=== PATIENT | female | born 1970 ===

== ENCOUNTER 2017-03-21 10:14 | Day surgery (SDC) | payer MEDICAID ==
[2017-03-21 11:02] VITALS: RESP 18
[2017-03-21 11:19] VITALS: BMI 31.9
[2017-03-21] MEDS ORDERED: Bupivacaine 0.5% Inj(30mL) ONE (11:51)
[2017-03-21] MEDS ORDERED: Lidocaine 1% Inj (20ml) ONE (11:51)
[2017-03-21] MEDS ORDERED: MethylPREDNISolone Depo 40 mg/ml Inj ONE (11:51)
[2017-03-21] MEDS ORDERED: Bupivacaine HCl 0.5% PF (10 ml) Inj ONE (11:52)
[2017-03-21] MEDS ORDERED: Lactated Ringer's 1,000 ML IV ONE (12:10)
[2017-03-21 14:57] VITALS: BP 125/79; PULSE 87; TEMP 98.1; O2SAT 98
--- NOTE | 2017-03-21 17:01 | RAD ---
PROCEDURE: Fluoroscopy up to 1 hr. HISTORY: PAIN MANAGEMENT COMPARISON: None TECHNIQUE: Standard protocol for this study/examination. FINDINGS: Total fluoroscopic time (continuous mode) utilized during the procedure: 12.5 seconds. Submitted images from the current procedure: 1.0 IMPRESSION: Less than 1 hr fluoroscopic time utilized during performance of the procedure.
--- NOTE | 2017-03-21 17:23 | OP ---
PROCEDURE DATE: 03/21/2017 PREOPERATIVE DIAGNOSIS: Left knee osteoarthritis. POSTOPERATIVE DIAGNOSIS: Left knee osteoarthritis. PROCEDURE: Left knee genicular nerve block x3. ANESTHESIA ADMINISTERED BY: Dr. Kim. SURGEON: Emigdio Bae MD TYPE OF ANESTHESIA: Monitored anesthesia care. COMPLICATIONS: None. SPECIMEN: None. DESCRIPTION OF PROCEDURE: As follows, after we had a discussion of the procedure with the patient including its risks, benefits, alternative, outcome data, possibility of no effect or increased pain, the patient consented to the procedure. She denies any recent infections, bleeding tendencies or being on anticoagulants and a decision was then made to proceed to the OR. The patient was placed on the fluoroscopy table in a supine position with 2 pillows underneath her left knee. The knee was prepped and draped in the usual sterile fashion and sterile technique was adhered during the entire procedure. The genicular nerves were located adjacent to the medial and lateral femoral condyle and also the lateral tibial condyle. The 3 above-targeted areas were first visualized on the anterior posterior view fluoroscopy. The skin overlying the 3 areas was infiltrated with 1% lidocaine using 25-gauge needle. Subsequently, a 22-gauge 3-1/2-inch spinal needle was incrementally advanced under fluoroscopic guidance until the tip of the needle made bony contact with the target areas. Then, fluoroscopy was turned towards the lateral direction to confirm all 3 needles to be in the middle of the bony shaft. After appropriate placement of all 3 needles, approximately 4 mL of 0.5% Marcaine and Depo-Medrol mixture was injected. The needle was then removed and patient's knee was cleaned and dried and bandage was applied. The patient was then transferred to recovery area in good conditions without any signs of WORKING SUPERVISOR toxicity or any neurological deficits. She will have a followup in our office in approximately 2-4 weeks. En-Miguel Bae MD
== END 2017-03-21 16:36 | disposition home or self-care (01) ==
LOC: H.OPSURG 10:14
PROVIDERS: ATTEND Anesthesiology
DX: M17.12 Unilateral primary osteoarthritis, left knee (principal); K21.9 Gastro-esophageal reflux disease without esophagitis; I10 Essential (primary) hypertension
CPT/HCPCS: 64450; J1030; J2250; J3010; J7120

== ENCOUNTER 2017-08-23 23:13 | Inpatient (IN) | payer MEDICAID ==
[2017-08-23 23:14] VITALS: BMI 31.9
[2017-08-23] MEDS ORDERED: Sodium Chloride 0.9% 1,000 ML IV STA (23:42)
[2017-08-24] MEDS ORDERED: HYDROmorphone 0.5 mg/0.5 ml ISec IVP STA ×2 (00:03→01:09)
[2017-08-24 00:10] LABS: BASO % 0.5 % (0.0-2.0); EOS # 0.1 K/uL (0.0-0.7); EOS % 0.9 % (0.0-4.0); HEMOGLOBIN 14.5 g/dL (12.0-16.0); LYMPH # 1.6 K/uL (1.0-4.3); LYMPH % 21.8 % (20.0-40.0); MEAN CORPUSCULAR HEMOGLOBIN 28.4 pg (27.0-31.0); MEAN CORPUSCULAR HGB CONC 33.1 g/dL (33.0-37.0); MEAN PLATELET VOLUME 9.4 fl (7.2-11.7); MONO # 0.7 K/uL (0.0-0.8); MONO % 9.7 % (0.0-10.0); NEUT % 67.1 % (50.0-75.0); NRBC % 0.2 % (0.0-0.0); RBC 5.08 Mil/uL (3.80-5.20); RED CELL DISTRIBUTION WIDTH 15.1 % (11.5-14.5); WHITE BLOOD COUNT 7.4 K/uL (4.8-10.8)
--- NOTE | 2017-08-24 00:11 | ED PDOC ---
HPI: Back Time Seen by Provider: 08/23/17 23:25 Chief Complaint (Nursing): Back Pain Chief Complaint (Provider): Back Pain History Per: Patient History/Exam Limitations: no limitations Onset/Duration Of Symptoms: Persistent, Worse Since (worse since earlier tonight ) Current Symptoms Are (Timing): Constant Previous Symptoms: Chronic Pain Additional Complaint(s): 46 year old female presents to ED with complaints of worsening back pain since earlier tonight and has a past medical history of chronic back pain and colon cancer (on 47th cycle of chemotherapy - 5fu with leucovorin). Patient states pain became extremely severe on the left side of her mid-back, radiating to her chest. (+) nausea and vomiting x4 episodes (non-bloody, non-bilious). Patient notes that she follows up with Dr. Bae for Ultram and Tylenol 3 for back pain, but has been unable to tolerate her pain medication secondary to nausea. PCP: Zoran Hernández - Risk Factors AAA Risk Factors: Neg: Older Than 49 Years Of Age Past Medical History Reviewed: Historical Data, Nursing Documentation, Vital Signs Vital Signs: Last Vital Signs Temp 97.8 F 08/23/17 23:15 Pulse 97 H 08/23/17 23:15 Resp 16 08/23/17 23:15 BP 165/101 H 08/23/17 23:15 Pulse Ox 98 08/23/17 23:15 - Medical History PMH: Anxiety, Depression, Fibromyalgia, GERD, HTN Denies: Chronic Kidney Disease - Surgical History Surgical History: Back Surgery, Endoscopy - Family History Family History: States: Unknown Family Hx - Home Medications Home Medications: Ambulatory Orders Medication Instructions Recorded amLODIPine [Norvasc] 10 mg PO DAILY #0 tab 04/05/15 DULoxetine [Cymbalta] 60 mg PO HS 04/23/15 Omeprazole 20 mg PO DAILY 04/27/17 Acetaminophen with Codeine 1 tab PO Q6 PRN 08/24/17 [Tylenol with Codeine #3 Tablet] Ondansetron [Zofran Tab] 4 mg PO Q6 PRN 08/24/17 Tramadol HCl [Tramadol HCl ER] 1 tab PO BID PRN 08/24/17 Zolpidem [Ambien] 10 mg PO HS 08/24/17 - Allergies Allergies/Adverse Reactions: Allergies Allergy/AdvReac Type Severity Reaction Status Date / Time penicillin G Allergy RASH Verified 03/21/17 11:19 vancomycin Allergy RASH Verified 03/21/17 11:19 Review of Systems ROS Statement: Except As Marked, All Systems Reviewed And Found Negative Cardiovascular: Positive for: Chest Pain (back pain radiates to chest) Gastrointestinal: Positive for: Nausea, Vomiting (x4 episodes) Musculoskeletal: Positive for: Back Pain Physical Exam - Reviewed Nursing Documentation Reviewed: Yes Vital Signs Reviewed: Yes - Physical Exam Appears: Positive for: Non-toxic, In Acute Distress (secondary to pain; hypertensive) Skin: Positive for: Normal Color, Warm, Dry Eye Exam: Positive for: Normal appearance Neck: Positive for: Normal Cardiovascular/Chest: Positive for: Regular Rate, Rhythm, Tachycardia Respiratory: Positive for: Normal Breath Sounds. Negative for: Respiratory Distress Gastrointestinal/Abdominal: Positive for: Soft. Negative for: Tenderness Back: Positive for: L CVA Tenderness. Negative for: Normal Inspection Extremity: Positive for: Normal ROM. Negative for: Deformity Neurologic/Psych: Positive for: Alert, Oriented. Negative for: Motor/Sensory Deficits - Laboratory Results Result Diagrams: 08/24/17 00:04 08/24/17 00:04 - ECG O2 Sat by Pulse Oximetry: 98 (RA) Pulse Ox Interpretation: Normal Medical Decision Making Medical Decision Makin Initial impression: severe acute back pain on chronic back pain associated with nausea/vomiting and history of colon cancer Initial plan: * EKG * Labs * Lact Acid * Lipase * UPreg * PTT/PT * Dilaudid 1mg IVP * NS IV * Zofran Inj 4mg IV * BCx * Re-eval 0001 * CPK * Trop I 0059 Labs reviewed: no clinically significant abnormalities with exception of elevated lactic acid at 7.1 This is likely a result of active tumorlysis, given patient is currently on chemotherapy. Patient complains of persistent pain although she notes some improvement. Patient will be admitted for intractable back pain and lactic acidosis under Dr. Lise Haro (family practice resident occupational therapy supervisor) - INPATIENT MED/SURG. 0310 CT LUMBAR FINDINGS: Limitations: Lack of intravenous contrast. Streak artifact - mild. Vertebrae: No acute fracture. Surgical clips/mesh anterior to spine. Discs/spinal canal/neural foramina: Intervertebral device at L4-L5 level. No significant spinal stenosis. Soft tissues: Unremarkable. Lymph nodes: Borderline enlarged short axis lymph node upper abdomen, stable. Other findings: Gas within sacroiliac joints. Probable bone islands. IMPRESSION: 1. No fracture. 2. If back pain persists, consider MRI for further evaluation. 3. Incidental/non-acute findings are described above. Scribe Attestation: Documented by Tali Jean-Baptiste acting as a scribe for Juan Smith MD. Scribe Attestation: All medical record entries made by the Scribe were at my direction and personally dictated by me. I have reviewed the chart and agree that the record accurately reflects my personal performance of the history, physical exam, medical decision making, and the department course for this patient. I have also personally directed, reviewed, and agree with the discharge instructions and disposition. Disposition - Disposition Disposition Time: 00:58 Condition: FAIR - Pt Status Changed To: Hospital Disposition Of: Inpatient (MED/SURG) - Admit Certification Admit to Inpatient:: After my assessment, the patient will require hospitalization for at least two midnights. This is because of the severity of symptoms shown, intensity of services needed, and/or the medical risk in this patient being treated as an outpatient.
[2017-08-24 00:18] LABS: ALB/GLOB RATIO 1.2 (1.0-2.1); ALBUMIN 4.6 g/dL (3.5-5.0); ALT/SGPT 131 U/L (9-52); AST/SGOT 192 U/L (14-36); BLOOD UREA NITROGEN 10 mg/dl (7-17); CALCIUM 9.8 mg/dL (8.4-10.2); GFR AFRICAN-AMERICAN > 60; GFR NON-AFRICAN AMERICAN > 60; LIPASE 119 U/L (23-300)
[2017-08-24] MEDS ORDERED: Sodium Chloride 0.9% 1,000 ML IV STA (00:30)
[2017-08-24 00:47] LABS: INR 1.2 (0.9-1.2); PARTIAL THROMBOPLASTIN TIME 27.7 Seconds (25.6-37.1); PROTHROMBIN TIME 13.1 Seconds (9.8-13.1)
--- NOTE | 2017-08-24 02:56 | CP.PCM.HP ---
Addendum entered and electronically signed by Alison Whiteside MD 08/24/17 17:27: Pt seen and examined at the bedside in the am. Complained of back pain, not controlled with current pain regimen. Tolerating diet. Pain management consulted and medication regimen adjusted + End Tidal CO2 Pt re-evaluated in the evening and states pain is well controlled. MRI w/ and w/o contrast-thoracic and lumbar ordered Original Note: History of Present Illness - History of Present Illness History of Present Illness: "my back hurts much worse than it ever did" 46 y/o female with medical hx remarkable for HTN, Colon CA (currently on chemo) , chronic back pain (managed by pain management) and Fibromylagia, presents for evaluation of worsening back pain. Pt reports her pain was at baseline approx 1 week ago but had suddenly worsened while she was lying in bed. She reports it shot up to a 10/10 while laying down and remained at that level even while taking her prescribed medications. She denies any inciting or triggering events. The pain is located on her right lower back, it is 10/10, constant, nonradiating, without any alleviating factors. She is unsure of aggravating factors as it is always there. She is currenlty on cycle 37 of chemo for her colon CA, which has mets to the liver. She also reports episodes of nausea and several episodes of NBNB emesis which she blames on the chemo. She has no other complaints and concerns. Denies fever/chills, headaches, changes in vision, numbness/tingling, saddle anesthesia, urinary/bowel retention/incontinence. PMD: [facility] PMHx: HTN, colon cancer with liver mets, back pain Meds: as per med rec PsurgHx: C6 fusion, Colon resection and b/l oopherectomy, radioembolization of liver SocialHx: denies ETOH/tobacco/drug abuse FamilyHx: DM, HTN LMP: last month Next of kin: daughter Aspen Code status: full code Present on Admission - Present on Admission Any Indicators Present on Admission: No Review of Systems - Constitutional Constitutional: absent: As Per HPI, Anorexia, Chills, Daytime Sleepiness, Excessive Sweating, Fatigue, Fever, Frequent Falls, Headache, Increased Appetite , Lethargy, Malaise, Night Sweats, Snoring, Sleep Apnea, Weight Gain, Weight Loss, Weakness, Other - EENT Eyes: absent: As Per HPI, Blind Spots, Blurred Vision, Change in Vision, Decreased Night Vision, Diplopia, Discharge, Dry Eye, Exophthalmos, Floaters, Irritation, Itchy Eyes, Loss of Peripheral Vision, Pain, Photophobia, Requires Corrective Lenses, Sees Flashes, Spots in Vision, Tunnel Vision, Other Visual Disturbances, Loss of Vision, Other Ears: absent: As Per HPI, Decreased Hearing, Ear Discharge, Ear Pain, Tinnitus, Abnormal Hearing, Disequilibrium, Dizziness, Other Nose/Mouth/Throat: absent: As Per HPI, Epistaxis, Nasal Congestion, Nasal Discharge, Nasal Obstruction, Nasal Trauma, Nose Pain, Post Nasal Drip, Sinus Pain, Sinus Pressure, Bleeding Gums, Change in Voice, Dental Pain, Dry Mouth, Dysphagia, Halitosis, Hoarsness, Lip Swelling, Mouth Lesions, Mouth Pain, Odynophagia, Sore Throat, Throat Swelling, Tongue Swelling, Facial Pain, Neck Pain, Neck Mass, Other - Breasts Breasts: absent: As Per HPI, Change in Shape, Mass, Pain, Nipple Discharge, Nipple Inversion, Skin Changes, Swelling, Other - Cardiovascular Cardiovascular: absent: As Per HPI, Acrocyanosis, Chest Pain, Chest Pain at Rest , Chest Pain with Activity, Claudication, Diaphoresis, Dyspnea, Dyspnea on Exertion, Edema, Irregular Heart Rhythm, Pain Radiating to Arm/Neck/Jaw, Leg Edema, Leg Ulcers, Lightheadedness, Orthopnea, Palpitations, Paroxysmal Nocturnal Dyspnea, Pedal Edema, Radiating Pain, Rapid Heart Rate, Slow Heart Rate, Syncope, Other - Respiratory Respiratory: absent: As Per HPI, Cough, Dyspnea, Hemoptysis, Dyspnea on Exertion , Wheezing, Snoring, Stridor, Pain on Inspiration, Chest Congestion, Excessive Mucous Production, Change in Mucous Color, Pain with Coughing, Other - Gastrointestinal Gastrointestinal: Nausea, Vomiting. absent: As Per HPI, Abdominal Pain, Belching, Bloating, Change in Bowel Habits, Change in Stool Character, Coffee Ground Emesis, Constipation, Cramping, Diarrhea, Dyspepsia, Dysphagia, Early Satiety, Excessive Flatus, Fecal Incontinence, Heartburn, Hematemesis, Hematochezia, Loose Stools, Melena, Odynophagia, Temesmus, Other - Musculoskeletal Musculoskeletal: As Per HPI, Back Pain, Myalgias, Neck Pain Past Patient History - Infectious Disease Hx of Infectious Diseases: None - Past Medical History & Family History Past Medical History?: Yes - Past Social History Smoking Status: Never Smoked Alcohol: None Drugs: Denies Home Situation {Lives}: With Family - CARDIAC Hx Hypertension: Yes - PULMONARY Hx Respiratory Disorders: No - NEUROLOGICAL Hx Neurological Disorder: Yes - HEENT Hx HEENT Problems: No - RENAL Hx Chronic Kidney Disease: No - ENDOCRINE/METABOLIC Hx Endocrine Disorders: No - INTEGUMENTARY Hx Dermatological Problems: No - GENITOURINARY/GYNECOLOGICAL Hx Genitourinary Disorders: No - PSYCHIATRIC Hx Anxiety: Yes Hx Depression: Yes - SURGICAL HISTORY Other/Comment: STEROID INJECTION;SPINAL [id number] 6;CERVICAL 5 REPLACEMENT;COLONOSCOPY;ENDOSCOPY;COLON RESECTION;REMOVAL OF BILATERSAL OVARIES - ANESTHESIA Hx Anesthesia: Yes Hx Anesthesia Reactions: No Hx Malignant Hyperthermia: No Meds Allergies/Adverse Reactions: Allergies Allergy/AdvReac Type Severity Reaction Status Date / Time penicillin G Allergy RASH Verified 03/21/17 11:19 vancomycin Allergy RASH Verified 03/21/17 11:19 Physical Exam - Constitutional Appears: Non-toxic, No Acute Distress - Head Exam Head Exam: ATRAUMATIC, NORMOCEPHALIC - Eye Exam Eye Exam: EOMI Pupil Exam: PERRL - ENT Exam ENT Exam: Mucous Membranes Moist, Normal Exam - Neck Exam Neck exam: Positive for: Normal Inspection. Negative for: Tenderness - Respiratory Exam Respiratory Exam: Clear to Auscultation Bilateral, NORMAL BREATHING PATTERN. absent: Rales, Rhonchi, Wheezes - Cardiovascular Exam Cardiovascular Exam: REGULAR RHYTHM, RRR, +S1, +S2. absent: Diastolic murmur, JVD, Rubs, Systolic Murmur - GI/Abdominal Exam GI & Abdominal Exam: Normal Bowel Sounds, Soft. absent: Tenderness - Extremities Exam Extremities exam: Positive for: normal inspection, pedal pulses present. Negative for: calf tenderness, pedal edema, tenderness - Back Exam Back exam: FULL ROM, tenderness (right mid back ). absent: CVA tenderness (L), CVA tenderness (R), muscle spasm, paraspinal tenderness, vertebral tenderness - Neurological Exam Neurological exam: Alert, CN II-XII Intact, Normal Gait, Oriented x3, Reflexes Normal - Psychiatric Exam Psychiatric exam: Normal Affect, Normal Mood - Skin Skin Exam: Dry, Intact, Normal Color, Warm Results - Vital Signs Recent Vital Signs: Last Vital Signs Temp 97.8 F 08/23/17 23:15 Pulse 97 H 08/23/17 23:15 Resp 16 08/23/17 23:15 BP 165/101 H 08/23/17 23:15 Pulse Ox 98 08/24/17 01:02 - Labs Result Diagrams: 08/24/17 00:04 08/24/17 00:04 Labs: Laboratory Results - last 24 hr 08/24/17 08/24/17 08/24/17 00:04 00:04 00:04 WBC 7.4 RBC 5.08 Hgb 14.5 Hct 43.7 MCV 86.0 D MCH 28.4 MCHC 33.1 RDW 15.1 H Plt Count 235 MPV 9.4 Neut % (Auto) 67.1 Lymph % (Auto) 21.8 Cottle % (Auto) 9.7 Eos % (Auto) 0.9 Baso % (Auto) 0.5 Neut # (Auto) 5.0 Lymph # (Auto) 1.6 Cottle # (Auto) 0.7 Eos # (Auto) 0.1 Baso # (Auto) 0.0 PT INR APTT Sodium 135 Potassium 3.8 Chloride 94 L Carbon Dioxide 18 L Anion Gap 27 H BUN 10 Creatinine 0.5 L Est GFR ( Amer) > 60 Est GFR (Non-Af Amer) > 60 Random Glucose 208 H Lactic Acid 7.1 H* Calcium 9.8 Magnesium Total Bilirubin 0.6 AST 192 H ALT 131 H D Alkaline Phosphatase 164 H Total Creatine Kinase Troponin I Total Protein 8.6 H Albumin 4.6 Globulin 4.0 H Albumin/Globulin Ratio 1.2 Lipase 119 08/24/17 08/24/17 08/24/17 00:04 00:14 00:34 WBC RBC Hgb Hct MCV MCH MCHC RDW Plt Count MPV Neut % (Auto) Lymph % (Auto) Cottle % (Auto) Eos % (Auto) Baso % (Auto) Neut # (Auto) Lymph # (Auto) Cottle # (Auto) Eos # (Auto) Baso # (Auto) PT 13.1 INR 1.2 APTT 27.7 Sodium Potassium Chloride Carbon Dioxide Anion Gap BUN Creatinine Est GFR ( Amer) Est GFR (Non-Af Amer) Random Glucose Lactic Acid Calcium Magnesium 1.8 Total Bilirubin AST ALT Alkaline Phosphatase Total Creatine Kinase 70 Troponin I < 0.0120 Total Protein Albumin Globulin Albumin/Globulin Ratio Lipase Assessment & Plan - Assessment and Plan (Free Text) Assessment: 46 y/o female with hx of colon CA on chemo admitted for intractable back pain. Plan: 1) Intractable Back Pain -s/p 3mg Dilaudid in ED -LS CT w/o contrast: no fracture or spinal stenosis when compared to MRI last month -pain control -was last seen by Dr. Bae on 08/17/2017, no evidence in encounter of worsening pain -anesthesiology consult with Dr. Bae, follow up recommendations 2) Colon Cancer with Liver metastasis -currently on cycle 37 of chemo -pt reports she is to be seen by [facility] for next dosage which is due tomorrow -Zofran for nausea 3) Hypertension -stable -c/w home meds as ordered 4) Transaminemia -likley 2/2 to liver mets 5) Lactic Acidosis -likely 2/2 to tumor lysis from current chemo therapy 6) Diet -regular diet 7) Prophylaxis -Lovenox 40mg SC QD
--- NOTE | 2017-08-24 03:10 | CT ---
EXAM: CT Lumbar Spine Without Intravenous Contrast CLINICAL HISTORY: 46 years old, female; Pain; Low back pain; Prior surgery; Surgery date: 6+ months; Surgery type: Back surgery TECHNIQUE: Axial computed tomography images of the lumbar spine without intravenous contrast. All CT scans at this facility use one or more dose reduction techniques, viz.: automated exposure control; ma/kV adjustment per patient size (including targeted exams where dose is matched to indication; i.e. head); or iterative reconstruction technique. Coronal and sagittal reformatted images were created and reviewed. COMPARISON: MR - SPINAL CANAL LUMBAR W/O CONT 2017-07-10 11:47, CT-04/04/2015 FINDINGS: Limitations: Lack of intravenous contrast. Streak artifact - mild. Vertebrae: No acute fracture. Surgical clips/mesh anterior to spine. Discs/spinal canal/neural foramina: Intervertebral device at L4-L5 level. No significant spinal stenosis. Soft tissues: Unremarkable. Lymph nodes: Borderline enlarged short axis lymph node upper abdomen, stable. Other findings: Gas within sacroiliac joints. Probable bone islands. IMPRESSION: 1. No fracture. 2. If back pain persists, consider MRI for further evaluation. 3. Incidental/non-acute findings are described above.
[2017-08-24] MEDS ORDERED: HYDROmorphone 0.5 mg/0.5 ml ISec IVP PRN (06:00)
[2017-08-24] MEDS ORDERED: HYDROmorphone 0.5 mg/0.5 ml ISec IVP ONE (06:00)
[2017-08-24] MEDS ORDERED: Acetaminophen-Codeine 300/30 mg Tab PO PRN (06:03)
--- NOTE | 2017-08-24 07:55 | PCM.RRT ---
<Alison Whiteside - Last Filed: 08/24/17 09:01> I.Reason for STRAIGHT KNIFE CUTTER MACHINE - A) Acute Change in Patient: Subjective: STRAIGHT KNIFE CUTTER MACHINE Start Time: 7:34 STRAIGHT KNIFE CUTTER MACHINE Reason: Intractable back pain S: STRAIGHT KNIFE CUTTER MACHINE called by RN because pt was complaining of severe back pain that was not relieved but current pain regimen. Pt complained of back pain. Denied cp, sob, headache, numbness or tingling, or weakness. O: Vitals BP 151/86, 75, O2 sat 100%, T 97.6 General: Pt seen lying in bed, distressed, moaning HEENT: normocephalic, atraumatic Cardiac: RRR, normal S1, S2, no murmurs Pulm: CTABL, no wheezing Abdomen: Soft, nontender, non distended, normal BS Extremities: no Le edema Neuro: no gross focal neurological deficits STRAIGHT KNIFE CUTTER MACHINE Interventions: 2mg of Dilaudid x1 Reassessment: Pt was re-evaluated 10min after receiving Dilaudid, mildly distressed, stating improvement in pain Assessment: Pt is a 46 y/o female admitted for intractable back pain currently receiving Tramadol and Cymbalta with complaints of acute back for which a rapid response was called. Plan: Pain consult in place to assess for [facility] pain management. Will re- evaluate pt's current home pain regimen. STRAIGHT KNIFE CUTTER MACHINE MD: Dr. Bakari Zavala STRAIGHT KNIFE CUTTER MACHINE End Time: 7:50am <Marla Medel - Last Filed: 08/24/17 14:21> Attending/Attestation - Attestation I have personally seen and examined this patient.: Yes I have fully participated in the care of the patient.: Yes I have reviewed all pertinent clinical information, including history, physical exam and plan: Yes Notes (Text): Intractable Low Back Pain - CT of L spine : no fracture - no focal neuro deficit, no saddle anesthesia - no urinary retention - Dilaudid 2 mg IV given - Pain mgt consult - further work up for LBP 08/24/17 14:21
[2017-08-24] MEDS: Lidocaine 5% Patch TD SCH ×2 (08:10→11:30)
[2017-08-24 09:04] LABS: HEMOGLOBIN 14.6 g/dL (12.0-16.0); MEAN CELL VOLUME 85.5 fl (81.0-99.0); MEAN CORPUSCULAR HEMOGLOBIN 28.8 pg (27.0-31.0); MEAN CORPUSCULAR HGB CONC 33.7 g/dL (33.0-37.0); RBC 5.08 Mil/uL (3.80-5.20); RED CELL DISTRIBUTION WIDTH 14.7 % (11.5-14.5); WHITE BLOOD COUNT 7.4 K/uL (4.8-10.8)
--- NOTE | 2017-08-24 09:16 | RAD ---
HISTORY: admit COMPARISON: CT scan of the chest, abdomen and pelvis performed 10/19/2015 at [facility]. FINDINGS: LUNGS: No active pulmonary disease. PLEURA: No significant pleural effusion identified, no pneumothorax apparent. CARDIOVASCULAR: Normal. OSSEOUS STRUCTURES: Anterior cervical fixation plate. Unchanged. VISUALIZED UPPER ABDOMEN: Normal. OTHER FINDINGS: Right internal jugular access chest port, unchanged. IMPRESSION: No active disease.
[2017-08-24 09:17] LABS: ALB/GLOB RATIO 1.1 (1.0-2.1); ALBUMIN 4.6 g/dL (3.5-5.0); ALT/SGPT 141 U/L (9-52); AST/SGOT 195 U/L (14-36); BLOOD UREA NITROGEN 7 mg/dl (7-17); CALCIUM 9.8 mg/dL (8.4-10.2); GFR AFRICAN-AMERICAN > 60; GFR NON-AFRICAN AMERICAN > 60
[2017-08-24] MEDS: Pantoprazole 40 mg EC Tab PO SCH (09:43)
[2017-08-24] MEDS: Enoxaparin 40 mg Syringe SC SCH (09:47)
--- NOTE | 2017-08-24 13:27 | CP.PCM.CON ---
History of Present Illness - History of Present Illness History of Present Illness: 46 y/o female with medical hx remarkable for chronic back pain (managed by pain management) and Fibromylagia, presents for evaluation of worsening back pain. Pt reports pain escalated to a 10/10 despite taking her prescribed medications. She denies any inciting or triggering events. The pain is located on her left lower back radiating to her ribs. She denies aggravating factors. She is currenlty on cycle 37 of chemo for her colon CA, which has mets to the liver. Denies fever/chills, headaches, changes in vision, numbness/tingling, saddle anesthesia, urinary/bowel retention/incontinence. Past Patient History - Infectious Disease Hx of Infectious Diseases: None - Past Medical History & Family History Past Medical History?: Yes - Past Social History Smoking Status: Never Smoked Alcohol: None Drugs: Denies Home Situation {Lives}: With Family - CARDIAC Hx Hypertension: Yes - PULMONARY Hx Respiratory Disorders: No - NEUROLOGICAL Hx Neurological Disorder: Yes - HEENT Hx HEENT Problems: No - RENAL Hx Chronic Kidney Disease: No - ENDOCRINE/METABOLIC Hx Endocrine Disorders: No - INTEGUMENTARY Hx Dermatological Problems: No - GENITOURINARY/GYNECOLOGICAL Hx Genitourinary Disorders: No - PSYCHIATRIC Hx Anxiety: Yes Hx Depression: Yes - SURGICAL HISTORY Other/Comment: STEROID INJECTION;SPINAL [id number] 6;CERVICAL 5 REPLACEMENT;COLONOSCOPY;ENDOSCOPY;COLON RESECTION;REMOVAL OF BILATERSAL OVARIES - ANESTHESIA Hx Anesthesia: Yes Hx Anesthesia Reactions: No Hx Malignant Hyperthermia: No Meds Allergies/Adverse Reactions: Allergies Allergy/AdvReac Type Severity Reaction Status Date / Time penicillin G Allergy RASH Verified 03/21/17 11:19 vancomycin Allergy RASH Verified 03/21/17 11:19 - Medications Medications: Current Medications Acetaminophen/Codeine Phosphate (Tylenol/Codeine 300 Mg/30 Mg) 1 tab PO Q6 PRN PRN Reason: Pain, moderate (4-7) Last Admin: 08/24/17 07:50 Dose: 1 tab Amlodipine Besylate (Norvasc) 10 mg PO DAILY ON LICENSE OF [facility] Last Admin: 08/24/17 09:47 Dose: 10 mg Docusate Sodium (Colace) 100 mg PO BID ON LICENSE OF [facility] Last Admin: 08/24/17 09:50 Dose: 100 mg Duloxetine HCl (Cymbalta) [address] [facility] Enoxaparin Sodium (Lovenox) 40 mg SC DAILY ON LICENSE OF [facility] PRN Reason: Protocol Last Admin: 08/24/17 09:47 Dose: 40 mg Hydromorphone HCl (Dilaudid) 1 mg IVP Q6 PRN PRN Reason: Pain, severe (8-10) Last Admin: 08/24/17 10:52 Dose: 1 mg Lidocaine (Lidoderm) 1 ea TD DAILY ON LICENSE OF [facility] Lidocaine (Lidoderm) 1 ea TD DAILY ON LICENSE OF [facility] Lorazepam (Ativan) 1 mg PO Q6 PRN PRN Reason: Anxiety Ondansetron HCl (Zofran Inj) 4 mg IVP Q6 PRN PRN Reason: Nausea/Vomiting Pantoprazole Sodium (Protonix Ec Tab) 40 mg PO DAILY ON LICENSE OF [facility] Last Admin: 08/24/17 09:43 Dose: 40 mg Tramadol HCl (Ultram) 50 mg PO Q6H PRN PRN Reason: Pain, moderate (4-7) Last Admin: 08/24/17 09:38 Dose: 50 mg Zolpidem Tartrate (Ambien) [address] [facility] Physical Exam - Back Exam Additional comments: limited ROM mild lumbar pvb tenderness sensation intact negative SLR DP flex 5/5 bilateral LE, sensation intact Results - Vital Signs Recent Vital Signs: Last Vital Signs Temp 97.6 F 08/24/17 08:15 Pulse 101 H 08/24/17 09:47 Resp 19 08/24/17 08:15 BP 151/86 H 08/24/17 09:47 Pulse Ox 100 08/24/17 08:15 - Labs Result Diagrams: 08/24/17 08:50 08/24/17 08:50 Labs: Laboratory Results - last 24 hr 08/24/17 08/24/17 08/24/17 00:04 00:04 00:04 WBC 7.4 RBC 5.08 Hgb 14.5 Hct 43.7 MCV 86.0 D MCH 28.4 MCHC 33.1 RDW 15.1 H Plt Count 235 MPV 9.4 Neut % (Auto) 67.1 Lymph % (Auto) 21.8 Starr % (Auto) 9.7 Eos % (Auto) 0.9 Baso % (Auto) 0.5 Neut # (Auto) 5.0 Lymph # (Auto) 1.6 Starr # (Auto) 0.7 Eos # (Auto) 0.1 Baso # (Auto) 0.0 PT INR APTT Sodium 135 Potassium 3.8 Chloride 94 L Carbon Dioxide 18 L Anion Gap 27 H BUN 10 Creatinine 0.5 L Est GFR ( Amer) > 60 Est GFR (Non-Af Amer) > 60 Random Glucose 208 H Lactic Acid 7.1 H* Calcium 9.8 Magnesium Total Bilirubin 0.6 AST 192 H ALT 131 H D Alkaline Phosphatase 164 H Total Creatine Kinase Troponin I Total Protein 8.6 H Albumin 4.6 Globulin 4.0 H Albumin/Globulin Ratio 1.2 Lipase 119 08/24/17 08/24/17 08/24/17 00:04 00:14 00:34 WBC RBC Hgb Hct MCV MCH MCHC RDW Plt Count MPV Neut % (Auto) Lymph % (Auto) Starr % (Auto) Eos % (Auto) Baso % (Auto) Neut # (Auto) Lymph # (Auto) Starr # (Auto) Eos # (Auto) Baso # (Auto) PT 13.1 INR 1.2 APTT 27.7 Sodium Potassium Chloride Carbon Dioxide Anion Gap BUN Creatinine Est GFR ( Amer) Est GFR (Non-Af Amer) Random Glucose Lactic Acid Calcium Magnesium 1.8 Total Bilirubin AST ALT Alkaline Phosphatase Total Creatine Kinase 70 Troponin I < 0.0120 Total Protein Albumin Globulin Albumin/Globulin Ratio Lipase 08/24/17 08/24/17 08/24/17 08:50 08:50 08:50 WBC 7.4 RBC 5.08 Hgb 14.6 Hct 43.4 MCV 85.5 MCH 28.8 MCHC 33.7 RDW 14.7 H Plt Count 270 MPV Neut % (Auto) Lymph % (Auto) Starr % (Auto) Eos % (Auto) Baso % (Auto) Neut # (Auto) Lymph # (Auto) Starr # (Auto) Eos # (Auto) Baso # (Auto) PT INR APTT Sodium 141 Potassium 3.9 Chloride 100 Carbon Dioxide 23 Anion Gap 22 H BUN 7 Creatinine 0.4 L Est GFR ( Amer) > 60 Est GFR (Non-Af Amer) > 60 Random Glucose 151 H Lactic Acid 2.4 H Calcium 9.8 Magnesium Total Bilirubin 0.7 AST 195 H ALT 141 H Alkaline Phosphatase 146 H Total Creatine Kinase Troponin I Total Protein 8.7 H Albumin 4.6 Globulin 4.1 H Albumin/Globulin Ratio 1.1 Lipase Assessment & Plan - Assessment and Plan (Free Text) Assessment: 46yF with colon cancer and acute on chronic back pain Plan: 1. Physical Therapy 2. Percocet 1-2 tabs po q4 hr prn moderate pain 3. Morphine 4mg IV q4h prn breakthrough pain 4. Gabapentin 100 mg po TID 5. Cymbalta 30 mg po daily 6. F/u with PMD and Dr Bae after discharge 7. MRI L spine and T spine 8. flexeril 5mg po tid prn muscle spasm
[2017-08-24] MEDS ORDERED: Morphine 4 MG/ML VIAL ONE (13:52)
[2017-08-24] MEDS: Oxycodone/Acetaminophen 5/325 mg Tab PO PRN (16:48)
[2017-08-24] MEDS ORDERED: Gadodiamide 287 MG/ML VIAL (15ML) IV ONE (17:12)
--- NOTE | 2017-08-24 18:04 | CARD ---
APPROVED REPORT EKG Measurement Heart [id number] <Conclusion> Normal sinus rhythm Normal ECG
[2017-08-24] MEDS: Morphine 4 MG/ML VIAL IVP PRN (20:01)
[2017-08-25] MEDS: Oxycodone/Acetaminophen 5/325 mg Tab PO PRN ×2 (00:14→12:18)
[2017-08-25] MEDS: Morphine 4 MG/ML VIAL IVP PRN (08:45)
[2017-08-25] MEDS: Enoxaparin 40 mg Syringe SC SCH (08:48)
[2017-08-25] MEDS: Lidocaine 5% Patch TD SCH ×2 (08:49)
[2017-08-25] MEDS: Pantoprazole 40 mg EC Tab PO SCH (08:49)
--- NOTE | 2017-08-25 12:34 | MRI ---
PROCEDURE: MRI lumbar spine dated 08/24/2017 HISTORY: Acute back pain COMPARISON: Comparison made with CT scan lumbar spine performed earlier same day as well as prior MRI of the lumbar spine 07/10/2017. TECHNIQUE: Multiecho multiplanar sequences were performed through the lumbar spine with and without the use of intravenous contrast. 18 cc Omniscan injected for this exam FINDINGS: Susceptibility artifact emanating from the metallic fusion hardware within the L4-L5 disc space obscures surrounding detail. Please refer to CT scan of the lumbar spine for additional details regarding the integrity of the metallic fixation hardware and fusion itself. The facet joints at this level are slightly overgrown. Mild narrowing of the lateral recesses right greater than left Overall central canal appears adequate so far as can be seen. Exit foramina also appear adequate At the L5-S1 level, there is mild age related disc desiccation. Disc space height maintained. No disc herniation however minimal proximal left foraminal disc bulging noted. . Facets are slightly hypertrophic. Central canal and exit foramina are adequate. At the L3- L4 level, there is also mild age related disc desiccation. Disc space height maintained. Very minor broad-based bulge of the posterior annulus results in mild broad flattening of the ventral surface of thecal sac more so on the left side with protrusion component on extending into the proximal inferior margin left exit foramen. . . The left lateral recess is slightly narrowed. The overall central canal is quite capacious. The facets are hypertrophic. Exit foramina mildly narrowed on the left and adequate on the right. . The remaining levels exhibit adequate disc height and hydration. No disc herniation or significant disc bulge. . Facets are slightly overgrown at the L2-L3 and L1-L2 levels. Central canal and exit foramina adequate. IMPRESSION: Susceptibility artifact related to metallic fusion hardware in the L4-L5 disc space limits evaluation to some degree. Please refer to CT scan lumbar spine for additional details. . Slight narrowing of the lateral recesses right greater than left Mild degenerative spondylosis L3-L4 level with broad-based disc bulge and small proximal left foraminal protrusion component. Mild multilevel facet arthropathy as above. Preliminary report provided by overnight radiology service.
--- NOTE | 2017-08-25 14:38 | CP.PCM.DIS ---
Provider - Provider Date of Admission: 08/24/17 00:58 Attending physician: Jackelyn Reynolds MD Time Spent in preparation of Discharge (in minutes): 45 Diagnosis - Discharge Diagnosis (1) Intractable abdominal pain Status: Acute Hospital Course - Lab Results Lab Results: Micro Results 08/23/17 23:55 Blood-Venous Blood Culture - Preliminary NO GROWTH AFTER 24 HOURS 08/23/17 23:55 Blood-Venous Blood Culture - Preliminary NO GROWTH AFTER 24 HOURS Most Recent Lab Values WBC 7.4 K/uL (4.8-10.8) 08/24/17 08:50 RBC 5.08 Mil/uL (3.80-5.20) 08/24/17 08:50 Hgb 14.6 g/dL (12.0-16.0) 08/24/17 08:50 Hct 43.4 % (34.0-47.0) 08/24/17 08:50 MCV 85.5 fl (81.0-99.0) 08/24/17 08:50 MCH 28.8 pg (27.0-31.0) 08/24/17 08:50 MCHC 33.7 g/dL (33.0-37.0) 08/24/17 08:50 RDW 14.7 % (11.5-14.5) H 08/24/17 08:50 Plt Count 270 K/uL (130-400) 08/24/17 08:50 MPV 9.4 fl (7.2-11.7) 08/24/17 00:04 Neut % (Auto) 67.1 % (50.0-75.0) 08/24/17 00:04 Lymph % (Auto) 21.8 % (20.0-40.0) 08/24/17 00:04 [place] % (Auto) 9.7 % (0.0-10.0) 08/24/17 00:04 Eos % (Auto) 0.9 % (0.0-4.0) 08/24/17 00:04 Baso % (Auto) 0.5 % (0.0-2.0) 08/24/17 00:04 Neut # (Auto) 5.0 K/uL (1.8-7.0) 08/24/17 00:04 Lymph # (Auto) 1.6 K/uL (1.0-4.3) 08/24/17 00:04 [place] # (Auto) 0.7 K/uL (0.0-0.8) 08/24/17 00:04 Eos # (Auto) 0.1 K/uL (0.0-0.7) 08/24/17 00:04 Baso # (Auto) 0.0 K/uL (0.0-0.2) 08/24/17 00:04 PT 13.1 Seconds (9.8-13.1) 08/24/17 00:04 INR 1.2 (0.9-1.2) 08/24/17 00:04 APTT 27.7 Seconds (25.6-37.1) 08/24/17 00:04 Sodium 141 mmol/l (132-148) 08/24/17 08:50 Potassium 3.9 MMOL/L (3.6-5.0) 08/24/17 08:50 Chloride 100 mmol/L (98-107) 08/24/17 08:50 Carbon Dioxide 23 mmol/L (22-30) 08/24/17 08:50 Anion Gap 22 (10-20) H 08/24/17 08:50 BUN 7 mg/dl (7-17) 08/24/17 08:50 Creatinine 0.4 mg/dl (0.7-1.2) L 08/24/17 08:50 Est GFR ( Amer) > 60 08/24/17 08:50 Est GFR (Non-Af Amer) > 60 08/24/17 08:50 Random Glucose 151 mg/dL (65-105) H 08/24/17 08:50 Lactic Acid 2.4 MMOL/L (0.7-2.1) H 08/24/17 08:50 Calcium 9.8 mg/dL (8.4-10.2) 08/24/17 08:50 Magnesium 1.8 MG/DL (1.6-2.3) 08/24/17 00:34 Total Bilirubin 0.7 mg/dl (0.2-1.3) 08/24/17 08:50 AST 195 U/L (14-36) H 08/24/17 08:50 ALT 141 U/L (9-52) H 08/24/17 08:50 Alkaline Phosphatase 146 U/L (38-126) H 08/24/17 08:50 Total Creatine Kinase 70 U/L (30-135) 08/24/17 00:14 Troponin I < 0.0120 ng/mL (0.00-0.120) 08/24/17 00:14 Total Protein 8.7 G/DL (6.3-8.2) H 08/24/17 08:50 Albumin 4.6 g/dL (3.5-5.0) 08/24/17 08:50 Globulin 4.1 gm/dL (2.2-3.9) H 08/24/17 08:50 Albumin/Globulin Ratio 1.1 (1.0-2.1) 08/24/17 08:50 Lipase 119 U/L (23-300) 08/24/17 00:04 - Hospital Course Hospital Course: \ Hospital Course: 46 y/o female with medical hx remarkable for HTN, Colon CA (currently on chemo) , chronic back pain (managed by pain management) and Fibromylagia, presents for evaluation of intractable back kitchen. Pt was seen by Pain Management and pain medications were adjusted. PT self administered her 38th round of chemotherapy during admission. Thoracic and Lumbar MRI no acute findings. Pts pain was controlled and she was discharged on Day 2. Discharge Medications: Cyclobenzaprine 5mg po TID Cymbalta 30mg PO daily Gabapentin 100mg po TID Lidoderm patch 5% TD once Condition upon discharge: Fair Activity: Ambulating without assistance Discharge Instructions: F/U with pain management out patient within 1 week ( appt to be scheduled) for adjustments to pain regimen. Discharge Exam - Head Exam Head Exam: ATRAUMATIC, NORMOCEPHALIC - Eye Exam Eye Exam: Normal appearance. absent: Conjunctival injection - ENT Exam ENT Exam: Mucous Membranes Moist - Respiratory Exam Respiratory Exam: NORMAL BREATHING PATTERN. absent: Rales, Wheezes - Cardiovascular Exam Cardiovascular Exam: REGULAR RHYTHM, +S1, +S2. absent: Systolic Murmur - GI/Abdominal Exam GI & Abdominal Exam: Normal Bowel Sounds, Soft. absent: Distended, Tenderness - Neurological Exam Neurological exam: Alert, Oriented x3 - Psychiatric Exam Psychiatric exam: Normal Affect Discharge Plan - Discharge Medications Prescriptions: Cyclobenzaprine [Cyclobenzaprine HCl] 5 mg PO TID #21 tab Docusate [Colace] 100 mg PO BID #14 cap DULoxetine [Cymbalta] 30 mg PO DAILY #7 ecc Gabapentin 100 mg PO TID #21 tablet Lidocaine 5% [Lidoderm] 1 ea TD ONCE #7 patch - Follow Up Plan Condition: FAIR Disposition: HOME/ ROUTINE Referrals: [facility] [Outside] - 08/27/17 11:20 am Emigdio Bae MD [Staff Provider] - (Central Scheduling will be contacting you for a August 27 appt time. )
[2017-08-25 16:04] VITALS: BP 115/82; PULSE 119; TEMP 98.2
--- NOTE | 2017-08-25 16:16 | MRI ---
PROCEDURE: MRI of the thoracic spine dated 08/24/2017. HISTORY: Acute back pain COMPARISON: No prior study available for comparison however correlation made with concurrent MRI of the lumbar spine. TECHNIQUE: Multiecho multiplanar sequences were performed through the thoracic spine with and without the use of intravenous contrast. 18 cc of Omniscan injected for this procedure. Note that the examination is limited as patient was unable to finish the exam and sagittal postcontrast T1 sequences are not obtained. Study is further limited by motion artifact. FINDINGS: ALIGNMENT: No acute compression fractures no retropulsed fragments. There appears to be a localized levoscoliosis in the upper thoracic region. Polyp Minor multilevel degenerative spondylosis is present. Changes included mild age related disc desiccation most notably affecting upper to mid thoracic disc space levels with minor disc bulging that does result in moderate compressive effects on the ventral surface of thecal sac without significant canal compromise nor cord compression. No definitive evidence of abnormal enhancement within the disc spaces on axial images seen to suggest discitis osteomyelitis however due to the lack of postcontrast sagittal T1 imaging the study is quite limited. Evaluation for pathologic signal changes in the spinal cord is limited due to the aforementioned motion artifact. . Linear on prolonged T2 signal changes within the spinal cord both on sagittal T2 and STIR sequences likely representing some combination of wall motion and Grimaldo type artifact. No definitive evidence of abnormal contrast enhancement seen within or along the surfaces of the visualized spinal cord. . Paraspinal soft tissues appear grossly unremarkable Magnetic susceptibility artifact related ACDF and at 2 level anterior fixation plate at the C5-C6 level. . IMPRESSION: Study is limited as patient was unable to finish exam and as a result the sagittal post-contrast T1 sequences not obtained. Study is further limited by motion artifact. No acute compression fractures no retropulsed fragments. There is a mild levoscoliosis centered in the upper thoracic region. No definitive evidence of abnormal enhancement. Minor multilevel degenerative spondylosis with shallow disc bulging changes seen at several levels that do not result in significant canal compromise nor cord compression.
[2017-08-25 17:24] VITALS: RESP 10; O2SAT 100
== END 2017-08-25 18:32 | disposition home or self-care (01) | DRG 243 ==
LOC: H.ER 23:13 → H.ERHOLD 08-24 00:58 → H.MEDSURG1 08-24 04:45
PROVIDERS: ADMIT Family Medicine Geriatric Medicine; ATTEND Family Medicine Geriatric Medicine
DX: M54.9 Dorsalgia, unspecified (principal); C78.7 Secondary malignant neoplasm of liver and intrahepatic bile duct; E87.2 Acidosis; C18.9 Malignant neoplasm of colon, unspecified; E11.9 Type 2 diabetes mellitus without complications; K21.9 Gastro-esophageal reflux disease without esophagitis; F32.9 Major depressive disorder, single episode, unspecified; G89.29 Other chronic pain; I10 Essential (primary) hypertension; M79.7 Fibromyalgia; F41.9 Anxiety disorder, unspecified; Z79.899 Other long term (current) drug therapy; R74.0 Nonspecific elevation of levels of transaminase and lactic acid dehydrogenase [LDH]

== ENCOUNTER 2017-11-18 07:58 | Emergency (ER) | payer MEDICAID ==
[2017-11-18 08:21] VITALS: BP 129/91; PULSE 92; RESP 20; TEMP 98.4; O2SAT 99; BMI 31.4
--- NOTE | 2017-11-18 08:23 | ED PDOC ---
HPI: Back Time Seen by Provider: 11/18/17 08:11 Chief Complaint (Nursing): Back Pain Chief Complaint (Provider): Low Back Pain History Per: Patient History/Exam Limitations: no limitations Onset/Duration Of Symptoms: Days (x2) Current Symptoms Are (Timing): Still Present Additional Complaint(s): 46 y/o female with a pmhx of colon CA (with metastasis to liver) and chronic low back pain, who presents to ED for evaluation of low back pain x2 days. Patient reports pain radiates across lower back into hips bilaterally. She states pain is not improved by Tramadol or Tylenol with Codeine. Denies weakness or paresthesia. Also denies any urinary symptoms. PMD: Neftali Taylor Past Medical History Reviewed: Historical Data, Nursing Documentation, Vital Signs Vital Signs: Last Vital Signs Temp 98.4 F 11/18/17 08:01 Pulse 92 H 11/18/17 08:01 Resp 20 11/18/17 08:01 BP 129/91 H 11/18/17 08:01 Pulse Ox 99 11/18/17 08:01 - Medical History PMH: Anxiety, Depression, Fibromyalgia, GERD, HTN Denies: Chronic Kidney Disease Other PMH: Colon CA (w/ metastasis to liver) - Surgical History Surgical History: Back Surgery, Endoscopy - Family History Family History: States: Unknown Family Hx - Home Medications Home Medications: Ambulatory Orders Medication Instructions Recorded amLODIPine [Norvasc] 10 mg PO DAILY #0 tab 04/05/15 DULoxetine [Cymbalta] 60 mg PO HS 04/23/15 Omeprazole 20 mg PO DAILY 04/27/17 Acetaminophen with Codeine 1 tab PO Q6 PRN 08/24/17 [Tylenol with Codeine #3 Tablet] Ondansetron [Zofran Tab] 4 mg PO Q6 PRN 08/24/17 Tramadol HCl [Tramadol HCl ER] 1 tab PO BID PRN 08/24/17 Zolpidem [Ambien] 10 mg PO HS 08/24/17 Cyclobenzaprine [Cyclobenzaprine 5 mg PO TID #21 tab 08/25/17 HCl] Cyclobenzaprine [Flexeril] 5 mg PO TID PRN #0 tab 08/25/17 DULoxetine [Cymbalta] 30 mg PO DAILY #0 ecc 08/25/17 DULoxetine [Cymbalta] 30 mg PO DAILY #7 ecc 08/25/17 Docusate [Colace] 100 mg PO BID #14 cap 08/25/17 Gabapentin 100 mg PO TID #21 tablet 08/25/17 Gabapentin [Neurontin] 100 mg PO TID cap 08/25/17 Lidocaine 5% [Lidoderm] 1 ea TD DAILY patch 08/25/17 Lidocaine 5% [Lidoderm] 1 ea TD DAILY patch 08/25/17 Lidocaine 5% [Lidoderm] 1 ea TD ONCE #7 patch 08/25/17 Polyethylene Glycol 3350 [Miralax] 1 packet PO DAILY #14 ml 08/25/17 Lidocaine 5% [Lidoderm] 1 ea TD DAILY #10 patch 11/18/17 traMADol [Ultram] 50 mg PO Q8 #10 tab 11/18/17 - Allergies Allergies/Adverse Reactions: Allergies Allergy/AdvReac Type Severity Reaction Status Date / Time penicillin G Allergy RASH Verified 03/21/17 11:19 vancomycin Allergy RASH Verified 03/21/17 11:19 Review of Systems ROS Statement: Except As Marked, All Systems Reviewed And Found Negative Genitourinary Female: Negative for: Dysuria, Frequency, Incontinence, Hematuria Musculoskeletal: Positive for: Back Pain (radiates to b/l hips) Neurological: Negative for: Weakness, Other (paresthesia) Physical Exam - Reviewed Nursing Documentation Reviewed: Yes Vital Signs Reviewed: Yes - Physical Exam Appears: Positive for: Non-toxic, No Acute Distress Back: Positive for: Muscle Spasm (paralumbar), Other (paralumbar tenderness). Negative for: Vertebral Tenderness Neurologic/Psych: Positive for: Alert, Oriented. Negative for: Motor/Sensory Deficits - Laboratory Results Result Diagrams: 11/18/17 09:25 11/18/17 09:25 - ECG O2 Sat by Pulse Oximetry: 99 (RA) Pulse Ox Interpretation: Normal - Progress Re-evaluation Time: 10:27 Condition: Improved Medical Decision Making Medical Decision Makin:17 Plan: --Lidoderm 1% --Toradol 30mg IVP --Valum 5mg PO --X-Ray LS spine --Reevaluation Scribe Attestation: Documented by Иван Franco, acting as a scribe for Dylan Cabrera MD. Provider Scribe Attestation: All medical record entries made by the Scribe were at my direction and personally dictated by me. I have reviewed the chart and agree that the record accurately reflects my personal performance of the history, physical exam, medical decision making, and the department course for this patient. I have also personally directed, reviewed, and agree with the discharge instructions and disposition. Disposition - Clinical Impression Clinical Impression: Back pain - Patient ED Disposition Is Patient to be Admitted: No - Disposition Referrals: Neftali Taylor MD [Staff Provider] - Disposition: Routine/Home Disposition Time: 10:28 Condition: IMPROVED Prescriptions: Lidocaine 5% [Lidoderm] 1 ea TD DAILY #10 patch traMADol [Ultram] 50 mg PO Q8 #10 tab Instructions: Low Back Pain (DC) Forms: [facility] (Frisian)
[2017-11-18] MEDS ORDERED: Lidocaine 5% Patch TD ONE (08:29)
[2017-11-18] MEDS ORDERED: Lidocaine 5% Patch TD SCH (09:00)
[2017-11-18] MEDS ORDERED: Sodium Chloride 0.9% 1,000 ML IV STA (09:15)
[2017-11-18] MEDS ORDERED: HYDROmorphone 0.5 mg/0.5 ml ISec IVP STA (09:15)
[2017-11-18] MEDS ORDERED: HYDROmorphone 0.5 mg/0.5 ml ISec ONE ×3 (09:21→22:43)
--- NOTE | 2017-11-18 09:43 | RAD ---
PROCEDURE: Radiographs of the Lumbar Spine. HISTORY: Back pain COMPARISON: No prior. FINDINGS: BONES: There is normal alignment of the lumbar vertebral bodies. There is normal lumbar lordosis. There is no acute fracture, spondylolysis or spondylolisthesis. Bone mineralization is normal. DISC SPACES: Status post discectomy and radiopaque endplate implant at L4-5. The remaining disc heights are maintained. OTHER FINDINGS: There are no pathologic soft tissue calcifications. Both sacroiliac joints are normal. IMPRESSION: No acute fracture, spondylolysis or spondylolisthesis. Status post L4-5 discectomy with radiopaque endplate implants at L4-5.
[2017-11-18 09:47] LABS: BASO # 0.1 K/uL (0.0-0.2); BASO % 0.5 % (0.0-2.0); EOS # 0.2 K/uL (0.0-0.7); EOS % 1.7 % (0.0-4.0); HEMOGLOBIN 14.8 g/dL (12.0-16.0); LYMPH # 1.4 K/uL (1.0-4.3); LYMPH % 13.5 % (20.0-40.0); MEAN CELL VOLUME 85.3 fl (81.0-99.0); MEAN CORPUSCULAR HEMOGLOBIN 28.7 pg (27.0-31.0); MEAN CORPUSCULAR HGB CONC 33.6 g/dL (33.0-37.0); MEAN PLATELET VOLUME 9.3 fl (7.2-11.7); MONO # 1.3 K/uL (0.0-0.8); MONO % 12.7 % (0.0-10.0); NEUT # 7.4 K/uL (1.8-7.0); NEUT % 71.6 % (50.0-75.0); NRBC % 0.1 % (0.0-0.0); RBC 5.17 Mil/uL (3.80-5.20); WHITE BLOOD COUNT 10.3 K/uL (4.8-10.8)
[2017-11-18 09:55] LABS: ALB/GLOB RATIO 1.1 (1.0-2.1); ALBUMIN 4.5 g/dL (3.5-5.0); ALT/SGPT 90 U/L (9-52); AST/SGOT 71 U/L (14-36); BLOOD UREA NITROGEN 11 mg/dl (7-17); CALCIUM 9.9 mg/dL (8.4-10.2); GFR AFRICAN-AMERICAN > 60; GFR NON-AFRICAN AMERICAN > 60
== END 2017-11-18 12:44 | disposition home or self-care (01) ==
LOC: H.ER 07:58 → H.ERHOLD 12:44 → H.ER 12:44 → UNDOADMOB 22:01 → H.ERHOLD 22:01
DX: M54.5 Low back pain (principal); Z85.038 Personal history of other malignant neoplasm of large intestine
CPT/HCPCS: 72100; 80053; 85025; 96372; 96374; 99284; J1170; J1885; J7040

== ENCOUNTER 2017-11-18 21:09 | Observation (INO) | payer MEDICAID ==
[2017-11-18 21:09] VITALS: BMI 31.9
[2017-11-18] MEDS ORDERED: HYDROmorphone 0.5 mg/0.5 ml ISec IVP STA ×2 (21:55→22:43)
[2017-11-18] MEDS ORDERED: Sodium Chloride 0.9% 1,000 ML IV STA (21:55)
--- NOTE | 2017-11-18 22:02 | ED PDOC ---
HPI: Back Time Seen by Provider: 11/18/17 21:39 Chief Complaint (Nursing): Back Pain Chief Complaint (Provider): Back Pain History Per: Patient History/Exam Limitations: no limitations Current Symptoms Are (Timing): Still Present Quality Of Discomfort: Sharp Pain Scale Rating Of: 10 Previous Symptoms: Back Pain Additional Complaint(s): 46 y/o female with past medical history of chronic back pain and back surgery presents to the ED for sharp lower extremity pain and back pain, rating 10/10. Patient was seen in the ED provider this morning, where X-ray and workup was done and patient was discharged home. Reports taking Tramadol with no relief and her pain is getting worse. Also reports vomiting and is unable to tolerate any PO medications. States using icy patch without relief. Denies urinary or bowel continence, urinary or bowel retention, loss of sensation in lower extremities or any further medical complaints. PMD: Neftali Taylor MD Past Medical History Reviewed: Historical Data, Nursing Documentation, Vital Signs Vital Signs: Last Vital Signs Temp 98.6 F 11/18/17 21:38 Pulse 104 H 11/18/17 21:38 Resp 18 11/18/17 21:38 BP 155/95 H 11/18/17 21:38 Pulse Ox 100 11/18/17 21:38 - Medical History PMH: Anxiety, Back Problems, Depression, Fibromyalgia, GERD, HTN Denies: Chronic Kidney Disease - Surgical History Surgical History: Back Surgery, Endoscopy Other surgeries: STEROID INJECTION;SPINAL [id number] 6;CERVICAL 5 REPLACEMENT;COLONOSCOPY;ENDOSCOPY;COLON RESECTION;REMOVAL OF BILATERSAL OVARIES - Family History Family History: States: Unknown Family Hx - Social History Current smoker - smoking cessation education provided: No (Never smoked) Alcohol: None Drugs: Denies - Home Medications Home Medications: Ambulatory Orders Medication Instructions Recorded amLODIPine [Norvasc] 10 mg PO DAILY #0 tab 04/05/15 DULoxetine [Cymbalta] 60 mg PO HS 04/23/15 Omeprazole 20 mg PO DAILY 04/27/17 Acetaminophen with Codeine 1 tab PO BID 11/18/17 [Tylenol with Codeine No. 3 300 mg-30 mg] traMADol [Ultram] 50 mg PO Q8 #10 tab 11/18/17 - Allergies Allergies/Adverse Reactions: Allergies Allergy/AdvReac Type Severity Reaction Status Date / Time penicillin G Allergy RASH Verified 03/21/17 11:19 vancomycin Allergy RASH Verified 03/21/17 11:19 Review of Systems ROS Statement: Except As Marked, All Systems Reviewed And Found Negative (As per HPI, otherwise negative) Genitourinary Female: Negative for: Incontinence Musculoskeletal: Positive for: Back Pain Physical Exam - Reviewed Nursing Documentation Reviewed: Yes Vital Signs Reviewed: Yes - Physical Exam Appears: Positive for: Non-toxic, Uncomfortable Head Exam: Positive for: ATRAUMATIC, NORMAL INSPECTION, NORMOCEPHALIC Skin: Positive for: Normal Color, Warm, Dry Eye Exam: Positive for: EOMI, Normal appearance, PERRL ENT: Positive for: Normal ENT Inspection Neck: Positive for: Normal, Painless ROM Cardiovascular/Chest: Positive for: Regular Rate, Rhythm. Negative for: Murmur Respiratory: Positive for: Normal Breath Sounds. Negative for: Accessory Muscle Use, Respiratory Distress Gastrointestinal/Abdominal: Positive for: Normal Exam, Soft. Negative for: Tenderness Back: Positive for: Normal Inspection Extremity: Positive for: Tenderness (Bilateral leg raise tenderness) Neurologic/Psych: Positive for: Alert, Oriented (x3) - Laboratory Results Result Diagrams: 11/18/17 22:05 11/18/17 22:05 - ECG O2 Sat by Pulse Oximetry: 100 (RA) Pulse Ox Interpretation: Normal Medical Decision Making Medical Decision Making: Time: 21:55 Initial Impression: 46 y/o female with acute exacerbation of chronic lower back pain Plan: BNP Urine dipstick CBC w/ differential Hydromorphone 1mg IVP Sodium chloride 1L IV Ondansetron 4mg IV Heplock insertion Admit to hospital Reevaluation --Patient will be placed under observation for further pain management given second ED visit in 12 hours and worsening clinical status Scribe Attestation: Documented by Shelia Umana acting as a scribe for Juan Smith MD. MD Virk Attestation: All medical record entries made by the Moose were at my direction and personally dictated by me. I have reviewed the chart and agree that the record accurately reflects my personal performance of the history, physical exam, medical decision making, and the department course for this patient. I have also personally directed, reviewed, and agree with the discharge instructions and disposition. Disposition - Clinical Impression Clinical Impression: Intractable low back pain - Patient ED Disposition Is Patient to be Admitted: Yes - Disposition Disposition Time: 22:00 Condition: FAIR - Pt Status Changed To: Hospital Disposition Of: Observation - POA Present On Arrival: None
[2017-11-18 22:23] LABS: BASO % 0.4 % (0.0-2.0); EOS # 0.1 K/uL (0.0-0.7); EOS % 1.3 % (0.0-4.0); HEMOGLOBIN 15.4 g/dL (12.0-16.0); LYMPH # 1.4 K/uL (1.0-4.3); LYMPH % 15.5 % (20.0-40.0); MEAN CELL VOLUME 85.6 fl (81.0-99.0); MEAN CORPUSCULAR HEMOGLOBIN 28.8 pg (27.0-31.0); MEAN CORPUSCULAR HGB CONC 33.6 g/dL (33.0-37.0); MEAN PLATELET VOLUME 9.1 fl (7.2-11.7); MONO # 1.2 K/uL (0.0-0.8); MONO % 13.4 % (0.0-10.0); NEUT # 6.3 K/uL (1.8-7.0); NEUT % 69.4 % (50.0-75.0); NRBC % 0.1 % (0.0-0.0); RBC 5.37 Mil/uL (3.80-5.20); RED CELL DISTRIBUTION WIDTH 15.9 % (11.5-14.5); WHITE BLOOD COUNT 9.1 K/uL (4.8-10.8)
[2017-11-18 22:28] LABS: BLOOD UREA NITROGEN 11 mg/dl (7-17); GFR AFRICAN-AMERICAN > 60; GFR NON-AFRICAN AMERICAN > 60
--- NOTE | 2017-11-18 23:58 | CP.PCM.HP ---
History of Present Illness - History of Present Illness History of Present Illness: 46 yo ,f, PMhx/o HTN, liver metastatic Colon CA (currently on chemo # 42 every 2 weeks), chronic back pain (managed by pain management) and Fibromylagia , presents for sendond time today to ED for persistent intractable lower back pain. Patient reports a hx/o chronic back pain, several surgeries in cervical spine and lumbar spine associated with scoliosis. Patient reports a new episode of lower back pain started yesterday 8 pm, sudden, not related with any physical activity, radiated to b/l hips and lower abdomen. Patient evaluated today in the morning in ED, discharged with tramadol, but reports that tramadol does not help and reports 3 nonbloddy vomiting in ED. She denies fever, weakness , numbness, fall, urinary or fecal incontinence, saddle anesthesia, calf pain, cough, chest pain, SOB, hematuria, dysuria. Patient recently seen by pain management in clinic and PMD. Next chemo next in [place]. On evaluation patient reports feeling better after dilaudid medication. PMD: [facility]. DR Taylor. Last visit 11/13/17 Pain management: Dr. Bae Hem-Onc: Dr. Pennington at [facility] PMHx: HTN, colon cancer with liver mets, chronic back pain, HTN Meds: as per med rec PsurgHx: C6 fusion, Colon resection 2014 and b/l oopherectomy, radioembolization of liver SocialHx: denies ETOH/tobacco/drug abuse FamilyHx: DM, HTN Next of kin: daughter Aspen Code status: full code ED course: VS: BP: 155/95 Labs: CBC ok. CMP normal except Glucose Imaging: Lumbar XR: no acute fracture. s/p discectomy radiopaque endplate implant L4-L5 Meds: dilaudid 2 mg IV, Zofran 4 mg IV, IV fluids SN 1 L Present on Admission - Present on Admission Any Indicators Present on Admission: No History of DVT/PE: No History of Uncontrolled Diabetes: No Urinary Catheter: No Decubitus Ulcer Present: No Review of Systems - Review of Systems All systems: reviewed and no additional remarkable complaints except - Gastrointestinal Gastrointestinal: Vomiting - Musculoskeletal Additional comments: back pain Past Patient History - Infectious Disease Hx of Infectious Diseases: None - Past Medical History & Family History Past Medical History?: Yes - Past Social History Alcohol: None Drugs: Denies - CARDIAC Hx Hypertension: Yes - PULMONARY Hx Respiratory Disorders: No - NEUROLOGICAL Hx Neurological Disorder: Yes - HEENT Hx HEENT Problems: No - RENAL Hx Chronic Kidney Disease: No - ENDOCRINE/METABOLIC Hx Endocrine Disorders: No - INTEGUMENTARY Hx Dermatological Problems: No - GENITOURINARY/GYNECOLOGICAL Hx Genitourinary Disorders: No - PSYCHIATRIC Hx Anxiety: Yes Hx Depression: Yes - SURGICAL HISTORY Other/Comment: STEROID INJECTION;SPINAL [id number] 6;CERVICAL 5 REPLACEMENT;COLONOSCOPY;ENDOSCOPY;COLON RESECTION;REMOVAL OF BILATERSAL OVARIES - ANESTHESIA Hx Anesthesia: Yes Hx Anesthesia Reactions: No Hx Malignant Hyperthermia: No Meds Allergies/Adverse Reactions: Allergies Allergy/AdvReac Type Severity Reaction Status Date / Time penicillin G Allergy RASH Verified 03/21/17 11:19 vancomycin Allergy RASH Verified 03/21/17 11:19 Physical Exam - Constitutional Appears: No Acute Distress - Head Exam Head Exam: ATRAUMATIC, NORMOCEPHALIC - Eye Exam Eye Exam: Normal appearance - ENT Exam ENT Exam: Mucous Membranes Moist - Respiratory Exam Respiratory Exam: Clear to Auscultation Bilateral. absent: Rhonchi, Wheezes - Cardiovascular Exam Cardiovascular Exam: REGULAR RHYTHM, +S1, +S2 - GI/Abdominal Exam GI & Abdominal Exam: Normal Bowel Sounds, Soft. absent: Tenderness Additional comments: transverse RUQ surgical scar - Extremities Exam Extremities exam: Positive for: normal inspection. Negative for: pedal edema - Back Exam Back exam: paraspinal tenderness, vertebral tenderness (over L4-L5) Additional comments: LE: muscle strenght 5/5. patellar DTR 2+, sensation intact b/l lasegue( straight leg raise ) + - Neurological Exam Neurological exam: Alert, Oriented x3 - Skin Skin Exam: Rash Additional comments: dark skin chemo rash b/l hand and feet Results - Vital Signs Recent Vital Signs: Last Vital Signs Temp 98.4 F 11/18/17 23:19 Pulse 86 11/18/17 23:19 Resp 16 11/18/17 23:19 BP 144/79 11/18/17 23:19 Pulse Ox 98 11/18/17 23:19 - Labs Result Diagrams: 11/18/17 22:05 11/18/17 22:05 Labs: Laboratory Results - last 24 hr 11/18/17 11/18/17 22:05 22:05 WBC 9.1 RBC 5.37 H Hgb 15.4 Hct 45.9 MCV 85.6 MCH 28.8 MCHC 33.6 RDW 15.9 H Plt Count 210 MPV 9.1 Neut % (Auto) 69.4 Lymph % (Auto) 15.5 L [place] % (Auto) 13.4 H Eos % (Auto) 1.3 Baso % (Auto) 0.4 Neut # (Auto) 6.3 Lymph # (Auto) 1.4 [place] # (Auto) 1.2 H Eos # (Auto) 0.1 Baso # (Auto) 0.0 Sodium 137 Potassium 4.1 Chloride 95 L Carbon Dioxide 22 Anion Gap 24 H BUN 11 Creatinine 0.5 L Est GFR ( Amer) > 60 Est GFR (Non-Af Amer) > 60 Random Glucose 206 H Calcium 10.0 Assessment & Plan - Assessment and Plan (Free Text) Plan: Assessment/Plan 46 yo ,f, PMhx/o HTN, liver metastatic Colon CA (currently on chemo # 42 every 2 weeks), chronic back pain (managed by pain management) and Fibromylagia admitted for intractable lower back pain. 1) Chronic Lower back pain -intractable -s/p discectomy L4-L5 in 2007 -under pain management Dr Bae -2 ED visits today, no tolerating Oral intake -Lumbar XR: no acute fracture. s/p discectomy radiopaque endplate implant L4-L5 -MRI lumbar spine: 08/24/17: Mild degenerative spondylosis L3-L4 level with broad- based disc bulge and small proximal left foraminal protrusion component. Mild multilevel facet arthropathy as above. -IV fluids, Zofran -Dilaudid 1mg Q6h PRN pain -morphine 2 mg Q4h -c/w Tylenol 3 -tramadol hold due to vomiting. -Pain management consult suggested 2) Liver metastatic Colon CA diagnosed 2014 -currently on chemo, session 43 next week -s/p radiotherapy -Hem-Onc Dr. Pennington at [facility] 3) fibromyalgia -controlled -pain management -c/w Cymbalta 4) HTN -controlled -c/w amlodipine 5) DVT Prophylaxis -lovenox 40 mg sc daily
[2017-11-19] MEDS ORDERED: HYDROmorphone 0.5 mg/0.5 ml ISec IVP PRN
[2017-11-19 06:28] LABS: BASO % 0.3 % (0.0-2.0); EOS # 0.1 K/uL (0.0-0.7); HEMOGLOBIN 14.7 g/dL (12.0-16.0); LYMPH % 12.4 % (20.0-40.0); MEAN CELL VOLUME 85.9 fl (81.0-99.0); MEAN CORPUSCULAR HEMOGLOBIN 28.6 pg (27.0-31.0); MEAN CORPUSCULAR HGB CONC 33.3 g/dL (33.0-37.0); MEAN PLATELET VOLUME 9.3 fl (7.2-11.7); MONO # 1.3 K/uL (0.0-0.8); MONO % 15.9 % (0.0-10.0); NEUT # 5.9 K/uL (1.8-7.0); NEUT % 70.4 % (50.0-75.0); NRBC % 0.1 % (0.0-0.0); RBC 5.14 Mil/uL (3.80-5.20); RED CELL DISTRIBUTION WIDTH 15.9 % (11.5-14.5); WHITE BLOOD COUNT 8.4 K/uL (4.8-10.8)
[2017-11-19 06:43] LABS: ALB/GLOB RATIO 1.1 (1.0-2.1); ALBUMIN 4.5 g/dL (3.5-5.0); ALT/SGPT 95 U/L (9-52); AST/SGOT 68 U/L (14-36); BLOOD UREA NITROGEN 9 mg/dl (7-17); CALCIUM 9.8 mg/dL (8.4-10.2); GFR AFRICAN-AMERICAN > 60; GFR NON-AFRICAN AMERICAN > 60
[2017-11-19] MEDS: Pantoprazole 40 mg EC Tab PO SCH (08:32)
[2017-11-19] MEDS ORDERED: Acetaminophen-Codeine 300/30 mg Tab PO SCH (09:00)
[2017-11-19] MEDS ORDERED: Enoxaparin 40 mg Syringe SC SCH (09:00)
--- NOTE | 2017-11-19 10:13 | CP.PCM.PN ---
Subjective - Date & Time of Evaluation Date of Evaluation: 11/19/17 Time of Evaluation: 08:35 - Subjective Subjective: 46 y/o M seen and examined by bedside. Pt reports her low back pain has been improving with Dilauid. No more nausea or vomiting episodes. Pt afebrile, tolerating PO. Objective - Vital Signs/Intake and Output Vital Signs (last 24 hours): Temp Pulse Resp BP Pulse Ox 97.9 F 86 18 142/87 98 11/19/17 08:35 11/19/17 08:35 11/19/17 08:35 11/19/17 08:35 11/19/17 08:35 - Medications Medications: Current Medications Acetaminophen (Tylenol 325mg Tab) 650 mg PO Q6 PRN PRN Reason: Pain, Mild (1-3) Acetaminophen (Tylenol 325mg Tab) 650 mg PO Q6 PRN PRN Reason: Fever >100.4 F Acetaminophen/Codeine Phosphate (Tylenol/Codeine 300 Mg/30 Mg) 1 tab PO BID [facility] Last Admin: 11/19/17 08:31 Dose: 1 tab Amlodipine Besylate (Norvasc) 10 mg PO DAILY [facility] Last Admin: 11/19/17 08:32 Dose: 10 mg Duloxetine HCl (Cymbalta) 60 mg PO [facility] Enoxaparin Sodium (Lovenox) 40 mg SC DAILY [facility] PRN Reason: Protocol Last Admin: 11/19/17 08:32 Dose: 40 mg Hydromorphone HCl (Dilaudid) 1 mg IVP Q6 PRN PRN Reason: Pain, severe (8-10) Last Admin: 11/19/17 04:12 Dose: 1 mg Morphine Sulfate (Morphine) 2 mg IVP Q4 PRN PRN Reason: Pain, moderate (4-7) Ondansetron HCl (Zofran Inj) 4 mg IVP Q6 PRN PRN Reason: Nausea/Vomiting Last Admin: 11/19/17 04:18 Dose: 4 mg Pantoprazole Sodium (Protonix Ec Tab) 40 mg PO DAILY [facility] Last Admin: 11/19/17 08:32 Dose: 40 mg - Labs Labs: 11/19/17 05:45 11/19/17 05:45 - Constitutional Appears: No Acute Distress - Head Exam Head Exam: NORMAL INSPECTION - Eye Exam Eye Exam: EOMI, Normal appearance - ENT Exam ENT Exam: Mucous Membranes Moist - Neck Exam Neck Exam: Full ROM. absent: Lymphadenopathy - Respiratory Exam Respiratory Exam: Clear to Ausculation Bilateral, NORMAL BREATHING PATTERN - Cardiovascular Exam Cardiovascular Exam: +S1, +S2 - GI/Abdominal Exam GI & Abdominal Exam: Soft, Normal Bowel Sounds. absent: Distended, Guarding, Tenderness - Extremities Exam Extremities Exam: Full ROM, Normal Inspection. absent: Calf Tenderness, Tenderness Additional comments: Bilateral Lower Extremities: Strenght 5/5. patellar DTR 2+ b/l, SILT b/l. Straight leg elevation test positive b/l. Assessment and Plan - Assessment and Plan (Free Text) Assessment: 46 y/o F with a PMhx of HTN, liver metastatic Colon CA (on chemotherapy), chronic back pain and Fibromylagia admitted for intractable lower back pain. PLAN: Chronic Lower back pain -Improving, intractable, s/p discectomy L4-L5 in 2007 -Lumbar XR: no acute fracture. s/p discectomy radiopaque endplate implant L4-L5 -MRI lumbar spine on 08/24/17: Mild degenerative spondylosis L3-L4 level with broad-based disc bulge and small proximal left foraminal protrusion component. Mild multilevel facet arthropathy. -IV fluids, Zofran -Dilaudid 1mg Q4h PRN, Tylenol 3and lidoderm for pain management. -D/C morphine 2 mg Q4h -As per Dr Bae, pain management, will inject locally tomorrow. Coagulation profile ordered, Lovenox on HOLD. Liver metastatic Colon CA -diagnosed 2014 -currently on chemo, session 43 next week -s/p radiotherapy -Hem-Onc Dr. Pennington at [facility] Fibromyalgia -controlled -pain management -c/w Cymbalta HTN -controlled -c/w amlodipine Prophylaxis -lovenox 40 mg sc daily on HOLD for tomorrow minor procedure, injection administration. -Pantoprazole 40mg PO daily
[2017-11-19] MEDS: HYDROmorphone 0.5 mg/0.5 ml ISec IVP PRN ×2 (14:07→19:59)
[2017-11-19] MEDS ORDERED: Acetaminophen-Codeine 300/30 mg Tab PO PRN (14:45)
[2017-11-19 14:49] LABS: INR 1.2 (0.9-1.2); PARTIAL THROMBOPLASTIN TIME 34.4 Seconds (25.6-37.1); PROTHROMBIN TIME 13.2 Seconds (9.8-13.1)
[2017-11-19 15:28] LABS: SQUAMOUS EPITHIAL 1 /hpf (0-5); URINE BACTERIA RARE (<OCC); URINE BILIRUBIN NEGATIVE (NEGATIVE); URINE BLOOD NEGATIVE (NEGATIVE); URINE CLARITY CLEAR (Clear); URINE COLOR YELLOW (YELLOW); URINE GLUCOSE (UA) >=500 mg/dL (Normal); URINE LEUKOCYTE ESTERASE NEG Leu/uL (Negative); URINE PROTEIN NEGATIVE (NEGATIVE); URINE UROBILINOGEN 0.2-1.0 mg/dL (0.2-1.0)
[2017-11-19] MEDS: Lidocaine 5% Patch TD SCH (15:28)
[2017-11-19] MEDS ORDERED: HYDROmorphone 1 mg/ml ISec IVP PRN (20:15)
[2017-11-20] MEDS: Sodium Chloride 0.9% 1,000 ML IV SCH ×3 (01:00→16:46)
--- NOTE | 2017-11-20 07:58 | CP.PCM.PN ---
Subjective - Date & Time of Evaluation Date of Evaluation: 11/20/17 Time of Evaluation: 07:45 - Subjective Subjective: 46 yo woman well known to me from pain clinic has colon CA undergoing chemo, is s/p left shoulder injection last Sunday and had to be admitted over the weekend due to sudden increase of lower back pain. She has complained of lower back pain over the last few weeks. MRI in August didn't show significant stenotic lesions at the time. Pain had been in baseline until the weekend. The pain is across the waist, axial, without radiation down the legs. X-ray didn't reveal new fractures. Objective - Vital Signs/Intake and Output Vital Signs (last 24 hours): Temp Pulse Resp BP Pulse Ox 97.9 F 81 19 132/85 100 11/20/17 07:51 11/20/17 07:51 11/20/17 07:51 11/20/17 07:51 11/20/17 07:51 - Medications Medications: Current Medications Acetaminophen/Codeine Phosphate (Tylenol/Codeine 300 Mg/30 Mg) 1 tab PO Q6H PRN PRN Reason: Pain, moderate (4-7) Last Admin: 11/19/17 15:19 Dose: 1 tab Amlodipine Besylate (Norvasc) 10 mg PO DAILY [facility] Last Admin: 11/19/17 08:32 Dose: 10 mg Duloxetine HCl (Cymbalta) 60 mg PO HS [facility] Last Admin: 11/19/17 21:19 Dose: 60 mg Hydromorphone HCl (Dilaudid) 1 mg IVP Q4 PRN PRN Reason: Pain, severe (8-10) Sodium Chloride (Sodium Chloride 0.9%) 1,000 mls @ 125 mls/hr IV .Q8H [facility] Stop: 11/21/17 00:42 Last Admin: 11/20/17 01:00 Dose: 125 mls/hr Lidocaine (Lidoderm) 1 ea TD DAILY [facility] Last Admin: 11/19/17 15:28 Dose: 1 ea Ondansetron HCl (Zofran Odt) 4 mg PO Q8H PRN PRN Reason: Nausea/Vomiting Last Admin: 11/20/17 01:13 Dose: 4 mg Pantoprazole Sodium (Protonix Ec Tab) 40 mg PO DAILY [facility] Last Admin: 11/19/17 08:32 Dose: 40 mg - Labs Labs: 11/19/17 05:45 11/19/17 05:45 PT 13.2 Seconds (9.8-13.1) H 11/19/17 13:34 INR 1.2 (0.9-1.2) 11/19/17 13:34 APTT 34.4 Seconds (25.6-37.1) 11/19/17 13:34 Assessment and Plan (1) Back pain Assessment & Plan: 46 yo woman w/ acute on chronic lower back pain, likely sacroiliac and facet in origin. - will do sacroiliac joint and facet blocks later today - continue current regimen - patient can return to home regimen upon discharge Status: Acute
--- NOTE | 2017-11-20 09:00 | CP.PCM.PN ---
Subjective - Date & Time of Evaluation Date of Evaluation: 11/20/17 Time of Evaluation: 07:30 - Subjective Subjective: 46 y/o F seen and examined by bedside. Today, pt c/o low back pain, 7/10 intensity now which is an improvement since admission. Pt states her pain improves with medications, last doese last night aroung 8 pm. No nausea or vomiting. Pt afebrile, tolerated PO yesterday. Pt aware Epidural injection nad nerve block will be performed today. Objective - Vital Signs/Intake and Output Vital Signs (last 24 hours): Temp Pulse Resp BP Pulse Ox 97.9 F 81 19 132/85 100 11/20/17 07:51 11/20/17 07:51 11/20/17 07:51 11/20/17 07:51 11/20/17 07:51 - Medications Medications: Current Medications Acetaminophen/Codeine Phosphate (Tylenol/Codeine 300 Mg/30 Mg) 1 tab PO Q6H PRN PRN Reason: Pain, moderate (4-7) Last Admin: 11/19/17 15:19 Dose: 1 tab Amlodipine Besylate (Norvasc) 10 mg PO DAILY [facility] Last Admin: 11/19/17 08:32 Dose: 10 mg Duloxetine HCl (Cymbalta) 60 mg PO HS [facility] Last Admin: 11/19/17 21:19 Dose: 60 mg Hydromorphone HCl (Dilaudid) 1 mg IVP Q4 PRN PRN Reason: Pain, severe (8-10) Last Admin: 11/20/17 08:16 Dose: 1 mg Sodium Chloride (Sodium Chloride 0.9%) 1,000 mls @ 125 mls/hr IV .Q8H [facility]YES Stop: 11/21/17 00:42 Last Admin: 11/20/17 01:00 Dose: 125 mls/hr Lidocaine (Lidoderm) 1 ea TD DAILY [facility] Last Admin: 11/19/17 15:28 Dose: 1 ea Ondansetron HCl (Zofran Odt) 4 mg PO Q8H PRN PRN Reason: Nausea/Vomiting Last Admin: 11/20/17 01:13 Dose: 4 mg Pantoprazole Sodium (Protonix Ec Tab) 40 mg PO DAILY [facility] Last Admin: 11/19/17 08:32 Dose: 40 mg - Labs Labs: 11/19/17 05:45 11/19/17 05:45 PT 13.2 Seconds (9.8-13.1) H 11/19/17 13:34 INR 1.2 (0.9-1.2) 11/19/17 13:34 APTT 34.4 Seconds (25.6-37.1) 11/19/17 13:34 - Additional Findings Additional findings: - Constitutional Appears: No Acute Distress - Head Exam Head Exam: NORMAL INSPECTION - Eye Exam Eye Exam: EOMI, Normal appearance - ENT Exam ENT Exam: Mucous Membranes Moist - Neck Exam Neck Exam: Full ROM. absent: Lymphadenopathy - Respiratory Exam Respiratory Exam: Clear to Ausculation Bilateral, NORMAL BREATHING PATTERN - Cardiovascular Exam Cardiovascular Exam: +S1, +S2 - GI/Abdominal Exam GI & Abdominal Exam: Soft, Normal Bowel Sounds. absent: Distended, Guarding, Tenderness - Extremities Exam Extremities Exam: Full ROM, Normal Inspection. absent: Calf Tenderness, Tenderness Additional comments: Bilateral Lower Extremities: Strenght 5/5. patellar DTR 2+ b/l, SILT b/l. Straight leg elevation test positive b/l. Assessment and Plan - Assessment and Plan (Free Text) Assessment: 46 y/o F with a PMhx of HTN, liver metastatic Colon CA (on chemotherapy), chronic back pain and Fibromylagia admitted for intractable lower back pain. PLAN: Chronic Lower back pain -Improving, intractable, s/p discectomy L4-L5 in 2007 -Lumbar XR: no acute fracture. s/p discectomy radiopaque endplate implant L4-L5 -MRI lumbar spine on 08/24/17: Mild degenerative spondylosis L3-L4 level with broad-based disc bulge and small proximal left foraminal protrusion component. -Dilaudid 1mg Q4h PRN, Tylenol 3 and lidoderm for pain management. -Sacroiliac joint and facet blocks to be performed later today. -Coagulation profile unremarkable. -Lovenox on HOLD. Liver metastatic Colon CA -diagnosed 2014 -currently on chemo, session 43 next week -s/p radiotherapy -Hem-Onc Dr. Pennington at [facility] Elevated glucose level. -Serum glucose 206 yesterday, 168 today. Both elevated. -HbA1c 7.7-elevated. -F/U as outpatient. Fibromyalgia -controlled -pain management -c/w Cymbalta HTN -controlled -c/w amlodipine Prophylaxis -lovenox 40 mg sc daily on HOLD as per anesthesia procedure. -Pantoprazole 40mg PO daily
[2017-11-20] MEDS: Lidocaine 5% Patch TD SCH (09:56)
[2017-11-20] MEDS: Pantoprazole 40 mg EC Tab PO SCH ×3 (10:06→17:20)
[2017-11-20] MEDS ORDERED: Iohexol 300 10 ML ONE (10:56)
[2017-11-20] MEDS ORDERED: MethylPREDNISolone Depo 40 mg/ml Inj ONE (10:56)
[2017-11-20] MEDS ORDERED: Lidocaine 2% Inj (20ml) ONE (10:57)
[2017-11-20] MEDS ORDERED: Bupivacaine HCl 0.25% PF (10 ml) Inj ONE (10:57)
[2017-11-20] MEDS ORDERED: Lactated Ringer's 1,000 ML IV ONE (11:10)
[2017-11-20] MEDS ORDERED: Propofol 10 mg/ml Inj (20 ML) ONE (11:12)
[2017-11-20] MEDS ORDERED: Lidocaine 2% Inj (20ml) IJ ONE (11:15)
[2017-11-20] MEDS ORDERED: Iohexol 300 10 ML IJ ONE (11:15)
[2017-11-20] MEDS ORDERED: Bupivacaine 0.5% Inj(30mL) IJ ONE (11:15)
[2017-11-20] MEDS ORDERED: Bupivacaine HCl 0.5% PF (30 ml) Inj ONE (11:15)
[2017-11-20] MEDS ORDERED: methylPREDNISolone Depo 80 mg/ml Inj IM ONE (11:15)
[2017-11-20] MEDS ORDERED: HYDROmorphone 0.5 mg/0.5 ml ISec IVP PRN (11:28)
[2017-11-20] MEDS ORDERED: Lactated Ringer's 1,000 ML IV SCH (11:30)
--- NOTE | 2017-11-20 13:02 | OP ---
PROCEDURE DATE: 11/20/2017 PREOPERATIVE DIAGNOSIS: Bilateral sacroiliitis. POSTOPERATIVE DIAGNOSIS: Bilateral sacroiliitis. PROCEDURE: Bilateral sacroiliac joint steroid injection and bilateral L5 medial branch nerve injection. SURGEON: Emigdio Bae MD TYPE OF ANESTHESIA: Monitored anesthesia care. ANESTHESIOLOGIST: Harris Tijerina MD COMPLICATIONS: None. SPECIMENS: None. DESCRIPTION OF PROCEDURE: As follows. After we had a discussion of the procedure with the patient including its risks, benefits, alternative, outcome data, possibility of no effect or increased pain, the patient consented to the procedure. She denied any recent infections, bleeding tendencies or being on anticoagulants. A decision was then made to proceed to the OR. The patient was placed on the fluoroscopy table in a prone position with 2 pillows underneath her abdomen. The back was prepped and draped in the usual sterile fashion and sterile technique was adhered to during the entire procedure. The sacroiliac joint was first visualized on the anterior posterior view on the right side. The target is at the inferior pole of the posterior opening to the sacroiliac joint. This was differentiated from the anterior opening by turning the fluoroscopy towards the right at approximately 10 degrees oblique angle. The skin overlying the target was then infiltrated with 1% lidocaine using a 25-gauge needle. Subsequently, a 22-gauge 3.5-inch spinal needle was then incrementally advanced under fluoroscopic guidance until tip of needle walked into the joint capsule. This was confirmed by injecting approximately 0.5 mL of Isovue contrast, which was spread of the joint line. After appropriate placement of the needle, approximately 3 mL of 0.5% Marcaine and Depo-Medrol mixture was injected. The needle was then removed. The right medial branch nerve was then targeted at the right sacroiliac. The skin overlying this area was then infiltrated with 1% lidocaine using a 25-gauge needle. Subsequently, a 22-gauge 3.5-inch spinal needle was then incrementally advanced under fluoroscopic guidance until the tip of the needle made bony contact with the target. After satisfactory positioning of the needle, approximately 3 mL of 0.5% Marcaine and Depo-Medrol mixture was injected as well. The needle was then removed and the same exact procedure was performed on the contralateral left side at the sacroiliac joint and left L5 medial branch nerve. At the end of the case, the patient's back was cleaned and dried, and bandages were applied. The patient was then transferred to recovery area in good condition without any signs of [employer] toxicity or any neurological deficits. She will have a followup in office in approximately 2 to 4 weeks. En-Miguel Bae MD
--- NOTE | 2017-11-20 13:07 | RAD ---
PROCEDURE: Intraoperative Fluoroscopy. HISTORY: OR FINDINGS: Fluoroscopic assistance was provided for epidural injection. Please refer to the operative report from BRENDA Bryant. Total fluoroscopic time (continuous mode) utilized during the procedure 28.2 (seconds).
[2017-11-20 16:17] VITALS: BP 124/83; PULSE 79; RESP 18; TEMP 98.7; O2SAT 99
== END 2017-11-20 17:57 | disposition home or self-care (01) ==
LOC: H.ER 21:09 → H.ERHOLD 22:01 → H.MEDSURG1 11-19 00:19
PROVIDERS: ADMIT Family Medicine Geriatric Medicine; ATTEND Family Medicine Geriatric Medicine
DX: M46.1 Sacroiliitis, not elsewhere classified (principal); M46.96 Unspecified inflammatory spondylopathy, lumbar region; M79.7 Fibromyalgia; Z85.038 Personal history of other malignant neoplasm of large intestine; F32.9 Major depressive disorder, single episode, unspecified; F41.9 Anxiety disorder, unspecified; Z79.899 Other long term (current) drug therapy; C18.9 Malignant neoplasm of colon, unspecified; C78.7 Secondary malignant neoplasm of liver and intrahepatic bile duct; E11.9 Type 2 diabetes mellitus without complications; I10 Essential (primary) hypertension; K21.9 Gastro-esophageal reflux disease without esophagitis; M41.9 Scoliosis, unspecified
CPT/HCPCS: 27096; 36415; 80048; 80053; 81003; 81025; 82948; 83036; 85025; 85610; 85730; 96361; 96372; 96374; 96375; 96376; 99283; G0378; J1030; J1040; J1170; J1650; J2001; J2405; J2704; J7030; J7120; Q9967

== ENCOUNTER 2018-01-02 06:51 | Emergency (ER) | payer MEDICAID ==
[2018-01-02 06:51] VITALS: BMI 31.9
[2018-01-02] MEDS ORDERED: Sodium Chloride 0.9% 1,000 ML IV STA (07:20)
--- NOTE | 2018-01-02 07:24 | ED PDOC ---
HPI: Abdomen Time Seen by Provider: 01/02/18 07:04 Chief Complaint (Nursing): Abdominal Pain Chief Complaint (Provider): Abdominal Pain, Lower Back Pain History Per: Patient History/Exam Limitations: no limitations Onset/Duration Of Symptoms: Days (x2) Current Symptoms Are (Timing): Still Present Additional Complaint(s): 47 y/o female with a PMHx of HTN, diabetes, fibromyalgia, and colon cancer with mets to liver, presenting for evaluation of abdominal pain and lower back pain x2 days. Patient states her pain began yesterday and have been constant since onset. She also confirms nausea, chills, and shortness of breath, but denies any vomiting, fever, cough, dysuria, or hematuria. She reports taking Tramadol and Tylenol 3 for her pain yesterday and this morning without relief. PMD: Dr. Taylor Past Medical History Reviewed: Historical Data, Nursing Documentation, Vital Signs Vital Signs: Last Vital Signs Temp 98.0 F 01/02/18 11:27 Pulse 78 01/02/18 11:27 Resp 20 01/02/18 09:32 BP 113/74 01/02/18 11:27 Pulse Ox 98 01/02/18 10:10 - Medical History PMH: Anxiety, Back Problems, Depression, Diabetes, Fibromyalgia, GERD, HTN Denies: Chronic Kidney Disease Other PMH: colon cancer (mets to liver) - Surgical History Surgical History: Back Surgery, Endoscopy - Family History Family History: States: Unknown Family Hx - Home Medications Home Medications: Ambulatory Orders Medication Instructions Recorded amLODIPine [Norvasc] 10 mg PO DAILY #0 tab 04/05/15 DULoxetine [Cymbalta] 60 mg PO HS 04/23/15 Omeprazole 20 mg PO DAILY 04/27/17 Acetaminophen with Codeine 1 tab PO BID 11/18/17 [Tylenol with Codeine #3 Tablet] traMADol [Ultram] 50 mg PO Q8 #10 tab 11/18/17 Naloxegol Oxalate [Movantik] 25 mg PO DAILY #15 tablet 01/02/18 - Allergies Allergies/Adverse Reactions: Allergies Allergy/AdvReac Type Severity Reaction Status Date / Time penicillin G Allergy RASH Verified 03/21/17 11:19 vancomycin Allergy RASH Verified 03/21/17 11:19 Review of Systems ROS Statement: Except As Marked, All Systems Reviewed And Found Negative Constitutional: Positive for: Chills. Negative for: Fever Respiratory: Positive for: Shortness of Breath. Negative for: Cough Gastrointestinal: Positive for: Nausea, Abdominal Pain. Negative for: Vomiting Genitourinary Female: Negative for: Dysuria, Hematuria Musculoskeletal: Positive for: Back Pain Physical Exam - Reviewed Nursing Documentation Reviewed: Yes Vital Signs Reviewed: Yes - Physical Exam Appears: Positive for: In Acute Distress (moderate painful distress) Respiratory: Positive for: Normal Breath Sounds. Negative for: Respiratory Distress Neurologic/Psych: Positive for: Alert, Oriented (x3) - Laboratory Results Result Diagrams: 01/02/18 07:45 01/02/18 07:45 - ECG O2 Sat by Pulse Oximetry: 98 (RA) Pulse Ox Interpretation: Normal - Progress Re-evaluation Time: 10:00 Condition: Improved Medical Decision Making Medical Decision Makin:20 Impression: Back pain. Differential diagnoses include, but are not limited to musculoskeletal pain, UTI, kidney stones, colitis, and pancreatitis Plan: -CMP -Lipase -Urine -Urine dipstick -CBC w/ differential -Morphine 2mg IVP -1LNS -Pepcid 20mg IVP -Toradol 30mg IVP -Zofran 8mg IVP -IV insertion -Urinalysis -Reevaluation Scribe Attestation: Documented by Иван Franco, acting as a scribe for Joanne Mendez MD. Provider Scribe Attestation: All medical record entries made by the Scribe were at my direction and personally dictated by me. I have reviewed the chart and agree that the record accurately reflects my personal performance of the history, physical exam, medical decision making, and the department course for this patient. I have also personally directed, reviewed, and agree with the discharge instructions and disposition. Ordered CT 12.00 CT negative. patient still has slight back pain. Aware of constipation finding. Will d/c. Disposition - Clinical Impression Clinical Impression: Abdominal discomfort - Patient ED Disposition Is Patient to be Admitted: No Doctor Will See Patient In The: Office Counseled Patient/Family Regarding: Diagnosis - Disposition Referrals: [facility] [Outside] Disposition: Routine/Home Disposition Time: 12:09 Condition: IMPROVED Prescriptions: Naloxegol Oxalate [Movantik] 25 mg PO DAILY #15 tablet Instructions: Low Back Pain (DC) Forms: [facility] (Kazakh) - POA Present On Arrival: None
[2018-01-02 08:22] LABS: BASO % 0.3 % (0.0-2.0); EOS # 0.1 K/uL (0.0-0.7); EOS % 1.7 % (0.0-4.0); LYMPH # 1.1 K/uL (1.0-4.3); LYMPH % 13.9 % (20.0-40.0); MEAN CELL VOLUME 86.3 fl (81.0-99.0); MEAN CORPUSCULAR HEMOGLOBIN 29.2 pg (27.0-31.0); MEAN CORPUSCULAR HGB CONC 33.9 g/dL (33.0-37.0); MONO # 0.8 K/uL (0.0-0.8); MONO % 10.8 % (0.0-10.0); NEUT # 5.6 K/uL (1.8-7.0); NEUT % 73.3 % (50.0-75.0); NRBC % 0.2 % (0.0-0.0); RBC 4.81 Mil/uL (3.80-5.20); RED CELL DISTRIBUTION WIDTH 15.4 % (11.5-14.5); WHITE BLOOD COUNT 7.6 K/uL (4.8-10.8)
[2018-01-02 08:36] LABS: ALB/GLOB RATIO 1.1 (1.0-2.1); ALBUMIN 4.5 g/dL (3.5-5.0); ALT/SGPT 39 U/L (9-52); AST/SGOT 47 U/L (14-36); BLOOD UREA NITROGEN 5 mg/dl (7-17); CALCIUM 10.3 mg/dL (8.4-10.2); GFR AFRICAN-AMERICAN > 60; GFR NON-AFRICAN AMERICAN > 60; LIPASE 50 U/L (23-300)
[2018-01-02] MEDS ORDERED: Iohexol 300 100 ML IJ ONE (10:20)
[2018-01-02] MEDS ORDERED: Sodium Chloride 0.9% 50 ML IV ONE (10:20)
[2018-01-02 10:28] LABS: SQUAMOUS EPITHIAL < 1 /hpf (0-5); URINE BACTERIA RARE (<OCC); URINE BILIRUBIN NEGATIVE (NEGATIVE); URINE BLOOD NEGATIVE (NEGATIVE); URINE CLARITY CLEAR (Clear); URINE COLOR STRAW (YELLOW); URINE GLUCOSE (UA) NEG (Normal); URINE LEUKOCYTE ESTERASE NEG Leu/uL (Negative); URINE PROTEIN NEGATIVE (NEGATIVE); URINE UROBILINOGEN 0.2-1.0 mg/dL (0.2-1.0)
[2018-01-02 11:28] VITALS: TEMP 98
--- NOTE | 2018-01-02 11:42 | CT ---
Date of service: 01/02/2018 PROCEDURE: CT Abdomen and Pelvis with contrast HISTORY: left flank pain, blood in urine, colon ca with met COMPARISON: Comparison is made to the previous study dated 04/04/2015 TECHNIQUE: Contrast dose: 95 cc of Omnipaque 300. Axial and reformatted coronal and sagittal CT images of the abdomen and pelvis were obtained after IV contrast administration. Radiation dose: Total exam DLP = 752.51 mGy-cm. This CT exam was performed using one or more of the following dose reduction techniques: Automated exposure control, adjustment of the mA and/or kV according to patient size, and/or use of iterative reconstruction technique. FINDINGS: LOWER THORAX: No evidence of acute pathology or pleural effusion. LIVER: Again seen are foci of heterogeneous low-attenuation at the right liver lobe consistent with the patient's known history of liver metastasis. The portal vein is patent. GALLBLADDER AND BILE DUCTS: The gallbladder is not visualized. PANCREAS: Unremarkable. No gross lesion or ductal dilatation. SPLEEN: Unremarkable. ADRENALS: Unremarkable. No mass. KIDNEYS AND URETERS: Unremarkable. No hydronephrosis. No solid mass. VASCULATURE: Unremarkable. No aortic aneurysm. BOWEL: [id number] constipation is noted. No evidence of obstructing mass in the bowel. No evidence of high-grade bowel obstruction. APPENDIX: No evidence of appendicitis. PERITONEUM: Unremarkable. No free fluid. No free air. LYMPH NODES: Unremarkable. No enlarged lymph nodes. BLADDER: Unremarkable. REPRODUCTIVE: Unremarkable. BONES: No evidence of destructive bony lesion OTHER FINDINGS: None. IMPRESSION: No CT evidence of acute pathology in the abdomen and pelvis. [id number] constipation.
[2018-01-02 13:06] VITALS: PULSE 81; RESP 19
[2018-01-02 13:49] VITALS: BP 127/88; O2SAT 100
== END 2018-01-02 12:55 | disposition home or self-care (01) ==
LOC: H.ER 06:51
DX: R10.9 Unspecified abdominal pain (principal); E11.9 Type 2 diabetes mellitus without complications; Z86.59 Personal history of other mental and behavioral disorders; I10 Essential (primary) hypertension; Z85.038 Personal history of other malignant neoplasm of large intestine; Z88.0 Allergy status to penicillin; M79.7 Fibromyalgia
CPT/HCPCS: 74177; 80053; 81003; 83690; 85025; 96374; 96375; 96376; 99285; J1885; J2270; J2405; J7030; Q9967

== ENCOUNTER 2018-01-10 06:30 | Observation (INO) | payer MEDICAID ==
[2018-01-10 06:30] VITALS: BMI 31.9
[2018-01-10] MEDS ORDERED: Sodium Chloride 0.9% 1,000 ML IV STA (07:09)
--- NOTE | 2018-01-10 07:21 | ED PDOC ---
HPI: Abdomen Time Seen by Provider: 01/10/18 07:05 Chief Complaint (Nursing): Abdominal Pain Chief Complaint (Provider): lower abdominal pain History Per: Patient History/Exam Limitations: no limitations Onset/Duration Of Symptoms: Days (2) Current Symptoms Are (Timing): Still Present Severity: Severe Location Of Pain/Discomfort: LLQ, Periumbilical Quality Of Discomfort: Sharp Associated Symptoms: Nausea, Vomiting, Loss Of Appetite. denies: Diarrhea Exacerbating Factors: None Alleviating Factors: None Last Bowel Movement: Today Additional Complaint(s): 47yo female c/o lower abdominal pain worse overnight ongoing for several days, has chemoembolization of liver at [place] in early december, states pain intermittent since then. Associated with nausea/ dry heaving, no melena, fever or syncope. Past Medical History Reviewed: Historical Data, Nursing Documentation, Vital Signs Vital Signs: Last Vital Signs Temp 98.2 F 01/13/18 08:11 Pulse 84 01/13/18 08:35 Resp 20 01/13/18 08:11 BP 116/80 01/13/18 08:35 Pulse Ox 96 01/13/18 08:11 - Medical History PMH: Anxiety, Back Problems, Depression, Diabetes, Fibromyalgia, GERD, HTN, Malignancy Denies: [place]'s Disease, Alzheimer's Disease, Anemia, Arthritis, Asthma, Atrial Fibrillation, Benign Prostatic Hyperplasia, Bipolar Disorder, Bronchitis , Cardia Arrhythmia, Cardiac Aneurysm, CHF, Colonic Polyps, COPD, Crohn's Disease, [place]ham's Syndrome, Dementia, Diverticulitis, Deep Vein Thrombosis, Emphysema, Gastrointestinal Ulcer, Gall Bladder Disease, Graves' Disease, Hiatal Hernia, Hypercholesterolemia, Hyperlipidemia, Hyperthyroidism, Hypothyroidism, Kidney Stones, Migraine, Mitral Valve Prolapse, Multiple Sclerosis, Obstructive Bowel, Osteoporosis, Pancreatitis, Parkinson's Disease, Pericarditis, Peripheral Edema, Personality Disorder, Pneumonia, Pneumothorax, Post Traumatic Stress Disorder, Pulmonary Embolism, End Stage Renal Disease, Chronic Kidney Disease, Rheumatoid Arthritis, Schizophrenia, Seizures, Sickle Cell Disease, Sexually Transmitted Disease, Sleep Apnea, TIA - Surgical History Surgical History: Back Surgery, Endoscopy Denies: Appendectomy, CABG, Carotid Endarterectomy, Cholecystectomy, Coronary Stent, Tonsillectomy Other surgeries: ovaries, colon - Family History Family History: States: Unknown Family Hx - Living Arrangements Living Arrangements: With Family - Immunization History Hx Influenza Vaccination: Yes Hx Pneumococcal Vaccination: No - Home Medications Home Medications: Ambulatory Orders Medication Instructions Recorded amLODIPine [Norvasc] 10 mg PO DAILY #0 tab 04/05/15 DULoxetine [Cymbalta] 60 mg PO HS 04/23/15 Acetaminophen with Codeine 1 tab PO Q6 PRN 11/18/17 [Tylenol with Codeine #3 Tablet] Magnesium Hydroxide [Milk Of 30 ml PO DAILY 01/10/18 Magnesia] Omeprazole [Omeprazole] 40 mg PO DAILY 01/10/18 Polyethylene Glycol 3350 [Miralax] 17 gm PO BID 01/10/18 Tramadol HCl [Tramadol HCl ER] 200 mg PO DAILY 01/10/18 - Allergies Allergies/Adverse Reactions: Allergies Allergy/AdvReac Type Severity Reaction Status Date / Time penicillin G Allergy RASH Verified 03/21/17 11:19 vancomycin Allergy RASH Verified 03/21/17 11:19 Review of Systems Constitutional: Positive for: Weakness. Negative for: Fever Cardiovascular: Negative for: Chest Pain Respiratory: Negative for: Shortness of Breath Gastrointestinal: Positive for: Nausea, Vomiting, Abdominal Pain. Negative for : Hematochezia, Hematemesis Genitourinary Female: Negative for: Dysuria, Hematuria Musculoskeletal: Negative for: Neck Pain Skin: Negative for: Rash, Lesions Neurological: Positive for: Dizziness. Negative for: Weakness, Numbness, Headache Psych: Negative for: Suicidal ideation Physical Exam - Reviewed Nursing Documentation Reviewed: Yes Vital Signs Reviewed: Yes - Physical Exam Appears: Positive for: Non-toxic, Uncomfortable Head Exam: Positive for: ATRAUMATIC, NORMAL INSPECTION, NORMOCEPHALIC Skin: Positive for: Normal Color, Warm, DRY Eye Exam: Positive for: EOMI, Normal appearance, PERRL ENT: Positive for: Normal ENT Inspection Neck: Positive for: Normal, Painless ROM Cardiovascular/Chest: Positive for: Regular Rate, Rhythm Respiratory: Positive for: CNT, Normal Breath Sounds Gastrointestinal/Abdominal: Positive for: Soft, Tenderness, Guarding Back: Positive for: Normal Inspection Extremity: Positive for: Normal ROM Neurologic/Psych: Positive for: Alert, Oriented. Negative for: Motor/Sensory Deficits - Laboratory Results Result Diagrams: 01/11/18 05:45 01/11/18 05:45 - ECG O2 Sat by Pulse Oximetry: 100 Pulse Ox Interpretation: Normal Medical Decision Making Medical Decision Making: workup initiated for acute on chronic pain in setting of abdominal malignancy labs reviewed and imaging reports reviewed remained in significant pain requiring multiple doses narcotics for pain relief obs to FP service for pain management consult Disposition - Clinical Impression Clinical Impression: Intractable abdominal pain - Patient ED Disposition Is Patient to be Admitted: Yes Counseled Patient/Family Regarding: Studies Performed, Diagnosis, Need For Followup - Disposition Disposition Time: 10:30 Condition: GOOD - Pt Status Changed To: Hospital Disposition Of: Observation
[2018-01-10 07:43] LABS: BASO % 0.4 % (0.0-2.0); EOS # 0.1 K/uL (0.0-0.7); EOS % 1.1 % (0.0-4.0); HEMOGLOBIN 14.2 g/dL (12.0-16.0); LYMPH # 0.9 K/uL (1.0-4.3); LYMPH % 14.1 % (20.0-40.0); MEAN CELL VOLUME 85.9 fl (81.0-99.0); MEAN CORPUSCULAR HEMOGLOBIN 29.6 pg (27.0-31.0); MEAN CORPUSCULAR HGB CONC 34.4 g/dL (33.0-37.0); MEAN PLATELET VOLUME 9.1 fl (7.2-11.7); MONO # 0.6 K/uL (0.0-0.8); MONO % 9.8 % (0.0-10.0); NEUT # 4.8 K/uL (1.8-7.0); NEUT % 74.6 % (50.0-75.0); NRBC % 0.1 % (0.0-0.0); RBC 4.79 Mil/uL (3.80-5.20); RED CELL DISTRIBUTION WIDTH 14.4 % (11.5-14.5); WHITE BLOOD COUNT 6.4 K/uL (4.8-10.8)
[2018-01-10 08:00] LABS: ALBUMIN 4.7 g/dL (3.5-5.0); ALT/SGPT 36 U/L (9-52); AST/SGOT 58 U/L (14-36); BLOOD UREA NITROGEN 6 mg/dl (7-17); CALCIUM 10.6 mg/dL (8.4-10.2); GFR AFRICAN-AMERICAN > 60; GFR NON-AFRICAN AMERICAN > 60; LIPASE 52 U/L (23-300)
[2018-01-10] MEDS ORDERED: Sodium Chloride 0.9% 50 ML IV ONE (08:18)
[2018-01-10] MEDS ORDERED: Iohexol 300 100 ML IJ ONE (08:18)
--- NOTE | 2018-01-10 09:24 | CT ---
Date of service: 01/10/2018 PROCEDURE: CT Abdomen and Pelvis with contrast HISTORY: lower abd pain hx colon cancer COMPARISON: None. TECHNIQUE: Contrast dose: 95 mL Omnipaque 300 Radiation dose: Total exam DLP = 821.30 mGy-cm. This CT exam was performed using one or more of the following dose reduction techniques: Automated exposure control, adjustment of the mA and/or kV according to patient size, and/or use of iterative reconstruction technique. FINDINGS: LOWER THORAX: Unremarkable. LIVER: Irregular multifocal low-attenuation masses in right lobe of liver consistent with known history of hepatic metastasis from colonic malignancy. Compared to examination of 04/04/2015, there has been a great improvement in the extent of hepatic metastasis. This is unchanged compared to 01/02/2018. No biliary obstruction. Smooth contour. GALLBLADDER AND BILE DUCTS: Unremarkable. PANCREAS: Unremarkable. No gross lesion or ductal dilatation. SPLEEN: Unremarkable. ADRENALS: Unremarkable. No mass. KIDNEYS AND URETERS: Unremarkable. No hydronephrosis. No solid mass. VASCULATURE: Unremarkable. No aortic aneurysm. BOWEL: Moderate retained feces in the right colon. No evidence of bowel obstruction. No other abnormal bowel loops are appreciated. APPENDIX: Normal appendix. PERITONEUM: Unremarkable. No free fluid. No free air. LYMPH NODES: Unremarkable. No enlarged lymph nodes. BLADDER: Unremarkable. REPRODUCTIVE: Normal uterus BONES: No acute fracture. Evidence of disc surgery at L4-5. OTHER FINDINGS: None. IMPRESSION: Hepatic metastatic disease consistent with history of known colonic malignancy. Probable constipation. Additional findings as above.
[2018-01-10 11:38] LABS: SQUAMOUS EPITHIAL 6 /hpf (0-5); URINE BACTERIA RARE (<OCC); URINE BILIRUBIN NEGATIVE (NEGATIVE); URINE BLOOD NEGATIVE (NEGATIVE); URINE CLARITY SLIGHTY-CLOUDY (Clear); URINE COLOR YELLOW (YELLOW); URINE GLUCOSE (UA) 150 mg/dL (Normal); URINE LEUKOCYTE ESTERASE NEG Leu/uL (Negative); URINE PROTEIN NEGATIVE (NEGATIVE); URINE UROBILINOGEN 0.2-1.0 mg/dL (0.2-1.0)
[2018-01-10] MEDS ORDERED: Dextrose 50% SYRINGE Inj (50 ml) IV PRN (12:56)
[2018-01-10] MEDS ORDERED: Glucagon Recombinant 1 mg Inj IM PRN (12:56)
--- NOTE | 2018-01-10 13:11 | CP.PCM.HP ---
History of Present Illness - History of Present Illness History of Present Illness: 47 Y/O female with PMHx of HTN, chronic back pain, Colon cancer w/ metastasis to liver, Depression, Fibromyalgia, GERD presents to ED with persistent lower back and lower abdominal pain that exacerbated yesterday evening. Pain started after chemoembolization of liver done on 12/27/17. Pain is currently 10/10, sharp, lower abdominal, which worsens with movement and radiates to B/L lumbar back and B/L thigh. She takes Tylenol-3 and Tramadol for pain with incomplete improvement. Patient was seen in ED on for similar pain which improved with Dilaudid. Patient also reports a hx/o chronic back pain, several surgeries in cervical spine and lumbar spine associated with scoliosis. Patient is only on liquid diet(ensure and juices). She also complains of associated nausea, non bloody vomiting x 5, cold sweats. Pt also reports weakness, SOB on walking as well as with routine daily activity and hyperpigmentation of B/L hands and feet which started since 5FU chemotherapy. Denies any fever, chills, headache, cough , dysuria, urinary or fecal incontinence or diarrhea. Denies eating any outside food or ill contacts. Patient was diagnosed with colon cancer 3 years ago at [facility], has undergone chemotherapy with Irinotecan and Avastin. Last chemotherapy was single agent 5 FU. Pt has also undergone chemoembolization in 02/08. According to Dr. Yovani Pennington's office patient's colon cancer is responding to chemotherapy and prognosis is not terrible. PCP: Dr. Andres Taylor Heme-Oncologist: Dr. Yovani Pennington at [facility] Pain management: Dr. Bae PMH: chronic back pain, fibromyalgia, HTN, GERD, colon cancer, anxiety PSH: C6 fusion, Colon resection 2014 and b/l oopherectomy, radioembolization of liver. SocialHx: denies ETOH/tobacco/drug abuse FamilyHx: DM, HTN Meds: as per med rec Hospitalization: multiple including 2 ER visit in past 1 month. Code status: full code ED Course: Vitals: T 98.8, P 91, BP:147/95, RR 18, o2 100 Labs: CBC WNL. CMP normal except Glucose [id number] Imaging: CT abdomen/pelvis: Meds: dilaudid 1 mg IV, Zofran 4 mg IV, IV fluids SN 1 L, Morphine 4 mg IV Present on Admission - Present on Admission Any Indicators Present on Admission: Yes History of DVT/PE: No History of Uncontrolled Diabetes: Yes Urinary Catheter: No Decubitus Ulcer Present: No Review of Systems - Review of Systems Systems not reviewed;Unavailable: Acuity of Condition - Constitutional Constitutional: Anorexia, Lethargy, Weakness. absent: Chills, Fever, Headache - EENT Eyes: absent: Blurred Vision, Loss of Vision Ears: absent: Ear Pain Nose/Mouth/Throat: absent: Odynophagia, Sore Throat - Cardiovascular Cardiovascular: Dyspnea on Exertion. absent: Chest Pain, Leg Edema, Palpitations - Respiratory Respiratory: Dyspnea on Exertion. absent: Wheezing, Snoring, Stridor - Gastrointestinal Gastrointestinal: Abdominal Pain, Constipation, Nausea, Vomiting. absent: Cramping, Diarrhea, Hematochezia, Loose Stools - Genitourinary Genitourinary: absent: Dysuria, Hematuria, Urinary Incontinence, Urinary Frequency, Urinary Urgency - Musculoskeletal Musculoskeletal: Back Pain, Limited Range of Motion, Myalgias, Radiating Pain into Limb, Tingling. absent: Joint Swelling, Muscle Cramps - Integumentary Integumentary: Change in Pigmentation, Dry Skin. absent: Erythema Additional comments: Hyperpigmentation of B/L hands and feet - Neurological Neurological: absent: Dizziness, Focal Weakness, Headaches, Loss of Vision, Sensory Deficit, Tremor - Psychiatric Psychiatric: Change in Appetite - Endocrine Endocrine: absent: Palpitations Past Patient History - Infectious Disease Hx of Infectious Diseases: None - Tetanus Immunizations Tetanus Immunization: Unknown - Past Medical History & Family History Past Medical History?: Yes - Past Social History Smoking Status: Never Smoked Chewing Tobacco Use: No Cigar Use: No Alcohol: Social Drugs: Denies - CARDIAC Hx Cardiac Disorders: Yes - PULMONARY Hx Respiratory Disorders: No - NEUROLOGICAL Hx Neurological Disorder: No - HEENT Hx HEENT Problems: No - RENAL Hx Chronic Kidney Disease: No - ENDOCRINE/METABOLIC Hx Endocrine Disorders: Yes - HEMATOLOGICAL/ONCOLOGICAL Hx Blood Disorders: No - INTEGUMENTARY Hx Dermatological Problems: No - MUSCULOSKELETAL/RHEUMATOLOGICAL Hx Musculoskeletal Disorders: Yes - GASTROINTESTINAL Hx Crohn's Disease: No Hx Diverticulitis: No Hx Gall Bladder Disease: No Hx Pancreatitis: No - GENITOURINARY/GYNECOLOGICAL Hx Genitourinary Disorders: No - PSYCHIATRIC Hx Psychophysiologic Disorder: Yes - SURGICAL HISTORY Hx Appendectomy: No Hx Carotid Endarterectomy: No Hx Cholecystectomy: No Hx Coronary Artery Bypass Graft: No Hx Coronary Stent: No Hx Tonsillectomy: No - ANESTHESIA Hx Anesthesia: Yes Hx Anesthesia Reactions: No Hx Malignant Hyperthermia: No Meds Allergies/Adverse Reactions: Allergies Allergy/AdvReac Type Severity Reaction Status Date / Time penicillin G Allergy RASH Verified 03/21/17 11:19 vancomycin Allergy RASH Verified 03/21/17 11:19 Physical Exam - Constitutional Appears: Well, Non-toxic, In Acute Distress - Head Exam Head Exam: ATRAUMATIC, NORMAL INSPECTION, NORMOCEPHALIC - Eye Exam Eye Exam: EOMI, Normal appearance, PERRL Pupil Exam: NORMAL ACCOMODATION, PERRL - ENT Exam ENT Exam: Mucous Membranes Moist - Neck Exam Neck exam: Positive for: Full Rom - Respiratory Exam Respiratory Exam: Clear to Auscultation Bilateral, NORMAL BREATHING PATTERN. absent: Rales, Rhonchi, Wheezes, Respiratory Distress - Cardiovascular Exam Cardiovascular Exam: REGULAR RHYTHM, +S1, +S2. absent: Systolic Murmur - GI/Abdominal Exam GI & Abdominal Exam: Diminished Bowel Sounds, Guarding, Soft, Tenderness. absent: Distended, Rebound - Extremities Exam Extremities exam: Positive for: pedal pulses present. Negative for: pedal edema , tenderness Additional comments: Pulse +2 B/L radial, brachial, dorsalis pedis - Back Exam Back exam: muscle spasm, paraspinal tenderness. absent: CVA tenderness (L), CVA tenderness (R) - Neurological Exam Neurological exam: Alert, Oriented x3 - Psychiatric Exam Psychiatric exam: Normal Affect, Normal Mood - Skin Skin Exam: Dry, Intact Additional comments: Hyperpigmented skin B/L hands and feet, Pealing skin of UE fingers, cold to tough. No erythema, pallor or rash 3 x Abdominal scars secondary to surgery Results - Vital Signs Recent Vital Signs: Last Vital Signs Temp 98.7 F 01/10/18 10:21 Pulse 79 01/10/18 10:21 Resp 17 01/10/18 10:21 BP 142/86 01/10/18 10:21 Pulse Ox 95 01/10/18 09:49 - Labs Result Diagrams: 01/10/18 07:20 01/10/18 07:20 Labs: Laboratory Results - last 24 hr 01/10/18 01/10/18 01/10/18 07:20 07:20 10:14 WBC 6.4 RBC 4.79 Hgb 14.2 Hct 41.2 MCV 85.9 MCH 29.6 MCHC 34.4 RDW 14.4 Plt Count 340 D MPV 9.1 Neut % (Auto) 74.6 Lymph % (Auto) 14.1 L [place] % (Auto) 9.8 Eos % (Auto) 1.1 Baso % (Auto) 0.4 Neut # (Auto) 4.8 Lymph # (Auto) 0.9 L [place] # (Auto) 0.6 Eos # (Auto) 0.1 Baso # (Auto) 0.0 Sodium 138 Potassium 4.8 Chloride 95 L Carbon Dioxide 26 Anion Gap 22 H BUN 6 L Creatinine 0.5 L Est GFR ( Amer) > 60 Est GFR (Non-Af Amer) > 60 Random Glucose 247 H Calcium 10.6 H Total Bilirubin 0.8 AST 58 H D ALT 36 Alkaline Phosphatase 183 H D Total Protein 9.4 H Albumin 4.7 Globulin 4.7 H Albumin/Globulin Ratio 1.0 Lipase 52 Urine Color Yellow Urine Clarity Slighty-cloudy Urine pH 8.0 Ur Specific [place] 1.036 H Urine Protein Negative Urine Glucose (UA) 150 Urine Ketones Trace Urine Blood Negative Urine Nitrate Negative Urine Bilirubin Negative Urine Urobilinogen 0.2-1.0 Ur Leukocyte Esterase Neg Urine RBC (Auto) < 1 Urine Microscopic WBC 2 Ur Squamous Epith Cells 6 H Urine Bacteria Rare - Imaging and Cardiology CT scan - abdomen Status: Report reviewed by me Additional comment: Hepatic metastatic disease from colon cancer. Probable constipation. Assessment & Plan - Assessment and Plan (Free Text) Assessment: 47 Y/O female with PMHx of HTN, chronic back pain, Colon cancer w/ metastasis to liver, Depression, Fibromyalgia, GERD presents to ED with persistent lower back and lower abdominal pain. Plan: Lower abdominal pain - CT abdomen/Pelvis: Hepatic metastasic malignancy consistent with colonic malignancy. Probable Constipation.(See full report) - CBC, CMP wnl except Glucose: 247, AST 58, ALP 183, Total protein 9.4, Calcium 10.6. - UA unremarkable - Dilaudid 1.5 mg IVP Q4hr - F/U CBC, CMP - Pain management consulted: Dr. Bae Nausea and vomiting - Improving - Zofran inj 4 mg Q6hr PRN Chronic back pain - Chronic - H/O multiple lumbar surgeries. - Dilaudid 1.5 mg IVP Q4hr for pain. - F/U CBC, CMP NIDDM - Uncontrolled - Last A1c 7.7 - Glucose 247 in ED - Pt denies taking meds for DM - Insulin lispro scale and Hypoglycemia protocol - Accucheck AM Colon cancer w/metastasis to liver - CT abdomen/pelvis consistent with liver metastasis, unchanged from previous CT on 01/02 - Received 5 FU chemo at [place]. - Pt to F/U with Dr. Pennington on January 21 HTN - Uncontrolled - Amlodipine 10 mg QD - Will monitor vitals Q8hr Fibromyalgia - Controlled - Duloxetine 60 mg PO HS DVT Prophylaxis - Lovenox 40 mg SC daily
[2018-01-10] MEDS ORDERED: Acetaminophen-Codeine 300/30 mg Tab PO PRN (13:21)
[2018-01-10] MEDS ORDERED: HYDROmorphone 0.5 mg/0.5 ml ISec IVP PRN (13:39)
[2018-01-10] MEDS: Insulin Lispro (humaLOG) 100 Units/ml Inj SC SCH ×2 (20:39→22:52)
[2018-01-10] MEDS: Docusate-Senna 50 mg-8.6 mg Tab PO SCH (21:22)
[2018-01-11 06:18] LABS: BASO % 0.2 % (0.0-2.0); EOS % 0.4 % (0.0-4.0); HEMOGLOBIN 14.1 g/dL (12.0-16.0); LYMPH # 0.7 K/uL (1.0-4.3); LYMPH % 9.8 % (20.0-40.0); MEAN CELL VOLUME 87.5 fl (81.0-99.0); MEAN CORPUSCULAR HEMOGLOBIN 29.5 pg (27.0-31.0); MEAN CORPUSCULAR HGB CONC 33.7 g/dL (33.0-37.0); MEAN PLATELET VOLUME 8.6 fl (7.2-11.7); MONO # 0.7 K/uL (0.0-0.8); MONO % 9.8 % (0.0-10.0); NEUT % 79.8 % (50.0-75.0); PLATELET COUNT 342 K/uL (130-400); RBC 4.78 Mil/uL (3.80-5.20); WHITE BLOOD COUNT 7.5 K/uL (4.8-10.8)
[2018-01-11 06:38] LABS: ALBUMIN 4.8 g/dL (3.5-5.0); ALT/SGPT 31 U/L (9-52); AST/SGOT 55 U/L (14-36); BLOOD UREA NITROGEN 4 mg/dl (7-17); CALCIUM 10.6 mg/dL (8.4-10.2); GFR AFRICAN-AMERICAN > 60; GFR NON-AFRICAN AMERICAN > 60
[2018-01-11] MEDS: Insulin Lispro (humaLOG) 100 Units/ml Inj SC SCH ×4 (07:30→22:17)
--- NOTE | 2018-01-11 08:34 | CP.PCM.PN ---
Subjective - Date & Time of Evaluation Date of Evaluation: 01/11/18 Time of Evaluation: 08:30 - Subjective Subjective: Patient is well known to me from pain clinic. She's suffering from intractable lower abdominal, lower back and hip pain after the latest chemoembolization procedure for her known liver mets. Home medication of Tramadol and Tylenol #3 are no longer helping with her pain. There are no known bony mets according to the patient. I'm not able to find her recent PET scans. She's had chronic lower back pain, after remote lumbar surgery and has needed occasional injections in the past, her last being in late October of this year. On exam, pain is more located in the lower back, and this radiates into the bilateral groin regions, as well as the hip. Objective - Vital Signs/Intake and Output Vital Signs (last 24 hours): Temp Pulse Resp BP Pulse Ox 97.7 F 79 19 151/83 H 98 01/11/18 07:51 01/11/18 07:51 01/11/18 07:51 01/11/18 07:51 01/11/18 07:51 - Medications Medications: Current Medications Acetaminophen/Codeine Phosphate (Tylenol/Codeine 300 Mg/30 Mg) 1 tab PO Q6 PRN PRN Reason: Pain, moderate (4-7) Amlodipine Besylate (Norvasc) 10 mg PO DAILY [facility] Dextrose (Dextrose 50% Inj) 0 ml IV STAT PRN; Protocol PRN Reason: Hypoglycemia Protocol Dextrose (Glutose 15) 0 gm PO ONCE PRN; Protocol PRN Reason: Hypoglycemia Protocol Duloxetine HCl (Cymbalta) 60 mg PO HS [facility] Last Admin: 01/10/18 21:22 Dose: 60 mg Enoxaparin Sodium (Lovenox) 40 mg SC DAILY [facility] PRN Reason: Protocol Famotidine (Pepcid) 20 mg PO BID [facility] Last Admin: 01/10/18 17:24 Dose: 20 mg Glucagon (Glucagen Diagnostic Kit) 0 mg IM STAT PRN; Protocol PRN Reason: Hypoglycemia Protocol Hydromorphone HCl (Dilaudid) 1.5 mg IVP Q4 PRN PRN Reason: Pain, severe (8-10) Last Admin: 01/11/18 06:50 Dose: 1.5 mg Insulin Human Lispro (Humalog) 0 units SC ACHS [facility] PRN Reason: Protocol Last Admin: 01/10/18 22:52 Dose: Not Given Ondansetron HCl (Zofran Inj) 4 mg IVP Q6 PRN PRN Reason: Nausea/Vomiting Last Admin: 01/11/18 03:09 Dose: 4 mg Polyethylene Glycol (Miralax) 17 gm PO DAILY [facility] Senna/Docusate Sodium (Senokot S 50 Mg-8.6 Mg) 2 tab PO HS [facility] Last Admin: 01/10/18 21:22 Dose: 2 tab Tramadol HCl (Ultram) 50 mg PO Q6 [facility] - Labs Labs: 01/11/18 05:45 01/11/18 05:45 Assessment and Plan (1) Back pain Assessment & Plan: 47 yo woman w/ metastatic colon cancer to the liver, also with acute on chronic lower back pain. - for injection today - consider hip MRI's if pain doesn't improve with injections today - continue Dilaudid 1mg IV PRN for now while hospitalized - can discharge patient on Vicodin, and Tramadol - d/c T#3 Status: Acute
[2018-01-11 09:17] LABS: BANDS 1 % (0-2); LYMPHOCYTE 8 % (20-50); MONOCYTE 12 % (0-10); NEUTROPHIL 79 % (42-75); PLATELET ESTIMATE NORMAL (NORMAL); TOTAL CELLS COUNTED 100
[2018-01-11 09:18] LABS: GIANT PLATELETS PRESENT; LARGE PLATELETS PRESENT
[2018-01-11] MEDS ORDERED: Lactated Ringer's 1,000 ML IV ONE (10:05)
[2018-01-11] MEDS ORDERED: Iohexol 300 10 ML ONE (10:07)
[2018-01-11] MEDS ORDERED: methylPREDNISolone Depo 80 mg/ml Inj ONE (10:07)
[2018-01-11] MEDS ORDERED: Bupivacaine HCl 0.25% PF (30 ml) Inj ONE (10:08)
[2018-01-11] MEDS ORDERED: Midazolam 2 MG/2 ML VIAL ONE (10:17)
[2018-01-11] MEDS ORDERED: Bupivacaine-Epi 0.25%-1:200,000 PF Inj IJ ONE (10:20)
[2018-01-11] MEDS ORDERED: Iohexol 300 10 ML IJ ONE (10:20)
[2018-01-11] MEDS ORDERED: Lidocaine 2% Inj (20ml) IJ ONE (10:20)
[2018-01-11] MEDS ORDERED: HYDROmorphone 1 mg/ml ISec IVP PRN (10:38)
[2018-01-11] MEDS ORDERED: Magnesium Hydroxide Susp 30 ml UD PO SCH (10:45)
[2018-01-11] MEDS: Enoxaparin 40 mg Syringe SC SCH (12:09)
[2018-01-11] MEDS: POLYETHYLENE GLYCOL 3350 17 GM/Dose PACKET PO SCH (12:09)
--- NOTE | 2018-01-11 14:05 | CP.PCM.PN ---
Subjective - Date & Time of Evaluation Date of Evaluation: 01/11/18 Time of Evaluation: 07:35 - Subjective Subjective: Pt evaluated and examined at bedside in the morning. NAD, AAO x 3. Improvement in abdominal pain and nausea with medications but back pain/hip still persists. Denies any CP, SOB, Diarrhea, constipation or dysuria. Tolerating Ensure and juices PO. Objective - Vital Signs/Intake and Output Vital Signs (last 24 hours): Temp Pulse Resp BP Pulse Ox 99.3 F 100 H 18 148/100 H 100 01/11/18 11:40 01/11/18 11:40 01/11/18 11:40 01/11/18 12:06 01/11/18 11:40 Intake and Output: 01/11/18 01/11/18 06:59 18:59 Intake Total 75 Balance 75 - Medications Medications: Current Medications Acetaminophen/Codeine Phosphate (Tylenol/Codeine 300 Mg/30 Mg) 1 tab PO Q6 PRN PRN Reason: Pain, moderate (4-7) Amlodipine Besylate (Norvasc) 10 mg PO DAILY [facility] Last Admin: 01/11/18 12:06 Dose: 10 mg Dextrose (Dextrose 50% Inj) 0 ml IV STAT PRN; Protocol PRN Reason: Hypoglycemia Protocol Dextrose (Glutose 15) 0 gm PO ONCE PRN; Protocol PRN Reason: Hypoglycemia Protocol Duloxetine HCl (Cymbalta) 60 mg PO HS [facility] Last Admin: 01/10/18 21:22 Dose: 60 mg Enoxaparin Sodium (Lovenox) 40 mg SC DAILY [facility] PRN Reason: Protocol Last Admin: 01/11/18 12:09 Dose: 40 mg Famotidine (Pepcid) 20 mg PO BID [facility] Last Admin: 01/11/18 12:07 Dose: 20 mg Glipizide (Glucotrol) 2.5 mg PO ACB [facility] Last Admin: 01/11/18 12:11 Dose: 2.5 mg Glucagon (Glucagen Diagnostic Kit) 0 mg IM STAT PRN; Protocol PRN Reason: Hypoglycemia Protocol Hydromorphone HCl (Dilaudid) 1.5 mg IVP Q4 PRN PRN Reason: Pain, severe (8-10) Last Admin: 01/11/18 12:05 Dose: 1.5 mg Lactated Ringer's (Lactated Ringer's) 1,000 mls @ 100 mls/hr IV .Q10H [facility] Insulin Human Lispro (Humalog) 0 units SC ACHS [facility] PRN Reason: Protocol Last Admin: 01/11/18 11:30 Dose: Not Given Magnesium Hydroxide (Milk Of Magnesia) 30 ml PO DAILY [facility] Last Admin: 01/11/18 12:18 Dose: Not Given Ondansetron HCl (Zofran Inj) 4 mg IVP Q6 PRN PRN Reason: Nausea/Vomiting Last Admin: 01/11/18 03:09 Dose: 4 mg Polyethylene Glycol (Miralax) 17 gm PO DAILY [facility] Last Admin: 01/11/18 12:09 Dose: 17 gm Senna/Docusate Sodium (Senokot S 50 Mg-8.6 Mg) 2 tab PO HS [facility] Last Admin: 01/10/18 21:22 Dose: 2 tab Tramadol HCl (Ultram) 50 mg PO Q6 [facility] Last Admin: 01/11/18 10:00 Dose: Not Given - Labs Labs: 01/11/18 05:45 01/11/18 05:45 - Constitutional Appears: Well, Non-toxic, No Acute Distress - Head Exam Head Exam: ATRAUMATIC, NORMAL INSPECTION, NORMOCEPHALIC - Eye Exam Eye Exam: EOMI, Normal appearance Pupil Exam: NORMAL ACCOMODATION, PERRL - ENT Exam ENT Exam: Mucous Membranes Moist - Neck Exam Neck Exam: Full ROM - Respiratory Exam Respiratory Exam: Clear to Ausculation Bilateral, NORMAL BREATHING PATTERN. absent: Rales, Rhonchi, Wheezes, Respiratory Distress - Cardiovascular Exam Cardiovascular Exam: REGULAR RHYTHM, +S1, +S2. absent: Murmur - GI/Abdominal Exam GI & Abdominal Exam: Soft, Normal Bowel Sounds. absent: Distended, Guarding, Rigid, Tenderness - Extremities Exam Extremities Exam: absent: Calf Tenderness, Tenderness - Back Exam Back Exam: tenderness Additional comments: B/L hip tenderness Straight leg raise + B/L - Neurological Exam Neurological Exam: Alert, Awake, Oriented x3 - Psychiatric Exam Psychiatric exam: Normal Affect, Normal Mood. absent: Anxious, Depressed - Skin Skin Exam: Dry, Intact, Normal Color Assessment and Plan - Assessment and Plan (Free Text) Assessment: 47 Y/O female with PMHx of HTN, chronic back pain, Colon cancer w/ metastasis to liver, Depression, Fibromyalgia, GERD presents to ED with persistent lower back and lower abdominal pain. Plan: Lower abdominal pain - Improving - CT abdomen/Pelvis: Hepatic metastasic malignancy consistent with colonic malignancy. Probable Constipation.(See full report) - CBC, CMP wnl except Glucose: 177, AST 55, ALP 168. Improvement in LFTs and glucose. - UA unremarkable - Dilaudid 1.5 mg IVP Q4hr - F/U CBC, CMP Chronic back pain - Chronic, H/O multiple lumbar surgeries. - Dilaudid 1.5 mg IVP Q4hr with mild improvement in pain - As per PM team, theraputic injection in B/L hip - If no improvement in pain, consider MRI Nausea and vomiting - Improved - Zofran inj 4 mg Q6hr PRN NIDDM - Uncontrolled - Last A1c 7.7 - Glucose 216 - Pt denies taking home meds for DM - Insulin lispro scale and Hypoglycemia protocol - Accucheck AM - F/U as an outpatient basis. Colon cancer w/metastasis to liver - CT abdomen/pelvis consistent with liver metastasis, unchanged from previous CT on 01/02 - Received 5 FU chemo at [place]. - Pt to F/U with Dr. Pennington on January 21 HTN - Uncontrolled - Amlodipine 10 mg QD - Will monitor vitals Q8hr Fibromyalgia - Controlled - Duloxetine 60 mg PO HS DVT Prophylaxis - Lovenox 40 mg SC daily
[2018-01-11] MEDS ORDERED: Bisacodyl 5mg EC Tab PO PRN (16:49)
[2018-01-11] MEDS: Lactated Ringer's 1,000 ML IV SCH (20:45)
[2018-01-11] MEDS: Docusate-Senna 50 mg-8.6 mg Tab PO SCH (21:24)
--- NOTE | 2018-01-12 00:58 | OP ---
PROCEDURE DATE: 01/11/2018 PREOPERATIVE DIAGNOSIS: Bilateral hip osteoarthritis. POSTOPERATIVE DIAGNOSIS: Bilateral hip osteoarthritis. PROCEDURE: Bilateral sacroiliac joint steroid injection and bilateral greater trochanteric bursa injection. SURGEON: Emigdio Bae MD ANESTHESIOLOGIST: Richard Drummond MD TYPE OF ANESTHESIA: Monitored anesthesia care. COMPLICATIONS: None. SPECIMENS: None. DESCRIPTION OF PROCEDURE: As follows. After we had discussion of the procedure with the patient including its risks, benefits, alternatives, outcome data, possibility of no effect or increased pain, the patient consented to the procedure. She denied any recent infection, bleeding tendencies or being on anticoagulants; a decision was then made to proceed to the OR. The patient was placed on a fluoroscopy table in a prone position with two pillows underneath her abdomen. The back was prepped and draped in the usual sterile fashion, and sterile technique was adhered to during the entire procedure. The sacroiliac joint was first visualized on the right side in the anteroposterior view. The target is at the inferior border of the posterior opening to the sacroiliac joint. The skin overlying the target area was then infiltrated with 1% lidocaine using 25-gauge needle. Subsequently, a 22-gauge 3.5-inch spinal needle was then incrementally advanced under fluoroscopic guidance until the tip of needle walked into the joint capsule. This was confirmed by injecting approximately 0.5 mL of Isovue contrast, which was seen spread up the sacroiliac joint. After appropriate placement of the needle, approximately 3 mL of 0.25% Marcaine and Depo-Medrol mixture were injected. The needle was then removed and same exact procedure was performed on the contralateral left side using the same medications and techniques. Then, greater trochanter on the right side was visualized on the anteroposterior view. The skin directly over the greater trochanter was marked, and a 25-gauge 3.5-inch spinal needle was then inserted perpendicular to the skin until bony contact was made with the greater trochanter on the right side. This one was confirmed on the fluoroscopy view. After appropriate placement of the needle, approximately 5 mL of 0.25% Marcaine and Depo-Medrol mixture were injected. The needle was then removed and same exact procedure was performed on the contralateral left side using the same medications and techniques. At the end of the case, the patient's back was cleaned, and dry bandages were applied. The patient was then transferred to the recovery area in good condition without any signs of [employer] toxicity or any neurological deficit. She will be following up in the office in approximately two to four weeks. En-Miguel Bae MD
[2018-01-12] MEDS ORDERED: Magnesium Hydroxide Susp 30 ml UD PO ONE (05:49)
[2018-01-12] MEDS: Lactated Ringer's 1,000 ML IV SCH (06:45)
[2018-01-12] MEDS: Insulin Lispro (humaLOG) 100 Units/ml Inj SC SCH ×4 (07:30→22:23)
[2018-01-12] MEDS: Enoxaparin 40 mg Syringe SC SCH (09:40)
[2018-01-12] MEDS: POLYETHYLENE GLYCOL 3350 17 GM/Dose PACKET PO SCH (09:41)
--- NOTE | 2018-01-12 10:05 | CP.PCM.PN ---
Subjective - Date & Time of Evaluation Date of Evaluation: 01/12/18 Time of Evaluation: 08:00 - Subjective Subjective: Patient evaluated and examined bedside. No acute distress. Back pain improving after B/L hip injections. Still no BM. Denies any headaches, fatigue, nausea, vomiting, diarrhea, urinary complains or weakness. Objective - Vital Signs/Intake and Output Vital Signs (last 24 hours): Temp Pulse Resp BP Pulse Ox 98.2 F 91 H 19 124/86 98 01/12/18 08:21 01/12/18 09:46 01/12/18 08:21 01/12/18 09:46 01/12/18 08:21 - Medications Medications: Current Medications Acetaminophen/Codeine Phosphate (Tylenol/Codeine 300 Mg/30 Mg) 1 tab PO Q6 PRN PRN Reason: Pain, moderate (4-7) Amlodipine Besylate (Norvasc) 10 mg PO DAILY [facility] Last Admin: 01/12/18 09:46 Dose: 10 mg Bisacodyl (Dulcolax) 5 mg PO DAILY PRN PRN Reason: Constipation Bisacodyl (Dulcolax) 10 mg HI DAILY PRN PRN Reason: Constipation Dextrose (Dextrose 50% Inj) 0 ml IV STAT PRN; Protocol PRN Reason: Hypoglycemia Protocol Dextrose (Glutose 15) 0 gm PO ONCE PRN; Protocol PRN Reason: Hypoglycemia Protocol Duloxetine HCl (Cymbalta) 60 mg PO HS [facility] Last Admin: 01/11/18 21:23 Dose: 60 mg Enoxaparin Sodium (Lovenox) 40 mg SC DAILY [facility] PRN Reason: Protocol Last Admin: 01/12/18 09:40 Dose: 40 mg Famotidine (Pepcid) 20 mg PO BID [facility] Last Admin: 01/12/18 09:47 Dose: 20 mg Glipizide (Glucotrol) 2.5 mg PO ACB [facility] Last Admin: 01/12/18 07:35 Dose: 2.5 mg Glucagon (Glucagen Diagnostic Kit) 0 mg IM STAT PRN; Protocol PRN Reason: Hypoglycemia Protocol Hydromorphone HCl (Dilaudid) 1.5 mg IVP Q4 PRN PRN Reason: Pain, severe (8-10) Last Admin: 01/12/18 05:22 Dose: 1.5 mg Lactated Ringer's (Lactated Ringer's) 1,000 mls @ 100 mls/hr IV .Q10H [facility] Last Admin: 01/12/18 06:45 Dose: Not Given Insulin Human Lispro (Humalog) 0 units SC ACHS [facility] PRN Reason: Protocol Last Admin: 01/11/18 22:17 Dose: Not Given Magnesium Hydroxide (Milk Of Magnesia) 30 ml PO DAILY [facility] Ondansetron HCl (Zofran Inj) 4 mg IVP Q6 PRN PRN Reason: Nausea/Vomiting Last Admin: 01/11/18 16:40 Dose: 4 mg Polyethylene Glycol (Miralax) 17 gm PO DAILY [facility] Last Admin: 01/12/18 09:41 Dose: 17 gm Senna/Docusate Sodium (Senokot S 50 Mg-8.6 Mg) 2 tab PO HS [facility] Last Admin: 01/11/18 21:24 Dose: 2 tab Tramadol HCl (Ultram) 50 mg PO Q6 [facility] Last Admin: 01/12/18 09:49 Dose: 50 mg - Labs Labs: 01/11/18 05:45 01/11/18 05:45 - Constitutional Appears: Well, Non-toxic, No Acute Distress - Head Exam Head Exam: ATRAUMATIC, NORMAL INSPECTION, NORMOCEPHALIC - Eye Exam Eye Exam: EOMI, Normal appearance, PERRL Pupil Exam: NORMAL ACCOMODATION, PERRL - ENT Exam ENT Exam: Mucous Membranes Moist - Respiratory Exam Respiratory Exam: Clear to Ausculation Bilateral, NORMAL BREATHING PATTERN - Cardiovascular Exam Cardiovascular Exam: REGULAR RHYTHM, +S1, +S2 - GI/Abdominal Exam GI & Abdominal Exam: Soft, Hypoactive Bowel Sounds. absent: Tenderness, Rebound - Extremities Exam Extremities Exam: absent: Tenderness - Back Exam Back Exam: tenderness. absent: CVA tenderness (L), CVA tenderness (R) - Neurological Exam Neurological Exam: Alert, Awake, Oriented x3 - Psychiatric Exam Psychiatric exam: Normal Affect, Normal Mood - Skin Skin Exam: Dry, Intact, Normal Color, Warm Assessment and Plan - Assessment and Plan (Free Text) Assessment: 47 Y/O female with PMHx of HTN, chronic back pain, Colon cancer w/ metastasis to liver, Depression, Fibromyalgia, GERD presents to ED with persistent lower back and lower abdominal pain. Plan: Low back pain - Chronic, H/O multiple lumbar surgeries. - Improving - B/L hip injections of Marcaine, Lidocaine with improvement. - Dilaudid 1.5 mg IVP Q4hr - Pain management on Board. - Out patient PM F/U, Oral Vicodin and Tramadol upon discharge as per PM. Constipation - Continue diet PO - No BM yet - Milk of magnesium and Lactulose suppository for BM. Lower abdominal pain - Resolved. - CT abdomen/Pelvis: Hepatic metastasic malignancy consistent with colonic malignancy. Probable Constipation.(See full report) - CBC, CMP wnl except Glucose: 177, AST 55, ALP 168. Improvement in LFTs and glucose. - UA unremarkable - Dilaudid 1.5 mg IVP Q4hr Nausea and vomiting - Improved - Zofran inj 4 mg Q6hr PRN NIDDM - Uncontrolled - Last A1c 7.7 - Glucose 216 - Pt denies taking home meds for DM - Insulin lispro scale and Hypoglycemia protocol - Accucheck AM - F/U as an outpatient basis. Colon cancer w/metastasis to liver - CT abdomen/pelvis consistent with liver metastasis, unchanged from previous CT on 01/02 - Received 5 FU chemo at [place]. - Pt to F/U with Dr. Pennington on January 21 HTN - Uncontrolled - Amlodipine 10 mg QD - Will monitor vitals Q8hr Fibromyalgia - Controlled - Duloxetine 60 mg PO HS DVT Prophylaxis - Lovenox 40 mg SC daily
--- NOTE | 2018-01-12 15:45 | RAD ---
Date of service: 01/11/2018 PROCEDURE: Intraoperative fluoroscopy HISTORY: PAIN MANAGEMENT COMPARISON: Not available TECHNIQUE: Intraoperative fluoroscopy was provided for interventional pain management procedure. Total time of fluoroscopy was 49.6 seconds. Total radiation dose was 13.68 mGy. FINDINGS: Multiple fluoroscopic spot films are submitted. IMPRESSION: Fluoroscopy provided.
[2018-01-12] MEDS: Lactulose 10 gm/15 ml (Rectal Use) PR SCH ×2 (19:56→22:32)
[2018-01-12] MEDS: Docusate-Senna 50 mg-8.6 mg Tab PO SCH (22:32)
[2018-01-13 00:41] VITALS: TEMP 98.2
[2018-01-13] MEDS: Lactulose 10 gm/15 ml (Rectal Use) PR SCH ×2 (04:36→11:18)
[2018-01-13 08:12] VITALS: BP 116/80; PULSE 84; RESP 20
[2018-01-13] MEDS: Insulin Lispro (humaLOG) 100 Units/ml Inj SC SCH (08:34)
[2018-01-13] MEDS: Enoxaparin 40 mg Syringe SC SCH (08:34)
[2018-01-13] MEDS: POLYETHYLENE GLYCOL 3350 17 GM/Dose PACKET PO SCH ×2 (08:35→08:43)
[2018-01-13] MEDS: Magnesium Hydroxide Susp 30 ml UD PO SCH ×2 (08:38→08:42)
--- NOTE | 2018-01-13 14:38 | CP.PCM.DIS ---
Provider - Provider Date of Admission: 01/10/18 10:07 Attending physician: Jackelyn Reynolds MD Time Spent in preparation of Discharge (in minutes): 15 Diagnosis - Discharge Diagnosis (1) Abdominal pain Status: Acute (2) Back pain Status: Acute (3) Colon cancer metastasized to liver Status: Chronic Hospital Course - Lab Results Lab Results: Most Recent Lab Values WBC 7.5 K/uL (4.8-10.8) 01/11/18 05:45 RBC 4.78 Mil/uL (3.80-5.20) 01/11/18 05:45 Hgb 14.1 g/dL (12.0-16.0) 01/11/18 05:45 Hct 41.9 % (34.0-47.0) 01/11/18 05:45 MCV 87.5 fl (81.0-99.0) 01/11/18 05:45 MCH 29.5 pg (27.0-31.0) 01/11/18 05:45 MCHC 33.7 g/dL (33.0-37.0) 01/11/18 05:45 RDW 14.0 % (11.5-14.5) 01/11/18 05:45 Plt Count 342 K/uL (130-400) 01/11/18 05:45 MPV 8.6 fl (7.2-11.7) 01/11/18 05:45 Neut % (Auto) 79.8 % (50.0-75.0) H 01/11/18 05:45 Lymph % (Auto) 9.8 % (20.0-40.0) L 01/11/18 05:45 [place] % (Auto) 9.8 % (0.0-10.0) 01/11/18 05:45 Eos % (Auto) 0.4 % (0.0-4.0) 01/11/18 05:45 Baso % (Auto) 0.2 % (0.0-2.0) 01/11/18 05:45 Neut # (Auto) 6.0 K/uL (1.8-7.0) 01/11/18 05:45 Lymph # (Auto) 0.7 K/uL (1.0-4.3) L 01/11/18 05:45 [place] # (Auto) 0.7 K/uL (0.0-0.8) 01/11/18 05:45 Eos # (Auto) 0.0 K/uL (0.0-0.7) 01/11/18 05:45 Baso # (Auto) 0.0 K/uL (0.0-0.2) 01/11/18 05:45 Neutrophils % (Manual) 79 % (42-75) H 01/11/18 05:45 Band Neutrophils % 1 % (0-2) 01/11/18 05:45 Lymphocytes % (Manual) 8 % (20-50) L 01/11/18 05:45 Monocytes % (Manual) 12 % (0-10) H 01/11/18 05:45 Platelet Estimate Normal (NORMAL) 01/11/18 05:45 Large Platelets Present 01/11/18 05:45 Giant Platelets Present 01/11/18 05:45 RBC Morphology Normal (NORMAL) 01/11/18 05:45 Sodium 133 mmol/l (132-148) 01/11/18 05:45 Potassium 4.8 MMOL/L (3.6-5.0) 01/11/18 05:45 Chloride 89 mmol/L (98-107) L 01/11/18 05:45 Carbon Dioxide 29 mmol/L (22-30) 01/11/18 05:45 Anion Gap 20 (10-20) 01/11/18 05:45 BUN 4 mg/dl (7-17) L 01/11/18 05:45 Creatinine 0.4 mg/dl (0.7-1.2) L 01/11/18 05:45 Est GFR ( Amer) > 60 01/11/18 05:45 Est GFR (Non-Af Amer) > 60 01/11/18 05:45 POC Glucose (mg/dL) 154 mg/dL (65-110) H 01/12/18 05:34 Random Glucose 216 mg/dL (65-105) H 01/11/18 05:45 Calcium 10.6 mg/dL (8.4-10.2) H 01/11/18 05:45 Total Bilirubin 0.8 mg/dl (0.2-1.3) 01/11/18 05:45 AST 55 U/L (14-36) H 01/11/18 05:45 ALT 31 U/L (9-52) 01/11/18 05:45 Alkaline Phosphatase 168 U/L (38-126) H 01/11/18 05:45 Total Protein 9.6 G/DL (6.3-8.2) H 01/11/18 05:45 Albumin 4.8 g/dL (3.5-5.0) 01/11/18 05:45 Globulin 4.8 gm/dL (2.2-3.9) H 01/11/18 05:45 Albumin/Globulin Ratio 1.0 (1.0-2.1) 01/11/18 05:45 Lipase 52 U/L (23-300) 01/10/18 07:20 Urine Color Yellow (YELLOW) 01/10/18 10:14 Urine Clarity Slighty-cloudy (Clear) 01/10/18 10:14 Urine pH 8.0 (5.0-8.0) 01/10/18 10:14 Ur Specific [place] 1.036 (1.003-1.030) H 01/10/18 10:14 Urine Protein Negative mg/dL (NEGATIVE) 01/10/18 10:14 Urine Glucose (UA) 150 mg/dL (Normal) 01/10/18 10:14 Urine Ketones Trace mg/dL (NEGATIVE) 01/10/18 10:14 Urine Blood Negative (NEGATIVE) 01/10/18 10:14 Urine Nitrate Negative (NEGATIVE) 01/10/18 10:14 Urine Bilirubin Negative (NEGATIVE) 01/10/18 10:14 Urine Urobilinogen 0.2-1.0 mg/dL (0.2-1.0) 01/10/18 10:14 Ur Leukocyte Esterase Neg Jen/uL (Negative) 01/10/18 10:14 Urine RBC (Auto) < 1 /hpf (0-3) 01/10/18 10:14 Urine Microscopic WBC 2 /hpf (0-5) 01/10/18 10:14 Ur Squamous Epith Cells 6 /hpf (0-5) H 01/10/18 10:14 Urine Bacteria Rare (<OCC) 01/10/18 10:14 - Hospital Course Hospital Course: 47 y/o woman w/ pmh of HTN, chronic back pain, Colon cancer w/ metastasis to liver, Depression, Fibromyalgia, GERD presents to ED with persistent lower back and lower abdominal pain. Patient seen by pain management for abdominal and back pain. Patient s/p bilateral sacroiliac joint injections for back pain. Patient's pain medications also adjusted for better control. Patient also treated for constipation and had bowel movement s/p suppository. Patient reports better pain control and feeling better overall. Patient has been seen, examined, and deemed medically fit for discharge home. Patient discharged and given script for dilaudid 2 mg PO Q8h by pain management and script for tramadol 50 mg PO Q6h by medical team. Patient is to follow up w/ Dr. Bae for pain management and w/ [facility] in 1-2 weeks. Discharge Exam - Head Exam Head Exam: ATRAUMATIC, NORMAL INSPECTION, NORMOCEPHALIC - Eye Exam Eye Exam: Normal appearance - ENT Exam ENT Exam: Mucous Membranes Moist - Neck Exam Neck exam: Full Rom - Respiratory Exam Respiratory Exam: Clear to PA & Lateral. absent: Accessory Muscle Use, Decreased Breath Sounds, Rales, Rhonchi, Wheezes, Respiratory Distress - Cardiovascular Exam Cardiovascular Exam: REGULAR RHYTHM, RRR. absent: Tachycardia - GI/Abdominal Exam GI & Abdominal Exam: Normal Bowel Sounds, Soft, Tenderness (minimal tenderness) . absent: Distended - Extremities Exam Extremities exam: normal inspection - Neurological Exam Neurological exam: Alert, Oriented x3 - Skin Skin Exam: Dry, Intact, Normal Color, Warm Discharge Plan - Follow Up Plan Condition: GOOD Disposition: HOME/ ROUTINE Instructions: Acute Abdomen (Belly Pain), Adult (DC), Nausea and Vomiting, Adult (DC), Hydromorphone, Corticosteroid Joint Injection Additional Instructions: follow up with primary md 1 week Referrals: Vivian Mcbride MD [Family Provider] - Timmy Bae-Miguel Cha MD [Staff Provider] -
[2018-01-13 19:02] VITALS: O2SAT 100
== END 2018-01-13 11:23 | disposition home or self-care (01) ==
LOC: H.ER 06:30 → H.ERHOLD 10:07 → H.MEDSURG1 11:49
PROVIDERS: ADMIT Family Medicine Geriatric Medicine; ATTEND Family Medicine Geriatric Medicine
DX: G89.29 Other chronic pain (principal); M54.5 Low back pain; C78.7 Secondary malignant neoplasm of liver and intrahepatic bile duct; E11.9 Type 2 diabetes mellitus without complications; I10 Essential (primary) hypertension; K21.9 Gastro-esophageal reflux disease without esophagitis; K59.00 Constipation, unspecified; M16.0 Bilateral primary osteoarthritis of hip; M41.9 Scoliosis, unspecified; M79.7 Fibromyalgia; Z85.038 Personal history of other malignant neoplasm of large intestine; Z92.21 Personal history of antineoplastic chemotherapy; F32.9 Major depressive disorder, single episode, unspecified; F41.9 Anxiety disorder, unspecified; Z79.899 Other long term (current) drug therapy
CPT/HCPCS: 20610; 27096; 36415; 74177; 77002; 80053; 81003; 81025; 82948; 83690; 85025; 96360; 99285; G0378; J1040; J1170; J1650; J2250; J2270; J2405; J3010; J7030; J7120; Q9967

== ENCOUNTER 2018-01-18 13:52 | Inpatient (IN) | payer MEDICAID ==
[2018-01-18 13:52] VITALS: BMI 31.9
[2018-01-18] MEDS ORDERED: Sodium Chloride 0.9% 1,000 ML IV STA (14:30)
[2018-01-18] MEDS ORDERED: HYDROmorphone 0.5 mg/0.5 ml ISec ONE ×2 (14:37→15:46)
--- NOTE | 2018-01-18 14:40 | ED PDOC ---
HPI: Back Time Seen by Provider: 01/18/18 14:28 Chief Complaint (Nursing): Back Pain Chief Complaint (Provider): back pain History Per: Patient History/Exam Limitations: no limitations Onset/Duration Of Symptoms: Days (x 2) Current Symptoms Are (Timing): Still Present Associated Symptoms: Other (nausea and vomiting) Additional History Per: Prior Records Additional Complaint(s): 47-year-old male, with past medical history of colon ca with mets to liver and intractable back pain, presents to ED for back pain associated with nausea and vomiting x 2 days. Pt was recently admitted. Pt has had back pain in the past. No improvement with PO Dilaudid. PMD: Neftali Taylor Past Medical History Reviewed: Historical Data, Nursing Documentation, Vital Signs Vital Signs: Last Vital Signs Temp 97.4 F L 01/18/18 14:04 Pulse 116 H 01/18/18 14:04 Resp 22 01/18/18 14:04 BP 136/94 H 01/18/18 14:04 Pulse Ox 100 01/18/18 14:04 - Medical History PMH: Anxiety, Back Problems, Depression, Diabetes, Fibromyalgia, GERD, HTN, Malignancy Other PMH: colon ca wth mets to liver - Surgical History Surgical History: Back Surgery, Endoscopy - Family History Family History: States: Unknown Family Hx - Immunization History Hx Influenza Vaccination: Yes Hx Pneumococcal Vaccination: No - Home Medications Home Medications: Ambulatory Orders Medication Instructions Recorded amLODIPine [Norvasc] 10 mg PO DAILY #0 tab 04/05/15 DULoxetine [Cymbalta] 60 mg PO HS 04/23/15 Acetaminophen with Codeine 1 tab PO Q6 PRN 11/18/17 [Tylenol with Codeine #3 Tablet] Magnesium Hydroxide [Milk Of 30 ml PO DAILY 01/10/18 Magnesia] Omeprazole [Omeprazole] 40 mg PO DAILY 01/10/18 Polyethylene Glycol 3350 [Miralax] 17 gm PO BID 01/10/18 Tramadol HCl [Tramadol HCl ER] 200 mg PO DAILY 01/10/18 - Allergies Allergies/Adverse Reactions: Allergies Allergy/AdvReac Type Severity Reaction Status Date / Time penicillin G Allergy RASH Verified 03/21/17 11:19 vancomycin Allergy RASH Verified 03/21/17 11:19 Review of Systems ROS Statement: Except As Marked, All Systems Reviewed And Found Negative Gastrointestinal: Positive for: Nausea Musculoskeletal: Positive for: Back Pain Physical Exam - Reviewed Nursing Documentation Reviewed: Yes Vital Signs Reviewed: Yes - Physical Exam Gastrointestinal/Abdominal: Positive for: Normal Exam, Soft. Negative for: Tenderness Back: Positive for: Normal Inspection. Negative for: Vertebral Tenderness, Other (deformity) Neurologic/Psych: Positive for: Alert, Oriented (x 3). Negative for: Motor/ Sensory Deficits - ECG O2 Sat by Pulse Oximetry: 100 (RA) Pulse Ox Interpretation: Normal Medical Decision Making Medical Decision Making: Plan: - CMP - CBC (with differential) - Dilaudid 1 mg IVP - Sodium Chloride 0.9% 1,000 ml IV 100 mls/hr - Zofran Inj - LS Spine AP/LAT 14:[address] Cabrera discussed case with Dr. Bae. Dr. Bae agrees to evaluate patient in ED. 14:50 Dr. Bae in ED. Scribe Attestation: Documented by Antione Delacruz, acting as a scribe for Dylan Cabrera MD Provider Scribe Attestation: All medical record entries made by the Scribe were at my direction and personally dictated by me. I have reviewed the chart and agree that the record accurately reflects my personal performance of the history, physical exam, medical decision making, and the department course for this patient. I have also personally directed, reviewed, and agree with the discharge instructions and disposition. Disposition - Clinical Impression Clinical Impression: Colon cancer metastasized to liver, Intractable low back pain - Patient ED Disposition Is Patient to be Admitted: Yes - Disposition Disposition Time: 14:54 Condition: FAIR Forms: [facility] [email or web address] (Uzbek) - Pt Status Changed To: Hospital Disposition Of: Inpatient - Admit Certification Admit to Inpatient:: After my assessment, the patient will require hospitalization for at least two midnights. This is because of the severity of symptoms shown, intensity of services needed, and/or the medical risk in this patient being treated as an outpatient. - POA Present On Arrival: None
[2018-01-18] MEDS ORDERED: HYDROmorphone 0.5 mg/0.5 ml ISec IVP STA (14:59)
--- NOTE | 2018-01-18 15:04 | CP.PCM.HP ---
<Jayce Umana - Last Filed: 01/18/18 16:35> History of Present Illness - History of Present Illness History of Present Illness: 47 Y/O female with PMHx of HTN, chronic back pain, Colon cancer w/ metastasis to liver, Depression, Fibromyalgia, GERD presents to ED with back pain associated with nausea and vomiting x 2 days. Patient was admitted to [facility] on for abdominal pain and back pain. Patient s/p bilateral sacroiliac joint injections for back pain on 01/12. Patient discharged and given script for dilaudid 2 mg PO Q8h by pain management and script for tramadol 50 mg PO Q6h by medical team. Today patient reports 10/10, sharp, continuous, bilateral, mid thoracic back pain which radiates to front. Patient also reports associated nausea and vomiting. Patient denies any CP, SOB, headache, dizziness, dysuria, diarrhea. Patient refused further history taking at this time due to severe pain. Dr. Bae in ED for further pain management. ED Course - CMP, CBC (with differential) - Dilaudid 1 mg IVP - Sodium Chloride 0.9% 1,000 ml IV 100 mls/hr - Zofran Inj - Fantanyl 50 mcg/hr TD patch applied - Dilaudid 2 mg IVP Q4hr PRN - LS Spine AP/LAT - CT Chest W contrast PCP: Dr. Andres [facility]-Oncologist: Dr. Yovani Pennington at [facility] Pain management: Dr. Bae PMH: chronic back pain, fibromyalgia, HTN, GERD, colon cancer, anxiety PSH: C6 fusion, Colon resection 2014 and b/l oopherectomy, chemoembolization of liver. SocialHx: denies ETOH/tobacco/drug abuse FamilyHx: DM, HTN Meds: as per med rec Hospitalization: multiple including 2 ER visit and 1 inpatient in past 1 month. Present on Admission - Present on Admission Any Indicators Present on Admission: No History of DVT/PE: No History of Uncontrolled Diabetes: Yes Urinary Catheter: No Decubitus Ulcer Present: No Review of Systems - Constitutional Constitutional: absent: Anorexia, Chills, Fever, Headache, Lethargy - EENT Eyes: absent: Change in Vision - Cardiovascular Cardiovascular: absent: Chest Pain, Chest Pain at Rest, Dyspnea on Exertion, Edema, Leg Edema, Palpitations - Respiratory Respiratory: absent: Dyspnea - Gastrointestinal Gastrointestinal: Abdominal Pain, Change in Bowel Habits, Constipation, Nausea, Vomiting. absent: Diarrhea, Dysphagia, Heartburn, Hematemesis, Hematochezia - Genitourinary Genitourinary: absent: Dysuria, Flank Pain, Hematuria, Urinary Incontinence, Urinary Frequency, Urinary Urgency - Musculoskeletal Musculoskeletal: Back Pain, Myalgias. absent: Muscle Weakness - Integumentary Integumentary: absent: Swelling - Neurological Neurological: absent: Dizziness, Numbness, Focal Weakness, Headaches - Psychiatric Psychiatric: absent: Anxiety Past Patient History - Infectious Disease Hx of Infectious Diseases: None - Tetanus Immunizations Tetanus Immunization: Unknown - Past Medical History & Family History Past Medical History?: Yes - Past Social History Smoking Status: Never Smoked - CARDIAC Hx Hypertension: Yes - PULMONARY Hx Asthma: No Hx Bronchitis: No Hx Chronic Obstructive Pulmonary Disease (COPD): No Hx Emphysema: No Hx Pneumonia: No Hx Pulmonary Embolism: No Hx Sleep Apnea: No - NEUROLOGICAL Hx Alzheimer's Disease: No Hx Dementia: No Hx Migraine: No Hx Multiple Sclerosis: No Hx Parkinson's Disease: No Hx Seizures: No Hx Transient Ischemic Attacks (TIA): No - HEENT Hx HEENT Problems: No - RENAL Hx Kidney Stones: No - ENDOCRINE/METABOLIC Hx Hyperthyroidism: No Hx Hypothyroidism: No - INTEGUMENTARY Hx Dermatological Problems: No - GENITOURINARY/GYNECOLOGICAL Hx Sexually Transmitted Disorders: No - PSYCHIATRIC Hx Anxiety: Yes Hx Depression: Yes - SURGICAL HISTORY Hx Appendectomy: No Hx Carotid Endarterectomy: No Hx Cholecystectomy: No Hx Coronary Artery Bypass Graft: No Hx Coronary Stent: No Hx Tonsillectomy: No - ANESTHESIA Hx Anesthesia: Yes Hx Anesthesia Reactions: No Hx Malignant Hyperthermia: No Meds Allergies/Adverse Reactions: Allergies Allergy/AdvReac Type Severity Reaction Status Date / Time penicillin G Allergy RASH Verified 03/21/17 11:19 vancomycin Allergy RASH Verified 03/21/17 11:19 Physical Exam - Constitutional Appears: In Acute Distress Additional comments: Patient in position due to severe back pain. - Head Exam Head Exam: ATRAUMATIC, NORMAL INSPECTION, NORMOCEPHALIC - Eye Exam Eye Exam: EOMI, Normal appearance, PERRL - ENT Exam ENT Exam: Mucous Membranes Moist - Respiratory Exam Respiratory Exam: Clear to Auscultation Bilateral, NORMAL BREATHING PATTERN. absent: Rales, Rhonchi, Wheezes, Respiratory Distress - Cardiovascular Exam Cardiovascular Exam: REGULAR RHYTHM, +S1, +S2. absent: Systolic Murmur - GI/Abdominal Exam GI & Abdominal Exam: Normal Bowel Sounds, Soft, Tenderness. absent: Distended, Rigid - Back Exam Back exam: paraspinal tenderness. absent: CVA tenderness (L), CVA tenderness (R ), FULL ROM, rash noted Additional comments: Bilateral lower thoracic tenderness +, B/L Lower lumbar tenderness (-) CVA tenderness - Neurological Exam Neurological exam: Alert, Oriented x3 Additional comments: Deferred at this time due to severe pain - Psychiatric Exam Additional comments: Deferred at this time due to severe pain - Skin Skin Exam: Dry, Intact, Normal Color Results - Vital Signs Recent Vital Signs: Last Vital Signs Temp 97.4 F L 01/18/18 14:04 Pulse 116 H 01/18/18 14:04 Resp 22 01/18/18 14:04 BP 136/94 H 01/18/18 14:04 Pulse Ox 100 01/18/18 14:54 - Labs Result Diagrams: 01/18/18 15:05 01/18/18 15:05 Assessment & Plan - Assessment and Plan (Free Text) Assessment: 47 Y/O female with PMHx of HTN, chronic back pain, Colon cancer w/ metastasis to liver, Depression, Fibromyalgia, GERD presents to ED back pain associated with nausea and vomiting x 2 days Plan: Midthoracic back pain - Chronic, H/O multiple lumbar surgeries. - CBC, CMP ordered in ED, Pending result - Dilaudid 1 mg IVP in ED - Dulaudid 2 mg Q4hr PRN for back pain. - Sodium Chloride 0.9% 1,000 ml IV 100 mls/hr - LS Spine AP/LAT - CT Chest with contrast - Dr Bae in ED for evaluation. - F/U CT chest, CMP, UA - Pain Management: Will follow recommendations. Nausea and vomiting - Zofran Inj - Sodium Chloride 0.9% 1,000 ml IV 100 mls/hr NIDDM - Uncontrolled - Last A1c 7.7 - Pt denies taking home meds for DM - Insulin lispro scale and Hypoglycemia protocol - Accucheck AM - F/U as an outpatient basis. HTN - Uncontrolled - Amlodipine 10 mg QD - Will monitor vitals Q8hr Colon cancer w/metastasis to liver - CT abdomen/pelvis consistent with liver metastasis, unchanged from previous CT on 01/02 - Received 5 FU chemo at [place]. - Pt to F/U with Dr. Pennington on January 21 Fibromyalgia - Controlled - Duloxetine 60 mg PO HS DVT Prophylaxis - Lovenox 40 mg SC daily <Estelle Dias - Last Filed: 01/19/18 09:08> Results - Vital Signs Recent Vital Signs: Last Vital Signs Temp 98.2 F 01/19/18 08:14 Pulse 95 H 01/19/18 08:14 Resp 20 01/19/18 08:14 BP 146/97 H 01/19/18 08:14 Pulse Ox 97 01/19/18 08:14 - Labs Result Diagrams: 01/18/18 15:05 01/19/18 05:20 Labs: Laboratory Results - last 24 hr 01/18/18 01/18/18 01/18/18 15:05 15:05 18:32 WBC 8.7 RBC 5.23 H Hgb 15.3 Hct 45.6 MCV 87.1 MCH 29.2 MCHC 33.5 RDW 14.4 Plt Count 305 MPV 8.7 Neut % (Auto) 75.1 H Lymph % (Auto) 13.0 L Cotton % (Auto) 10.3 H Eos % (Auto) 1.3 Baso % (Auto) 0.3 Neut # (Auto) 6.5 Lymph # (Auto) 1.1 Cotton # (Auto) 0.9 H Eos # (Auto) 0.1 Baso # (Auto) 0.0 Sodium 134 Potassium 4.8 Chloride 93 L Carbon Dioxide 27 Anion Gap 19 BUN 9 Creatinine 0.5 L Est GFR ( Amer) > 60 Est GFR (Non-Af Amer) > 60 POC Glucose (mg/dL) 90 Random Glucose 187 H Calcium 10.5 H Total Bilirubin 0.7 AST 101 H D ALT 65 H D Alkaline Phosphatase 173 H Total Protein 9.7 H Albumin 4.9 Globulin 4.8 H Albumin/Globulin Ratio 1.0 01/18/18 01/19/18 01/19/18 21:50 05:20 05:40 WBC RBC Hgb Hct MCV MCH MCHC RDW Plt Count MPV Neut % (Auto) Lymph % (Auto) Cotton % (Auto) Eos % (Auto) Baso % (Auto) Neut # (Auto) Lymph # (Auto) Cotton # (Auto) Eos # (Auto) Baso # (Auto) Sodium 136 Potassium 5.0 Chloride 93 L Carbon Dioxide 30 Anion Gap 18 BUN 7 Creatinine 0.5 L Est GFR ( Amer) > 60 Est GFR (Non-Af Amer) > 60 POC Glucose (mg/dL) 159 H 143 H Random Glucose 157 H Calcium 10.3 H Total Bilirubin 0.7 AST 79 H D ALT 58 H Alkaline Phosphatase 159 H Total Protein 9.1 H Albumin 4.7 Globulin 4.4 H Albumin/Globulin Ratio 1.1 Attending/Attestation - Attestation I have personally seen and examined this patient.: Yes I have fully participated in the care of the patient.: Yes I have reviewed all pertinent clinical information: Yes
[2018-01-18 15:17] LABS: BASO % 0.3 % (0.0-2.0); EOS # 0.1 K/uL (0.0-0.7); EOS % 1.3 % (0.0-4.0); HEMOGLOBIN 15.3 g/dL (12.0-16.0); LYMPH # 1.1 K/uL (1.0-4.3); MEAN CELL VOLUME 87.1 fl (81.0-99.0); MEAN CORPUSCULAR HEMOGLOBIN 29.2 pg (27.0-31.0); MEAN CORPUSCULAR HGB CONC 33.5 g/dL (33.0-37.0); MEAN PLATELET VOLUME 8.7 fl (7.2-11.7); MONO # 0.9 K/uL (0.0-0.8); MONO % 10.3 % (0.0-10.0); NEUT # 6.5 K/uL (1.8-7.0); NEUT % 75.1 % (50.0-75.0); NRBC % 0.1 % (0.0-0.0); RBC 5.23 Mil/uL (3.80-5.20); RED CELL DISTRIBUTION WIDTH 14.4 % (11.5-14.5); WHITE BLOOD COUNT 8.7 K/uL (4.8-10.8)
[2018-01-18 15:42] LABS: ALBUMIN 4.9 g/dL (3.5-5.0); ALT/SGPT 65 U/L (9-52); AST/SGOT 101 U/L (14-36); BLOOD UREA NITROGEN 9 mg/dl (7-17); CALCIUM 10.5 mg/dL (8.4-10.2); GFR NON-AFRICAN AMERICAN > 60
[2018-01-18] MEDS ORDERED: Iohexol 300 100 ML IJ ONE (15:51)
[2018-01-18] MEDS ORDERED: Sodium Chloride 0.9% 50 ML IV ONE (15:51)
[2018-01-18] MEDS ORDERED: HYDROmorphone 0.5 mg/0.5 ml ISec IVP ONE ×2 (16:00→20:15)
[2018-01-18] MEDS ORDERED: Glucagon Recombinant 1 mg Inj IM PRN (16:07)
[2018-01-18] MEDS ORDERED: Dextrose 50% SYRINGE Inj (50 ml) IV PRN (16:07)
--- NOTE | 2018-01-18 16:52 | CT ---
Date of service: 01/18/2018 PROCEDURE: CT Chest with contrast HISTORY: Back pain. Relevant medical history: History of colon cancer. COMPARISON: None. TECHNIQUE: Contiguous axial images were obtained through the chest with intravenous contrast enhancement. Sagittal and coronal reconstructions were performed. IV contrast: 95 cc Omnipaque 300 Radiation dose (DLP): 425.58 mGy-cm. This CT exam was performed using one or more of the following dose reduction techniques: Automated exposure control, adjustment of the mA and/or kV according to patient size, and/or use of iterative reconstruction technique. FINDINGS: LUNGS: Clear lungs. Visualized airway clear. MEDIASTINUM: Unremarkable thoracic aorta. No aneurysm or dissection. Normal sized heart. Main pulmonary artery unremarkable. No vascular congestion. No lymphadenopathy. PLEURA: No pleural fluid. No pneumothorax. BONES: No fracture. No destructive lesion. UPPER ABDOMEN: Incompletely visualized hepatic metastatic disease, findings identified on cross-sectional imaging studies [id number]. OTHER FINDINGS: None. IMPRESSION: Unremarkable contrast enhanced CT of the chest. No suspicious pulmonary nodules, masses or infiltrates. No significant findings within the mediastinum. Incompletely visualized hepatic metastatic disease.
--- NOTE | 2018-01-18 17:36 | RAD ---
Date of service: 01/18/2018 PROCEDURE: Radiographs of the Lumbar Spine. HISTORY: Liver Ca with mets COMPARISON: CT scan of the abdomen and pelvis dated 01/10/2018. FINDINGS: BONES: Normal alignment. No listhesis. No fracture. DISC SPACES: Prior L4-5 discectomy with disc spacer placement. OTHER FINDINGS: Excreted intravenous contrast in both renal collecting systems and urinary bladder. Left pelvic surgical clips. IMPRESSION: L4-5 disc spacer. Otherwise, unremarkable radiographs of the lumbar spine.
[2018-01-18] MEDS: Insulin Lispro (humaLOG) 100 Units/ml Inj SC SCH ×2 (18:33→22:16)
[2018-01-18] MEDS ORDERED: DiphenhydrAMINE 50 mg/ml Inj IVP STA (23:22)
[2018-01-19] MEDS: Insulin Lispro (humaLOG) 100 Units/ml Inj SC SCH ×4 (06:35→21:43)
[2018-01-19 07:34] LABS: ALB/GLOB RATIO 1.1 (1.0-2.1); ALBUMIN 4.7 g/dL (3.5-5.0); ALT/SGPT 58 U/L (9-52); AST/SGOT 79 U/L (14-36); BLOOD UREA NITROGEN 7 mg/dl (7-17); CALCIUM 10.3 mg/dL (8.4-10.2); GFR NON-AFRICAN AMERICAN > 60
[2018-01-19] MEDS: Enoxaparin 40 mg Syringe SC SCH (08:56)
[2018-01-19] MEDS: Pantoprazole 40 mg EC Tab PO SCH (08:57)
--- NOTE | 2018-01-19 09:33 | CP.PCM.PN ---
Subjective - Date & Time of Evaluation Date of Evaluation: 01/19/18 Time of Evaluation: 09:30 - Subjective Subjective: Patient presents with abdominal and thoracic/lumbar spinal pain. She was admitted last week for similar symptoms, and received sacroiliac joint injections with mild relief. She was seen at the clinic last Sunday but had to come in yesterday due to intractable pain refractory to even Dilaudid PO at home. This is a great departure for her in terms of her ability to handle pain , for years she had been on Tramadol only and lately T#3, but now Dilaudid isn' t able to help. Thoracic/lumbar MRI in 08/2017 didn't reveal any metastatic diseases or significant stenosis. CT chest yesterday was normal as well. It's unclear what spurs the pain in the mid-back and lateral chest wall. On examination this doesn't appear to be visceral pain from tumor load either. Fentanyl patch was placed yesterday around late afternoon, it should be taking effect about now. Dilaudid 2mg was only lasting her 2 hours overnight. Objective - Vital Signs/Intake and Output Vital Signs (last 24 hours): Temp Pulse Resp BP Pulse Ox 98.2 F 95 H 20 146/97 H 97 01/19/18 08:14 01/19/18 08:14 01/19/18 08:14 01/19/18 08:14 01/19/18 08:14 - Medications Medications: Current Medications Amlodipine Besylate (Norvasc) 10 mg PO HS [facility] Last Admin: 01/18/18 22:11 Dose: 10 mg Dextrose (Dextrose 50% Inj) 0 ml IV STAT PRN; Protocol PRN Reason: Hypoglycemia Protocol Dextrose (Glutose 15) 0 gm PO ONCE PRN; Protocol PRN Reason: Hypoglycemia Protocol Docusate Sodium (Colace) 100 mg PO BID [facility] Last Admin: 01/19/18 08:56 Dose: 100 mg Duloxetine HCl (Cymbalta) 60 mg PO HS [facility] Last Admin: 01/18/18 22:09 Dose: 60 mg Enoxaparin Sodium (Lovenox) 40 mg SC DAILY [facility] PRN Reason: Protocol Last Admin: 01/19/18 08:56 Dose: 40 mg Fentanyl (Duragesic) 1 patch TD Q3D [facility] PRN Reason: Protocol Last Admin: 01/18/18 15:13 Dose: 1 patch Glucagon (Glucagen Diagnostic Kit) 0 mg IM STAT PRN; Protocol PRN Reason: Hypoglycemia Protocol Hydromorphone HCl (Dilaudid) 2 mg IVP Q3 PRN PRN Reason: Pain, severe (8-10) Insulin Human Lispro (Humalog) 0 units SC ACHS [facility] PRN Reason: Protocol Last Admin: 01/19/18 06:35 Dose: Not Given Ondansetron HCl (Zofran Inj) 4 mg IVP Q6 PRN PRN Reason: Nausea/Vomiting Pantoprazole Sodium (Protonix Ec Tab) 40 mg PO DAILY [facility] Last Admin: 01/19/18 08:57 Dose: 40 mg Tramadol HCl (Ultram) 50 mg PO Q6 PRN PRN Reason: Pain, moderate (4-7) Last Admin: 01/19/18 04:21 Dose: 50 mg - Labs Labs: 01/18/18 15:05 01/19/18 05:20 - Respiratory Exam Respiratory Exam: Chest Wall Tenderness - Back Exam Back Exam: paraspinal tenderness, vertebral tenderness Assessment and Plan (1) Intractable low back pain Assessment & Plan: 47 yo woman w/ metastatic colon cancer to the liver has intractable pain in the abdomen/spine. Pain appears to be a combination of visceral and musculoskeletal origins. It may be a reaction to the recent liver procedure as well. Her opioid tolerance has appeared to increase dramatically recently, I am not sure if this is consistent with her disease. - continue Fentanyl patch, its effects should be apparent by today/tomorrow - increase Dilaudid to 2mg q3h IV PRN - will consider injection on Sunday, celiac plexus vs epidural injection - hold Lovenox morning AM, check coag profile today, NPO after midnight Sunday night Status: Acute
--- NOTE | 2018-01-19 11:05 | CP.PCM.PN ---
<Jayce Umana - Last Filed: 01/19/18 12:34> Subjective - Date & Time of Evaluation Date of Evaluation: 01/19/18 Time of Evaluation: 09:00 - Subjective Subjective: Patient evaluated and examined at bedside in AM. Patient in mild distress. Still reports back pain and abdominal pain. Nausea and vomiting resolved. No CP , SOB, headache, dizziness, diarrhea, nausea, or constipation. Dr. Bae on board. Back injections(epidural vs celiac plexus) on Sunday. Some physical exam deferred due to pain. Objective - Vital Signs/Intake and Output Vital Signs (last 24 hours): Temp Pulse Resp BP Pulse Ox 98.2 F 95 H 20 146/97 H 97 01/19/18 08:14 01/19/18 08:14 01/19/18 08:14 01/19/18 08:14 01/19/18 08:14 - Medications Medications: Current Medications Amlodipine Besylate (Norvasc) 10 mg PO HS [facility] Last Admin: 01/18/18 22:11 Dose: 10 mg Dextrose (Dextrose 50% Inj) 0 ml IV STAT PRN; Protocol PRN Reason: Hypoglycemia Protocol Dextrose (Glutose 15) 0 gm PO ONCE PRN; Protocol PRN Reason: Hypoglycemia Protocol Docusate Sodium (Colace) 100 mg PO BID [facility] Last Admin: 01/19/18 08:56 Dose: 100 mg Duloxetine HCl (Cymbalta) 60 mg PO HS [facility] Last Admin: 01/18/18 22:09 Dose: 60 mg Enoxaparin Sodium (Lovenox) 40 mg SC DAILY [facility] PRN Reason: Protocol Last Admin: 01/19/18 08:56 Dose: 40 mg Fentanyl (Duragesic) 1 patch TD Q3D [facility] PRN Reason: Protocol Last Admin: 01/18/18 15:13 Dose: 1 patch Glucagon (Glucagen Diagnostic Kit) 0 mg IM STAT PRN; Protocol PRN Reason: Hypoglycemia Protocol Hydromorphone HCl (Dilaudid) 1.5 mg IVP Q3 PRN PRN Reason: Pain, severe (8-10) Last Admin: 01/19/18 10:18 Dose: 1.5 mg Insulin Human Lispro (Humalog) 0 units SC ACHS [facility] PRN Reason: Protocol Last Admin: 01/19/18 06:35 Dose: Not Given Ondansetron HCl (Zofran Inj) 4 mg IVP Q6 PRN PRN Reason: Nausea/Vomiting Pantoprazole Sodium (Protonix Ec Tab) 40 mg PO DAILY [facility] Last Admin: 01/19/18 08:57 Dose: 40 mg Tramadol HCl (Ultram) 50 mg PO Q6 PRN PRN Reason: Pain, moderate (4-7) Last Admin: 01/19/18 04:21 Dose: 50 mg - Labs Labs: 01/18/18 15:05 01/19/18 05:20 - Constitutional Appears: Well, Non-toxic, No Acute Distress - Head Exam Head Exam: ATRAUMATIC, NORMAL INSPECTION, NORMOCEPHALIC - Eye Exam Eye Exam: EOMI, Normal appearance, PERRL Pupil Exam: NORMAL ACCOMODATION, PERRL - ENT Exam ENT Exam: Mucous Membranes Moist - Respiratory Exam Respiratory Exam: Clear to Ausculation Bilateral, NORMAL BREATHING PATTERN. absent: Rales, Rhonchi, Wheezes - Cardiovascular Exam Cardiovascular Exam: REGULAR RHYTHM. absent: +S1, +S2, Murmur - GI/Abdominal Exam GI & Abdominal Exam: Soft, Tenderness, Normal Bowel Sounds. absent: Firm, Guarding, Rigid - Back Exam Back Exam: paraspinal tenderness, tenderness Additional comments: B/L lower thoracic tenderness + - Neurological Exam Neurological Exam: Alert, Awake, Oriented x3 - Psychiatric Exam Psychiatric exam: Normal Affect, Normal Mood - Skin Skin Exam: Dry, Intact, Normal Color Assessment and Plan - Assessment and Plan (Free Text) Assessment: 47 Y/O female with PMHx of HTN, chronic back pain, Colon cancer w/ metastasis to liver, Depression, Fibromyalgia, GERD presents to ED back pain associated with nausea and vomiting x 2 days. Plan: Lower thoracic back pain - Chronic, H/O multiple lumbar surgeries. - CBC, CMP ordered in ED, Pending result - 2 mg IV Dilaudid, Zofran, Sodium Chloride 0.9% 1,000 ml IV 100 mls/hr in ED - LS Spine AP/LAT: L4-5 disc spacer. Otherwise, unremarkable radiographs of the lumbar spine. - CT Chest with contrast: Unremarkable contrast enhanced CT of the chest. No suspicious pulmonary nodules, masses or infiltrates. No significant findings within the mediastinum. Incompletely visualized hepatic metastatic disease. - As per Pain Management: continue Fentanyl patch, increase Dilaudid to 1.5mg q3h IV PRN - Consider injection on Sunday, celiac plexus vs epidural injection - hold Lovenox morning AM - Coag profile pending - NPO after midnight Sunday night Nausea and vomiting - Improving. - Zofran 4 mg PRN NIDDM - Uncontrolled - Last A1c 7.7 - Pt denies taking home meds for DM - Insulin lispro scale and Hypoglycemia protocol - Accucheck AM - F/U as an outpatient basis. HTN - Uncontrolled - Amlodipine 10 mg QD - Will monitor vitals Q8hr Colon cancer w/metastasis to liver - CT abdomen/pelvis consistent with liver metastasis, unchanged from previous CT on 01/02 - Thoracic/lumbar MRI in 08/2017 didn't reveal any metastatic diseases or significant stenosis. - According to Dr. Yovani Pennington's office patient's colon cancer is responding to chemotherapy and not spread to any other organ except liver. - Received 5 FU chemo at [place]. - Unlikely F/U with Dr. Pennington on January 21 Fibromyalgia - Controlled - Duloxetine 60 mg PO HS DVT Prophylaxis - Lovenox 40 mg SC daily <Estelle Dias - Last Filed: 01/20/18 09:02> Objective - Vital Signs/Intake and Output Vital Signs (last 24 hours): Temp Pulse Resp BP Pulse Ox 97.9 F 93 H 18 147/93 H 98 01/20/18 08:18 01/20/18 08:18 01/20/18 08:18 01/20/18 08:18 01/20/18 08:18 - Medications Medications: Current Medications Amlodipine Besylate (Norvasc) 10 mg PO HS [facility] Last Admin: 01/19/18 22:31 Dose: 10 mg Dextrose (Dextrose 50% Inj) 0 ml IV STAT PRN; Protocol PRN Reason: Hypoglycemia Protocol Dextrose (Glutose 15) 0 gm PO ONCE PRN; Protocol PRN Reason: Hypoglycemia Protocol Docusate Sodium (Colace) 100 mg PO BID [facility] Last Admin: 01/20/18 08:24 Dose: 100 mg Duloxetine HCl (Cymbalta) 60 mg PO HS [facility] Last Admin: 01/19/18 21:31 Dose: 60 mg Enoxaparin Sodium (Lovenox) 40 mg SC DAILY [facility] PRN Reason: Protocol Last Admin: 01/19/18 08:56 Dose: 40 mg Fentanyl (Duragesic) 1 patch TD Q3D [facility] PRN Reason: Protocol Last Admin: 01/18/18 15:13 Dose: 1 patch Glucagon (Glucagen Diagnostic Kit) 0 mg IM STAT PRN; Protocol PRN Reason: Hypoglycemia Protocol Hydromorphone HCl (Dilaudid) 1.5 mg IVP Q3 PRN PRN Reason: Pain, severe (8-10) Last Admin: 01/20/18 08:56 Dose: 1.5 mg Insulin Human Lispro (Humalog) 0 units SC ACHS [facility] PRN Reason: Protocol Last Admin: 01/20/18 08:25 Dose: 2 units Ondansetron HCl (Zofran Inj) 4 mg IVP Q6 PRN PRN Reason: Nausea/Vomiting Pantoprazole Sodium (Protonix Susp) 40 mg PO DAILY [facility] Simethicone (Mylicon Chew Tab) 80 mg PO [facility] PRN PRN Reason: Flatulence Last Admin: 01/19/18 17:04 Dose: 80 mg Tramadol HCl (Ultram) 50 mg PO Q6 PRN PRN Reason: Pain, moderate (4-7) Last Admin: 01/19/18 04:21 Dose: 50 mg - Labs Labs: 01/18/18 15:05 01/19/18 05:20 PT 14.5 Seconds (9.8-13.1) H 01/19/18 10:05 INR 1.3 (0.9-1.2) H 01/19/18 10:05 APTT 32.5 Seconds (25.6-37.1) 01/19/18 10:05 Attending/Attestation - Attestation I have personally seen and examined this patient.: Yes I have fully participated in the care of the patient.: Yes I have reviewed all pertinent clinical information, including history, physical exam and plan: Yes
[2018-01-19 11:24] LABS: INR 1.3 (0.9-1.2); PARTIAL THROMBOPLASTIN TIME 32.5 Seconds (25.6-37.1); PROTHROMBIN TIME 14.5 Seconds (9.8-13.1)
[2018-01-19] MEDS ORDERED: Simethicone 80 mg Chewtab PO PRN (16:58)
--- NOTE | 2018-01-20 07:57 | CP.PCM.PN ---
<Kendall Montiel - Last Filed: 01/20/18 11:00> Subjective - Date & Time of Evaluation Date of Evaluation: 01/20/18 Time of Evaluation: 08:15 - Subjective Subjective: Patient seen and examined this morning at bedside. There are no acute events overnight, NAD. Patient reports pain is better controlled w/ medication but still present. Patient denies headaches, chest pain, SOB, nausea, vomiting, diarrhea, dysuria, or fever. Patient to have possible injections in OR tomorrow. Objective - Vital Signs/Intake and Output Vital Signs (last 24 hours): Temp Pulse Resp BP Pulse Ox 98.8 F 95 H 18 122/85 99 01/19/18 23:20 01/19/18 23:20 01/19/18 23:20 01/19/18 23:20 01/19/18 23:20 - Medications Medications: Current Medications Amlodipine Besylate (Norvasc) 10 mg PO HS [facility] Last Admin: 01/19/18 22:31 Dose: 10 mg Dextrose (Dextrose 50% Inj) 0 ml IV STAT PRN; Protocol PRN Reason: Hypoglycemia Protocol Dextrose (Glutose 15) 0 gm PO ONCE PRN; Protocol PRN Reason: Hypoglycemia Protocol Docusate Sodium (Colace) 100 mg PO BID [facility] Last Admin: 01/19/18 17:04 Dose: 100 mg Duloxetine HCl (Cymbalta) 60 mg PO HS [facility] Last Admin: 01/19/18 21:31 Dose: 60 mg Enoxaparin Sodium (Lovenox) 40 mg SC DAILY [facility] PRN Reason: Protocol Last Admin: 01/19/18 08:56 Dose: 40 mg Fentanyl (Duragesic) 1 patch TD Q3D [facility] PRN Reason: Protocol Last Admin: 01/18/18 15:13 Dose: 1 patch Glucagon (Glucagen Diagnostic Kit) 0 mg IM STAT PRN; Protocol PRN Reason: Hypoglycemia Protocol Hydromorphone HCl (Dilaudid) 1.5 mg IVP Q3 PRN PRN Reason: Pain, severe (8-10) Last Admin: 01/20/18 05:26 Dose: 1.5 mg Insulin Human Lispro (Humalog) 0 units SC ACHS [facility] PRN Reason: Protocol Last Admin: 01/19/18 21:43 Dose: Not Given Ondansetron HCl (Zofran Inj) 4 mg IVP Q6 PRN PRN Reason: Nausea/Vomiting Pantoprazole Sodium (Protonix Ec Tab) 40 mg PO DAILY [facility] Last Admin: 01/19/18 08:57 Dose: 40 mg Simethicone (Mylicon Chew Tab) 80 mg PO [facility] PRN PRN Reason: Flatulence Last Admin: 01/19/18 17:04 Dose: 80 mg Tramadol HCl (Ultram) 50 mg PO Q6 PRN PRN Reason: Pain, moderate (4-7) Last Admin: 01/19/18 04:21 Dose: 50 mg - Labs Labs: 01/18/18 15:05 01/19/18 05:20 PT 14.5 Seconds (9.8-13.1) H 01/19/18 10:05 INR 1.3 (0.9-1.2) H 01/19/18 10:05 APTT 32.5 Seconds (25.6-37.1) 01/19/18 10:05 - Constitutional Appears: Non-toxic, No Acute Distress - Head Exam Head Exam: ATRAUMATIC, NORMAL INSPECTION, NORMOCEPHALIC - Eye Exam Eye Exam: Normal appearance - ENT Exam ENT Exam: Mucous Membranes Moist - Respiratory Exam Respiratory Exam: Clear to Ausculation Bilateral. absent: Accessory Muscle Use , Decreased Breath Sounds, Rales, Rhonchi, Wheezes, Respiratory Distress - Cardiovascular Exam Cardiovascular Exam: REGULAR RHYTHM. absent: Tachycardia - GI/Abdominal Exam GI & Abdominal Exam: Soft, Tenderness, Normal Bowel Sounds - Extremities Exam Extremities Exam: absent: Calf Tenderness - Neurological Exam Neurological Exam: Alert, Awake, Oriented x3 - Skin Skin Exam: Dry, Intact, Normal Color, Warm Assessment and Plan - Assessment and Plan (Free Text) Assessment: 47 y/o woman w/ pmh of HTN, chronic back pain, Colon cancer w/ metastasis to liver, Depression, Fibromyalgia, GERD presents to ED w/ intractable back pain and failed outpatient management of back pain. Plan: Lower thoracic back pain - Chronic, H/O multiple lumbar surgeries. - LS Spine AP/LAT: L4-5 disc spacer. Otherwise, unremarkable radiographs of the lumbar spine. - CT Chest with contrast: Unremarkable contrast enhanced CT of the chest. No suspicious pulmonary nodules, masses or infiltrates. No significant findings within the mediastinum. Incompletely visualized hepatic metastatic disease. - As per Pain Management: continue Fentanyl patch, increase Dilaudid to 1.5mg q3h IV PRN - Consider injection on Sunday, celiac plexus vs epidural injection - hold Lovenox morning AM - Coag profile: PT 14.5, INR 1.3, aPTT 32.5 - NPO after midnight Sunday night Nausea and vomiting - Improving - afebrile, non-tachycardic, BP stable - Zofran 4 mg Q6h IV PRN NIDDM - Uncontrolled - Last A1c 7.7 - Pt denies taking home meds for DM - Insulin lispro correction scale - Hypoglycemia protocol - Accucheck ACHS HTN - BP stable - Amlodipine 10 mg QD - continue to monitor Colon cancer w/metastasis to liver - CT abdomen/pelvis consistent with liver metastasis, unchanged from previous CT on 01/02 - Thoracic/lumbar MRI in 08/2017 didn't reveal any metastatic diseases or significant stenosis. - According to Dr. Yovani Pennington's office patient's colon cancer is responding to chemotherapy and has not spread to any other organ except liver. - Received 5 FU chemo at [place]. - Has follow up with Dr. Pennington on January 21 Fibromyalgia - Controlled - Duloxetine 60 mg PO HS DVT Prophylaxis - Lovenox 40 mg SC daily - hold today's dose as per pain management for OR tomorrow <Estelle Dias - Last Filed: 01/21/18 08:26> Objective - Vital Signs/Intake and Output Vital Signs (last 24 hours): Temp Pulse Resp BP Pulse Ox 98.2 F 90 19 124/85 96 01/21/18 07:53 01/21/18 07:53 01/21/18 07:53 01/21/18 07:53 01/21/18 07:53 - Medications Medications: Current Medications Amlodipine Besylate (Norvasc) 10 mg PO [facility] Last Admin: 01/20/18 21:26 Dose: 10 mg Dextrose (Dextrose 50% Inj) 0 ml IV STAT PRN; Protocol PRN Reason: Hypoglycemia Protocol Dextrose (Glutose 15) 0 gm PO ONCE PRN; Protocol PRN Reason: Hypoglycemia Protocol Docusate Sodium (Colace) 100 mg PO BID [facility] Last Admin: 01/21/18 08:08 Dose: 100 mg Duloxetine HCl (Cymbalta) 60 mg PO [facility] Last Admin: 01/20/18 21:27 Dose: 60 mg Enoxaparin Sodium (Lovenox) 40 mg SC DAILY [facility] PRN Reason: Protocol Last Admin: 01/19/18 08:56 Dose: 40 mg Fentanyl (Duragesic) 1 patch TD Q3D [facility] PRN Reason: Protocol Last Admin: 01/18/18 15:13 Dose: 1 patch Glucagon (Glucagen Diagnostic Kit) 0 mg IM STAT PRN; Protocol PRN Reason: Hypoglycemia Protocol Hydromorphone HCl (Dilaudid) 1.5 mg IVP Q3 PRN PRN Reason: Pain, severe (8-10) Last Admin: 01/21/18 08:17 Dose: 1.5 mg Insulin Human Lispro (Humalog) 0 units SC ACHS [facility] PRN Reason: Protocol Last Admin: 01/21/18 08:09 Dose: 2 units Ondansetron HCl (Zofran Inj) 4 mg IVP Q6 PRN PRN Reason: Nausea/Vomiting Last Admin: 01/20/18 21:26 Dose: 4 mg Pantoprazole Sodium (Protonix Susp) 40 mg PO DAILY [facility] Last Admin: 01/21/18 08:09 Dose: 40 mg Simethicone (Mylicon Chew Tab) 80 mg PO [facility] PRN PRN Reason: Flatulence Last Admin: 01/19/18 17:04 Dose: 80 mg Tramadol HCl (Ultram) 50 mg PO Q6 PRN PRN Reason: Pain, moderate (4-7) Last Admin: 01/20/18 10:13 Dose: 50 mg - Labs Labs: 01/18/18 15:05 01/19/18 05:20 PT 14.5 Seconds (9.8-13.1) H 01/19/18 10:05 INR 1.3 (0.9-1.2) H 01/19/18 10:05 APTT 32.5 Seconds (25.6-37.1) 01/19/18 10:05 Attending/Attestation - Attestation I have personally seen and examined this patient.: Yes I have fully participated in the care of the patient.: Yes I have reviewed all pertinent clinical information, including history, physical exam and plan: Yes Notes (Text): 01/21/18 08:24 Attending Note -ATTESTATION. Patient appears in less distress this AM. Still reports pain low back present. For intervention by pain corporate travel consultant Dr. Bae Sunday01/21/18.
[2018-01-20] MEDS: Pantoprazole 40 mg EC Tab PO SCH (08:25)
[2018-01-20] MEDS: Insulin Lispro (humaLOG) 100 Units/ml Inj SC SCH ×3 (08:25→22:00)
[2018-01-20] MEDS ORDERED: POLYETHYLENE GLYCOL 3350 17 GM/Dose PACKET PO ONE (09:30)
[2018-01-20] MEDS: Pantoprazole 40 mg Susp UD PO SCH (10:04)
[2018-01-21] MEDS: Insulin Lispro (humaLOG) 100 Units/ml Inj SC SCH ×4 (08:09→22:00)
[2018-01-21] MEDS: Pantoprazole 40 mg Susp UD PO SCH (08:09)
--- NOTE | 2018-01-21 08:19 | CP.PCM.PN ---
Subjective - Date & Time of Evaluation Date of Evaluation: 01/21/18 Time of Evaluation: 07:30 - Subjective Subjective: Patient evaluated and examined at bedside in AM. NAD. Improvement in back pain but still complains of upper abdominal pain radiating from back. Patient currently on Dilaudid 1.5 mg Q3hr. Patient is also constipated and mildly nauseous. Last BM on . Denies any lower abdominal pain, fever, chills, CP, SOB, headache, dizziness, diarrhea or dysuria. Back injection today in OR. Objective - Vital Signs/Intake and Output Vital Signs (last 24 hours): Temp Pulse Resp BP Pulse Ox 98.2 F 90 19 124/85 96 01/21/18 07:53 01/21/18 07:53 01/21/18 07:53 01/21/18 07:53 01/21/18 07:53 - Medications Medications: Current Medications Amlodipine Besylate (Norvasc) 10 mg PO HS [facility] Last Admin: 01/20/18 21:26 Dose: 10 mg Dextrose (Dextrose 50% Inj) 0 ml IV STAT PRN; Protocol PRN Reason: Hypoglycemia Protocol Dextrose (Glutose 15) 0 gm PO ONCE PRN; Protocol PRN Reason: Hypoglycemia Protocol Docusate Sodium (Colace) 100 mg PO BID [facility] Last Admin: 01/20/18 17:28 Dose: 100 mg Duloxetine HCl (Cymbalta) 60 mg PO HS [facility] Last Admin: 01/20/18 21:27 Dose: 60 mg Enoxaparin Sodium (Lovenox) 40 mg SC DAILY [facility] PRN Reason: Protocol Last Admin: 01/19/18 08:56 Dose: 40 mg Fentanyl (Duragesic) 1 patch TD Q3D [facility] PRN Reason: Protocol Last Admin: 01/18/18 15:13 Dose: 1 patch Glucagon (Glucagen Diagnostic Kit) 0 mg IM STAT PRN; Protocol PRN Reason: Hypoglycemia Protocol Hydromorphone HCl (Dilaudid) 1.5 mg IVP Q3 PRN PRN Reason: Pain, severe (8-10) Last Admin: 01/21/18 04:51 Dose: 1.5 mg Insulin Human Lispro (Humalog) 0 units SC ACHS [facility] PRN Reason: Protocol Last Admin: 01/20/18 22:00 Dose: Not Given Ondansetron HCl (Zofran Inj) 4 mg IVP Q6 PRN PRN Reason: Nausea/Vomiting Last Admin: 01/20/18 21:26 Dose: 4 mg Pantoprazole Sodium (Protonix Susp) 40 mg PO DAILY [facility] Last Admin: 01/20/18 10:04 Dose: 40 mg Simethicone (Mylicon Chew Tab) 80 mg PO [facility] PRN PRN Reason: Flatulence Last Admin: 01/19/18 17:04 Dose: 80 mg Tramadol HCl (Ultram) 50 mg PO Q6 PRN PRN Reason: Pain, moderate (4-7) Last Admin: 01/20/18 10:13 Dose: 50 mg - Labs Labs: 01/18/18 15:05 01/19/18 05:20 PT 14.5 Seconds (9.8-13.1) H 01/19/18 10:05 INR 1.3 (0.9-1.2) H 01/19/18 10:05 APTT 32.5 Seconds (25.6-37.1) 01/19/18 10:05 - Constitutional Appears: Well, Non-toxic, No Acute Distress - Head Exam Head Exam: ATRAUMATIC, NORMAL INSPECTION, NORMOCEPHALIC - Eye Exam Eye Exam: EOMI, Normal appearance, PERRL Pupil Exam: NORMAL ACCOMODATION, PERRL - ENT Exam ENT Exam: Mucous Membranes Moist - Respiratory Exam Respiratory Exam: NORMAL BREATHING PATTERN - Cardiovascular Exam Cardiovascular Exam: REGULAR RHYTHM, +S1, +S2. absent: Murmur - GI/Abdominal Exam GI & Abdominal Exam: Tenderness, Hypoactive Bowel Sounds. absent: Distended - Rectal Exam Rectal Exam: Deferred - Extremities Exam Extremities Exam: absent: Calf Tenderness, Tenderness - Back Exam Back Exam: paraspinal tenderness, tenderness. absent: CVA tenderness (L), CVA tenderness (R) - Neurological Exam Neurological Exam: Alert, Awake, Oriented x3 - Psychiatric Exam Psychiatric exam: Normal Affect, Normal Mood - Skin Skin Exam: Dry, Intact, Normal Color Assessment and Plan - Assessment and Plan (Free Text) Assessment: 47 y/o woman w/ pmh of HTN, chronic back pain, Colon cancer w/ metastasis to liver, Depression, Fibromyalgia, GERD presents to ED w/ intractable back pain and failed outpatient management of back pain. Plan: Lower thoracic back pain - Chronic, H/O multiple lumbar surgeries. - LS Spine AP/LAT: L4-5 disc spacer. Otherwise, unremarkable radiographs of the lumbar spine. - CT Chest with contrast: Unremarkable contrast enhanced CT of the chest. No suspicious pulmonary nodules, masses or infiltrates. No significant findings within the mediastinum. Incompletely visualized hepatic metastatic disease. - As per Pain Management: continue Fentanyl patch, increase Dilaudid to 1.5mg q3h IV PRN - hold Lovenox morning AM - Coag profile: PT 14.5, INR 1.3, aPTT 32.5 - Injection Today, celiac plexus vs epidural injection Nausea and vomiting - Improving - afebrile, non-tachycardic, BP stable - Zofran 4 mg Q6h IV PRN Constipation - Last BM 01/17 - Currently on ensure and liquid diet - Mostly secondary to Dilaudid - C/W Colace 100 mg BID - Start Sennakot-s 2 tab nightly - Start miralex daily - C/W Simethicone. NIDDM - Uncontrolled - Last A1c 7.7 - Pt denies taking home meds for DM - Insulin lispro correction scale - Hypoglycemia protocol - Accucheck ACHS HTN - BP stable - Amlodipine 10 mg QD - continue to monitor Colon cancer w/metastasis to liver - CT abdomen/pelvis consistent with liver metastasis, unchanged from previous CT on 01/02 - Thoracic/lumbar MRI in 08/2017 didn't reveal any metastatic diseases or significant stenosis. - According to Dr. Yovani Pennington's office patient's colon cancer is responding to chemotherapy and has not spread to any other organ except liver. - Received 5 FU chemo at [place]. - Has follow up with Dr. Pennington on January 21 Fibromyalgia - Controlled - Duloxetine 60 mg PO HS DVT Prophylaxis - Lovenox 40 mg SC daily - hold today's dose as per pain management for OR tomorrow
[2018-01-21] MEDS ORDERED: Dexamethasone 4 mg/1 ml ONE (09:21)
[2018-01-21] MEDS ORDERED: Bupivacaine HCl 0.25% PF (30 ml) Inj ONE (09:21)
[2018-01-21] MEDS ORDERED: Iohexol 300 10 ML ONE (09:21)
[2018-01-21] MEDS ORDERED: Midazolam 2 MG/2 ML VIAL ONE (09:23)
[2018-01-21] MEDS ORDERED: Propofol 10 mg/ml Inj (20 ML) ONE (09:23)
[2018-01-21] MEDS ORDERED: Iohexol 300 10 ML IJ ONE (09:30)
[2018-01-21] MEDS ORDERED: Lidocaine 2% MPF (5 ml) Inj INJ ONE (09:30)
[2018-01-21] MEDS ORDERED: Lactated Ringer's 1,000 ML IV ONE (09:30)
[2018-01-21] MEDS ORDERED: Dexamethasone 4 mg/1 ml IM ONE (09:30)
[2018-01-21] MEDS ORDERED: Bupivacaine HCl 0.25% PF (30 ml) Inj IJ ONE (09:30)
[2018-01-21] MEDS ORDERED: Lactated Ringer's 1,000 ML IV SCH ×2 (10:30→10:45)
[2018-01-21] MEDS ORDERED: HYDROmorphone 1 mg/ml ISec ONE (10:53)
--- NOTE | 2018-01-21 14:00 | RAD ---
Date of service: 01/21/2018 PROCEDURE: Lumbar epidural steroid injection HISTORY: PAIN MANAGEMENT COMPARISON: None TECHNIQUE: Standard protocol for this study/examination. FINDINGS: Total fluoroscopic time (continuous mode) utilized during the procedure 140.8 (seconds). Total exam DLP: 94.68 (mGy) IMPRESSION: Less than 1 hr fluoroscopic time utilized during performance of the procedure.
[2018-01-21] MEDS: POLYETHYLENE GLYCOL 3350 17 GM/Dose PACKET PO SCH (17:29)
--- NOTE | 2018-01-21 21:37 | OP ---
PROCEDURE DATE: 01/21/2018 PREOPERATIVE DIAGNOSIS: Abdominal pain. POSTOPERATIVE DIAGNOSIS: Abdominal pain. PROCEDURE: Bilateral celiac plexus block. SURGEON: Emigdio Bae MD. ANESTHESIOLOGIST: Dr. Drummond. TYPE OF ANESTHESIA: Monitored anesthesia care. COMPLICATIONS: None. SPECIMEN: None. DESCRIPTION OF PROCEDURE: As follows: After we had discussion of the procedure with the patient including its risks, benefits, alternatives, outcome data, possibility of no effect or increased pain, the patient consented to the procedure. She denied any recent infection, bleeding tendencies or being on anticoagulants; a decision was then made to proceed to the OR. The patient was placed on a fluoroscopy table in a prone position with two pillows underneath her abdomen. The back was prepped and draped in the usual sterile fashion. A sterile technique was adhered during the entire procedure. The L1 vertebral levels were first identified in the anteroposterior view. The target is at the space anterior to L1 vertebral body where the celiac plexus ganglion was precise. The procedure was first performed on the right side by turning the fluoroscopy towards the right at approximately 15 degrees. The safety triangle is at the area surrounded by the transverse process inferiorly and the anterior border of the L1 vertebral lateral body laterally and the superior endplate of the L1 vertebral body superiorly. The skin overlying this target was infiltrated with 1% lidocaine using 25-gauge needle. Subsequently, a 22-gauge 5 inch spinal needle was incrementally advanced under fluoroscopic guidance until the tip of the needle made bony contact within the safety triangle with the vertebral body at the L1. Then the fluoroscopy was turned towards the lateral position and the needle advancement was guided under lateral fluoroscopy view until tip of the needle was at approximately 4 cm anterior to the anterior border of the vertebral body. On the anteroposterior view, the needle tip was at the medial border of the L1 pedicle on the right side. After satisfactory positioning of the needle, the same procedure was repeated on the left side slightly less oblique angle at approximately 10 degrees oblique towards the left. The technique was repeated and the tip of the needle on the left side was also inserted at approximately 4 cm anterior to the anterior border of the L1 vertebral body. After satisfactory positioning of both needles, the was removed. There was no signs of blood, CSF or air in the hub of the needle. Then approximately 1 mL of Isovue contrast was injected into each needle to rule out any inadvertent bowel or vascular puncturing. There was appropriate spread of the contrast without any signs of intravenous placement. At this point, approximately 10 mL of 0.25% Marcaine and Decadron mixture was gradually injected. The patient tolerated the procedure well. At the end of the procedure, the needles were removed and the patient's back was cleaned and dry bandages were applied. The patient was then transferred to the recovery area in good conditions without any signs of [employer] toxicity or any neurological deficits. She will be followed in our office in approximately 2 to 4 weeks. En-Miguel Bae MD
[2018-01-21] MEDS ORDERED: Docusate-Senna 50 mg-8.6 mg Tab PO SCH (22:00)
[2018-01-22] MEDS: Insulin Lispro (humaLOG) 100 Units/ml Inj SC SCH ×2 (06:52→12:54)
[2018-01-22 07:45] VITALS: BP 112/74; PULSE 92; RESP 19; TEMP 97.7; O2SAT 97
[2018-01-22] MEDS: POLYETHYLENE GLYCOL 3350 17 GM/Dose PACKET PO SCH (08:41)
[2018-01-22] MEDS: Pantoprazole 40 mg Susp UD PO SCH (08:43)
[2018-01-22] MEDS: Enoxaparin 40 mg Syringe SC SCH (08:43)
[2018-01-22 09:18] LABS: HEMOGLOBIN 13.3 g/dL (12.0-16.0); MEAN CELL VOLUME 86.7 fl (81.0-99.0); MEAN CORPUSCULAR HEMOGLOBIN 28.8 pg (27.0-31.0); MEAN CORPUSCULAR HGB CONC 33.2 g/dL (33.0-37.0); RBC 4.64 Mil/uL (3.80-5.20); RED CELL DISTRIBUTION WIDTH 14.5 % (11.5-14.5); WHITE BLOOD COUNT 13.9 K/uL (4.8-10.8)
[2018-01-22 09:39] LABS: ALB/GLOB RATIO 1.1 (1.0-2.1); ALBUMIN 4.5 g/dL (3.5-5.0); ALT/SGPT 61 U/L (9-52); AST/SGOT 67 U/L (14-36); BLOOD UREA NITROGEN 9 mg/dl (7-17); CALCIUM 10.3 mg/dL (8.4-10.2); GFR NON-AFRICAN AMERICAN > 60
--- NOTE | 2018-01-22 09:51 | CP.PCM.PN ---
Subjective - Date & Time of Evaluation Date of Evaluation: 01/22/18 Time of Evaluation: 09:00 - Subjective Subjective: Patient is s/p celiac plexus block yesterday. She reports improved abdominal pain, but still has residual discomfort in RUQ and RLQ. She's agreeable to discharge home today, home regimen was explained to her and she expresses understanding. She denies SOB, hematuria, or neurological deficits. Objective - Vital Signs/Intake and Output Vital Signs (last 24 hours): Temp Pulse Resp BP Pulse Ox 97.7 F 92 H 19 112/74 97 01/22/18 07:45 01/22/18 07:45 01/22/18 07:45 01/22/18 07:45 01/22/18 07:45 - Medications Medications: Current Medications Amlodipine Besylate (Norvasc) 10 mg PO HS [facility] Last Admin: 01/21/18 21:27 Dose: 10 mg Dextrose (Dextrose 50% Inj) 0 ml IV STAT PRN; Protocol PRN Reason: Hypoglycemia Protocol Dextrose (Glutose 15) 0 gm PO ONCE PRN; Protocol PRN Reason: Hypoglycemia Protocol Docusate Sodium (Colace) 100 mg PO BID [facility] Last Admin: 01/22/18 08:43 Dose: 100 mg Duloxetine HCl (Cymbalta) 60 mg PO HS [facility] Last Admin: 01/21/18 21:27 Dose: 60 mg Enoxaparin Sodium (Lovenox) 40 mg SC DAILY [facility] PRN Reason: Protocol Last Admin: 01/22/18 08:43 Dose: 40 mg Fentanyl (Duragesic) 1 patch TD Q3D REYES PRN Reason: Protocol Last Admin: 01/21/18 15:00 Dose: 1 patch Glucagon (Glucagen Diagnostic Kit) 0 mg IM STAT PRN; Protocol PRN Reason: Hypoglycemia Protocol Hydromorphone HCl (Dilaudid) 1.5 mg IVP Q3 PRN PRN Reason: Pain, severe (8-10) Last Admin: 01/22/18 06:22 Dose: 1.5 mg Lactated Ringer's (Lactated Ringer's) 1,000 mls @ 100 mls/hr IV .Q10H REYES Lactated Ringer's (Lactated Ringer's) 1,000 mls @ 125 mls/hr IV .Q8H [facility] Last Admin: 01/21/18 17:29 Dose: Not Given Insulin Human Lispro (Humalog) 0 units SC ACHS [facility] PRN Reason: Protocol Last Admin: 01/22/18 06:52 Dose: Not Given Ondansetron HCl (Zofran Inj) 4 mg IVP Q6 PRN PRN Reason: Nausea/Vomiting Last Admin: 01/20/18 21:26 Dose: 4 mg Pantoprazole Sodium (Protonix Susp) 40 mg PO DAILY [facility] Last Admin: 01/22/18 08:43 Dose: 40 mg Polyethylene Glycol (Miralax) 17 gm PO DAILY [facility] Last Admin: 01/22/18 08:41 Dose: 17 gm Senna/Docusate Sodium (Senokot S 50 Mg-8.6 Mg) 2 tab PO HS [facility] Last Admin: 01/21/18 21:28 Dose: 2 tab Simethicone (Mylicon Chew Tab) 80 mg PO [facility] PRN PRN Reason: Flatulence Last Admin: 01/19/18 17:04 Dose: 80 mg Tramadol HCl (Ultram) 50 mg PO Q6 PRN PRN Reason: Pain, moderate (4-7) Last Admin: 01/22/18 08:44 Dose: 50 mg - Labs Labs: 01/22/18 08:25 01/22/18 08:25 PT 14.5 Seconds (9.8-13.1) H 01/19/18 10:05 INR 1.3 (0.9-1.2) H 01/19/18 10:05 APTT 32.5 Seconds (25.6-37.1) 01/19/18 10:05 Assessment and Plan (1) Intractable low back pain Assessment & Plan: 47 yo woman w/ metastatic colon CA to liver, with abdominal pain s/p celiac plexus block. - Fentanyl patch script left in chart - patient has Tramadol and Dilaudid for home regimen - f/u as outpatient Status: Acute
--- NOTE | 2018-01-22 13:39 | CP.PCM.DIS ---
Provider - Provider Date of Admission: 01/18/18 14:53 Attending physician: Jackelyn Reynolds MD Time Spent in preparation of Discharge (in minutes): 15 Diagnosis - Discharge Diagnosis (1) Intractable back pain Status: Acute (2) Nausea and vomiting Status: Resolved Hospital Course - Lab Results Lab Results: Most Recent Lab Values WBC 13.9 K/uL (4.8-10.8) H D 01/22/18 08:25 RBC 4.64 Mil/uL (3.80-5.20) 01/22/18 08:25 Hgb 13.3 g/dL (12.0-16.0) D 01/22/18 08:25 Hct 40.2 % (34.0-47.0) 01/22/18 08:25 MCV 86.7 fl (81.0-99.0) 01/22/18 08:25 MCH 28.8 pg (27.0-31.0) 01/22/18 08:25 MCHC 33.2 g/dL (33.0-37.0) 01/22/18 08:25 RDW 14.5 % (11.5-14.5) 01/22/18 08:25 Plt Count 293 K/uL (130-400) 01/22/18 08:25 MPV 8.7 fl (7.2-11.7) 01/18/18 15:05 Neut % (Auto) 75.1 % (50.0-75.0) H 01/18/18 15:05 Lymph % (Auto) 13.0 % (20.0-40.0) L 01/18/18 15:05 Cross % (Auto) 10.3 % (0.0-10.0) H 01/18/18 15:05 Eos % (Auto) 1.3 % (0.0-4.0) 01/18/18 15:05 Baso % (Auto) 0.3 % (0.0-2.0) 01/18/18 15:05 Neut # (Auto) 6.5 K/uL (1.8-7.0) 01/18/18 15:05 Lymph # (Auto) 1.1 K/uL (1.0-4.3) 01/18/18 15:05 Cross # (Auto) 0.9 K/uL (0.0-0.8) H 01/18/18 15:05 Eos # (Auto) 0.1 K/uL (0.0-0.7) 01/18/18 15:05 Baso # (Auto) 0.0 K/uL (0.0-0.2) 01/18/18 15:05 PT 14.5 Seconds (9.8-13.1) H 01/19/18 10:05 INR 1.3 (0.9-1.2) H 01/19/18 10:05 APTT 32.5 Seconds (25.6-37.1) 01/19/18 10:05 Sodium 133 mmol/l (132-148) 01/22/18 08:25 Potassium 4.9 MMOL/L (3.6-5.0) 01/22/18 08:25 Chloride 89 mmol/L (98-107) L 01/22/18 08:25 Carbon Dioxide 32 mmol/L (22-30) H 01/22/18 08:25 Anion Gap 17 (10-20) 01/22/18 08:25 BUN 9 mg/dl (7-17) 01/22/18 08:25 Creatinine 0.4 mg/dl (0.7-1.2) L 01/22/18 08:25 Est GFR ( Amer) > 60 01/22/18 08:25 Est GFR (Non-Af Amer) > 60 01/22/18 08:25 POC Glucose (mg/dL) 140 mg/dL (65-110) H 01/22/18 10:43 Random Glucose 139 mg/dL (65-105) H 01/22/18 08:25 Calcium 10.3 mg/dL (8.4-10.2) H 01/22/18 08:25 Total Bilirubin 0.9 mg/dl (0.2-1.3) 01/22/18 08:25 AST 67 U/L (14-36) H 01/22/18 08:25 ALT 61 U/L (9-52) H 01/22/18 08:25 Alkaline Phosphatase 147 U/L (38-126) H 01/22/18 08:25 Total Protein 8.7 G/DL (6.3-8.2) H 01/22/18 08:25 Albumin 4.5 g/dL (3.5-5.0) 01/22/18 08:25 Globulin 4.3 gm/dL (2.2-3.9) H 01/22/18 08:25 Albumin/Globulin Ratio 1.1 (1.0-2.1) 01/22/18 08:25 - Hospital Course Hospital Course: 47 y/o woman w/ pmh of HTN, chronic back pain, Colon cancer w/ metastasis to liver, Depression, Fibromyalgia, GERD presents to ED with persistent back pain, nausea and vomiting. Pain management(Dr. Bae) on board. Patient is S/P celiac plexus block for back pain. Patient reports better pain control and feeling better overall. Patient has been seen, examined, and deemed medically fit for discharge home. Patient discharged and given script for Fentanyl patch Q 72 hrs by pain management. Patient has Tramadol and Dilaudid for home regimen. Patient to follow up w/ Dr. Bae for pain management. Discharge Medications Fentnyl patch 50 mcg Q72 hrs x 10 patch Discharge Exam - Head Exam Head Exam: ATRAUMATIC, NORMAL INSPECTION, NORMOCEPHALIC - Eye Exam Eye Exam: EOMI, Normal appearance, PERRL Pupil Exam: NORMAL ACCOMODATION, PERRL - ENT Exam ENT Exam: Mucous Membranes Moist - Respiratory Exam Respiratory Exam: Clear to PA & Lateral, UNREMARKABLE. absent: Rales, Rhonchi, Wheezes, Respiratory Distress - Cardiovascular Exam Cardiovascular Exam: REGULAR RHYTHM, +S1, +S2 - GI/Abdominal Exam GI & Abdominal Exam: Soft. absent: Distended, Tenderness Additional comments: BS + - Back Exam Back exam: absent: CVA tenderness (L), CVA tenderness (R), tenderness - Neurological Exam Neurological exam: Alert, Oriented x3 - Psychiatric Exam Psychiatric exam: Normal Affect, Normal Mood - Skin Skin Exam: Dry, Intact, Normal Color Discharge Plan - Follow Up Plan Condition: FAIR Disposition: HOME/ ROUTINE Patient education suggested?: Yes Instructions: Chronic Pain (DC), Managing Pain When You Have Cancer, Fentanyl Additional Instructions: follow up with primary md 1 week Referrals: Emigdio Bae MD [Staff Provider] - Neftali Taylor MD [Family Provider] -
== END 2018-01-22 14:30 | disposition home or self-care (01) | DRG 243 ==
LOC: H.ER 13:52 → H.ERHOLD 14:53 → H.MEDSURG1 17:22
PROVIDERS: ADMIT Family Medicine Geriatric Medicine; ATTEND Family Medicine Geriatric Medicine
PROC: 3E0T3BZ Introduction of Anesthetic Agent into Peripheral Nerves and Plexi, Percutaneous Approach (ICD-10-PCS; principal; 2018-01-21 09:15)
DX: M54.6 Pain in thoracic spine (principal); C78.7 Secondary malignant neoplasm of liver and intrahepatic bile duct; C18.9 Malignant neoplasm of colon, unspecified; E11.65 Type 2 diabetes mellitus with hyperglycemia; M54.5 Low back pain; I10 Essential (primary) hypertension; K21.9 Gastro-esophageal reflux disease without esophagitis; K59.00 Constipation, unspecified; M79.7 Fibromyalgia; F32.9 Major depressive disorder, single episode, unspecified; F41.9 Anxiety disorder, unspecified; G89.29 Other chronic pain; Z79.899 Other long term (current) drug therapy; R10.11 Right upper quadrant pain; R10.31 Right lower quadrant pain; R11.2 Nausea with vomiting, unspecified

== ENCOUNTER 2018-01-29 21:02 | Observation (INO) | payer MEDICAID ==
[2018-01-29 21:02] VITALS: BMI 31.9
[2018-01-29] MEDS ORDERED: HYDROmorphone 0.5 mg/0.5 ml ISec IVP STA (21:29)
[2018-01-29] MEDS ORDERED: Sodium Chloride 0.9% 1,000 ML IV STA (21:30)
[2018-01-29 22:53] LABS: PROTHROMBIN TIME 11.1 Seconds (9.8-13.1)
[2018-01-29 22:54] LABS: PARTIAL THROMBOPLASTIN TIME 33.2 Seconds (25.6-37.1)
[2018-01-29 23:02] LABS: HEMOGLOBIN 13.1 g/dL (12.0-16.0); MEAN CELL VOLUME 86.1 fl (81.0-99.0); MEAN CORPUSCULAR HEMOGLOBIN 29.1 pg (27.0-31.0); MEAN CORPUSCULAR HGB CONC 33.8 g/dL (33.0-37.0); RBC 4.5 Mil/uL (3.80-5.20); RED CELL DISTRIBUTION WIDTH 14.5 % (11.5-14.5); WHITE BLOOD COUNT 12.9 K/uL (4.8-10.8)
[2018-01-29 23:14] LABS: BLOOD UREA NITROGEN 8 mg/dl (7-17); CALCIUM 9.7 mg/dL (8.4-10.2); GFR AFRICAN-AMERICAN > 60; GFR NON-AFRICAN AMERICAN > 60
[2018-01-29 23:18] LABS: INR 1.3; PROTHROMBIN TIME 14.5 Seconds (9.8-13.1)
[2018-01-29 23:20] LABS: PARTIAL THROMBOPLASTIN TIME 28.8 Seconds (25.6-37.1)
--- NOTE | 2018-01-30 00:14 | ED PDOC ---
HPI: Abdomen Time Seen by Provider: 01/29/18 21:18 Chief Complaint (Nursing): Abdominal Pain Chief Complaint (Provider): Abdominal Pain History Per: Patient History/Exam Limitations: no limitations Onset/Duration Of Symptoms: Persistent (x5 weeks) Current Symptoms Are (Timing): Still Present Additional Complaint(s): 47 year old female with pmHx of colon cancer, presents with severe abdominal pain radiating to back associated with nausea ongoing for 5 weeks. Patient states that pain changes location and has been worse since chemo embolization. Also states she was unable to complete 2 rounds of chemo. She reports no improvement with PO dilaudid. She denies any fever, visual changes or change in bowel movements. PMD: Dr. Neftali Taylor Past Medical History Reviewed: Historical Data, Nursing Documentation, Vital Signs Vital Signs: Last Vital Signs Temp 98.1 F 01/30/18 03:23 Pulse 96 H 01/30/18 03:58 Resp 18 01/30/18 03:58 BP 139/82 01/30/18 03:23 Pulse Ox 98 01/30/18 03:58 - Medical History PMH: Anxiety, Back Problems, Depression, Diabetes, Fibromyalgia, GERD, HTN, Malignancy Denies: Simpson's Disease, Alzheimer's Disease, Anemia, Arthritis, Asthma, Atrial Fibrillation, Benign Prostatic Hyperplasia, Bipolar Disorder, Bronchitis , Cardia Arrhythmia, Cardiac Aneurysm, CHF, Colonic Polyps, COPD, Crohn's Disease, [place]'s Syndrome, Dementia, Diverticulitis, Deep Vein Thrombosis, Emphysema, Gastrointestinal Ulcer, Gall Bladder Disease, Graves' Disease, Hiatal Hernia, HIV, Hypercholesterolemia, Hyperlipidemia, Hyperthyroidism, Hypothyroidism, Kidney Stones, Migraine, Mitral Valve Prolapse, Multiple Sclerosis, Obstructive Bowel, Osteoporosis, Pancreatitis, Parkinson's Disease, Pericarditis, Peripheral Edema, Personality Disorder, Pneumonia, Pneumothorax, Post Traumatic Stress Disorder, Pulmonary Embolism, End Stage Renal Disease, Chronic Kidney Disease, Rheumatoid Arthritis, Schizophrenia, Seizures, Sickle Cell Disease, Sexually Transmitted Disease, Sleep Apnea, TIA - Surgical History Surgical History: Back Surgery, Endoscopy Denies: Appendectomy, CABG, Carotid Endarterectomy, Cholecystectomy, Coronary Stent, Tonsillectomy - Family History Family History: States: Unknown Family Hx - Immunization History Hx Influenza Vaccination: Yes Hx Pneumococcal Vaccination: No - Home Medications Home Medications: Ambulatory Orders Medication Instructions Recorded amLODIPine [Norvasc] 10 mg PO DAILY #0 tab 04/05/15 DULoxetine [Cymbalta] 60 mg PO HS 04/23/15 HYDROmorphone [Dilaudid] 2 mg PO Q8 PRN 01/18/18 traMADol [Ultram] 50 mg PO Q6 PRN tab 01/22/18 Methylprednisolone 1 tab PO ASDIR 01/30/18 [Methylprednisolone] Omeprazole Magnesium [Prilosec Otc] 20 mg PO DAILY 01/30/18 - Allergies Allergies/Adverse Reactions: Allergies Allergy/AdvReac Type Severity Reaction Status Date / Time penicillin G Allergy RASH Verified 03/21/17 11:19 vancomycin Allergy RASH Verified 03/21/17 11:19 Review of Systems ROS Statement: Except As Marked, All Systems Reviewed And Found Negative Constitutional: Negative for: Fever Gastrointestinal: Positive for: Nausea, Abdominal Pain. Negative for: Vomiting , Diarrhea, Constipation Musculoskeletal: Positive for: Back Pain Physical Exam - Reviewed Nursing Documentation Reviewed: Yes Vital Signs Reviewed: Yes - Physical Exam Appears: Positive for: Uncomfortable (crying in pain) Head Exam: Positive for: ATRAUMATIC, NORMAL INSPECTION, NORMOCEPHALIC Skin: Positive for: Normal Color Eye Exam: Positive for: Normal appearance ENT: Positive for: Normal ENT Inspection Neck: Positive for: Normal Cardiovascular/Chest: Positive for: Regular Rate, Rhythm Respiratory: Positive for: Normal Breath Sounds. Negative for: Respiratory Distress Gastrointestinal/Abdominal: Positive for: Soft, Tenderness (periumbilical and LLQ), Other (multiple surgical scars) Back: Positive for: Normal Inspection. Negative for: L CVA Tenderness, R CVA Tenderness Extremity: Positive for: Normal ROM (upper/lower) Neurologic/Psych: Positive for: Alert, Oriented - Laboratory Results Result Diagrams: 01/29/18 22:14 01/29/18 22:14 - ECG O2 Sat by Pulse Oximetry: 97 (RA) Pulse Ox Interpretation: Normal Medical Decision Making Medical Decision Making: A/P: 47 year old female, hx of colon cancer, presents with intractable abdominal and back pain. Patient presents with current pain consistent with prior pain due to cancer. Low suspicion for diverticulitis vs. colitis vs. SBO, given history. Initial Plan: * Labs * XR obstructive series * Dilaudid 1mg IVP * NS 1,000ml IV per 1,000mls/hr * Zofran 4mg IVP * UA Time: 2323 --Patient will be admitted for intractable abdominal pain. Xray abdomen shows no air-fluid levels. Scribe Attestation: Documented by Floridalma Parkinson, acting as a scribe for Danilo Juan MD. Provider Scribe Attestation: All medical record entries made by the Scribe were at my direction and personally dictated by me. I have reviewed the chart and agree that the record accurately reflects my personal performance of the history, physical exam, medical decision making, and the department course for this patient. I have also personally directed, reviewed, and agree with the discharge instructions and disposition. Disposition - Clinical Impression Clinical Impression: Intractable back pain, Intractable abdominal pain - Patient ED Disposition Is Patient to be Admitted: No - Disposition Disposition Time: 23:24 Condition: FAIR
[2018-01-30] MEDS ORDERED: Bisacodyl 5mg EC Tab PO PRN (00:35)
[2018-01-30] MEDS ORDERED: Magnesium Hydroxide Susp 30 ml UD PO PRN (00:35)
[2018-01-30] MEDS ORDERED: METHYLPREDNISOLONE PO SCH (01:00)
--- NOTE | 2018-01-30 01:10 | CP.PCM.HP ---
History of Present Illness - History of Present Illness History of Present Illness: 47 Y/O female with PMHx of HTN, chronic back pain, Colon cancer w/ metastasis to liver, Depression, Fibromyalgia, GERD presents to ED abdominal and back pain. Janette was discharged a little over a week ago for simlar symptoms. Patient s/p bilateral sacroiliac joint injections for back pain on 01/12. celiac plexus block 01/21/18. Patient was prescrived dilaudid 2 mg PO Q8h by pain management and script for tramadol 50 mg PO Q6h by medical team. She was also prescribed a fentanyl patch, but was not able to get it because her insurance did not cover it. - Patient goes to [facility] for her chemo sessions. She went yesterday for her Chemo session however she was in so much pain that they ended up keeping her for observation and treated her pain instead of doing the chemo. - Patient describes her pain as sharp starting from epigastric region and radiating to her back. 10/10 severity before she was given pain medication in the ER. Patient has some nausea but denies any vomiting, diarrhea or bloody stools. ED Course - CMP, CBC (with differential): WBC : 12.9 - Dilaudid 1 mg IVP in ER - Zofran Inj - Abd x ray - NS 1,000ml IV per 1,000mls/hr -Zofran 4mg IVP PCP: [facility]-Oncologist: Dr. Yovani Pennington at [facility] Pain management: Dr. Bae PMH: chronic back pain, fibromyalgia, HTN, GERD, colon cancer, anxiety PSH: C6 fusion, Colon resection 2014 and b/l oopherectomy, chemoembolization of liver. SocialHx: denies ETOH/tobacco/drug abuse FamilyHx: DM, HTN Meds: as per med rec Hospitalization: multiple visits for simlar complaints , most recently discharged 1 week ago Present on Admission - Present on Admission Any Indicators Present on Admission: Yes History of Uncontrolled Diabetes: Yes Past Patient History - Infectious Disease Hx of Infectious Diseases: None - Tetanus Immunizations Tetanus Immunization: Unknown - Past Medical History & Family History Past Medical History?: Yes - Past Social History Smoking Status: Never Smoked - CARDIAC Hx Atrial Fibrillation: No Hx Cardia Arrhythmia: No Hx Congestive Heart Failure: No Hx Hypercholesterolemia: No Hx Hypertension: Yes Hx Mitral Valve Prolapse: No Hx Peripheral Edema: No - PULMONARY Hx Asthma: No Hx Bronchitis: No Hx Chronic Obstructive Pulmonary Disease (COPD): No Hx Emphysema: No Hx Pneumonia: No Hx Pulmonary Embolism: No Hx Sleep Apnea: No - NEUROLOGICAL Hx Alzheimer's Disease: No Hx Dementia: No Hx Migraine: No Hx Multiple Sclerosis: No Hx Parkinson's Disease: No Hx Seizures: No Hx Transient Ischemic Attacks (TIA): No - HEENT Hx HEENT Problems: No - RENAL Hx Chronic Kidney Disease: No Hx Kidney Stones: No - ENDOCRINE/METABOLIC Hx Hyperthyroidism: No Hx Hypothyroidism: No - HEMATOLOGICAL/ONCOLOGICAL Hx Anemia: No Hx Human Immunodeficiency Virus (HIV): No Hx Sickle Cell Disease: No - INTEGUMENTARY Hx Dermatological Problems: No - MUSCULOSKELETAL/RHEUMATOLOGICAL Hx Arthritis: No Hx Osteoporosis: No Hx Rheumatoid Arthritis: No - GASTROINTESTINAL Hx Crohn's Disease: No Hx Diverticulitis: No Hx Gall Bladder Disease: No Hx Pancreatitis: No - GENITOURINARY/GYNECOLOGICAL Hx Sexually Transmitted Disorders: No - PSYCHIATRIC Hx Anxiety: Yes Hx Bipolar Disorder: No Hx Depression: Yes Hx Post Traumatic Stress Disorder: No Hx Schizophrenia: No - SURGICAL HISTORY Hx Appendectomy: No Hx Carotid Endarterectomy: No Hx Cholecystectomy: No Hx Coronary Artery Bypass Graft: No Hx Coronary Stent: No Hx Tonsillectomy: No - ANESTHESIA Hx Anesthesia: Yes Hx Anesthesia Reactions: No Hx Malignant Hyperthermia: No Meds Allergies/Adverse Reactions: Allergies Allergy/AdvReac Type Severity Reaction Status Date / Time penicillin G Allergy RASH Verified 03/21/17 11:19 vancomycin Allergy RASH Verified 03/21/17 11:19 Physical Exam - Constitutional Additional comments: uncomfortable - Head Exam Head Exam: NORMAL INSPECTION - Eye Exam Eye Exam: Normal appearance - ENT Exam ENT Exam: Mucous Membranes Moist, Normal Exam - Respiratory Exam Respiratory Exam: Clear to Auscultation Bilateral, NORMAL BREATHING PATTERN. absent: Rhonchi, Wheezes - Cardiovascular Exam Cardiovascular Exam: REGULAR RHYTHM, +S1, +S2 - GI/Abdominal Exam GI & Abdominal Exam: Normal Bowel Sounds, Soft, Tenderness (epigastric tenderness, right upper quadrant , left upper quadrant and left lower quadrant tendernes). absent: Guarding - Extremities Exam Extremities exam: Positive for: normal inspection. Negative for: calf tenderness - Back Exam Back exam: paraspinal tenderness - Neurological Exam Neurological exam: Alert, CN II-XII Intact, Oriented x3 - Psychiatric Exam Psychiatric exam: Normal Affect, Normal Mood - Skin Skin Exam: Dry, Normal Color, Warm Results - Vital Signs Recent Vital Signs: Last Vital Signs Temp 98 F 01/29/18 21:09 Pulse 107 H 01/29/18 21:09 Resp 22 01/29/18 21:09 BP 134/109 H 01/29/18 21:09 Pulse Ox 97 01/30/18 00:27 - Labs Result Diagrams: 01/29/18 22:14 01/29/18 22:14 Labs: Laboratory Results - last 24 hr 01/29/18 01/29/18 01/29/18 21:46 21:46 21:46 WBC Trenching Machine Operator RBC Trenching Machine Operator Hgb Trenching Machine Operator Hct Trenching Machine Operator MCV Trenching Machine Operator MCH Trenching Machine Operator MCHC Trenching Machine Operator RDW Trenching Machine Operator Plt Count Trenching Machine Operator PT 11.1 INR 1.0 APTT 33.2 Sodium Trenching Machine Operator Potassium Trenching Machine Operator Chloride Trenching Machine Operator Carbon Dioxide Trenching Machine Operator Anion Gap Trenching Machine Operator BUN Trenching Machine Operator Creatinine Trenching Machine Operator Est GFR ( Amer) Trenching Machine Operator Est GFR (Non-Af Amer) Trenching Machine Operator Random Glucose Trenching Machine Operator Calcium Trenching Machine Operator 01/29/18 01/29/18 01/29/18 22:14 22:14 22:14 WBC 12.9 H RBC 4.50 Hgb 13.1 Hct 38.8 MCV 86.1 MCH 29.1 MCHC 33.8 RDW 14.5 Plt Count 260 PT 14.5 H INR 1.3 APTT 28.8 Sodium 133 Potassium 3.7 Chloride 96 L Carbon Dioxide 25 Anion Gap 16 BUN 8 Creatinine 0.4 L Est GFR ( Amer) > 60 Est GFR (Non-Af Amer) > 60 Random Glucose 217 H Calcium 9.7 Assessment & Plan - Assessment and Plan (Free Text) Assessment: 47 Y/O female with PMHx of HTN, chronic back pain, Colon cancer w/ metastasis to liver, Depression, Fibromyalgia, GERD presents to ED with abdominal and back pain. 1) Chronic Abdominal and back pain - Chronic, H/O multiple lumbar surgeries. - Dilaudid 1 mg IVP in ED - Dulaudid 1.5 mg Q4hr PRN for pain - Fentanyl patch Q3 - Abd x ray: f/u with results - Dr Bae consulted for pain managmet - Abd CT 01/10/18: Show hepatic metastatic disease consistent with history of colonic 2) NIDDM - Uncontrolled not on medication - Last A1c 7.7 on 11/19/17 - Low dose sliding scale 3.) HTN - Amlodipine 10 mg QD 4) Fibromyalgia - Controlled - Duloxetine 60 mg PO HS DVT Prophylaxis - Lovenox 40 mg SC daily
[2018-01-30] MEDS ORDERED: Dextrose 50% SYRINGE Inj (50 ml) IV PRN (04:10)
[2018-01-30] MEDS ORDERED: Glucagon Recombinant 1 mg Inj IM PRN (04:10)
[2018-01-30 04:41] LABS: SQUAMOUS EPITHIAL < 1 /hpf (0-5); URINE BACTERIA RARE (<OCC); URINE BILIRUBIN NEGATIVE (NEGATIVE); URINE BLOOD NEGATIVE (NEGATIVE); URINE CLARITY SLIGHTY-CLOUDY (Clear); URINE COLOR STRAW (YELLOW); URINE GLUCOSE (UA) NEG (Normal); URINE LEUKOCYTE ESTERASE NEG Leu/uL (Negative); URINE PROTEIN NEGATIVE (NEGATIVE); URINE UROBILINOGEN 0.2-1.0 mg/dL (0.2-1.0)
--- NOTE | 2018-01-30 08:45 | CP.PCM.PN ---
Subjective - Date & Time of Evaluation Date of Evaluation: 01/30/18 Time of Evaluation: 07:30 - Subjective Subjective: Patient seen and examined this morning, NAD, stable overnight. C/o abdominal pain which moves around and lower back pain, patient is s/p Celiac block and Sacroiliac joint inj in last admission. patient reports decreased appetite but tolerating PO intake. denies any f/c/n/v/d, chest pain, dizziness, palpitations or LEs weakness. Objective - Vital Signs/Intake and Output Vital Signs (last 24 hours): Temp Pulse Resp BP Pulse Ox 98.1 F 96 H 18 139/82 97 01/30/18 03:23 01/30/18 03:58 01/30/18 03:58 01/30/18 03:23 01/30/18 05:01 - Medications Medications: Current Medications Acetaminophen (Tylenol 325mg Tab) 650 mg PO Q4 PRN PRN Reason: Pain, Mild (1-3) Amlodipine Besylate (Norvasc) 10 mg PO DAILY [facility] Bisacodyl (Dulcolax) 5 mg PO BID PRN PRN Reason: Constipation Dextrose (Dextrose 50% Inj) 0 ml IV STAT PRN; Protocol PRN Reason: Hypoglycemia Protocol Dextrose (Glutose 15) 0 gm PO ONCE PRN; Protocol PRN Reason: Hypoglycemia Protocol Duloxetine HCl (Cymbalta) 60 mg PO HS [facility] Last Admin: 01/30/18 02:03 Dose: 60 mg Enoxaparin Sodium (Lovenox) 40 mg SC DAILY [facility] PRN Reason: Protocol Fentanyl (Duragesic) 1 patch TD Q3D [facility] PRN Reason: Protocol Glucagon (Glucagen Diagnostic Kit) 0 mg IM STAT PRN; Protocol PRN Reason: Hypoglycemia Protocol Hydromorphone HCl (Dilaudid) 1.5 mg IVP Q4 PRN PRN Reason: Pain, severe (8-10) Last Admin: 01/30/18 05:48 Dose: 1.5 mg Insulin Human Regular (Humulin R) 0 units SC [facility] PRN Reason: Protocol Magnesium Hydroxide (Milk Of Magnesia) 30 ml PO DAILY PRN PRN Reason: Constipation Methylprednisolone (Medrol) 20 mg PO ONCE ONE Stop: 01/30/18 09:01 Methylprednisolone (Medrol) 16 mg PO ONCE ONE Stop: 01/31/18 09:01 Methylprednisolone (Medrol) 12 mg PO ONCE ONE Stop: 02/01/18 09:01 Methylprednisolone (Medrol) 8 mg PO ONCE ONE Stop: 02/02/18 09:01 Methylprednisolone (Medrol) 4 mg PO ONCE ONE Stop: 02/03/18 09:01 Ondansetron HCl (Zofran Inj) 4 mg IVP Q6 PRN PRN Reason: Nausea/Vomiting Pantoprazole Sodium (Protonix Ec Tab) 40 mg PO DAILY [facility] Pantoprazole Sodium (Protonix Ec Tab) 20 mg PO DAILY [facility] Polyethylene Glycol (Miralax) 17 gm PO BID [facility] Tramadol HCl (Ultram) 50 mg PO Q6 PRN PRN Reason: Pain, moderate (4-7) Last Admin: 01/30/18 04:34 Dose: 50 mg - Labs Labs: 01/29/18 22:14 01/29/18 22:14 PT 14.5 Seconds (9.8-13.1) H 01/29/18 22:14 INR 1.3 01/29/18 22:14 APTT 28.8 Seconds (25.6-37.1) 01/29/18 22:14 - Constitutional Appears: No Acute Distress - Head Exam Head Exam: NORMAL INSPECTION - Eye Exam Eye Exam: EOMI, Normal appearance, PERRL Pupil Exam: NORMAL ACCOMODATION - ENT Exam ENT Exam: Mucous Membranes Moist - Neck Exam Neck Exam: Normal Inspection - Respiratory Exam Respiratory Exam: Clear to Ausculation Bilateral, NORMAL BREATHING PATTERN. absent: Accessory Muscle Use, Chest Wall Tenderness, Decreased Breath Sounds, Prolonged Expiratory Phase, Rhonchi, Wheezes, Respiratory Distress, Stridor - Cardiovascular Exam Cardiovascular Exam: REGULAR RHYTHM, +S1, +S2 - GI/Abdominal Exam GI & Abdominal Exam: Soft, Tenderness (MUQ), Normal Bowel Sounds. absent: Distended, Hernia, Organomegaly, Pulsatile Mass, Rebound - Extremities Exam Extremities Exam: Full ROM, Normal Capillary Refill, Normal Inspection. absent : Pedal Edema, Tenderness - Back Exam Back Exam: absent: CVA tenderness (L), CVA tenderness (R), muscle spasm, paraspinal tenderness, rash noted, tenderness, vertebral tenderness - Neurological Exam Neurological Exam: Alert, Awake, CN II-XII Intact, Normal Gait, Oriented x3 Neuro motor strength exam: Left Upper Extremity: 4, Right Upper Extremity: 4, Left Lower Extremity: 4, Right Lower Extremity: 4 - Psychiatric Exam Psychiatric exam: Normal Affect, Normal Mood - Skin Skin Exam: Dry, Intact, Normal Color Assessment and Plan - Assessment and Plan (Free Text) Assessment: A/P: 47 Y/O female with PMH of HTN, chronic back pain, Colon cancer w/ metastasis to liver, Depression, Fibromyalgia, GERD admitted for evaluation and treatment of abdominal and back pain, s/p Celiac block and Sacroiliac joint inj in last admission 1 week ago. Chronic Abdominal and back pain, H/O multiple lumbar surgeries, s/p Celiac block and Sacroiliac joint inj in last admission 1 week ago. - Abd x ray: Constipation, no OBS, mild right lung opacity - Dr Bae consulted for pain management: (Recos' possible Celiac Nerve block and duragesic as outpatient) - C/w pain management: Dulaudid 1.5 mg Q4hr PRN for pain, Fentanyl patch Q3 NIDDM - Uncontrolled not on medication - Last A1c 7.7 on 11/19/17 - Low dose sliding scale HTN - Amlodipine 10 mg QD Fibromyalgia - Controlled - Duloxetine 60 mg PO HS DVT Prophylaxis - Lovenox 40 mg SC daily
[2018-01-30] MEDS: Insulin Regular 100 units/ml SC SCH ×4 (08:46→22:15)
--- NOTE | 2018-01-30 08:56 | RAD ---
Date of service: 01/29/2018 PROCEDURE: Radiographs of the chest and abdomen (obstructive series) HISTORY: abd pain, back pain, hx of colon CA COMPARISON: 08/24/2017 TECHNIQUE: AP radiograph of the chest, with upright and supine radiographs of the abdomen. FINDINGS: CHEST: Lungs: Interval mostly linear configured opacity mid right lung zone -an interval change. Atelectasis, early infiltrate as well as either these 2 with small interval pulmonary nodules in this patient with clinical history of colon cancer are all considerations. Two clarified, consider noncontrast CT chest imaging Cardiovascular: Normal size heart. No pulmonary vascular congestion. Right-sided Port-A-Cath tip superior vena cava-similar Pleura: No pleural fluid. No pneumothorax. Other findings: Partially visualize cervical fusion plate ABDOMEN AND PELVIS: Bowel: Moderate stool retention right colon. Left abdominal surgical clips Free air: None. Bones: No acute fracture. Five radiopaque disc spacer with left lateral surgical clips Other findings: Right hemipelvic phleboliths. IMPRESSION: Interval nonspecific opacity mainly linear configured in mid right lung -considerations as above Moderate to extensive stool retention. No bowel obstruction. No free air Other findings as above.
[2018-01-30] MEDS ORDERED: Pantoprazole 40 mg EC Tab PO SCH (09:00)
[2018-01-30] MEDS ORDERED: Midazolam 2 MG/2 ML VIAL ONE (10:03)
[2018-01-30] MEDS ORDERED: Propofol 10 mg/ml Inj (20 ML) ONE (10:06)
[2018-01-30] MEDS ORDERED: Dexamethasone 4 mg/1 ml ONE (10:08)
[2018-01-30] MEDS ORDERED: Lidocaine 2% MPF (5 ml) Inj ONE (10:08)
[2018-01-30] MEDS ORDERED: Bupivacaine HCl 0.25% PF (30 ml) Inj ONE (10:09)
[2018-01-30] MEDS ORDERED: Iohexol 300 10 ML ONE (10:09)
[2018-01-30] MEDS ORDERED: Sodium Chloride 0.9% 500 ML IV ONE (10:34)
--- NOTE | 2018-01-30 11:11 | CP.PCM.PN ---
Subjective - Date & Time of Evaluation Date of Evaluation: 01/30/18 Time of Evaluation: 10:45 - Subjective Subjective: Patient was readmitted yesterday for intractable abdominal pain. She wasn't able to receive the scheduled chemotherapy at [place] earlier this week due to the pain. After discharge last week, she wasn't able to get Fentanyl patch as an outpatient. Steps have been taken for her to receive it, but insurance needs to approve it. She returns today with diffuse abdominal pain, refractory to Dilaudid 2mg PO, and Tramadol 50mg PO. Objective - Vital Signs/Intake and Output Vital Signs (last 24 hours): Temp Pulse Resp BP Pulse Ox 98.5 F 102 H 20 132/88 98 01/30/18 08:47 01/30/18 08:47 01/30/18 08:47 01/30/18 08:47 01/30/18 08:47 Intake and Output: 01/30/18 01/30/18 06:59 18:59 Intake Total 100 Balance 100 - Medications Medications: Current Medications Acetaminophen (Tylenol 325mg Tab) 650 mg PO Q4 PRN PRN Reason: Pain, Mild (1-3) Amlodipine Besylate (Norvasc) 10 mg PO DAILY [facility] Last Admin: 01/30/18 08:47 Dose: 10 mg Bisacodyl (Dulcolax) 5 mg PO BID PRN PRN Reason: Constipation Dextrose (Dextrose 50% Inj) 0 ml IV STAT PRN; Protocol PRN Reason: Hypoglycemia Protocol Dextrose (Glutose 15) 0 gm PO ONCE PRN; Protocol PRN Reason: Hypoglycemia Protocol Duloxetine HCl (Cymbalta) 60 mg PO HS [facility] Last Admin: 01/30/18 02:03 Dose: 60 mg Enoxaparin Sodium (Lovenox) 40 mg SC DAILY [facility] PRN Reason: Protocol Fentanyl (Duragesic) 1 patch TD Q3D [facility] PRN Reason: Protocol Last Admin: 01/30/18 08:45 Dose: 1 patch Glucagon (Glucagen Diagnostic Kit) 0 mg IM STAT PRN; Protocol PRN Reason: Hypoglycemia Protocol Hydromorphone HCl (Dilaudid) 1.5 mg IVP Q4 PRN PRN Reason: Pain, severe (8-10) Last Admin: 01/30/18 05:48 Dose: 1.5 mg Insulin Human Regular (Humulin R) 0 units SC [facility] PRN Reason: Protocol Last Admin: 01/30/18 08:46 Dose: Not Given Magnesium Hydroxide (Milk Of Magnesia) 30 ml PO DAILY PRN PRN Reason: Constipation Methylprednisolone (Medrol) 16 mg PO ONCE ONE Stop: 01/31/18 09:01 Methylprednisolone (Medrol) 12 mg PO ONCE ONE Stop: 02/01/18 09:01 Methylprednisolone (Medrol) 8 mg PO ONCE ONE Stop: 02/02/18 09:01 Methylprednisolone (Medrol) 4 mg PO ONCE ONE Stop: 02/03/18 09:01 Ondansetron HCl (Zofran Inj) 4 mg IVP Q6 PRN PRN Reason: Nausea/Vomiting Pantoprazole Sodium (Protonix Ec Tab) 40 mg PO DAILY [facility] Pantoprazole Sodium (Protonix Ec Tab) 20 mg PO DAILY [facility] Polyethylene Glycol (Miralax) 17 gm PO BID [facility] Tramadol HCl (Ultram) 50 mg PO Q6 PRN PRN Reason: Pain, moderate (4-7) Last Admin: 01/30/18 04:34 Dose: 50 mg - Labs Labs: 01/29/18 22:14 01/29/18 22:14 PT 14.5 Seconds (9.8-13.1) H 01/29/18 22:14 INR 1.3 01/29/18 22:14 APTT 28.8 Seconds (25.6-37.1) 01/29/18 22:14 - GI/Abdominal Exam GI & Abdominal Exam: Soft, Tenderness Assessment and Plan (1) Intractable abdominal pain Assessment & Plan: 47 yo woman w/ colon CA with mets to liver. Now s/p celiac plexus block #2. - continue Duragesic 50mcg/hr q72h - patient should be discharged with above, which she already has a script and insurance is reviewing it - she will need a new script for Dilaudid 2mg, q6h PRN, which I will leave in chart Status: Acute
[2018-01-30] MEDS: Pantoprazole 20 mg EC Tab PO SCH (12:38)
[2018-01-30] MEDS: POLYETHYLENE GLYCOL 3350 17 GM/Dose PACKET PO SCH ×2 (12:38→16:58)
[2018-01-30] MEDS: Enoxaparin 40 mg Syringe SC SCH (12:41)
[2018-01-30 13:57] LABS: BASO % 0.2 % (0.0-2.0); EOS # 0.1 K/uL (0.0-0.7); EOS % 1.1 % (0.0-4.0); HEMOGLOBIN 12.3 g/dL (12.0-16.0); LYMPH # 0.6 K/uL (1.0-4.3); LYMPH % 6.6 % (20.0-40.0); MEAN CELL VOLUME 86.9 fl (81.0-99.0); MEAN CORPUSCULAR HEMOGLOBIN 28.9 pg (27.0-31.0); MEAN CORPUSCULAR HGB CONC 33.3 g/dL (33.0-37.0); MEAN PLATELET VOLUME 9.5 fl (7.2-11.7); MONO # 1.1 K/uL (0.0-0.8); MONO % 11.7 % (0.0-10.0); NEUT # 7.7 K/uL (1.8-7.0); NEUT % 80.4 % (50.0-75.0); PLATELET COUNT 197 K/uL (130-400); RBC 4.26 Mil/uL (3.80-5.20); RED CELL DISTRIBUTION WIDTH 14.3 % (11.5-14.5); WHITE BLOOD COUNT 9.6 K/uL (4.8-10.8)
[2018-01-30 14:37] LABS: BANDS 1 % (0-2); EOSINOPHIL 2 % (0-7); LYMPHOCYTE 12 % (20-50); MONOCYTE 7 % (0-10); NEUTROPHIL 78 % (42-75); TOTAL CELLS COUNTED 100
[2018-01-30 14:38] LABS: PLATELET ESTIMATE NORMAL (NORMAL)
--- NOTE | 2018-01-30 15:27 | RAD ---
Date of service: 01/30/2018 PROCEDURE: Intraoperative Fluoroscopy. HISTORY: PAIN MANAGEMENT FINDINGS: Fluoroscopic assistance was provided. Fluoroscopy time = 90.1 seconds. Radiation dose = 56.57 mGy. Please refer to the operative report from Dr. Bae for additional details.
[2018-01-30 23:40] VITALS: PULSE 86
[2018-01-31 08:03] VITALS: BP 116/72; RESP 20; TEMP 97.4; O2SAT 98
[2018-01-31] MEDS: Pantoprazole 20 mg EC Tab PO SCH (08:20)
--- NOTE | 2018-01-31 08:32 | OP ---
Copied To: Emigdio Bae MD Attending MD: Emigdio Bae MD PROCEDURE DATE: 01/30/18 PREOPERATIVE DIAGNOSIS: Abdominal pain. POSTOPERATIVE DIAGNOSIS: Abdominal pain. PROCEDURE: Celiac plexus block. SURGEON: Emigdio Bae MD. ANESTHESIOLOGIST: Syd Suárez MD TYPE OF ANESTHESIA: Monitored anesthesia care. COMPLICATIONS: None. SPECIMEN: None. DESCRIPTION OF PROCEDURE: As follows: After we had discussion of the procedure with the patient including its risks, benefits, alternatives, outcome data, possibility of no effect or increased pain, the patient consented to the procedure. She denied any recent infection, bleeding tendencies, or being on anticoagulants; a decision was then made to proceed to the OR. The patient was placed on a fluoroscopy table in a prone position with two pillows underneath her abdomen. The back was prepped and draped in the usual sterile fashion. A sterile technique was adhered during the entire procedure. The L1 vertebral levels were first identified in the anteroposterior view. The needle target is at the lateral border of the vertebral body above the transverse process. The procedure was first performed on the right side by turning the fluoroscopy towards the right at approximately 15 degrees. The skin overlying the safety triangle was infiltrated with 1% lidocaine using 25-gauge needle. The safety triangle consists of the transverse process of the L1 vertebral level at the inferior border and the lateral edge of the vertebral body on the lateral border and endplate as the superior border. The needle was then incrementally inserted under fluoroscopic guidance until the tip of the needle made bony contact with vertebral body. The needle was then worked slightly laterally and anteriorly under lateral fluoroscopic guidance until tip of the needle lay within above 2 cm anterior to the anterior border of the vertebral body on the lateral fluoroscopy view. Then the same procedure was performed on the contralateral left side at approximately 10 degrees oblique angle, at a slightly less oblique angle so that the needle is placed slightly anteriorly through the vertebral body without puncturing the aorta. After satisfactory positioning of both needles, approximately 0.5 mL of Isovue contrast was injected showing appropriate spread and without any signs of vascular washout. After ensuring that both needles were not in any blood vessel, approximately 15 mL of 0.25% Marcaine and Depo-Medrol mixture was gradually injected into each side. At the end of the procedure, the needle was removed and the patient's back was cleaned and dry bandages were applied. The patient was then transferred to the recovery area in good condition without any signs of [employer] toxicity or any neurological deficit. She will be following up in the office in approximately two to four weeks. En-Miguel Bae MD
[2018-01-31] MEDS: Insulin Regular 100 units/ml SC SCH (08:38)
[2018-01-31] MEDS: Enoxaparin 40 mg Syringe SC SCH (08:38)
[2018-01-31] MEDS: POLYETHYLENE GLYCOL 3350 17 GM/Dose PACKET PO SCH (08:39)
--- NOTE | 2018-01-31 09:15 | CP.PCM.DIS ---
Provider - Provider Date of Admission: 01/29/18 23:24 Attending physician: Jackelyn Reynolds MD Primary care physician: [facility] Consults: Pain management, Dr. Bae Time Spent in preparation of Discharge (in minutes): 40 Diagnosis - Discharge Diagnosis (1) Chronic abdominal pain Status: Chronic Comment: History of Colon cancer w/ metastasis to liver. s/p Celiac block and Sacroiliac joint inj in last admission 1 week ago (2) Chronic back pain Status: Chronic Comment: H/O multiple lumbar surgeries (3) Fibromyalgia Status: Chronic Comment: Duloxetine 60 mg PO HS (4) Diabetes Status: Chronic Comment: Last A1c 7.7 on 11/19/17 (5) Hypertension Status: Chronic Comment: Amlodipine 10 mg QD Hospital Course - Lab Results Lab Results: Most Recent Lab Values WBC 9.6 K/uL (4.8-10.8) 01/30/18 13:44 RBC 4.26 Mil/uL (3.80-5.20) 01/30/18 13:44 Hgb 12.3 g/dL (12.0-16.0) 01/30/18 13:44 Hct 37.0 % (34.0-47.0) 01/30/18 13:44 MCV 86.9 fl (81.0-99.0) 01/30/18 13:44 MCH 28.9 pg (27.0-31.0) 01/30/18 13:44 MCHC 33.3 g/dL (33.0-37.0) 01/30/18 13:44 RDW 14.3 % (11.5-14.5) 01/30/18 13:44 Plt Count 197 K/uL (130-400) 01/30/18 13:44 MPV 9.5 fl (7.2-11.7) 01/30/18 13:44 Neut % (Auto) 80.4 % (50.0-75.0) H 01/30/18 13:44 Lymph % (Auto) 6.6 % (20.0-40.0) L 01/30/18 13:44 [place] % (Auto) 11.7 % (0.0-10.0) H 01/30/18 13:44 Eos % (Auto) 1.1 % (0.0-4.0) 01/30/18 13:44 Baso % (Auto) 0.2 % (0.0-2.0) 01/30/18 13:44 Neut # (Auto) 7.7 K/uL (1.8-7.0) H 01/30/18 13:44 Lymph # (Auto) 0.6 K/uL (1.0-4.3) L 01/30/18 13:44 [place] # (Auto) 1.1 K/uL (0.0-0.8) H 01/30/18 13:44 Eos # (Auto) 0.1 K/uL (0.0-0.7) 01/30/18 13:44 Baso # (Auto) 0.0 K/uL (0.0-0.2) 01/30/18 13:44 Neutrophils % (Manual) 78 % (42-75) H 01/30/18 13:44 Band Neutrophils % 1 % (0-2) 01/30/18 13:44 Lymphocytes % (Manual) 12 % (20-50) L 01/30/18 13:44 Monocytes % (Manual) 7 % (0-10) 01/30/18 13:44 Eosinophils % (Manual) 2 % (0-7) 01/30/18 13:44 Platelet Estimate Normal (NORMAL) 01/30/18 13:44 RBC Morphology Normal (NORMAL) 01/30/18 13:44 PT 14.5 Seconds (9.8-13.1) H 01/29/18 22:14 INR 1.3 01/29/18 22:14 APTT 28.8 Seconds (25.6-37.1) 01/29/18 22:14 Sodium 133 mmol/l (132-148) 01/29/18 22:14 Potassium 3.7 MMOL/L (3.6-5.0) 01/29/18 22:14 Chloride 96 mmol/L (98-107) L 01/29/18 22:14 Carbon Dioxide 25 mmol/L (22-30) 01/29/18 22:14 Anion Gap 16 (10-20) 01/29/18 22:14 BUN 8 mg/dl (7-17) 01/29/18 22:14 Creatinine 0.4 mg/dl (0.7-1.2) L 01/29/18 22:14 Est GFR ( Amer) > 60 01/29/18 22:14 Est GFR (Non-Af Amer) > 60 01/29/18 22:14 POC Glucose (mg/dL) 131 mg/dL (65-110) H 01/31/18 05:51 Random Glucose 217 mg/dL (65-105) H 01/29/18 22:14 Calcium 9.7 mg/dL (8.4-10.2) 01/29/18 22:14 Lipase 89 U/L (23-300) 01/30/18 13:44 Urine Color Straw (YELLOW) 01/30/18 03:55 Urine Clarity Slighty-cloudy (Clear) 01/30/18 03:55 Urine pH 7.0 (5.0-8.0) 01/30/18 03:55 Ur Specific [place] 1.005 (1.003-1.030) 01/30/18 03:55 Urine Protein Negative mg/dL (NEGATIVE) 01/30/18 03:55 Urine Glucose (UA) Neg mg/dL (Normal) 01/30/18 03:55 Urine Ketones Negative mg/dL (NEGATIVE) 01/30/18 03:55 Urine Blood Negative (NEGATIVE) 01/30/18 03:55 Urine Nitrate Negative (NEGATIVE) 01/30/18 03:55 Urine Bilirubin Negative (NEGATIVE) 01/30/18 03:55 Urine Urobilinogen 0.2-1.0 mg/dL (0.2-1.0) 01/30/18 03:55 Ur Leukocyte Esterase Neg Jen/uL (Negative) 01/30/18 03:55 Urine RBC (Auto) 2 /hpf (0-3) 01/30/18 03:55 Urine Microscopic WBC 1 /hpf (0-5) 01/30/18 03:55 Ur Squamous Epith Cells < 1 /hpf (0-5) 01/30/18 03:55 Urine Bacteria Rare (<OCC) 01/30/18 03:55 - Hospital Course Hospital Course: 47 Y/O female with PMH of HTN, chronic back pain, Colon cancer w/ metastasis to liver (Getting Chemo), Depression, Fibromyalgia, GERD, H/O multiple lumbar surgeries admitted for evaluation and treatment of acutely worsened chronic abdominal and back pain . During this admission, patient was evaluated by pain management, Dr. Bae. Patient's symptoms improved with inpatient pain management and repeat celiac plexus block. Patient is cleared for discharge by Dr. Bae whom recommended Dilaudid 2mg Q8H PO PRN #120Tabs, MS Contin 30mg PO Q8H # 15Tabs and outpatient follow up with him on 02/04/18. Patient is stable for discharge, and instructed to resume home medications and take new medications as prescribed. follow up with Dr. Bae and PMD within 1 week. ER precautions discussed with patient. - New Rx: Dilaudid 2mg Q8H PO PRN #120, MS Contin 30mg PO Q8H #15 - Home RX: Amlodipine 10mg PO daily, Diloxetine 60mg PO daily, Omeprazole 20mg PO daily, and Tramadol 50mg Q6H PRN Discharge Exam - Head Exam Head Exam: NORMAL INSPECTION - Eye Exam Eye Exam: EOMI, Normal appearance, PERRL Pupil Exam: NORMAL ACCOMODATION - ENT Exam ENT Exam: Mucous Membranes Moist - Neck Exam Neck exam: Normal Inspection - Respiratory Exam Respiratory Exam: Clear to PA & Lateral, NORMAL BREATHING PATTERN. absent: Accessory Muscle Use, Chest Wall Tenderness, Rales, Rhonchi, Wheezes, Respiratory Distress - Cardiovascular Exam Cardiovascular Exam: REGULAR RHYTHM, RRR, +S1, +S2 - GI/Abdominal Exam GI & Abdominal Exam: Normal Bowel Sounds, Soft. absent: Diminished Bowel Sounds , Distended, Guarding, Organomegaly, Rebound, Rigid, Tenderness - Extremities Exam Extremities exam: normal capillary refill, normal inspection, pedal pulses present - Back Exam Back exam: NORMAL INSPECTION. absent: CVA tenderness (L), CVA tenderness (R) - Neurological Exam Neurological exam: Alert, CN II-XII Intact, Oriented x3, Reflexes Normal - Psychiatric Exam Psychiatric exam: Normal Affect, Normal Mood - Skin Skin Exam: Dry, Intact, Normal Color, Warm Discharge Plan - Discharge Medications Prescriptions: HYDROmorphone [Dilaudid] 2 mg PO Q8 PRN #120 tab PRN Reason: Pain, Severe (8-10) Morphine [MS Contin] 30 mg PO Q8 #15 ter - Follow Up Plan Condition: FAIR Disposition: HOME/ ROUTINE Instructions: Chronic Pain (DC), Abdominal Pain (ED), Back Pain (GEN) Additional Instructions: Follow up with Dr. Bae on 02/04/18, call for the Appt Follow up with Dr. Villegas on 02/05/18 as scheduled C/w new Rx as instructed (Dilaudid 2mg Q8H PO PRN #120, MS Contin 30mg PO Q8H # 15) Referrals: [facility] [Outside] Rosalva Matthews MD [Family Provider] - Emigdio Bae MD [Staff Provider] -
== END 2018-01-31 12:34 | disposition home or self-care (01) ==
LOC: H.ER 21:02 → H.ERHOLD 23:24 → H.MEDSURG1 01-30 02:55
PROVIDERS: ADMIT Family Medicine Geriatric Medicine; ATTEND Family Medicine Geriatric Medicine
DX: G89.3 Neoplasm related pain (acute) (chronic) (principal); C78.7 Secondary malignant neoplasm of liver and intrahepatic bile duct; E11.9 Type 2 diabetes mellitus without complications; I10 Essential (primary) hypertension; K21.9 Gastro-esophageal reflux disease without esophagitis; M79.7 Fibromyalgia; Z88.0 Allergy status to penicillin; Z88.1 Allergy status to other antibiotic agents; Z85.038 Personal history of other malignant neoplasm of large intestine; F41.9 Anxiety disorder, unspecified; F32.9 Major depressive disorder, single episode, unspecified; K59.00 Constipation, unspecified
CPT/HCPCS: 36415; 64530; 74022; 80048; 81003; 81025; 82948; 83690; 85025; 85027; 85610; 85730; 96361; 96372; 96374; 96375; 96376; 99283; G0378; J1100; J1170; J1650; J2250; J2405; J2704; J3010; J7030; J7509; Q9967

== ENCOUNTER 2018-02-20 13:07 | Inpatient (IN) | payer MEDICAID ==
[2018-02-20] MEDS ORDERED: Iohexol 240 (50 ml) PO ONE (13:40)
[2018-02-20] MEDS ORDERED: Morphine 4 MG/ML VIAL IVP ONE (13:45)
[2018-02-20] MEDS ORDERED: Sodium Chloride 0.9% 1,000 ML IV STA (13:46)
[2018-02-20] MEDS ORDERED: Morphine 4 MG/ML VIAL ONE ×2 (13:55→20:37)
[2018-02-20] MEDS ORDERED: Iohexol 240 (50 ml) ONE (13:56)
[2018-02-20 14:08] LABS: BASO % 0.3 % (0.0-2.0); EOS # 0.2 K/uL (0.0-0.7); EOS % 2.9 % (0.0-4.0); HEMOGLOBIN 13.2 g/dL (12.0-16.0); LYMPH # 0.8 K/uL (1.0-4.3); LYMPH % 12.3 % (20.0-40.0); MEAN CELL VOLUME 86.4 fl (81.0-99.0); MEAN CORPUSCULAR HEMOGLOBIN 28.2 pg (27.0-31.0); MEAN CORPUSCULAR HGB CONC 32.6 g/dL (33.0-37.0); MEAN PLATELET VOLUME 9.2 fl (7.2-11.7); MONO # 0.7 K/uL (0.0-0.8); MONO % 10.5 % (0.0-10.0); NEUT # 4.8 K/uL (1.8-7.0); NRBC % 0.1 % (0.0-0.0); RBC 4.68 Mil/uL (3.80-5.20); WHITE BLOOD COUNT 6.5 K/uL (4.8-10.8)
--- NOTE | 2018-02-20 14:13 | ED PDOC ---
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 Patient has last had chemo-embolization 12/27/2017 of liver but states since that procedure pain dramatically worse in severity. Denies any fevers/chills.) Past Medical History Reviewed: Historical Data, Nursing Documentation, Vital Signs Vital Signs: Last Vital Signs Temp 98.6 F 02/21/18 07:47 Pulse 102 H 02/21/18 08:32 Resp 18 02/21/18 07:47 BP 141/92 H 02/21/18 08:32 Pulse Ox 99 02/21/18 07:47 - Medical History PMH: Anxiety, Back Problems, Depression, Diabetes, Fibromyalgia, GERD, HTN, Malignancy Denies: Hill's Disease, Alzheimer's Disease, Anemia, Arthritis, Asthma, Atrial Fibrillation, Benign Prostatic Hyperplasia, Bipolar Disorder, Bronchitis , Cardia Arrhythmia, Cardiac Aneurysm, CHF, Colonic Polyps, COPD, Crohn's Disease, [place]'s Syndrome, Dementia, Diverticulitis, Deep Vein Thrombosis, Emphysema, Gastrointestinal Ulcer, Gall Bladder Disease, Graves' Disease, Hiatal Hernia, HIV, Hypercholesterolemia, Hyperlipidemia, Hyperthyroidism, Hypothyroidism, Kidney Stones, Migraine, Mitral Valve Prolapse, Multiple Sclerosis, Obstructive Bowel, Osteoporosis, Pancreatitis, Parkinson's Disease, Pericarditis, Peripheral Edema, Personality Disorder, Pneumonia, Pneumothorax, Post Traumatic Stress Disorder, Pulmonary Embolism, End Stage Renal Disease, Chronic Kidney Disease, Rheumatoid Arthritis, Schizophrenia, Seizures, Sickle Cell Disease, Sexually Transmitted Disease, Sleep Apnea, TIA - Surgical History Surgical History: Back Surgery, Endoscopy Denies: Appendectomy, CABG, Carotid Endarterectomy, Cholecystectomy, Coronary Stent, Tonsillectomy - Family History Family History: States: Unknown Family Hx - Immunization History Hx Influenza Vaccination: Yes Hx Pneumococcal Vaccination: No - Home Medications Home Medications: Ambulatory Orders Medication Instructions Recorded amLODIPine [Norvasc] 10 mg PO DAILY #0 tab 04/05/15 DULoxetine [Cymbalta] 60 mg PO HS 04/23/15 Omeprazole Magnesium [Prilosec Otc] 40 mg PO DAILY 01/30/18 HYDROmorphone [Dilaudid] 2 mg PO Q8 PRN #120 tab 01/31/18 Morphine [MS Contin] 30 mg PO Q8 #15 ter 01/31/18 Gabapentin [Neurontin] 300 mg PO Q8 02/20/18 metFORMIN [glucOPHAGE] 500 mg PO DAILY 02/20/18 - Allergies Allergies/Adverse Reactions: Allergies Allergy/AdvReac Type Severity Reaction Status Date / Time penicillin G Allergy RASH Verified 02/20/18 13:26 vancomycin Allergy RASH Verified 02/20/18 13:26 Review of Systems ROS Statement: Except As Marked, All Systems Reviewed And Found Negative Physical Exam - Reviewed Nursing Documentation Reviewed: Yes Vital Signs Reviewed: Yes - Physical Exam Appears: Positive for: Well, Non-toxic, No Acute Distress Head Exam: Positive for: ATRAUMATIC, NORMAL INSPECTION, NORMOCEPHALIC Skin: Positive for: Normal Color, Warm, DRY Eye Exam: Positive for: EOMI, Normal appearance, PERRL ENT: Positive for: Normal ENT Inspection Neck: Positive for: Normal, Painless ROM Cardiovascular/Chest: Positive for: Regular Rate, Rhythm Respiratory: Positive for: CNT, Normal Breath Sounds Gastrointestinal/Abdominal: Positive for: Normal Exam, Soft, Tenderness ( generalized. active BS) Back: Positive for: Normal Inspection Extremity: Positive for: Normal ROM Neurologic/Psych: Positive for: Alert, Oriented - Laboratory Results Result Diagrams: 02/21/18 06:05 02/21/18 06:05 - ECG O2 Sat by Pulse Oximetry: 99 - Progress ED Course And Treament: CT IMPRESSION: Heterogeneous diminished attenuation in the posterior right hepatic lobe consistent with known colonic mass metastatic disease and unchanged in appearance compared to the prior examination. Mild retroperitoneal lymphadenopathy. Nonspecific mesenteric panniculitis. Trace right pleural effusion. DILAUDID 1.5 MG IV X 1 DOSE REGLAN 10MG IV X 1 DOSE NS 1 LITER 500ML PER HOUR DILAUDID 1.5MG IV X 2ND DOSE D/W FAMILY MED RESIDENT Disposition - Clinical Impression Clinical Impression: Intractable abdominal pain - Patient ED Disposition Is Patient to be Admitted: Yes - Disposition Disposition Time: 18:24 Condition: FAIR - Pt Status Changed To: Hospital Disposition Of: Inpatient - Admit Certification Admit to Inpatient:: After my assessment, the patient will require hospitalization for at least two midnights. This is because of the severity of symptoms shown, intensity of services needed, and/or the medical risk in this patient being treated as an outpatient.
[2018-02-20 14:19] LABS: ALB/GLOB RATIO 1.1 (1.0-2.1); ALBUMIN 4.4 g/dL (3.5-5.0); ALT/SGPT 35 U/L (9-52); AST/SGOT 53 U/L (14-36); BLOOD UREA NITROGEN 6 mg/dl (7-17); CALCIUM 9.7 mg/dL (8.4-10.2); GFR NON-AFRICAN AMERICAN > 60; LIPASE 47 U/L (23-300)
[2018-02-20 15:00] LABS: SQUAMOUS EPITHIAL 4 /hpf (0-5); URINE AMORPHOUS SEDIMENT RARE /ul (<OCC); URINE BACTERIA RARE (<OCC); URINE BILIRUBIN NEGATIVE (NEGATIVE); URINE BLOOD NEGATIVE (NEGATIVE); URINE CLARITY CLOUDY (Clear); URINE COLOR YELLOW (YELLOW); URINE GLUCOSE (UA) 150 mg/dL (Normal); URINE HYALINE CAST 0-2 /hpf (0-2); URINE LEUKOCYTE ESTERASE NEG Leu/uL (Negative); URINE PROTEIN 30 mg/dL (NEGATIVE)
[2018-02-20] MEDS ORDERED: Sodium Chloride 0.9% 50 ML IV ONE (16:24)
[2018-02-20] MEDS ORDERED: Iohexol 300 100 ML IJ ONE (16:24)
--- NOTE | 2018-02-20 17:03 | CT ---
Date of service: 02/20/2018 PROCEDURE: CT Abdomen and Pelvis with contrast HISTORY: metastatic ca COMPARISON: 01/10/2018 TECHNIQUE: Contrast dose: 95 mL Omnipaque 300 Radiation dose: Total exam DLP = 704.92 mGy-cm. This CT exam was performed using one or more of the following dose reduction techniques: Automated exposure control, adjustment of the mA and/or kV according to patient size, and/or use of iterative reconstruction technique. FINDINGS: LOWER THORAX: Trace right pleural effusion. LIVER: Normal size and contour. Heterogeneous diminished attenuation in the posterior right hepatic lobe essentially unchanged in appearance from prior examination consistent with known metastasis from colonic neoplasm. GALLBLADDER AND BILE DUCTS: Not visualized. Possible contracted gallbladder. PANCREAS: Unremarkable. No gross lesion or ductal dilatation. SPLEEN: Unremarkable. ADRENALS: Unremarkable. No mass. KIDNEYS AND URETERS: Unremarkable. No hydronephrosis. No solid mass. VASCULATURE: Unremarkable. No aortic aneurysm. BOWEL: Unremarkable. No obstruction. No gross mural thickening. APPENDIX: Normal appendix. PERITONEUM: No ascites. No pneumoperitoneum. There is hazy increased density in the small bowel mesenteric in a circumscribed fashion, associated with shotty subcentimeter mesenteric nodes. Findings consistent with nonspecific mesenteric panniculitis. LYMPH NODES: There is aortocaval retroperitoneal lymphadenopathy. There are mildly enlarged left paraaortic lymph nodes. There is no pelvic lymphadenopathy. BLADDER: Poorly distended REPRODUCTIVE: Unremarkable uterus BONES: No acute fracture. OTHER FINDINGS: None. IMPRESSION: Heterogeneous diminished attenuation in the posterior right hepatic lobe consistent with known colonic mass metastatic disease and unchanged in appearance compared to the prior examination. Mild retroperitoneal lymphadenopathy. Nonspecific mesenteric panniculitis. Trace right pleural effusion.
--- NOTE | 2018-02-20 19:46 | CP.PCM.HP ---
History of Present Illness - History of Present Illness History of Present Illness: 47 yo ,f, PMhx/o of HTN, chronic back pain, Colon cancer w/ metastasis to liver , Depression, Fibromyalgia, GERD presents to ED c/o LLQ abdominal pain started yesterday associated with nausea and 4 episodes of nonbloddy nonbillious vomiting, partially alleviated with Dilaudid 1.5 mg PO Q4h. She also reports constipation for 7 days. Last BM today small amount. Denies fever, cough, SOB, chest pain, rectal bleeding, pedal edema, dysuria. Pt has hx/o chronic back pain. . Patient s/p bilateral sacroiliac joint injections for back pain on . celiac plexus block 01/21/18. Patient has been seen by Heme-Oncologist: Dr. Yovani Pennington at [facility]. Patient will have next appt . PCP: [facility] Heme-Oncologist: Dr. Yovani Pennington at [facility] Pain management: Dr. Bae PMH: chronic back pain, fibromyalgia, HTN, GERD, colon cancer, anxiety PSH: C6 fusion, Colon resection 2014 and b/l oopherectomy, chemoembolization of liver. SocialHx: denies ETOH/tobacco/drug abuse FamilyHx: DM, HTN Meds: as per med rec ED course: Vs: normal Labs: CBc, CMP nl, UA nl. CT abd: Heterogeneous diminished attenuation in the posterior right hepatic lobe consistent with known colonic mass metastatic disease and unchanged in appearance compared to the prior examination. Mild retroperitoneal lymphadenopathy. Nonspecific mesenteric panniculitis. Trace right pleural effusion. Med: Dilaudid 1.5 mg IV, Reglan 10 mg IV. Iv fluids NS 500 ml Present on Admission - Present on Admission Any Indicators Present on Admission: No History of DVT/PE: No History of Uncontrolled Diabetes: No Urinary Catheter: No Decubitus Ulcer Present: No Review of Systems - Review of Systems All systems: reviewed and no additional remarkable complaints except - Gastrointestinal Gastrointestinal: Abdominal Pain, Nausea, Vomiting Past Patient History - Infectious Disease Hx of Infectious Diseases: None - Tetanus Immunizations Tetanus Immunization: Unknown - Past Medical History & Family History Past Medical History?: Yes - Past Social History Smoking Status: Never Smoked - CARDIAC Hx Atrial Fibrillation: No Hx Cardia Arrhythmia: No Hx Congestive Heart Failure: No Hx Hypercholesterolemia: No Hx Hypertension: Yes Hx Mitral Valve Prolapse: No Hx Peripheral Edema: No - PULMONARY Hx Asthma: No Hx Bronchitis: No Hx Chronic Obstructive Pulmonary Disease (COPD): No Hx Emphysema: No Hx Pneumonia: No Hx Pulmonary Embolism: No Hx Sleep Apnea: No - NEUROLOGICAL Hx Alzheimer's Disease: No Hx Dementia: No Hx Migraine: No Hx Multiple Sclerosis: No Hx Parkinson's Disease: No Hx Seizures: No Hx Transient Ischemic Attacks (TIA): No - HEENT Hx HEENT Problems: No - RENAL Hx Chronic Kidney Disease: No Hx Kidney Stones: No - ENDOCRINE/METABOLIC Hx Hyperthyroidism: No Hx Hypothyroidism: No - HEMATOLOGICAL/ONCOLOGICAL Hx Anemia: No Hx Human Immunodeficiency Virus (HIV): No Hx Sickle Cell Disease: No - INTEGUMENTARY Hx Dermatological Problems: No - MUSCULOSKELETAL/RHEUMATOLOGICAL Hx Arthritis: No Hx Osteoporosis: No Hx Rheumatoid Arthritis: No - GASTROINTESTINAL Hx Crohn's Disease: No Hx Diverticulitis: No Hx Gall Bladder Disease: No Hx Pancreatitis: No - GENITOURINARY/GYNECOLOGICAL Hx Sexually Transmitted Disorders: No - PSYCHIATRIC Hx Anxiety: Yes Hx Bipolar Disorder: No Hx Depression: Yes Hx Post Traumatic Stress Disorder: No Hx Schizophrenia: No - SURGICAL HISTORY Hx Appendectomy: No Hx Carotid Endarterectomy: No Hx Cholecystectomy: No Hx Coronary Artery Bypass Graft: No Hx Coronary Stent: No Hx Tonsillectomy: No - ANESTHESIA Hx Anesthesia: Yes Hx Anesthesia Reactions: No Hx Malignant Hyperthermia: No Meds Allergies/Adverse Reactions: Allergies Allergy/AdvReac Type Severity Reaction Status Date / Time penicillin G Allergy RASH Verified 02/20/18 13:26 vancomycin Allergy RASH Verified 02/20/18 13:26 Physical Exam - Constitutional Appears: Non-toxic, No Acute Distress - Head Exam Head Exam: ATRAUMATIC, NORMOCEPHALIC - Eye Exam Eye Exam: Normal appearance - ENT Exam ENT Exam: Mucous Membranes Moist - Respiratory Exam Respiratory Exam: Rhonchi. absent: Rales, Wheezes - Cardiovascular Exam Cardiovascular Exam: REGULAR RHYTHM, +S1, +S2 - GI/Abdominal Exam GI & Abdominal Exam: Guarding, Normal Bowel Sounds, Soft, Tenderness (LLQ TD ). absent: Rebound Additional comments: RUQ and epigastric old surgical scar - Extremities Exam Extremities exam: Positive for: normal inspection. Negative for: pedal edema - Back Exam Back exam: NORMAL INSPECTION - Neurological Exam Neurological exam: Alert, Oriented x3 - Psychiatric Exam Psychiatric exam: Normal Affect - Skin Skin Exam: Intact Results - Vital Signs Recent Vital Signs: Last Vital Signs Temp 98.5 F 02/20/18 18:10 Pulse 100 H 02/20/18 18:10 Resp 16 02/20/18 18:10 BP 128/80 02/20/18 18:10 Pulse Ox 100 02/20/18 18:10 - Labs Result Diagrams: 02/20/18 13:55 02/20/18 13:55 Labs: Laboratory Results - last 24 hr 02/20/18 02/20/18 02/20/18 13:55 13:55 14:41 WBC 6.5 RBC 4.68 Hgb 13.2 Hct 40.5 MCV 86.4 MCH 28.2 MCHC 32.6 L RDW 14.0 Plt Count 287 MPV 9.2 Neut % (Auto) 74.0 Lymph % (Auto) 12.3 L [place] % (Auto) 10.5 H Eos % (Auto) 2.9 Baso % (Auto) 0.3 Neut # (Auto) 4.8 Lymph # (Auto) 0.8 L [place] # (Auto) 0.7 Eos # (Auto) 0.2 Baso # (Auto) 0.0 Sodium 136 Potassium 3.6 Chloride 96 L Carbon Dioxide 28 Anion Gap 16 BUN 6 L Creatinine 0.4 L Est GFR ( Amer) > 60 Est GFR (Non-Af Amer) > 60 Random Glucose 214 H Calcium 9.7 Magnesium 1.9 Total Bilirubin 0.6 AST 53 H D ALT 35 Alkaline Phosphatase 148 H Total Protein 8.5 H Albumin 4.4 Globulin 4.1 H Albumin/Globulin Ratio 1.1 Lipase 47 Urine Color Yellow Urine Clarity Cloudy Urine pH 5.0 Ur Specific [place] 1.023 Urine Protein 30 Urine Glucose (UA) 150 Urine Ketones Negative Urine Blood Negative Urine Nitrate Negative Urine Bilirubin Negative Urine Urobilinogen 4.0 H Ur Leukocyte Esterase Neg Urine RBC (Auto) 5 H Urine Microscopic WBC 4 Ur Squamous Epith Cells 4 Amorphous Sediment Rare H Urine Bacteria Rare Hyaline Casts 0-2 Assessment & Plan - Assessment and Plan (Free Text) Plan: 47 yo ,f, PMhx/o of HTN, chronic back pain, Colon cancer w/ metastasis to liver , Depression, Fibromyalgia, GERD admitted for intractable abdominal pain 1) Chronic intractable Abdominal pain and back pain -2/2 metastatic colon Ca - Chronic, H/O multiple lumbar surgeries. - Dilaudid 1,5 mg IVP in ED - Dulaudid 1 mg IV Q4h sev pain -Morphine 4 mg Q4h IV mod pain -Zofran PRN vomiting - CT abd: Heterogeneous diminished attenuation in the posterior right hepatic lobe consistent with known colonic mass metastatic disease and unchanged in appearance compared to the prior examination. Mild retroperitoneal lymphadenopathy. Nonspecific mesenteric panniculitis. Trace right pleural effusion. - May need pain management consult Dr Bae 2) Constipation -Miralax Po daily -Docusate 200 mg PO daily 3) NIDDM - Uncontrolled - Last A1c 7.7 on 11/19/17 - Low dose sliding scale -c/w metformin -Hypoglycemia protocol 4) HTN - Amlodipine 10 mg QD 5) Fibromyalgia - Controlled - Duloxetine 60 mg PO HS 6) DVT Prophylaxis - Lovenox 40 mg SC daily
[2018-02-20] MEDS ORDERED: Glucagon Recombinant 1 mg Inj IM PRN (20:00)
[2018-02-20] MEDS ORDERED: Dextrose 50% SYRINGE Inj (50 ml) IV PRN (20:00)
[2018-02-20] MEDS: Sodium Chloride 0.9% 1,000 ML IV SCH (22:09)
[2018-02-20] MEDS: Insulin Lispro (humaLOG) 100 Units/ml Inj SC SCH (22:24)
[2018-02-21 01:48] LABS: SQUAMOUS EPITHIAL 1 /hpf (0-5); URINE BACTERIA RARE (<OCC); URINE BILIRUBIN NEGATIVE (NEGATIVE); URINE BLOOD NEGATIVE (NEGATIVE); URINE CLARITY CLEAR (Clear); URINE COLOR STRAW (YELLOW); URINE GLUCOSE (UA) NEG (Normal); URINE LEUKOCYTE ESTERASE NEG Leu/uL (Negative); URINE PROTEIN NEGATIVE (NEGATIVE); URINE UROBILINOGEN 0.2-1.0 mg/dL (0.2-1.0)
[2018-02-21] MEDS: Sodium Chloride 0.9% 1,000 ML IV SCH ×2 (05:29→14:33)
[2018-02-21 06:38] LABS: BASO % 0.3 % (0.0-2.0); EOS # 0.2 K/uL (0.0-0.7); EOS % 2.2 % (0.0-4.0); HEMOGLOBIN 12.4 g/dL (12.0-16.0); LYMPH # 0.8 K/uL (1.0-4.3); LYMPH % 11.2 % (20.0-40.0); MEAN CELL VOLUME 86.3 fl (81.0-99.0); MEAN CORPUSCULAR HEMOGLOBIN 28.5 pg (27.0-31.0); MEAN PLATELET VOLUME 8.8 fl (7.2-11.7); MONO # 0.9 K/uL (0.0-0.8); MONO % 13.2 % (0.0-10.0); NEUT % 73.1 % (50.0-75.0); NRBC % 0.1 % (0.0-0.0); RBC 4.35 Mil/uL (3.80-5.20); RED CELL DISTRIBUTION WIDTH 13.9 % (11.5-14.5); WHITE BLOOD COUNT 6.9 K/uL (4.8-10.8)
[2018-02-21 07:22] LABS: BLOOD UREA NITROGEN < 2 mg/dl (7-17); CALCIUM 9.5 mg/dL (8.4-10.2); GFR NON-AFRICAN AMERICAN > 60
[2018-02-21] MEDS: Enoxaparin 40 mg Syringe SC SCH (08:31)
[2018-02-21] MEDS: Pantoprazole 40 mg EC Tab PO SCH (08:32)
[2018-02-21] MEDS: Insulin Lispro (humaLOG) 100 Units/ml Inj SC SCH ×4 (08:33→22:12)
[2018-02-21] MEDS ORDERED: POLYETHYLENE GLYCOL 3350 17 GM/Dose PACKET PO SCH (09:00)
[2018-02-21 12:55] VITALS: BMI 25.0
[2018-02-21] MEDS: POLYETHYLENE GLYCOL 3350 17 GM/Dose PACKET PO SCH ×2 (16:01→16:55)
[2018-02-21] MEDS: Bisacodyl 5mg EC Tab PO SCH (16:54)
--- NOTE | 2018-02-21 17:33 | CP.PCM.PN ---
Subjective - Date & Time of Evaluation Date of Evaluation: 02/21/18 Time of Evaluation: 11:20 - Subjective Subjective: Patient seen and evaluated at bedside in AM. Patient reports incomplete improvement with dilaudid 1 mg. Patient also reports lower back pain which is not improving. No BM for last 5 days. Patient's nausea persists but vomiting has resolved. Denies any fever, chills, CP, SOB, headache, dizziness or urinary symptoms. Objective - Vital Signs/Intake and Output Vital Signs (last 24 hours): Temp Pulse Resp BP Pulse Ox 99 F 105 H 18 120/81 99 02/21/18 16:33 02/21/18 16:33 02/21/18 16:33 02/21/18 16:33 02/21/18 16:33 - Medications Medications: Current Medications Acetaminophen (Tylenol 325mg Tab) 650 mg PO Q6 PRN PRN Reason: Pain, Mild (1-3) Acetaminophen (Tylenol 325mg Tab) 650 mg PO Q6 PRN PRN Reason: Fever >100.4 F Amlodipine Besylate (Norvasc) 10 mg PO DAILY [facility] Last Admin: 02/21/18 08:32 Dose: 10 mg Bisacodyl (Dulcolax) 5 mg PO BID [facility] Last Admin: 02/21/18 16:54 Dose: 5 mg Dextrose (Dextrose 50% Inj) 0 ml IV STAT PRN; Protocol PRN Reason: Hypoglycemia Protocol Dextrose (Glutose 15) 0 gm PO ONCE PRN; Protocol PRN Reason: Hypoglycemia Protocol Docusate Sodium (Colace) 200 mg PO DAILY [facility] Last Admin: 02/21/18 08:32 Dose: 200 mg Duloxetine HCl (Cymbalta) 60 mg PO HS [facility] Enoxaparin Sodium (Lovenox) 40 mg SC DAILY [facility] PRN Reason: Protocol Last Admin: 02/21/18 08:31 Dose: 40 mg Gabapentin (Neurontin) 300 mg PO Q8 [facility] Last Admin: 02/21/18 16:01 Dose: 300 mg Glucagon (Glucagen Diagnostic Kit) 0 mg IM STAT PRN; Protocol PRN Reason: Hypoglycemia Protocol Hydromorphone HCl (Dilaudid) 1.5 mg IVP Q4H PRN PRN Reason: Pain, severe (8-10) Last Admin: 02/21/18 16:54 Dose: 1.5 mg Sodium Chloride (Sodium Chloride 0.9%) 1,000 mls @ 110 mls/hr IV .Q9H6M [facility] Stop: 02/21/18 20:02 Last Admin: 02/21/18 14:33 Dose: Not Given Insulin Human Lispro (Humalog) 0 units SC ACHS [facility] PRN Reason: Protocol Last Admin: 02/21/18 16:12 Dose: Not Given Lidocaine (Lidoderm) 1 ea TD DAILY [facility] Metformin HCl (Glucophage) 500 mg PO DAILY [facility] Last Admin: 02/21/18 08:32 Dose: 500 mg Morphine Sulfate (Morphine) 4 mg IVP Q4 PRN PRN Reason: Pain, moderate (4-7) Last Admin: 02/20/18 20:39 Dose: 4 mg Ondansetron HCl (Zofran Inj) 4 mg IVP Q6 PRN PRN Reason: Nausea/Vomiting Last Admin: 02/21/18 13:18 Dose: 4 mg Oxycodone HCl (Oxycontin Extended Release Tab) 20 mg PO Q12 [facility] Pantoprazole Sodium (Protonix Ec Tab) 40 mg PO DAILY [facility] Last Admin: 02/21/18 08:32 Dose: 40 mg Polyethylene Glycol (Miralax) 17 gm PO BID [facility] Last Admin: 02/21/18 16:55 Dose: 17 gm Sennosides (Senokot Tab) 8.6 mg PO BID [facility] - Labs Labs: 02/21/18 06:05 02/21/18 06:05 - Constitutional Appears: Non-toxic, In Acute Distress - Head Exam Head Exam: ATRAUMATIC, NORMAL INSPECTION, NORMOCEPHALIC - Eye Exam Eye Exam: Normal appearance, PERRL - ENT Exam ENT Exam: Mucous Membranes Moist - Respiratory Exam Respiratory Exam: Clear to Ausculation Bilateral, NORMAL BREATHING PATTERN. absent: Decreased Breath Sounds, Rales, Rhonchi, Wheezes - Cardiovascular Exam Cardiovascular Exam: REGULAR RHYTHM, +S1, +S2. absent: Murmur - GI/Abdominal Exam GI & Abdominal Exam: Tenderness, Normal Bowel Sounds. absent: Distended, Firm, Guarding - Extremities Exam Extremities Exam: absent: Calf Tenderness, Pedal Edema, Tenderness - Back Exam Back Exam: muscle spasm, tenderness. absent: CVA tenderness (L), CVA tenderness (R) - Neurological Exam Neurological Exam: Alert, Awake, Oriented x3 - Psychiatric Exam Psychiatric exam: Normal Affect, Normal Mood - Skin Skin Exam: Dry, Intact, Normal Color Assessment and Plan - Assessment and Plan (Free Text) Assessment: 47 yo ,f, PMhx/o of HTN, chronic back pain, Colon cancer w/ metastasis to liver , Depression, Fibromyalgia, GERD admitted for intractable abdominal pain. Plan: Chronic intractable Abdominal pain and back pain - 2/2 metastatic colon Ca - Chronic, H/O multiple lumbar surgeries. - Dilaudid 1.5 mg IVP in ED - Dulaudid increased from 1 mg IV Q4h to 1.5 mg Q4 - Oxycontin 20 mg ER Q12 for pain - Morphine 4 mg Q4h IV mod pain - Lidoderm patch for back pain - Zofran PRN vomiting - CT abd: Heterogeneous diminished attenuation in the posterior right hepatic lobe consistent with known colonic mass metastatic disease and unchanged in appearance compared to the prior examination. Mild retroperitoneal lymphadenopathy. Nonspecific mesenteric panniculitis. Trace right pleural effusion. - pain management consult on board Constipation -No BM since last 4 days -Miralax PO -Dulcolex -Docusate 200 mg and senna PO NIDDM - Controlled - Last A1c 7.7 on 11/19/17 - Low dose sliding scale - c/w metformin - Hypoglycemia protocol HTN -controlled -Amlodipine 10 mg QD -Monitor vitals Fibromyalgia - Controlled - Gabapentin 300 mg TID - Duloxetine 60 mg PO HS DVT Prophylaxis - Lovenox 40 mg SC daily Code Status - DNR/DNI
[2018-02-21] MEDS ORDERED: Sodium Chloride 0.9% 1,000 ML IV SCH (18:47)
[2018-02-21] MEDS: oxyCODONE 20 mg ER Tab (oxyCONTIN) PO SCH (20:57)
[2018-02-22] MEDS: Enoxaparin 40 mg Syringe SC SCH (09:05)
[2018-02-22] MEDS: POLYETHYLENE GLYCOL 3350 17 GM/Dose PACKET PO SCH ×2 (09:07→16:52)
[2018-02-22] MEDS: Pantoprazole 40 mg EC Tab PO SCH (09:08)
[2018-02-22] MEDS: Bisacodyl 5mg EC Tab PO SCH ×2 (09:08→16:53)
[2018-02-22] MEDS: Lidocaine 5% Patch TD SCH (09:10)
[2018-02-22] MEDS: Insulin Lispro (humaLOG) 100 Units/ml Inj SC SCH ×4 (09:10→21:15)
[2018-02-22] MEDS: oxyCODONE 20 mg ER Tab (oxyCONTIN) PO SCH ×2 (09:15→21:10)
[2018-02-22] MEDS ORDERED: oxyCODONE 20 mg ER Tab (oxyCONTIN) PO ONE (13:07)
--- NOTE | 2018-02-22 13:23 | CP.PCM.PN ---
Subjective - Date & Time of Evaluation Date of Evaluation: 02/22/18 Time of Evaluation: 10:10 - Subjective Subjective: Patient seen and evaluated at bedtime at bedside in the morning. NAD. No acute events overnight. Patient sitting comfortably in bed. Patient's abdominal pain and back pain has improved by 80% compare to yesterday. Nausea and vomiting improving as well. No BM since Sunday. Denies any headache, CP, SOB, diarrhea, dysuria, urgency and frequency. Tolerating ensure and juices PO. Objective - Vital Signs/Intake and Output Vital Signs (last 24 hours): Temp Pulse Resp BP Pulse Ox 97.8 F 85 18 130/81 98 02/22/18 08:12 02/22/18 09:09 02/22/18 08:12 02/22/18 09:09 02/22/18 08:12 - Medications Medications: Current Medications Acetaminophen (Tylenol 325mg Tab) 650 mg PO Q6 PRN PRN Reason: Pain, Mild (1-3) Acetaminophen (Tylenol 325mg Tab) 650 mg PO Q6 PRN PRN Reason: Fever >100.4 F Amlodipine Besylate (Norvasc) 10 mg PO DAILY [facility] Last Admin: 02/22/18 09:09 Dose: 10 mg Bisacodyl (Dulcolax) 5 mg PO BID [facility] Last Admin: 02/22/18 09:08 Dose: 5 mg Dextrose (Dextrose 50% Inj) 0 ml IV STAT PRN; Protocol PRN Reason: Hypoglycemia Protocol Dextrose (Glutose 15) 0 gm PO ONCE PRN; Protocol PRN Reason: Hypoglycemia Protocol Docusate Sodium (Colace) 200 mg PO DAILY [facility] Last Admin: 02/22/18 09:07 Dose: 200 mg Duloxetine HCl (Cymbalta) 60 mg PO HS [facility] Last Admin: 02/21/18 21:00 Dose: 60 mg Enoxaparin Sodium (Lovenox) 40 mg SC DAILY [facility] PRN Reason: Protocol Last Admin: 02/22/18 09:05 Dose: 40 mg Gabapentin (Neurontin) 300 mg PO Q8 [facility] Last Admin: 02/22/18 09:08 Dose: 300 mg Glucagon (Glucagen Diagnostic Kit) 0 mg IM STAT PRN; Protocol PRN Reason: Hypoglycemia Protocol Hydromorphone HCl (Dilaudid) 2 mg PO Q4 PRN PRN Reason: Pain, severe (8-10) Insulin Human Lispro (Humalog) 0 units SC ACHS [facility] PRN Reason: Protocol Last Admin: 02/22/18 13:04 Dose: 2 units Lidocaine (Lidoderm) 1 ea TD DAILY [facility] Last Admin: 02/22/18 09:10 Dose: 1 ea Metformin HCl (Glucophage) 500 mg PO DAILY [facility] Last Admin: 02/22/18 09:08 Dose: 500 mg Ondansetron HCl (Zofran Inj) 4 mg IVP Q6 PRN PRN Reason: Nausea/Vomiting Last Admin: 02/22/18 06:29 Dose: 4 mg Oxycodone HCl (Oxycontin Extended Release Tab) 20 mg PO ONCE ONE Stop: 02/22/18 13:08 Oxycodone HCl (Oxycontin Extended Release Tab) 40 mg PO Q12 [facility] Pantoprazole Sodium (Protonix Ec Tab) 40 mg PO DAILY [facility] Last Admin: 02/22/18 09:08 Dose: 40 mg Polyethylene Glycol (Miralax) 17 gm PO BID [facility] Last Admin: 02/22/18 09:07 Dose: 17 gm Sennosides (Senokot Tab) 8.6 mg PO BID [facility] Last Admin: 02/22/18 09:08 Dose: 8.6 mg - Labs Labs: 02/21/18 06:05 02/21/18 06:05 - Constitutional Appears: Well, Non-toxic, No Acute Distress - Head Exam Head Exam: ATRAUMATIC, NORMAL INSPECTION, NORMOCEPHALIC - Eye Exam Eye Exam: Normal appearance, PERRL - ENT Exam ENT Exam: Mucous Membranes Moist - Neck Exam Neck Exam: Full ROM - Respiratory Exam Respiratory Exam: Clear to Ausculation Bilateral, NORMAL BREATHING PATTERN. absent: Rales, Rhonchi, Wheezes - Cardiovascular Exam Cardiovascular Exam: REGULAR RHYTHM, +S1, +S2. absent: Murmur - GI/Abdominal Exam GI & Abdominal Exam: Soft, Normal Bowel Sounds. absent: Firm, Guarding, Rigid, Tenderness, Hyperactive Bowel Sounds - Extremities Exam Extremities Exam: absent: Calf Tenderness, Pedal Edema, Tenderness - Back Exam Back Exam: absent: CVA tenderness (L), CVA tenderness (R) - Neurological Exam Neurological Exam: Alert, Awake, Oriented x3 - Psychiatric Exam Psychiatric exam: Normal Affect, Normal Mood - Skin Skin Exam: Dry, Intact, Normal Color Assessment and Plan - Assessment and Plan (Free Text) Assessment: 47 yo ,f, PMhx/o of HTN, chronic back pain, Colon cancer w/ metastasis to liver , Depression, Fibromyalgia, GERD admitted for intractable abdominal pain. Abdominal and back pain 80% improved. Last BM Sunday. Plan: Chronic intractable Abdominal pain and back pain - 2/2 metastatic colon Ca - Chronic, H/O multiple lumbar surgeries. - Dilaudid 1.5 IVP switched to Dilaudid 2 mg PO Q4hr PRN - Oxycontin increased from 20 to 40 mg Q12 for pain - D/C Morphine 4 mg Q4h IV mod pain - Lidoderm patch for back pain - Zofran PRN vomiting - Pain management consult on board: Appreciated recs. Constipation -No BM since Sunday -Miralax -Dulcolex -Docusate 200 mg and senna PO NIDDM - Controlled - Last A1c 7.7 on 11/19/17 - Low dose sliding scale - c/w metformin - Hypoglycemia protocol HTN -controlled -Amlodipine 10 mg QD -Monitor vitals Fibromyalgia - Controlled - Gabapentin 300 mg TID - Duloxetine 60 mg PO HS DVT Prophylaxis - Lovenox 40 mg SC daily Code Status - DNR/DNI
[2018-02-23] MEDS: Insulin Lispro (humaLOG) 100 Units/ml Inj SC SCH (07:38)
[2018-02-23 08:06] VITALS: BP 106/69; PULSE 77; RESP 20; TEMP 98; O2SAT 98
[2018-02-23] MEDS: Enoxaparin 40 mg Syringe SC SCH (09:08)
[2018-02-23] MEDS: Lidocaine 5% Patch TD SCH (09:09)
[2018-02-23] MEDS: POLYETHYLENE GLYCOL 3350 17 GM/Dose PACKET PO SCH (09:09)
[2018-02-23] MEDS: Bisacodyl 5mg EC Tab PO SCH (09:10)
[2018-02-23] MEDS: Pantoprazole 40 mg EC Tab PO SCH (09:12)
[2018-02-23] MEDS: oxyCODONE 20 mg ER Tab (oxyCONTIN) PO SCH (09:15)
--- NOTE | 2018-02-23 10:14 | CP.PCM.DIS ---
<Sultan Pardeep - Last Filed: 02/23/18 20:01> Provider - Provider Date of Admission: 02/20/18 18:24 Attending physician: Danis Salmeron MD Time Spent in preparation of Discharge (in minutes): 25 Diagnosis - Discharge Diagnosis (1) Abdominal pain Status: Acute (2) Back pain Status: Resolved (3) Intractable abdominal pain Status: Resolved Hospital Course - Lab Results Lab Results: Micro Results 02/20/18 14:41 Urine Urine Culture - Final No Growth (<1,000 CFU/ML) Most Recent Lab Values WBC 6.9 K/uL (4.8-10.8) 02/21/18 06:05 RBC 4.35 Mil/uL (3.80-5.20) 02/21/18 06:05 Hgb 12.4 g/dL (12.0-16.0) 02/21/18 06:05 Hct 37.5 % (34.0-47.0) 02/21/18 06:05 MCV 86.3 fl (81.0-99.0) 02/21/18 06:05 MCH 28.5 pg (27.0-31.0) 02/21/18 06:05 MCHC 33.0 g/dL (33.0-37.0) 02/21/18 06:05 RDW 13.9 % (11.5-14.5) 02/21/18 06:05 Plt Count 259 K/uL (130-400) 02/21/18 06:05 MPV 8.8 fl (7.2-11.7) 02/21/18 06:05 Neut % (Auto) 73.1 % (50.0-75.0) 02/21/18 06:05 Lymph % (Auto) 11.2 % (20.0-40.0) L 02/21/18 06:05 [place] % (Auto) 13.2 % (0.0-10.0) H 02/21/18 06:05 Eos % (Auto) 2.2 % (0.0-4.0) 02/21/18 06:05 Baso % (Auto) 0.3 % (0.0-2.0) 02/21/18 06:05 Neut # (Auto) 5.0 K/uL (1.8-7.0) 02/21/18 06:05 Lymph # (Auto) 0.8 K/uL (1.0-4.3) L 02/21/18 06:05 [place] # (Auto) 0.9 K/uL (0.0-0.8) H 02/21/18 06:05 Eos # (Auto) 0.2 K/uL (0.0-0.7) 02/21/18 06:05 Baso # (Auto) 0.0 K/uL (0.0-0.2) 02/21/18 06:05 Sodium 135 mmol/l (132-148) 02/21/18 06:05 Potassium 3.9 MMOL/L (3.6-5.0) 02/21/18 06:05 Chloride 96 mmol/L (98-107) L 02/21/18 06:05 Carbon Dioxide 29 mmol/L (22-30) 02/21/18 06:05 Anion Gap 14 (10-20) 02/21/18 06:05 BUN < 2 mg/dl (7-17) L 02/21/18 06:05 Creatinine 0.3 mg/dl (0.7-1.2) L 02/21/18 06:05 Est GFR ( Amer) > 60 02/21/18 06:05 Est GFR (Non-Af Amer) > 60 02/21/18 06:05 POC Glucose (mg/dL) 123 mg/dL (65-110) H 02/23/18 05:25 Random Glucose 154 mg/dL (65-105) H 02/21/18 06:05 Calcium 9.5 mg/dL (8.4-10.2) 02/21/18 06:05 Magnesium 1.9 MG/DL (1.6-2.3) 02/20/18 13:55 Total Bilirubin 0.6 mg/dl (0.2-1.3) 02/20/18 13:55 AST 53 U/L (14-36) H D 02/20/18 13:55 ALT 35 U/L (9-52) 02/20/18 13:55 Alkaline Phosphatase 148 U/L (38-126) H 02/20/18 13:55 Total Protein 8.5 G/DL (6.3-8.2) H 02/20/18 13:55 Albumin 4.4 g/dL (3.5-5.0) 02/20/18 13:55 Globulin 4.1 gm/dL (2.2-3.9) H 02/20/18 13:55 Albumin/Globulin Ratio 1.1 (1.0-2.1) 02/20/18 13:55 Lipase 47 U/L (23-300) 02/20/18 13:55 Urine Color Straw (YELLOW) 02/21/18 01:30 Urine Clarity Clear (Clear) 02/21/18 01:30 Urine pH 8.0 (5.0-8.0) 02/21/18 01:30 Ur Specific [place] 1.009 (1.003-1.030) 02/21/18 01:30 Urine Protein Negative mg/dL (NEGATIVE) 02/21/18 01:30 Urine Glucose (UA) Neg mg/dL (Normal) 02/21/18 01:30 Urine Ketones Negative mg/dL (NEGATIVE) 02/21/18 01:30 Urine Blood Negative (NEGATIVE) 02/21/18 01:30 Urine Nitrate Negative (NEGATIVE) 02/21/18 01:30 Urine Bilirubin Negative (NEGATIVE) 02/21/18 01:30 Urine Urobilinogen 0.2-1.0 mg/dL (0.2-1.0) 02/21/18 01:30 Ur Leukocyte Esterase Neg Jen/uL (Negative) 02/21/18 01:30 Urine RBC (Auto) 1 /hpf (0-3) 02/21/18 01:30 Urine Microscopic WBC < 1 /hpf (0-5) 02/21/18 01:30 Ur Squamous Epith Cells 1 /hpf (0-5) 02/21/18 01:30 Amorphous Sediment Rare /ul (<OCC) H 02/20/18 14:41 Urine Bacteria Rare (<OCC) 02/21/18 01:30 Hyaline Casts 0-2 /hpf (0-2) 02/20/18 14:41 - Hospital Course Hospital Course: 47 yo ,f, PMhx/o of HTN, chronic back pain, Colon cancer w/ metastasis to liver , Depression, Fibromyalgia, GERD admitted for intractable abdominal pain on 02/20. CT of abdomen and pelvis on 02/20/18 shows heterogeneous diminished attenuation in the posterior right hepatic lobe consistent with known colonic mass metastatic disease and unchanged in appearance compared to the prior examination. Mild retroperitoneal lymphadenopathy. Nonspecific mesenteric panniculitis. Trace right pleural effusion. Pt's pain was managed with dilaudid 2 mg po q4hr and oxycontin 40 mg q12 hours. Today, patient reports her pain is controlled with the pain medications. Denies nausea, vomiting, constipation, fever, chills or dizziness. Pt is medically stable to discharge home. Prior authorization form was filled out for oxycontin 40 mg. Pt was given one week supply of dilaudid and oxycontin and advised to f/u with pt's pain management physician Dr. Bae. Pt has appointment on 02/26/18. Chronic intractable Abdominal pain and back pain - 2/2 metastatic colon Ca - Chronic, H/O multiple lumbar surgeries. - Dilaudid 1.5 IVP switched to Dilaudid 2 mg PO Q4hr PRN - Oxycontin increased from 20 to 40 mg Q12 for pain - D/C Morphine 4 mg Q4h IV mod pain - Lidoderm patch for back pain - Zofran PRN vomiting - Pain management consult on board: Appreciated recs. Constipation -Miralax -Dulcolex -Docusate 200 mg and senna PO NIDDM - Controlled - Last A1c 7.7 on 11/19/17 - Low dose sliding scale - c/w metformin - Hypoglycemia protocol HTN -controlled -Amlodipine 10 mg QD -Monitor vitals Fibromyalgia - Controlled - Gabapentin 300 mg TID - Duloxetine 60 mg PO HS Discharge Exam - Head Exam Head Exam: ATRAUMATIC, NORMAL INSPECTION, NORMOCEPHALIC - Eye Exam Eye Exam: Normal appearance - ENT Exam ENT Exam: Mucous Membranes Moist - Respiratory Exam Respiratory Exam: Clear to PA & Lateral, NORMAL BREATHING PATTERN - Cardiovascular Exam Cardiovascular Exam: REGULAR RHYTHM, +S1, +S2 - GI/Abdominal Exam GI & Abdominal Exam: Normal Bowel Sounds, Soft. absent: Tenderness - Extremities Exam Extremities exam: normal inspection - Back Exam Back exam: absent: CVA tenderness (L), CVA tenderness (R) - Neurological Exam Neurological exam: Alert, Oriented x3 - Psychiatric Exam Psychiatric exam: Normal Affect, Normal Mood Discharge Plan - Discharge Medications Prescriptions: HYDROmorphone [Dilaudid] 2 mg PO Q4 #42 tab Lidocaine 5% [Lidoderm] 1 ea TD DAILY #7 patch oxyCODONE [oxyCONTIN Extended Release Tab] 40 mg PO Q12 #14 tabsr - Follow Up Plan Condition: FAIR Disposition: HOME/ ROUTINE Patient education suggested?: Yes Instructions: Acute Abdomen (Belly Pain), Adult (DC) Additional Instructions: follow up with your pain management doctor Dr. Bae on 02/26/18 Referrals: [facility] [Outside] Emigdio Bae MD [Staff Provider] - <Sherrell Vyas - Last Filed: 02/24/18 05:17> Provider - Provider Date of Admission: 02/20/18 18:24 Attending physician: Danis Salmeron MD Hospital Course - Lab Results Lab Results: Micro Results 02/20/18 14:41 Urine Urine Culture - Final No Growth (<1,000 CFU/ML) Most Recent Lab Values WBC 6.9 K/uL (4.8-10.8) 02/21/18 06:05 RBC 4.35 Mil/uL (3.80-5.20) 02/21/18 06:05 Hgb 12.4 g/dL (12.0-16.0) 02/21/18 06:05 Hct 37.5 % (34.0-47.0) 02/21/18 06:05 MCV 86.3 fl (81.0-99.0) 02/21/18 06:05 MCH 28.5 pg (27.0-31.0) 02/21/18 06:05 MCHC 33.0 g/dL (33.0-37.0) 02/21/18 06:05 RDW 13.9 % (11.5-14.5) 02/21/18 06:05 Plt Count 259 K/uL (130-400) 02/21/18 06:05 MPV 8.8 fl (7.2-11.7) 02/21/18 06:05 Neut % (Auto) 73.1 % (50.0-75.0) 02/21/18 06:05 Lymph % (Auto) 11.2 % (20.0-40.0) L 02/21/18 06:05 [place] % (Auto) 13.2 % (0.0-10.0) H 02/21/18 06:05 Eos % (Auto) 2.2 % (0.0-4.0) 02/21/18 06:05 Baso % (Auto) 0.3 % (0.0-2.0) 02/21/18 06:05 Neut # (Auto) 5.0 K/uL (1.8-7.0) 02/21/18 06:05 Lymph # (Auto) 0.8 K/uL (1.0-4.3) L 02/21/18 06:05 [place] # (Auto) 0.9 K/uL (0.0-0.8) H 02/21/18 06:05 Eos # (Auto) 0.2 K/uL (0.0-0.7) 02/21/18 06:05 Baso # (Auto) 0.0 K/uL (0.0-0.2) 02/21/18 06:05 Sodium 135 mmol/l (132-148) 02/21/18 06:05 Potassium 3.9 MMOL/L (3.6-5.0) 02/21/18 06:05 Chloride 96 mmol/L (98-107) L 02/21/18 06:05 Carbon Dioxide 29 mmol/L (22-30) 02/21/18 06:05 Anion Gap 14 (10-20) 02/21/18 06:05 BUN < 2 mg/dl (7-17) L 02/21/18 06:05 Creatinine 0.3 mg/dl (0.7-1.2) L 02/21/18 06:05 Est GFR ( Amer) > 60 02/21/18 06:05 Est GFR (Non-Af Amer) > 60 02/21/18 06:05 POC Glucose (mg/dL) 163 mg/dL (65-110) H 02/23/18 10:59 Random Glucose 154 mg/dL (65-105) H 02/21/18 06:05 Calcium 9.5 mg/dL (8.4-10.2) 02/21/18 06:05 Magnesium 1.9 MG/DL (1.6-2.3) 02/20/18 13:55 Total Bilirubin 0.6 mg/dl (0.2-1.3) 02/20/18 13:55 AST 53 U/L (14-36) H D 02/20/18 13:55 ALT 35 U/L (9-52) 02/20/18 13:55 Alkaline Phosphatase 148 U/L (38-126) H 02/20/18 13:55 Total Protein 8.5 G/DL (6.3-8.2) H 02/20/18 13:55 Albumin 4.4 g/dL (3.5-5.0) 02/20/18 13:55 Globulin 4.1 gm/dL (2.2-3.9) H 02/20/18 13:55 Albumin/Globulin Ratio 1.1 (1.0-2.1) 02/20/18 13:55 Lipase 47 U/L (23-300) 02/20/18 13:55 Urine Color Straw (YELLOW) 02/21/18 01:30 Urine Clarity Clear (Clear) 02/21/18 01:30 Urine pH 8.0 (5.0-8.0) 02/21/18 01:30 Ur Specific [place] 1.009 (1.003-1.030) 02/21/18 01:30 Urine Protein Negative mg/dL (NEGATIVE) 02/21/18 01:30 Urine Glucose (UA) Neg mg/dL (Normal) 02/21/18 01:30 Urine Ketones Negative mg/dL (NEGATIVE) 02/21/18 01:30 Urine Blood Negative (NEGATIVE) 02/21/18 01:30 Urine Nitrate Negative (NEGATIVE) 02/21/18 01:30 Urine Bilirubin Negative (NEGATIVE) 02/21/18 01:30 Urine Urobilinogen 0.2-1.0 mg/dL (0.2-1.0) 02/21/18 01:30 Ur Leukocyte Esterase Neg Jen/uL (Negative) 02/21/18 01:30 Urine RBC (Auto) 1 /hpf (0-3) 02/21/18 01:30 Urine Microscopic WBC < 1 /hpf (0-5) 02/21/18 01:30 Ur Squamous Epith Cells 1 /hpf (0-5) 02/21/18 01:30 Amorphous Sediment Rare /ul (<OCC) H 02/20/18 14:41 Urine Bacteria Rare (<OCC) 02/21/18 01:30 Hyaline Casts 0-2 /hpf (0-2) 02/20/18 14:41 Attending/Attestation - Attestation I have personally seen and examined this patient.: Yes I have fully participated in the care of the patient.: Yes I have reviewed all pertinent clinical information, including history, physical exam and plan: Yes Notes (Text): 02/24/18 05:17 Seen, examined, discussed with resident Dr. Roberto. Agree with findings and plan as above.
== END 2018-02-23 16:23 | disposition home or self-care (01) | DRG 463 ==
LOC: H.ER 13:07 → H.ERHOLD 18:24 → H.MEDSURG1 20:56
DX: G89.3 Neoplasm related pain (acute) (chronic) (principal); C78.7 Secondary malignant neoplasm of liver and intrahepatic bile duct; K65.4 Sclerosing mesenteritis; E11.9 Type 2 diabetes mellitus without complications; I10 Essential (primary) hypertension; K21.9 Gastro-esophageal reflux disease without esophagitis; M79.7 Fibromyalgia; K59.00 Constipation, unspecified

== ENCOUNTER 2018-03-05 15:26 | Observation (INO) | payer MEDICAID ==
[2018-03-05 15:26] VITALS: BMI 25.0
[2018-03-05] MEDS ORDERED: Sodium Chloride 0.9% 1,000 ML IV STA (15:52)
--- NOTE | 2018-03-05 16:00 | ED PDOC ---
HPI: Abdomen Time Seen by Provider: 03/05/18 15:47 Chief Complaint (Nursing): Abdominal Pain History Per: Patient Onset/Duration Of Symptoms: Days (2) Current Symptoms Are (Timing): Still Present Severity: Severe Pain Scale Rating Of: 10 Location Of Pain/Discomfort: Diffuse Quality Of Discomfort: Unable To Describe Associated Symptoms: Nausea, Vomiting Exacerbating Factors: None Alleviating Factors: None Additional Complaint(s): Diffuse abd pain assoc with nausea and vomiting x 2 days. H/o metastatic colon Ca. Taking Oxycontin at home with no relief Past Medical History Vital Signs: Last Vital Signs Temp 98 F 03/05/18 15:50 Pulse 137 H 03/05/18 15:50 Resp 21 03/05/18 15:50 BP 120/80 03/05/18 15:47 Pulse Ox 98 03/05/18 16:00 - Medical History PMH: Anxiety, Back Problems, Depression, Diabetes, Fibromyalgia, GERD, HTN, Malignancy Denies: [place]'s Disease, Alzheimer's Disease, Anemia, Arthritis, Asthma, Atrial Fibrillation, Benign Prostatic Hyperplasia, Bipolar Disorder, Bronchitis , Cardia Arrhythmia, Cardiac Aneurysm, CHF, Colonic Polyps, COPD, Crohn's Disease, Fernando's Syndrome, Dementia, Diverticulitis, Deep Vein Thrombosis, Emphysema, Gastrointestinal Ulcer, Gall Bladder Disease, Graves' Disease, Hiatal Hernia, HIV, Hypercholesterolemia, Hyperlipidemia, Hyperthyroidism, Hypothyroidism, Kidney Stones, Migraine, Mitral Valve Prolapse, Multiple Sclerosis, Obstructive Bowel, Osteoporosis, Pancreatitis, Parkinson's Disease, Pericarditis, Peripheral Edema, Personality Disorder, Pneumonia, Pneumothorax, Post Traumatic Stress Disorder, Pulmonary Embolism, End Stage Renal Disease, Chronic Kidney Disease, Rheumatoid Arthritis, Schizophrenia, Seizures, Sickle Cell Disease, Sexually Transmitted Disease, Sleep Apnea, TIA - Surgical History Surgical History: Back Surgery, Endoscopy Denies: Appendectomy, CABG, Carotid Endarterectomy, Cholecystectomy, Coronary Stent, Tonsillectomy - Family History Family History: States: Unknown Family Hx - Immunization History Hx Influenza Vaccination: Yes Hx Pneumococcal Vaccination: No - Home Medications Home Medications: Ambulatory Orders Medication Instructions Recorded amLODIPine [Norvasc] 10 mg PO DAILY #0 tab 04/05/15 DULoxetine [Cymbalta] 60 mg PO HS 04/23/15 Omeprazole Magnesium [Prilosec Otc] 40 mg PO DAILY 01/30/18 Gabapentin [Neurontin] 300 mg PO Q8 02/20/18 metFORMIN [glucOPHAGE] 500 mg PO DAILY 02/20/18 Bisacodyl [Dulcolax] 5 mg PO BID ect 02/23/18 HYDROmorphone [Dilaudid] 2 mg PO Q4 #42 tab 02/23/18 Lidocaine 5% [Lidoderm] 1 ea TD DAILY #7 patch 02/23/18 oxyCODONE [oxyCONTIN Extended 40 mg PO Q12 #14 tabsr 02/23/18 Release Tab] - Allergies Allergies/Adverse Reactions: Allergies Allergy/AdvReac Type Severity Reaction Status Date / Time penicillin G Allergy RASH Verified 03/05/18 15:47 vancomycin Allergy RASH Verified 03/05/18 15:47 Review of Systems ROS Statement: Except As Marked, All Systems Reviewed And Found Negative Gastrointestinal: Positive for: Nausea, Vomiting, Abdominal Pain Physical Exam - Reviewed Nursing Documentation Reviewed: Yes Vital Signs Reviewed: Yes - Physical Exam Appears: Positive for: Non-toxic, In Acute Distress Head Exam: Positive for: ATRAUMATIC, NORMAL INSPECTION, NORMOCEPHALIC Skin: Positive for: Normal Color, Warm, DRY Eye Exam: Positive for: EOMI, Normal appearance, PERRL ENT: Positive for: Normal ENT Inspection Neck: Positive for: Normal, Painless ROM Cardiovascular/Chest: Positive for: Regular Rate, Rhythm Respiratory: Positive for: CNT, Normal Breath Sounds Gastrointestinal/Abdominal: Positive for: Bowel Sounds, Soft, Tenderness ( diffuse). Negative for: Distended Back: Positive for: Normal Inspection Extremity: Positive for: Normal ROM Neurologic/Psych: Positive for: Alert, Oriented - ECG O2 Sat by Pulse Oximetry: 98 Disposition - Clinical Impression Clinical Impression: Abdominal pain, Colon cancer metastasized to liver - Patient ED Disposition Is Patient to be Admitted: Yes - Disposition Disposition Time: 16:12 Condition: FAIR Forms: [place] (Citizen [place] - Pt Status Changed To: Hospital Disposition Of: Observation - POA Present On Arrival: None
[2018-03-05 16:16] LABS: BASO # 0.1 K/uL (0.0-0.2); BASO % 0.5 % (0.0-2.0); EOS # 0.1 K/uL (0.0-0.7); EOS % 0.9 % (0.0-4.0); LYMPH # 1.6 K/uL (1.0-4.3); MEAN CELL VOLUME 85.3 fl (81.0-99.0); MEAN CORPUSCULAR HEMOGLOBIN 27.7 pg (27.0-31.0); MEAN CORPUSCULAR HGB CONC 32.5 g/dL (33.0-37.0); MEAN PLATELET VOLUME 9.4 fl (7.2-11.7); MONO % 8.6 % (0.0-10.0); NEUT # 8.7 K/uL (1.8-7.0); RBC 5.4 Mil/uL (3.80-5.20); RED CELL DISTRIBUTION WIDTH 14.6 % (11.5-14.5); WHITE BLOOD COUNT 11.4 K/uL (4.8-10.8)
[2018-03-05 16:53] LABS: ALB/GLOB RATIO 1.1 (1.0-2.1); ALBUMIN 4.8 g/dL (3.5-5.0); ALT/SGPT 413 U/L (9-52); AST/SGOT 356 U/L (14-36); BLOOD UREA NITROGEN 5 mg/dl (7-17); CALCIUM 10.5 mg/dL (8.4-10.2); GFR NON-AFRICAN AMERICAN > 60
[2018-03-05] MEDS ORDERED: Dextrose 50% SYRINGE Inj (50 ml) IV PRN (16:57)
[2018-03-05] MEDS ORDERED: Glucagon Recombinant 1 mg Inj IM PRN (16:57)
--- NOTE | 2018-03-05 17:05 | CP.PCM.HP ---
History of Present Illness - History of Present Illness History of Present Illness: 47 yo ,f, PM hx/o of HTN, chronic back pain, Colon cancer w/ metastasis to liver , Depression, Fibromyalgia, GERD was admitted for intractable abdominal pain on 03/05/18. CT of abdomen and pelvis on 02/20/18 shows heterogeneous diminished attenuation in the posterior right hepatic lobe consistent with known colonic mass metastatic disease and unchanged in appearance compared to the prior examination. Today the patient again presented to the ED with acute on chronic bilateral lower abdominal pain similar to previous admission. Her pain management physician, Dr. Bae, was consulted. The patient is being admitted for severe pain. Denies cp, sob, n/v/d. + Chronic constipation. PCP: [facility] Heme-Oncologist: Dr. Yovani Pennington at [facility] Pain management: Dr. Bae PMH: chronic back pain, fibromyalgia, HTN, GERD, colon cancer, anxiety PSH: C6 fusion, Colon resection 2014 and b/l oopherectomy, chemoembolization of liver. SocialHx: denies ETOH/tobacco/drug abuse FamilyHx: DM, HTN Meds: as per med rec Present on Admission - Present on Admission Any Indicators Present on Admission: No History of DVT/PE: No History of Uncontrolled Diabetes: No Review of Systems - Review of Systems Review of Systems: A 12 point review of systems was conducted and found to be negative other than what was mentioned in the HPI. Past Patient History - Infectious Disease Hx of Infectious Diseases: None - Tetanus Immunizations Tetanus Immunization: Unknown - Past Medical History & Family History Past Medical History?: Yes - Past Social History Smoking Status: Never Smoked - CARDIAC Hx Atrial Fibrillation: No Hx Cardia Arrhythmia: No Hx Congestive Heart Failure: No Hx Hypercholesterolemia: No Hx Hypertension: Yes Hx Mitral Valve Prolapse: No Hx Peripheral Edema: No - PULMONARY Hx Asthma: No Hx Bronchitis: No Hx Chronic Obstructive Pulmonary Disease (COPD): No Hx Emphysema: No Hx Pneumonia: No Hx Pulmonary Embolism: No Hx Sleep Apnea: No - NEUROLOGICAL Hx Alzheimer's Disease: No Hx Dementia: No Hx Migraine: No Hx Multiple Sclerosis: No Hx Parkinson's Disease: No Hx Seizures: No Hx Transient Ischemic Attacks (TIA): No - HEENT Hx HEENT Problems: No - RENAL Hx Chronic Kidney Disease: No Hx Kidney Stones: No - ENDOCRINE/METABOLIC Hx Hyperthyroidism: No Hx Hypothyroidism: No - HEMATOLOGICAL/ONCOLOGICAL Hx Anemia: No Hx Human Immunodeficiency Virus (HIV): No Hx Sickle Cell Disease: No - INTEGUMENTARY Hx Dermatological Problems: No - MUSCULOSKELETAL/RHEUMATOLOGICAL Hx Arthritis: No Hx Osteoporosis: No Hx Rheumatoid Arthritis: No - GASTROINTESTINAL Hx Crohn's Disease: No Hx Diverticulitis: No Hx Gall Bladder Disease: No Hx Pancreatitis: No - GENITOURINARY/GYNECOLOGICAL Hx Sexually Transmitted Disorders: No - PSYCHIATRIC Hx Anxiety: Yes Hx Bipolar Disorder: No Hx Depression: Yes Hx Post Traumatic Stress Disorder: No Hx Schizophrenia: No Hx Substance Use: No - SURGICAL HISTORY Hx Surgeries: No Hx Appendectomy: No Hx Carotid Endarterectomy: No Hx Cholecystectomy: No Hx Coronary Artery Bypass Graft: No Hx Coronary Stent: No Hx Hysterectomy: Yes Hx Tonsillectomy: No Other/Comment: tubal ligation - ANESTHESIA Hx Anesthesia: Yes Hx Anesthesia Reactions: No Hx Malignant Hyperthermia: No Meds Allergies/Adverse Reactions: Allergies Allergy/AdvReac Type Severity Reaction Status Date / Time penicillin G Allergy RASH Verified 03/05/18 15:47 vancomycin Allergy RASH Verified 03/05/18 15:47 Physical Exam - Additional Findings Additional findings: Physical exam: Constitutional- cooperative, awake, alert Head- NCAT, PERRL Eye- PERRL, EOMI ENT- normal exam, MMM. Neck- normal inspection, supple, no JVD Respiratory- CTAB, no wheezes rales rhonchi Cardiovascular- RRR, +S1, +S2 no MRG GI/Abdominal- + diffuse tenderness to palpation of the lower abdomen bilaterally. normal bowel sounds, soft, no mass, no hsm Skin- warm, dry Extremities Exam-normal capillary refill, normal inspection Neurological Exam- alert, awake, oriented Psych- normal mood, normal affect Results - Vital Signs Recent Vital Signs: Last Vital Signs Temp 98 F 03/05/18 15:50 Pulse 137 H 03/05/18 15:50 Resp 21 03/05/18 15:50 BP 120/80 03/05/18 15:47 Pulse Ox 98 03/05/18 16:12 - Labs Result Diagrams: 03/05/18 16:12 03/05/18 16:12 Labs: Laboratory Results - last 24 hr 03/05/18 03/05/18 16:12 16:12 WBC 11.4 H D RBC 5.40 H Hgb 15.0 D Hct 46.1 MCV 85.3 MCH 27.7 MCHC 32.5 L RDW 14.6 H Plt Count 391 D MPV 9.4 Neut % (Auto) 76.0 H Lymph % (Auto) 14.0 L [place] % (Auto) 8.6 Eos % (Auto) 0.9 Baso % (Auto) 0.5 Neut # (Auto) 8.7 H Lymph # (Auto) 1.6 [place] # (Auto) 1.0 H Eos # (Auto) 0.1 Baso # (Auto) 0.1 Sodium 133 Potassium 4.2 Chloride 90 L Carbon Dioxide 29 Anion Gap 18 BUN 5 L Creatinine 0.5 L Est GFR ( Amer) > 60 Est GFR (Non-Af Amer) > 60 Random Glucose 199 H Calcium 10.5 H Total Bilirubin 2.7 H AST 356 H D ALT 413 H D Alkaline Phosphatase 296 H D Total Protein 9.3 H Albumin 4.8 Globulin 4.5 H Albumin/Globulin Ratio 1.1 Assessment & Plan - Assessment and Plan (Free Text) Plan: 47 yo ,f, PM hx/o of HTN, chronic back pain, Colon cancer w/ metastasis to liver , Depression, Fibromyalgia, GERD was admitted for intractable abdominal pain on 03/05/18. CT of abdomen and pelvis on 02/20/18 shows heterogeneous diminished attenuation in the posterior right hepatic lobe consistent with known colonic mass metastatic disease and unchanged in appearance compared to the prior examination. Today the patient again presented to the ED with acute on chronic bilateral lower abdominal pain similar to previous admission. Her pain management physician, Dr. Bae, was consulted. The patient is being admitted for severe pain. Denies cp, sob, n/v/d. + Chronc constipation. Acute on chronic intractable Abdominal pain and back pain - 2/2 metastatic colon Ca - Chronic, H/O multiple lumbar surgeries. - Dilaudid 1.5 IVP q 3 hours for severe pain - Oxycontin continued at 40 mg po q 12 hours - Lidoderm patch for back pain - Zofran PRN vomiting - Pain management consult on board: Appreciated recs. Constipation -Dulcolex -Docusate 200 mg and senna PO NIDDM - Controlled - Last A1c 7.7 on 11/19/17 - Low dose sliding scale - c/w metformin - Hypoglycemia protocol HTN -controlled -Amlodipine 10 mg QD -Monitor vitals Fibromyalgia - Controlled - Gabapentin 300 mg TID - Duloxetine 60 mg PO HS DVT prophylaxis - Lovenox 40 mg sc daily
[2018-03-05] MEDS ORDERED: Insulin Regular 100 units/ml ONE (17:12)
[2018-03-05] MEDS: Insulin Regular 100 units/ml SC SCH ×2 (17:13→22:09)
--- NOTE | 2018-03-05 17:24 | CT ---
Date of service: 03/05/2018 PROCEDURE: CT Abdomen and Pelvis without intravenous contrast HISTORY: Abdominal pain back pain. History metastatic colon cancer. COMPARISON: 01/10/2018 and 02/20/[address] scans abdomen pelvis. TECHNIQUE: Unenhanced study. Neither oral nor intravenous contrast administered. Sensitivity and specificity for acute inflammatory processes limited by the absence of oral and intravenous contrast. Radiation dose: Total exam DLP = 614.20 mGy-cm. This CT exam was performed using one or more of the following dose reduction techniques: Automated exposure control, adjustment of the mA and/or kV according to patient size, and/or use of iterative reconstruction technique. FINDINGS: LOWER THORAX: Trace right pleural effusion, a new finding LIVER: Incompletely characterized hepatic metastatic disease (absence of intravenous contrast precludes optimal assessment). GALLBLADDER AND BILE DUCTS: Not visible. Possible contracted gallbladder. PANCREAS: Unremarkable. No gross lesion or ductal dilatation. SPLEEN: Unremarkable. ADRENALS: Unremarkable. No mass. KIDNEYS AND URETERS: Unremarkable. No hydronephrosis. No solid mass. VASCULATURE: Unremarkable. No aortic aneurysm. BOWEL: Postoperative changes associate with the descending colon. No obstructing lesions identified. Constipation without fecal impaction or obstruction. APPENDIX: Unremarkable. Normal appendix. PERITONEUM: Unremarkable. No free fluid. No free air. LYMPH NODES: Stable catherine hepatis and retroperitoneal lymphadenopathy. BLADDER: Unremarkable. REPRODUCTIVE: Unremarkable. BONES: No acute fracture. No significant interval change compared to the prior examination(s). Disc arthroplasty at L4-5 again identified OTHER FINDINGS: None. IMPRESSION: No new/ acute findings. Stable tumor burden. Additional benign and/or incidental findings described above.
[2018-03-05] MEDS: Bisacodyl 5mg EC Tab PO SCH (17:32)
[2018-03-05] MEDS: Lidocaine 5% Patch TD SCH (19:03)
[2018-03-05] MEDS: oxyCODONE 40 mg ER Tab (oxyCONTIN) PO SCH (22:02)
[2018-03-06 06:29] LABS: HEMOGLOBIN 13.2 g/dL (12.0-16.0); MEAN CELL VOLUME 85.1 fl (81.0-99.0); MEAN CORPUSCULAR HEMOGLOBIN 28.2 pg (27.0-31.0); MEAN CORPUSCULAR HGB CONC 33.1 g/dL (33.0-37.0); RBC 4.68 Mil/uL (3.80-5.20); RED CELL DISTRIBUTION WIDTH 14.3 % (11.5-14.5); WHITE BLOOD COUNT 7.6 K/uL (4.8-10.8)
[2018-03-06 06:39] LABS: BLOOD UREA NITROGEN 4 mg/dl (7-17); CALCIUM 9.6 mg/dL (8.4-10.2); GFR NON-AFRICAN AMERICAN > 60
[2018-03-06] MEDS: Insulin Regular 100 units/ml SC SCH ×3 (06:47→16:59)
--- NOTE | 2018-03-06 08:19 | CP.PCM.PN ---
Subjective - Date & Time of Evaluation Date of Evaluation: 03/06/18 Time of Evaluation: 08:15 - Subjective Subjective: 47 yo woman well known to me re-admitted for intractable abdominal pain. According to her the pain is the same as her usual pain, diffuse, over the entire abdomen, associated with N/V. Since her last admission last week, she was placed on oral Prednisone. Otherwise there are no interval changes. Home regimen of Oxycontin 40mg q12h, Dilaudid 2mg PRN along with Neurontin and Cymbalta didn't help the pain. Compared to previous admissions, her LFT's are significantly elevated this time , although CT without contrast was essentially the same. Plan was to do a possible lower back vs celiac plexus block, but in light of the LFT findings, that is put on hold for now. Objective - Vital Signs/Intake and Output Vital Signs (last 24 hours): Temp Pulse Resp BP Pulse Ox 97.6 F 94 H 18 116/79 97 03/06/18 00:00 03/06/18 00:00 03/06/18 00:00 03/06/18 00:00 03/06/18 00:00 - Medications Medications: Current Medications Amlodipine Besylate (Norvasc) 10 mg PO DAILY [facility] Bisacodyl (Dulcolax) 10 mg [place] DAILY PRN PRN Reason: Constipation Bisacodyl (Dulcolax) 5 mg PO BID [facility] Last Admin: 03/05/18 17:32 Dose: 5 mg Dextrose (Dextrose 50% Inj) 0 ml IV STAT PRN; Protocol PRN Reason: Hypoglycemia Protocol Dextrose (Glutose 15) 0 gm PO ONCE PRN; Protocol PRN Reason: Hypoglycemia Protocol Docusate Sodium (Colace) 200 mg PO BID [facility] Last Admin: 03/05/18 17:32 Dose: 200 mg Duloxetine HCl (Cymbalta) 60 mg PO HS [facility] Last Admin: 03/05/18 22:42 Dose: 60 mg Enoxaparin Sodium (Lovenox) 40 mg SC DAILY [facility] PRN Reason: Protocol Gabapentin (Neurontin) 300 mg PO Q8 [facility] Last Admin: 03/06/18 02:47 Dose: Not Given Glucagon (Glucagen Diagnostic Kit) 0 mg IM STAT PRN; Protocol PRN Reason: Hypoglycemia Protocol Hydromorphone HCl (Dilaudid) 1.5 mg IVP Q3H PRN PRN Reason: Pain, severe (8-10) Last Admin: 03/06/18 06:14 Dose: 1.5 mg Insulin Human Regular (Humulin R) 0 units SC ACCU-CHECK [facility] PRN Reason: Protocol Last Admin: 03/06/18 06:47 Dose: Not Given Lidocaine (Lidoderm) 1 ea TD DAILY [facility] Last Admin: 03/05/18 19:03 Dose: 1 ea Metformin HCl (Glucophage) 500 mg PO DAILY [facility] Ondansetron HCl (Zofran Inj) 4 mg IVP Q6 PRN PRN Reason: Nausea/Vomiting Last Admin: 03/06/18 02:44 Dose: 4 mg Oxycodone HCl (Oxycontin Extended Release Tab) 40 mg PO Q12 [facility] Last Admin: 03/05/18 22:02 Dose: 40 mg Pantoprazole Sodium (Protonix Ec Tab) 40 mg PO DAILY [facility] Sennosides (Senokot Tab) 17.2 mg PO HS [facility] Last Admin: 03/05/18 22:08 Dose: Not Given - Labs Labs: 03/06/18 05:30 03/06/18 05:30 - GI/Abdominal Exam GI & Abdominal Exam: Soft, Tenderness Assessment and Plan (1) Abdominal pain Assessment & Plan: 47 yo woman w/ metastatic colon cancer to liver. Pain has been intractable since chemembolization. LFT's increased significantly on this admission. - procedure on hold, check coag's - GI consult first - procedure possibly on Sunday if LFT's return to her baseline - continue current regimen Status: Acute
[2018-03-06] MEDS: Lidocaine 5% Patch TD SCH (08:31)
[2018-03-06] MEDS: oxyCODONE 40 mg ER Tab (oxyCONTIN) PO SCH (08:31)
[2018-03-06 08:44] LABS: INR 1.2; PROTHROMBIN TIME 13.7 Seconds (9.8-13.1)
[2018-03-06 08:47] LABS: PARTIAL THROMBOPLASTIN TIME 34.2 Seconds (25.6-37.1)
[2018-03-06] MEDS ORDERED: Pantoprazole 40 mg EC Tab PO SCH (09:00)
[2018-03-06] MEDS ORDERED: Enoxaparin 40 mg Syringe SC SCH (09:00)
--- NOTE | 2018-03-06 11:10 | CP.PCM.PN ---
Subjective - Date & Time of Evaluation Date of Evaluation: 03/06/18 Time of Evaluation: 11:10 Objective - Vital Signs/Intake and Output Vital Signs (last 24 hours): Temp Pulse Resp BP Pulse Ox 97.5 F L 83 19 117/81 96 03/06/18 08:15 03/06/18 08:15 03/06/18 08:15 03/06/18 08:15 03/06/18 08:15 - Medications Medications: Current Medications Amlodipine Besylate (Norvasc) 10 mg PO DAILY [facility] Bisacodyl (Dulcolax) 10 mg [place] DAILY PRN PRN Reason: Constipation Bisacodyl (Dulcolax) 5 mg PO BID [facility] Last Admin: 03/05/18 17:32 Dose: 5 mg Dextrose (Dextrose 50% Inj) 0 ml IV STAT PRN; Protocol PRN Reason: Hypoglycemia Protocol Dextrose (Glutose 15) 0 gm PO ONCE PRN; Protocol PRN Reason: Hypoglycemia Protocol Docusate Sodium (Colace) 200 mg PO BID [facility] Last Admin: 03/06/18 08:33 Dose: 200 mg Duloxetine HCl (Cymbalta) 60 mg PO HS [facility] Last Admin: 03/05/18 22:42 Dose: 60 mg Enoxaparin Sodium (Lovenox) 40 mg SC DAILY [facility] PRN Reason: Protocol Gabapentin (Neurontin) 300 mg PO Q8 [facility] Last Admin: 03/06/18 08:32 Dose: 300 mg Glucagon (Glucagen Diagnostic Kit) 0 mg IM STAT PRN; Protocol PRN Reason: Hypoglycemia Protocol Hydromorphone HCl (Dilaudid) 2 mg IVP Q3 PRN PRN Reason: Pain, severe (8-10) Insulin Human Regular (Humulin R) 0 units SC ACCU-CHECK [facility] PRN Reason: Protocol Last Admin: 03/06/18 06:47 Dose: Not Given Lidocaine (Lidoderm) 1 ea TD DAILY [facility] Last Admin: 03/06/18 08:31 Dose: 1 ea Metformin HCl (Glucophage) 500 mg PO DAILY [facility] Ondansetron HCl (Zofran Inj) 4 mg IVP Q6 PRN PRN Reason: Nausea/Vomiting Last Admin: 03/06/18 02:44 Dose: 4 mg Oxycodone HCl (Oxycontin Extended Release Tab) 40 mg PO Q12 [facility] Last Admin: 03/06/18 08:31 Dose: 40 mg Pantoprazole Sodium (Protonix Ec Tab) 40 mg PO DAILY [facility] Last Admin: 03/06/18 08:32 Dose: 40 mg Sennosides (Senokot Tab) 17.2 mg PO HS [facility] Last Admin: 03/05/18 22:08 Dose: Not Given - Labs Labs: 03/06/18 05:30 03/06/18 05:30 PT 13.7 Seconds (9.8-13.1) H 03/06/18 08:30 INR 1.2 03/06/18 08:30 APTT 34.2 Seconds (25.6-37.1) 03/06/18 08:30
--- NOTE | 2018-03-06 12:23 | CP.PCM.DIS ---
Provider - Provider Date of Admission: 03/05/18 16:22 Attending physician: Antione Gauthier DO Time Spent in preparation of Discharge (in minutes): 35 Hospital Course - Lab Results Lab Results: Most Recent Lab Values WBC 7.6 K/uL (4.8-10.8) 03/06/18 05:30 RBC 4.68 Mil/uL (3.80-5.20) 03/06/18 05:30 Hgb 13.2 g/dL (12.0-16.0) 03/06/18 05:30 Hct 39.9 % (34.0-47.0) 03/06/18 05:30 MCV 85.1 fl (81.0-99.0) 03/06/18 05:30 MCH 28.2 pg (27.0-31.0) 03/06/18 05:30 MCHC 33.1 g/dL (33.0-37.0) 03/06/18 05:30 RDW 14.3 % (11.5-14.5) 03/06/18 05:30 Plt Count 278 K/uL (130-400) D 03/06/18 05:30 MPV 9.4 fl (7.2-11.7) 03/05/18 16:12 Neut % (Auto) 76.0 % (50.0-75.0) H 03/05/18 16:12 Lymph % (Auto) 14.0 % (20.0-40.0) L 03/05/18 16:12 [place] % (Auto) 8.6 % (0.0-10.0) 03/05/18 16:12 Eos % (Auto) 0.9 % (0.0-4.0) 03/05/18 16:12 Baso % (Auto) 0.5 % (0.0-2.0) 03/05/18 16:12 Neut # (Auto) 8.7 K/uL (1.8-7.0) H 03/05/18 16:12 Lymph # (Auto) 1.6 K/uL (1.0-4.3) 03/05/18 16:12 [place] # (Auto) 1.0 K/uL (0.0-0.8) H 03/05/18 16:12 Eos # (Auto) 0.1 K/uL (0.0-0.7) 03/05/18 16:12 Baso # (Auto) 0.1 K/uL (0.0-0.2) 03/05/18 16:12 PT 13.7 Seconds (9.8-13.1) H 03/06/18 08:30 INR 1.2 03/06/18 08:30 APTT 34.2 Seconds (25.6-37.1) 03/06/18 08:30 Sodium 134 mmol/l (132-148) 03/06/18 05:30 Potassium 3.8 MMOL/L (3.6-5.0) 03/06/18 05:30 Chloride 96 mmol/L (98-107) L 03/06/18 05:30 Carbon Dioxide 28 mmol/L (22-30) 03/06/18 05:30 Anion Gap 14 (10-20) 03/06/18 05:30 BUN 4 mg/dl (7-17) L 03/06/18 05:30 Creatinine 0.3 mg/dl (0.7-1.2) L 03/06/18 05:30 Est GFR ( Amer) > 60 03/06/18 05:30 Est GFR (Non-Af Amer) > 60 03/06/18 05:30 POC Glucose (mg/dL) 157 mg/dL (65-110) H 03/06/18 10:46 Random Glucose 145 mg/dL (65-105) H 03/06/18 05:30 Calcium 9.6 mg/dL (8.4-10.2) 03/06/18 05:30 Total Bilirubin 2.7 mg/dl (0.2-1.3) H 03/05/18 16:12 AST 356 U/L (14-36) H D 03/05/18 16:12 ALT 413 U/L (9-52) H D 03/05/18 16:12 Alkaline Phosphatase 296 U/L (38-126) H D 03/05/18 16:12 Total Protein 9.3 G/DL (6.3-8.2) H 03/05/18 16:12 Albumin 4.8 g/dL (3.5-5.0) 03/05/18 16:12 Globulin 4.5 gm/dL (2.2-3.9) H 03/05/18 16:12 Albumin/Globulin Ratio 1.1 (1.0-2.1) 03/05/18 16:12 - Hospital Course Hospital Course: 47 year old female with PMH of HTN, chronic back pain, Colon cancer w/ mets to liver, chemembolization, Depression, Fibromyalgia, and GERD was admitted for intractable abdominal pain. Prior CT of abdomen and pelvis (02/20/18) shows heterogeneous diminished attenuation in the posterior right hepatic lobe consistent with known colonic mass metastatic disease and unchanged in appearance compared to the prior examination. Today the patient again presented to the ED with acute on chronic bilateral lower abdominal pain similar to previous admission. The patient was admitted for severe pain. Her pain management physician, Dr. Bae , was consulted and he planned to do a possible lower back vs celiac plexus block, but due to abnormal LFT results (tBili 2.7, AST 356, ALT 413, Alk Phos 296) nerve block was put on hold. Patient's pain was controlled with the same pain management regimen she follows at home (Oxycontin 40mg q12h, Dilaudid 2mg Q3, Neurontin and Cymbalta). She is medically stable for discharge to home and states that she will follow-up with her primary care team at [facility] where she has been chronically followed. Discharge Exam - Head Exam Head Exam: ATRAUMATIC, NORMAL INSPECTION, NORMOCEPHALIC - Eye Exam Eye Exam: Normal appearance Pupil Exam: NORMAL ACCOMODATION - ENT Exam ENT Exam: Mucous Membranes Moist - Neck Exam Neck exam: Normal Inspection - Respiratory Exam Respiratory Exam: NORMAL BREATHING PATTERN, UNREMARKABLE - Cardiovascular Exam Cardiovascular Exam: REGULAR RHYTHM - GI/Abdominal Exam GI & Abdominal Exam: Tenderness (diffuse LRQ, LLQ, suprapubic). absent: Guarding, Mass, Rebound - Extremities Exam Extremities exam: normal inspection - Back Exam Back exam: tenderness (lower back) - Neurological Exam Neurological exam: Alert, Normal Gait, Oriented x3 - Psychiatric Exam Psychiatric exam: Normal Affect, Normal Mood - Skin Skin Exam: Normal Color, Warm Discharge Plan - Follow Up Plan Condition: FAIR Disposition: HOME/ ROUTINE Additional Instructions: Follow up with primary care provider at [facility] Follow up with Dr Bae within 1 week. Referrals: Timmy Bae-Miguel Cha MD [Staff Provider] -
[2018-03-06] MEDS: Bisacodyl 5mg EC Tab PO SCH ×2 (13:48→17:33)
[2018-03-06 16:08] VITALS: BP 119/84; PULSE 90; RESP 18; TEMP 98.4; O2SAT 97
== END 2018-03-06 19:10 | disposition home or self-care (01) ==
LOC: H.ER 15:26 → H.ERHOLD 16:22 → H.MEDSURG1 17:48
PROVIDERS: ADMIT Internal Medicine; ATTEND Internal Medicine
DX: G89.3 Neoplasm related pain (acute) (chronic) (principal); C18.9 Malignant neoplasm of colon, unspecified; C78.7 Secondary malignant neoplasm of liver and intrahepatic bile duct; M79.7 Fibromyalgia; E11.9 Type 2 diabetes mellitus without complications; I10 Essential (primary) hypertension; F41.9 Anxiety disorder, unspecified; F32.9 Major depressive disorder, single episode, unspecified; K21.9 Gastro-esophageal reflux disease without esophagitis; Z88.1 Allergy status to other antibiotic agents; Z88.0 Allergy status to penicillin; R74.0 Nonspecific elevation of levels of transaminase and lactic acid dehydrogenase [LDH]; K59.09 Other constipation
CPT/HCPCS: 36415; 74176; 80048; 80053; 82948; 85025; 85027; 85610; 85730; 96372; 96374; 99283; G0378; J1170; J2405; J7030

== ENCOUNTER 2018-04-05 01:52 | Emergency (ER) | payer MEDICAID ==
[2018-04-05 01:52] VITALS: BMI 25.0
[2018-04-05 02:12] VITALS: TEMP 97.5
[2018-04-05] MEDS ORDERED: Sodium Chloride 0.9% 1,000 ML IV STA (02:17)
--- NOTE | 2018-04-05 02:37 | ED PDOC ---
HPI: Abdomen Time Seen by Provider: 04/05/18 02:05 Chief Complaint (Nursing): Abdominal Pain Chief Complaint (Provider): abdominal pain History Per: Patient History/Exam Limitations: no limitations Onset/Duration Of Symptoms: Days Current Symptoms Are (Timing): Still Present Additional Complaint(s): Indy Adamson is a 47 year old female, with a past medical history of metatastic colon CA and chronic back pain, who presents to the emergency department complaining of abdominal pain. Patient is well known to provider for multiple visits related to abdominal pain. She has required admissions at times for her intractable pain. Patient is on her 53rd cycle of chemotherapy at [facility]. She was seen earlier at [facility] where she received IV Dilaudid for pain but states pain did not improved. She reports nausea and vomiting multiple times and has also been taking Dilaudid PO at home with no relief. She denies any other medical complaints. PMD: Clinic. Past Medical History Reviewed: Historical Data, Nursing Documentation, Vital Signs Vital Signs: Last Vital Signs Temp 97.5 F L 04/05/18 02:08 Pulse 105 H 04/05/18 02:08 Resp 18 04/05/18 02:08 BP 126/78 04/05/18 02:08 Pulse Ox 98 04/05/18 02:08 - Medical History PMH: Anxiety, Arthritis, Back Problems, Depression, Diabetes, Fibromyalgia, GERD, HTN, Malignancy Denies: [place]'s Disease, Alzheimer's Disease, Anemia, Asthma, Atrial Fibrillation, Benign Prostatic Hyperplasia, Bipolar Disorder, Bronchitis, Cardia Arrhythmia, Cardiac Aneurysm, CHF, Colonic Polyps, COPD, Crohn's Disease, Fernando's Syndrome, Dementia, Diverticulitis, Deep Vein Thrombosis, Emphysema, Gastrointestinal Ulcer, Gall Bladder Disease, Graves' Disease, Hiatal Hernia, HIV, Hypercholesterolemia, Hyperlipidemia, Hyperthyroidism, Hypothyroidism, Kidney Stones, Migraine, Mitral Valve Prolapse, Multiple Sclerosis, Obstructive Bowel, Osteoporosis, Pancreatitis, Parkinson's Disease, Pericarditis, Peripheral Edema, Personality Disorder, Pneumonia, Pneumothorax, Post Traumatic Stress Disorder, Pulmonary Embolism, End Stage Renal Disease, Chronic Kidney Disease, Rheumatoid Arthritis, Schizophrenia, Seizures, Sickle Cell Disease, Sexually Transmitted Disease, Sleep Apnea, TIA Other PMH: metastatic colon CA - Surgical History Surgical History: Back Surgery, Endoscopy Denies: Appendectomy, CABG, Carotid Endarterectomy, Cholecystectomy, Coronary Stent, Tonsillectomy - Family History Family History: States: Unknown Family Hx - Social History Current smoker - smoking cessation education provided: No Alcohol: None Drugs: Denies - Immunization History Hx Influenza Vaccination: Yes Hx Pneumococcal Vaccination: No - Home Medications Home Medications: Ambulatory Orders Medication Instructions Recorded amLODIPine [Norvasc] 10 mg PO DAILY #0 tab 04/05/15 DULoxetine [Cymbalta] 60 mg PO HS 04/23/15 Omeprazole Magnesium [Prilosec Otc] 40 mg PO DAILY 01/30/18 Gabapentin [Neurontin] 300 mg PO Q8 02/20/18 metFORMIN [glucOPHAGE] 500 mg PO DAILY 02/20/18 Bisacodyl [Dulcolax] 5 mg PO BID ect 02/23/18 HYDROmorphone [Dilaudid] 2 mg PO Q4 #42 tab 02/23/18 oxyCODONE [oxyCONTIN Extended 40 mg PO Q12 #14 tabsr 02/23/18 Release Tab] Methylprednisolone [Medrol Dose 4 mg PO DAILY 03/06/18 Pack (21 tabs)] - Allergies Allergies/Adverse Reactions: Allergies Allergy/AdvReac Type Severity Reaction Status Date / Time penicillin G Allergy RASH Verified 04/05/18 02:08 vancomycin Allergy RASH Verified 04/05/18 02:08 Review of Systems ROS Statement: Except As Marked, All Systems Reviewed And Found Negative Gastrointestinal: Positive for: Nausea, Vomiting, Abdominal Pain Musculoskeletal: Positive for: Back Pain (chronic) Physical Exam - Reviewed Nursing Documentation Reviewed: Yes Vital Signs Reviewed: Yes - Physical Exam Appears: Positive for: Uncomfortable Head Exam: Positive for: ATRAUMATIC, NORMAL INSPECTION, NORMOCEPHALIC Skin: Positive for: Normal Color, Warm, Dry Eye Exam: Positive for: Normal appearance, EOMI, PERRL Neck: Positive for: Painless ROM Cardiovascular/Chest: Positive for: Regular Rate, Rhythm. Negative for: Murmur Respiratory: Positive for: Normal Breath Sounds. Negative for: Respiratory Distress Gastrointestinal/Abdominal: Positive for: Tenderness (diffused) Back: Positive for: Normal Inspection. Negative for: L CVA Tenderness, R CVA Tenderness, Vertebral Tenderness Extremity: Positive for: Normal ROM. Negative for: Deformity, Swelling Neurologic/Psych: Positive for: Alert, Oriented - Laboratory Results Result Diagrams: 04/05/18 02:45 04/05/18 02:45 - ECG O2 Sat by Pulse Oximetry: 98 (RA) Pulse Ox Interpretation: Normal Medical Decision Making Medical Decision Making: Time:02:05 Initial Impression: 47 y/o female with acute on chronic abdominal pain in setting of known colon CA Initial Plan: --EKG --CMP --Lipase --Magnesium --Urine --Urine dipstick --CBC w/ differential --Dilaudid 2 mg IVP --Sodium Chloride 1,000 ml IV 1,000 mls/hr --Zofran 4 mg IV --Urinalysis --Reevaluation 04:20 -Patient reports improvement of symptoms. Patient is requesting to be admitted for further monitoring of her pain. Labs showed no clinical significant abnormalities. Patient was advised she should follow up with clinic. Dr. Haro spoke with patient and made an arrangement for rapid follow up. Patient amenable to go home now. Diagnosis of acute on chronic abdominal pain and colon CA. ----- Scribe Attestation: Documented by Renaldo Butts, acting as a scribe for Juna Smith MD. Provider Scribe Attestation: All medical record entries made by the Scribe were at my direction and personally dictated by me. I have reviewed the chart and agree that the record accurately reflects my personal performance of the history, physical exam, medical decision making, and the department course for this patient. I have also personally directed, reviewed, and agree with the discharge instructions and disposition. Disposition - Clinical Impression Clinical Impression: Chronic abdominal pain - Disposition Disposition: Routine/Home Disposition Time: 04:20 Condition: IMPROVED Instructions: Chronic Pain (DC) Forms: Virool (Sami)
[2018-04-05 03:07] LABS: SQUAMOUS EPITHIAL 2 /hpf (0-5); URINE BILIRUBIN NEGATIVE (NEGATIVE); URINE BLOOD NEGATIVE (NEGATIVE); URINE CLARITY CLEAR (Clear); URINE COLOR YELLOW (YELLOW); URINE GLUCOSE (UA) 50 mg/dL (Normal); URINE LEUKOCYTE ESTERASE NEG Leu/uL (Negative); URINE PROTEIN NEGATIVE (NEGATIVE); URINE UROBILINOGEN 0.2-1.0 mg/dL (0.2-1.0)
[2018-04-05 03:13] LABS: BASO % 0.1 % (0.0-2.0); HEMOGLOBIN 13.7 g/dL (12.0-16.0); LYMPH # 0.8 K/uL (1.0-4.3); LYMPH % 14.9 % (20.0-40.0); MEAN CORPUSCULAR HEMOGLOBIN 28.1 pg (27.0-31.0); MEAN CORPUSCULAR HGB CONC 33.5 g/dL (33.0-37.0); MEAN PLATELET VOLUME 9.2 fl (7.2-11.7); MONO # 0.4 K/uL (0.0-0.8); MONO % 7.2 % (0.0-10.0); NEUT % 77.8 % (50.0-75.0); NRBC % 0.1 % (0.0-0.0); RBC 4.87 Mil/uL (3.80-5.20); RED CELL DISTRIBUTION WIDTH 15.1 % (11.5-14.5); WHITE BLOOD COUNT 5.2 K/uL (4.8-10.8)
[2018-04-05 03:19] LABS: ALBUMIN 4.4 g/dL (3.5-5.0); ALT/SGPT 35 U/L (9-52); AST/SGOT 41 U/L (14-36); BLOOD UREA NITROGEN 6 mg/dl (7-17); CALCIUM 10.2 mg/dL (8.4-10.2); GFR NON-AFRICAN AMERICAN > 60; LIPASE 38 U/L (23-300)
[2018-04-05 05:23] VITALS: BP 106/62; PULSE 80; RESP 14; O2SAT 95
--- NOTE | 2018-04-05 10:18 | CARD ---
APPROVED REPORT Date of service: 04/05/2018 EKG Measurement Heart [id number] <Conclusion> Normal sinus rhythm Normal ECG
== END 2018-04-05 05:51 | disposition home or self-care (01) ==
LOC: H.ER 01:52
DX: R10.9 Unspecified abdominal pain (principal); G89.29 Other chronic pain; C18.9 Malignant neoplasm of colon, unspecified; E11.9 Type 2 diabetes mellitus without complications; I10 Essential (primary) hypertension; Z79.84 Long term (current) use of oral hypoglycemic drugs; Z88.0 Allergy status to penicillin
CPT/HCPCS: 80053; 81003; 81025; 83690; 83735; 85025; 93005; 96361; 96374; 96375; 96376; 99285; J1170; J2405; J7030

== ENCOUNTER 2018-04-05 12:21 | Inpatient (IN) | payer MEDICAID ==
[2018-04-05 12:22] VITALS: BMI 25.0
[2018-04-05] MEDS ORDERED: Sodium Chloride 0.9% 1,000 ML IV STA (12:33)
[2018-04-05 13:05] LABS: BASO % 0.2 % (0.0-2.0); EOS % 0.6 % (0.0-4.0); LYMPH # 1.7 K/uL (1.0-4.3); LYMPH % 22.7 % (20.0-40.0); MEAN CELL VOLUME 83.3 fl (81.0-99.0); MEAN CORPUSCULAR HEMOGLOBIN 27.8 pg (27.0-31.0); MEAN CORPUSCULAR HGB CONC 33.4 g/dL (33.0-37.0); MEAN PLATELET VOLUME 8.9 fl (7.2-11.7); MONO # 0.8 K/uL (0.0-0.8); MONO % 10.5 % (0.0-10.0); NEUT # 4.8 K/uL (1.8-7.0); RBC 5.01 Mil/uL (3.80-5.20); RED CELL DISTRIBUTION WIDTH 15.1 % (11.5-14.5); WHITE BLOOD COUNT 7.3 K/uL (4.8-10.8)
[2018-04-05 13:23] LABS: ALBUMIN 4.5 g/dL (3.5-5.0); ALT/SGPT 52 U/L (9-52); AST/SGOT 44 U/L (14-36); BLOOD UREA NITROGEN 5 mg/dl (7-17); CALCIUM 10.5 mg/dL (8.4-10.2); GFR NON-AFRICAN AMERICAN > 60; LIPASE 40 U/L (23-300)
--- NOTE | 2018-04-05 15:45 | CT ---
Date of service: 04/05/2018 PROCEDURE: CT Abdomen and Pelvis with contrast HISTORY: abd malignancy r/o perforation COMPARISON: 03/05/2018 TECHNIQUE: Contrast dose: 99 mL Omnipaque 300 Radiation dose: Total exam DLP = 637.96 mGy-cm. This CT exam was performed using one or more of the following dose reduction techniques: Automated exposure control, adjustment of the mA and/or kV according to patient size, and/or use of iterative reconstruction technique. FINDINGS: LOWER THORAX: Unremarkable. LIVER: Extensive heterogeneity in posterior right hepatic lobe suspicious for neoplasm. No discrete mass identified elsewhere. No biliary dilatation. GALLBLADDER AND BILE DUCTS: Gallbladder not visualized. Question prior cholecystectomy versus contracted gallbladder. PANCREAS: Unremarkable. No gross lesion or ductal dilatation. SPLEEN: Unremarkable. ADRENALS: Unremarkable. No mass. KIDNEYS AND URETERS: Unremarkable. No hydronephrosis. No solid mass. VASCULATURE: Unremarkable. No aortic aneurysm. BOWEL: Small-bowel obstruction. Point of obstruction identified in the left lower quadrant of the abdomen with multiple collapsed loops of ileum distal to this obstruction. There is swirling of mesenteric vessels and some localized tethering suggestive of possible internal hernia. No mass identified. APPENDIX: Normal appendix. PERITONEUM: Minimal ascites in cul-de-sac. Nonspecific. LYMPH NODES: Retroperitoneal lymphadenopathy noted. No pelvic lymphadenopathy. BLADDER: Unremarkable. REPRODUCTIVE: Normal uterus BONES: No acute fracture. Artificial disc spacer at L4-5. OTHER FINDINGS: None. IMPRESSION: Suspicious for neoplasm involving the posterior right hepatic lobe. Extensive heterogeneity without discrete mass. Retroperitoneal lymphadenopathy. Mechanical small-bowel obstruction with point of obstruction identified in the left lower quadrant of the abdomen possibly due to internal hernia. No other acute abnormality.
--- NOTE | 2018-04-05 15:56 | ED PDOC ---
HPI: Abdomen Time Seen by Provider: 04/05/18 12:28 Chief Complaint (Nursing): Abdominal Pain Past Medical History Vital Signs: Last Vital Signs Temp 96 F L 04/05/18 12:24 Pulse 127 H 04/05/18 12:24 Resp 20 04/05/18 12:24 BP 143/97 H 04/05/18 12:24 Pulse Ox 99 04/05/18 12:24 - Medical History PMH: Anxiety, Arthritis, Back Problems, Depression, Diabetes, Fibromyalgia, GERD, HTN, Malignancy Denies: [place]'s Disease, Alzheimer's Disease, Anemia, Asthma, Atrial Fibrillation, Benign Prostatic Hyperplasia, Bipolar Disorder, Bronchitis, Cardia Arrhythmia, Cardiac Aneurysm, CHF, Colonic Polyps, COPD, Crohn's Disease, Fernando's Syndrome, Dementia, Diverticulitis, Deep Vein Thrombosis, Emphysema, Gastrointestinal Ulcer, Gall Bladder Disease, Graves' Disease, Hiatal Hernia, HIV, Hypercholesterolemia, Hyperlipidemia, Hyperthyroidism, Hypothyroidism, Kidney Stones, Migraine, Mitral Valve Prolapse, Multiple Sclerosis, Obstructive Bowel, Osteoporosis, Pancreatitis, Parkinson's Disease, Pericarditis, Peripheral Edema, Personality Disorder, Pneumonia, Pneumothorax, Post Traumatic Stress D isorder, Pulmonary Embolism, End Stage Renal Disease, Chronic Kidney Disease, Rheumatoid Arthritis, Schizophrenia, Seizures, Sickle Cell Disease, Sexually Transmitted Disease, Sleep Apnea, TIA - Surgical History Surgical History: Back Surgery, Endoscopy Denies: Appendectomy, CABG, Carotid Endarterectomy, Cholecystectomy, Coronary Stent, Tonsillectomy - Family History Family History: States: Unknown Family Hx - Immunization History Hx Influenza Vaccination: Yes Hx Pneumococcal Vaccination: No - Home Medications Home Medications: Ambulatory Orders Medication Instructions Recorded amLODIPine [Norvasc] 10 mg PO DAILY #0 tab 04/05/15 DULoxetine [Cymbalta] 60 mg PO HS 04/23/15 Omeprazole Magnesium [Prilosec Otc] 40 mg PO DAILY 01/30/18 Gabapentin [Neurontin] 300 mg PO Q8 02/20/18 metFORMIN [glucOPHAGE] 500 mg PO DAILY 02/20/18 Bisacodyl [Dulcolax] 5 mg PO BID ect 02/23/18 HYDROmorphone [Dilaudid] 2 mg PO Q4 #42 tab 02/23/18 oxyCODONE [oxyCONTIN Extended 40 mg PO Q12 #14 tabsr 02/23/18 Release Tab] Methylprednisolone [Medrol Dose 4 mg PO DAILY 03/06/18 Pack (21 tabs)] - Allergies Allergies/Adverse Reactions: Allergies Allergy/AdvReac Type Severity Reaction Status Date / Time penicillin G Allergy RASH Verified 04/05/18 12:23 vancomycin Allergy RASH Verified 04/05/18 12:23 - Laboratory Results Result Diagrams: 04/05/18 12:50 04/05/18 12:50 - ECG O2 Sat by Pulse Oximetry: 99 Medical Decision Making Medical Decision Making: Accession No. : [id number] Patient Name / ID : ROSA ISELA ROSALES / [id number] Exam Date : 04/05/2018 14:06:07 ( Approved ) Study Comment : Sex / Age : F / 47Y Creator : ricardo chacko Dictator : David Mckeon MD Jet Dyeing Machine Tender : Senior Electronics Engineer : David Mckeon MD Approver2 : Report Date : 04/05/2018 14:29:15 My Comment : Date of service: 04/05/2018 PROCEDURE: CT Abdomen and Pelvis with contrast HISTORY: abd malignancy r/o perforation COMPARISON: 03/05/2018 TECHNIQUE: Contrast dose: 99 mL Omnipaque 300 Radiation dose: Total exam DLP = 637.96 mGy-cm. This CT exam was performed using one or more of the following dose reduction techniques: Automated exposure control, adjustment of the mA and/or kV according to patient size, and/or use of iterative reconstruction technique. FINDINGS: LOWER THORAX: Unremarkable. LIVER: Extensive heterogeneity in posterior right hepatic lobe suspicious for neoplasm. No discrete mass identified elsewhere. No biliary dilatation. GALLBLADDER AND BILE DUCTS: Gallbladder not visualized. Question prior cholecystectomy versus contracted gallbladder. PANCREAS: Unremarkable. No gross lesion or ductal dilatation. SPLEEN: Unremarkable. ADRENALS: Unremarkable. No mass. KIDNEYS AND URETERS: Unremarkable. No hydronephrosis. No solid mass. VASCULATURE: Unremarkable. No aortic aneurysm. BOWEL: Small-bowel obstruction. Point of obstruction identified in the left lower quadrant of the abdomen with multiple collapsed loops of ileum distal to this obstruction. There is swirling of mesenteric vessels and some localized tethering suggestive of possible internal hernia. No mass identified. APPENDIX: Normal appendix. PERITONEUM: Minimal ascites in cul-de-sac. Nonspecific. LYMPH NODES: Retroperitoneal lymphadenopathy noted. No pelvic lymphadenopathy. BLADDER: Unremarkable. REPRODUCTIVE: Normal uterus BONES: No acute fracture. Artificial disc spacer at L4-5. OTHER FINDINGS: None. IMPRESSION: Suspicious for neoplasm involving the posterior right hepatic lobe. Extensive heterogeneity without discrete mass. Retroperitoneal lymphadenopathy. Mechanical small-bowel obstruction with point of obstruction identified in the left lower quadrant of the abdomen possibly due to internal hernia. No other acute abnormality. labs reviewed WBC normal Surgical team paged and arrangements for admission made Disposition - Disposition
[2018-04-05] MEDS: Dextrose 5%/0.45% NS 1,000 ML IV SCH ×2 (16:53→21:08)
[2018-04-05] MEDS ORDERED: Glucagon Recombinant 1 mg Inj IM PRN (16:54)
[2018-04-05] MEDS ORDERED: Dextrose 50% SYRINGE Inj (50 ml) IV PRN (16:54)
--- NOTE | 2018-04-05 16:57 | CP.PCM.HP ---
<Osbaldo Umana - Last Filed: 04/05/18 17:36> History of Present Illness - History of Present Illness History of Present Illness: This is 47 y/o F with PMH of HTN, chronic back/abdominal pain with multiple nerves blocks (Sees pain management as out patient), Colon cancer w/ metastasis to liver (on chemotherapy), Depression, Fibromyalgia, GERD admitted to the [facility] for evaluation and treatment of SBO. Patient presented to the ER c/o generalized severe abdominal pain which started yesterday morning after she took her medications. Pain is constant, 10/10, sharp in nature, generalized, no allev iating (Dilaudid 1.5 mg PO/Oxycontine) or aggravating factors and associated with nausea and 10 episodes of nonbloddy nonbillious vomiting. Denies fever, cough, SOB,chest pain, rectal bleeding, pedal edema, dysuria. Patient s/p bilateral sacroiliac joint injections for back pain on 01/12, Celiac plexus block 01/21/18. Patient has been seen by Heme-Oncologist: Dr. Yovani Pennington at [facility]. PCP: [facility] Heme-Oncologist: Dr. Yovani Pennington at [facility] on chemotherapy Pain management: Dr. Bae PMH: chronic back pain, fibromyalgia, HTN, GERD, colon cancer, anxiety, Colon ca ncer w/ metastasis to liver (on chemotherapy) PSH: C6 fusion, Colon resection 2014 and b/l oopherectomy, chemoembolization of liver. Allg: penicillin SocialHx: denies ETOH/tobacco/drug abuse FamilyHx: DM, HTN Meds: as per med rec ROS as per HPI ER course: Tm 96, PP 127, RR20, 143/97, Spo2 99 CBC: WNL CMP: Significant for K+ 3.1, AST 44, ALKP 209, Lipase 40 CT abdo: Suspicious for neoplasm involving the posterior right hepatic lobe. Extensive heterogeneity without discrete mass. Retroperitoneal lymphadenopathy. Mechanical small-bowel obstruction with point of obstruction identified in the left lower quadrant of the abdomen possibly due to internal hernia. No other acute abnormality. S/p Dilaudid S/p IVF /Bolus S/p Zofran Present on Admission - Present on Admission Any Indicators Present on Admission: No History of DVT/PE: No History of Uncontrolled Diabetes: No Past Patient History - Infectious Disease Hx of Infectious Diseases: None - Tetanus Immunizations Tetanus Immunization: Unknown - Past Medical History & Family History Past Medical History?: Yes - Past Social History Smoking Status: Never Smoked - CARDIAC Hx Atrial Fibrillation: No Hx Cardia Arrhythmia: No Hx Congestive Heart Failure: No Hx Hypercholesterolemia: No Hx Hypertension: Yes Hx Mitral Valve Prolapse: No Hx Peripheral Edema: No - PULMONARY Hx Asthma: No Hx Bronchitis: No Hx Chronic Obstructive Pulmonary Disease (COPD): No Hx Emphysema: No Hx Pneumonia: No Hx Pulmonary Embolism: No Hx Sleep Apnea: No - NEUROLOGICAL Hx Alzheimer's Disease: No Hx Dementia: No Hx Migraine: No Hx Multiple Sclerosis: No Hx Parkinson's Disease: No Hx Seizures: No Hx Transient Ischemic Attacks (TIA): No - HEENT Hx HEENT Problems: No - RENAL Hx Chronic Kidney Disease: No Hx Kidney Stones: No - ENDOCRINE/METABOLIC Hx Hyperthyroidism: No Hx Hypothyroidism: No - HEMATOLOGICAL/ONCOLOGICAL Hx Anemia: No Hx Human Immunodeficiency Virus (HIV): No Hx Sickle Cell Disease: No - INTEGUMENTARY Hx Dermatological Problems: No - MUSCULOSKELETAL/RHEUMATOLOGICAL Hx Arthritis: Yes Hx Osteoporosis: No Hx Rheumatoid Arthritis: No - GASTROINTESTINAL Hx Crohn's Disease: No Hx Diverticulitis: No Hx Gall Bladder Disease: No Hx Pancreatitis: No - GENITOURINARY/GYNECOLOGICAL Hx Sexually Transmitted Disorders: No - PSYCHIATRIC Hx Anxiety: Yes Hx Bipolar Disorder: No Hx Depression: Yes Hx Post Traumatic Stress Disorder: No Hx Schizophrenia: No - SURGICAL HISTORY Hx Appendectomy: No Hx Carotid Endarterectomy: No Hx Cholecystectomy: No Hx Coronary Artery Bypass Graft: No Hx Coronary Stent: No Hx Tonsillectomy: No - ANESTHESIA Hx Anesthesia: Yes Hx Anesthesia Reactions: No Hx Malignant Hyperthermia: No Meds Allergies/Adverse Reactions: Allergies Allergy/AdvReac Type Severity Reaction Status Date / Time penicillin G Allergy RASH Verified 04/05/18 12:23 vancomycin Allergy RASH Verified 04/05/18 12:23 Physical Exam - Constitutional Appears: In Acute Distress Additional comments: Facial rash, due to chemo tx - Head Exam Head Exam: NORMAL INSPECTION - Eye Exam Eye Exam: EOMI, Normal appearance - ENT Exam ENT Exam: Mucous Membranes Moist - Neck Exam Neck exam: Positive for: Normal Inspection - Respiratory Exam Respiratory Exam: Clear to Auscultation Bilateral, NORMAL BREATHING PATTERN. absent: Accessory Muscle Use, Chest Wall Tenderness, Wheezes - Cardiovascular Exam Cardiovascular Exam: REGULAR RHYTHM, +S1, +S2 - GI/Abdominal Exam GI & Abdominal Exam: Guarding, Normal Bowel Sounds, Rebound (RUQ and LLQ), Soft, Tenderness (Diffuse ). absent: Distended - Extremities Exam Extremities exam: Positive for: normal inspection - Back Exam Back exam: NORMAL INSPECTION. absent: CVA tenderness (L), CVA tenderness (R) - Neurological Exam Neurological exam: Alert, CN II-XII Intact, Oriented x3 - Psychiatric Exam Psychiatric exam: Normal Affect - Skin Skin Exam: Normal Color Results - Vital Signs Recent Vital Signs: Last Vital Signs Temp 96 F L 04/05/18 12:24 Pulse 127 H 04/05/18 12:24 Resp 20 04/05/18 12:24 BP 143/97 H 04/05/18 12:24 Pulse Ox 99 04/05/18 15:56 - Labs Result Diagrams: 04/05/18 12:50 04/05/18 12:50 Labs: Laboratory Results - last 24 hr 04/05/18 04/05/18 12:50 12:50 WBC 7.3 RBC 5.01 Hgb 14.0 Hct 41.8 MCV 83.3 MCH 27.8 MCHC 33.4 RDW 15.1 H Plt Count 301 MPV 8.9 Neut % (Auto) 66.0 Lymph % (Auto) 22.7 [place] % (Auto) 10.5 H Eos % (Auto) 0.6 Baso % (Auto) 0.2 Neut # (Auto) 4.8 Lymph # (Auto) 1.7 [place] # (Auto) 0.8 Eos # (Auto) 0.0 Baso # (Auto) 0.0 Sodium 138 Potassium 3.1 L Chloride 99 Carbon Dioxide 27 Anion Gap 15 BUN 5 L Creatinine 0.4 L Est GFR ( Amer) > 60 Est GFR (Non-Af Amer) > 60 Random Glucose 199 H Calcium 10.5 H Total Bilirubin 0.6 AST 44 H ALT 52 D Alkaline Phosphatase 209 H Total Protein 8.8 H Albumin 4.5 Globulin 4.3 H Albumin/Globulin Ratio 1.0 Lipase 40 Assessment & Plan - Assessment and Plan (Free Text) Assessment: A/P: 47 y/o F with PMH of HTN, chronic back/abdominal pain with multiple nerves blocks (Sees pain management as out patient), Colon cancer w/ metastasis to liver (on chemotherapy), Depression, Fibromyalgia, GERD admitted to the [facility] for evaluation and treatment of SBO. Small Bowel Obstruction possibly due to internal hernia - Afebrile - CT: Mechanical small-bowel obstruction with point of obstruction identified in the left lower quadrant of the abdomen possibly due to internal hernia - Surgery consult, Dr. Denson, recommendations appreciated - Possible NG tube/surgical intervention/will follow recommendations - NPO - C/w IVF - Pain control: Morphine and Hydromorphone - Zofran for nausea and vomiting - Follow up PT/INR/PTT - EKG and CXR done today and reviewed - Follow up ABG Hypokalemia - Replete as needed Chronic back pain - 2/2 metastatic colon Ca - Chronic, H/O multiple lumbar surgeries. - Lidoderm patch for back pain - Pain management consult, Dr. Bae, will follow recommendations - C/w pain management NIDDM - Controlled - Last A1c 7.7 on 11/19/17 - Low dose sliding scale - Hold metformin - Hypoglycemia protocol HTN - Controlled - Hold Amlodipine 10 mg QD - Monitor vitals Fibromyalgia - Controlled - Hold Gabapentin 300 mg TID - Hold Duloxetine 60 mg PO HS DVT prophylaxis - SCD for now, possible surgical intervention <Danis Salmeron D - Last Filed: 04/05/18 19:25> Results - Vital Signs Recent Vital Signs: Last Vital Signs Temp 98.1 F 04/05/18 18:45 Pulse 80 04/05/18 18:45 Resp 17 04/05/18 18:45 BP 148/91 H 04/05/18 18:45 Pulse Ox 99 04/05/18 18:45 - Labs Result Diagrams: 04/05/18 12:50 04/05/18 12:50 Labs: Laboratory Results - last 24 hr 04/05/18 04/05/18 04/05/18 12:50 12:50 17:27 WBC 7.3 RBC 5.01 Hgb 14.0 Hct 41.8 MCV 83.3 MCH 27.8 MCHC 33.4 RDW 15.1 H Plt Count 301 MPV 8.9 Neut % (Auto) 66.0 Lymph % (Auto) 22.7 [place] % (Auto) 10.5 H Eos % (Auto) 0.6 Baso % (Auto) 0.2 Neut # (Auto) 4.8 Lymph # (Auto) 1.7 [place] # (Auto) 0.8 Eos # (Auto) 0.0 Baso # (Auto) 0.0 PT INR APTT pCO2 44 pO2 55 L HCO3 27.3 ABG pH 7.42 ABG Total CO2 29.9 H ABG O2 Saturation 92.8 L ABG Base Excess 3.4 H Norm Test Yes ABG Potassium 3.0 L Glucose 172 H Lactate 1.3 FiO2 21.0 Sodium 138 134.0 Potassium 3.1 L Chloride 99 98.0 Carbon Dioxide 27 Anion Gap 15 BUN 5 L Creatinine 0.4 L Est GFR ( Amer) > 60 Est GFR (Non-Af Amer) > 60 POC Glucose (mg/dL) Random Glucose 199 H Calcium 10.5 H Total Bilirubin 0.6 AST 44 H ALT 52 D Alkaline Phosphatase 209 H Total Protein 8.8 H Albumin 4.5 Globulin 4.3 H Albumin/Globulin Ratio 1.0 Lipase 40 Arterial Blood Potassium 3.0 L 04/05/18 04/05/18 18:09 18:39 WBC RBC Hgb Hct MCV MCH MCHC RDW Plt Count MPV Neut % (Auto) Lymph % (Auto) [place] % (Auto) Eos % (Auto) Baso % (Auto) Neut # (Auto) Lymph # (Auto) [place] # (Auto) Eos # (Auto) Baso # (Auto) PT 13.8 H INR 1.2 APTT 30.1 pCO2 pO2 HCO3 ABG pH ABG Total CO2 ABG O2 Saturation ABG Base Excess Norm Test ABG Potassium Glucose Lactate FiO2 Sodium Potassium Chloride Carbon Dioxide Anion Gap BUN Creatinine Est GFR ( Amer) Est GFR (Non-Af Amer) POC Glucose (mg/dL) 169 H Random Glucose Calcium Total Bilirubin AST ALT Alkaline Phosphatase Total Protein Albumin Globulin Albumin/Globulin Ratio Lipase Arterial Blood Potassium Attending/Attestation - Attestation I have personally seen and examined this patient.: Yes I have fully participated in the care of the patient.: Yes I have reviewed all pertinent clinical information: Yes Notes (Text): 04/05/18 19:24 Patient seen and examined with resident. Case discussed and agreed with assessment and plan of management.
--- NOTE | 2018-04-05 17:14 | CP.PCM.CON ---
History of Present Illness - History of Present Illness History of Present Illness: Surgery: Dr. Denson CC: Abd pain HPI: 47F w. hx of colon CA w. mets to liver and ovaries received neoadjuvant chemo in 2016 with subsequent robotic L colectomy and oopherectomy. Liver resection was attempted but had to be aborted due to bleeding prompting pt to receive TACE. Pt presents with acute onset of abdominal pain which started yesterday morning. The pain is constant and has been increasing in severity despite taking dilaudid 2mg PO q2 PRN and oxycontin 60mg PO TID. Pain is diffuse. Pain has been accompanied by multiple episodes of N/V. Pt is passing flatus. Last BM was yesterday. She reports subjective fevers. CT scan done in ED showed SBO in LLQ with probable internal hernia. PMH: Colon CA w. mets to liver and ovaries, HTN, DM PSH: Robotic L colectomy w. oopherectomy, attempted liver resection, Cervical and lumbar fusion Meds: MAR reviewed ALL: PCN, vanco > rash Social: No ETOH/tobacco/drugs Fhx: Non-contributory Review of Systems - Review of Systems All systems: reviewed and no additional remarkable complaints except (HPI) Past Patient History - Infectious Disease Hx of Infectious Diseases: None - Tetanus Immunizations Tetanus Immunization: Unknown - Past Medical History & Family History Past Medical History?: Yes - Past Social History Smoking Status: Never Smoked - CARDIAC Hx Atrial Fibrillation: No Hx Cardia Arrhythmia: No Hx Congestive Heart Failure: No Hx Hypercholesterolemia: No Hx Hypertension: Yes Hx Mitral Valve Prolapse: No Hx Peripheral Edema: No - PULMONARY Hx Asthma: No Hx Bronchitis: No Hx Chronic Obstructive Pulmonary Disease (COPD): No Hx Emphysema: No Hx Pneumonia: No Hx Pulmonary Embolism: No Hx Sleep Apnea: No - NEUROLOGICAL Hx Alzheimer's Disease: No Hx Dementia: No Hx Migraine: No Hx Multiple Sclerosis: No Hx Parkinson's Disease: No Hx Seizures: No Hx Transient Ischemic Attacks (TIA): No - HEENT Hx HEENT Problems: No - RENAL Hx Chronic Kidney Disease: No Hx Kidney Stones: No - ENDOCRINE/METABOLIC Hx Hyperthyroidism: No Hx Hypothyroidism: No - HEMATOLOGICAL/ONCOLOGICAL Hx Anemia: No Hx Human Immunodeficiency Virus (HIV): No Hx Sickle Cell Disease: No - INTEGUMENTARY Hx Dermatological Problems: No - MUSCULOSKELETAL/RHEUMATOLOGICAL Hx Arthritis: Yes Hx Osteoporosis: No Hx Rheumatoid Arthritis: No - GASTROINTESTINAL Hx Crohn's Disease: No Hx Diverticulitis: No Hx Gall Bladder Disease: No Hx Pancreatitis: No - GENITOURINARY/GYNECOLOGICAL Hx Sexually Transmitted Disorders: No - PSYCHIATRIC Hx Anxiety: Yes Hx Bipolar Disorder: No Hx Depression: Yes Hx Post Traumatic Stress Disorder: No Hx Schizophrenia: No - SURGICAL HISTORY Hx Appendectomy: No Hx Carotid Endarterectomy: No Hx Cholecystectomy: No Hx Coronary Artery Bypass Graft: No Hx Coronary Stent: No Hx Tonsillectomy: No - ANESTHESIA Hx Anesthesia: Yes Hx Anesthesia Reactions: No Hx Malignant Hyperthermia: No Meds Allergies/Adverse Reactions: Allergies Allergy/AdvReac Type Severity Reaction Status Date / Time penicillin G Allergy RASH Verified 04/05/18 12:23 vancomycin Allergy RASH Verified 04/05/18 12:23 - Medications Medications: Current Medications Dextrose (Dextrose 50% Inj) 0 ml IV STAT PRN; Protocol PRN Reason: Hypoglycemia Protocol Dextrose (Glutose 15) 0 gm PO ONCE PRN; Protocol PRN Reason: Hypoglycemia Protocol Glucagon (Glucagen Diagnostic Kit) 0 mg IM STAT PRN; Protocol PRN Reason: Hypoglycemia Protocol Hydromorphone HCl (Dilaudid) 2 mg IVP Q4 PRN PRN Reason: Pain, severe (8-10) Dextrose/Sodium Chloride (Dextrose 5%/0.45% Ns 1000 Ml) 1,000 mls @ 200 mls/hr IV .Q5H REYES Last Admin: 04/05/18 16:53 Dose: 200 mls/hr Insulin Human Lispro (Humalog) 0 units SC ACCU-CHECK REYES; Protocol Morphine Sulfate (Morphine) 2 mg IVP Q4 PRN PRN Reason: Pain, moderate (4-7) Morphine Sulfate (Morphine) 1 mg IVP Q4 PRN PRN Reason: Pain, Mild (1-3) Ondansetron HCl (Zofran Inj) 2 mg IVP Q6 PRN PRN Reason: Nausea/Vomiting Last Admin: 04/05/18 17:03 Dose: 2 mg Physical Exam - Constitutional Appears: Other (uncomfortable) - Head Exam Head Exam: ATRAUMATIC, NORMOCEPHALIC - Eye Exam Eye Exam: EOMI - ENT Exam ENT Exam: Mucous Membranes Dry - Neck Exam Neck exam: Positive for: Full Rom - Respiratory Exam Respiratory Exam: NORMAL BREATHING PATTERN. absent: Accessory Muscle Use, Respiratory Distress - Cardiovascular Exam Cardiovascular Exam: Tachycardia - GI/Abdominal Exam GI & Abdominal Exam: Rebound (LLQ, RUQ), Soft, Tenderness (LLQ). absent: Distended, Firm, Guarding, Rigid Additional comments: Zunilda incision, LLQ transverse incision - Extremities Exam Extremities exam: Positive for: pedal pulses present. Negative for: calf tenderness, pedal edema - Neurological Exam Neurological exam: Alert, Oriented x3 - Psychiatric Exam Psychiatric exam: Normal Affect, Normal Mood Results - Vital Signs Recent Vital Signs: Last Vital Signs Temp 96 F L 04/05/18 12:24 Pulse 93 H 04/05/18 17:01 Resp 16 04/05/18 17:01 BP 120/91 H 04/05/18 17:01 Pulse Ox 100 04/05/18 17:01 - Labs Result Diagrams: 04/05/18 12:50 04/05/18 12:50 Labs: Laboratory Results - last 24 hr 04/05/18 04/05/18 12:50 12:50 WBC 7.3 RBC 5.01 Hgb 14.0 Hct 41.8 MCV 83.3 MCH 27.8 MCHC 33.4 RDW 15.1 H Plt Count 301 MPV 8.9 Neut % (Auto) 66.0 Lymph % (Auto) 22.7 [place] % (Auto) 10.5 H Eos % (Auto) 0.6 Baso % (Auto) 0.2 Neut # (Auto) 4.8 Lymph # (Auto) 1.7 [place] # (Auto) 0.8 Eos # (Auto) 0.0 Baso # (Auto) 0.0 Sodium 138 Potassium 3.1 L Chloride 99 Carbon Dioxide 27 Anion Gap 15 BUN 5 L Creatinine 0.4 L Est GFR ( Amer) > 60 Est GFR (Non-Af Amer) > 60 Random Glucose 199 H Calcium 10.5 H Total Bilirubin 0.6 AST 44 H ALT 52 D Alkaline Phosphatase 209 H Total Protein 8.8 H Albumin 4.5 Globulin 4.3 H Albumin/Globulin Ratio 1.0 Lipase 40 - Imaging and Cardiology CT scan - abdomen Status: Image reviewed by me, Report reviewed by me Chest x-ray Status: Image reviewed by me Assessment & Plan - Assessment and Plan (Free Text) Assessment: 47F w. hx of metastatic colon CA s/p L colectomy, oopherectomy, attempted Liver resection now w. SBO 2/2 questionable internal hernia -NPO -NGT low intermittent suction -IVF -Strict Is:Os -Serial abd exams -Explained to pt that failure of pain to resolve or exacerbation of pain will likely require surgical intervention -will follow closely -d/w attending Parul PGY4
[2018-04-05 17:33] LABS: ABG ALLEN TEST YES; ARTERIAL BLOOD GAS HCO3 27.3 mmol/L (21-28); ARTERIAL BLOOD GAS O2 SAT 92.8 % (95-98); ARTERIAL BLOOD GAS PCO2 44 mm/Hg (35-45); ARTERIAL BLOOD GAS PH 7.42 (7.35-7.45); ARTERIAL BLOOD GAS PO2 55 mm/Hg (80-100); ARTERIAL BLOOD GAS TCO2 29.9 mmol/L (22-28)
--- NOTE | 2018-04-05 18:10 | RAD ---
Date of service: 04/05/2018 HISTORY: s/p NGT COMPARISON: 08/24/2017 FINDINGS: LUNGS: No active pulmonary disease. PLEURA: No significant pleural effusion identified, no pneumothorax apparent. CARDIOVASCULAR: No radiographic findings to suggest acute or significant cardiovascular disease. Venous access catheter in stable, satisfactory position. OSSEOUS STRUCTURES: No significant abnormalities. VISUALIZED UPPER ABDOMEN: Incompletely visualized nasogastric tube. Despite extensive manipulation of the images the nasogastric tube is not seen with clarity beyond the distal esophagus/gastroesophageal junction. OTHER FINDINGS: None. IMPRESSION: Status post nasogastric tube placement. Technical factors preclude accurate assessment of the course of the tube in the esophagus and the tip. A follow-up overpenetrated images recommended.
[2018-04-05] MEDS: Insulin Lispro (humaLOG) 100 Units/ml Inj SC SCH ×2 (18:25→23:03)
[2018-04-05] MEDS: Potassium Chloride 20 mEq 100 ML IVPB SCH ×2 (18:56→21:00)
[2018-04-05 19:12] LABS: INR 1.2; PROTHROMBIN TIME 13.8 Seconds (9.8-13.1)
[2018-04-05 19:15] LABS: PARTIAL THROMBOPLASTIN TIME 30.1 Seconds (25.6-37.1)
--- NOTE | 2018-04-05 19:46 | CP.PCM.CON ---
History of Present Illness - History of Present Illness History of Present Illness: Surgery: Dr Park CC: Abd pain HPI: 47F w. hx of colon CA w. mets to liver and ovaries received neoadjuvant chemo in 2016 with subsequent robotic L colectomy and oopherectomy. Liver resection was attempted but had to be aborted due to bleeding prompting pt to receive TACE. Pt presents with acute onset of abdominal pain which started yesterday morning. The pain is constant and has been increasing in severity despite taking dilaudid 2mg PO q2 PRN and oxycontin 60mg PO TID. Pain is diffuse. Pain has been accompanied by multiple episodes of N/V. Pt is passing flatus. Last BM was yesterday. She reports subjective fevers. CT scan done in ED showed SBO in LLQ with probable internal hernia. PMH: Colon CA w. mets to liver and ovaries, HTN, DM PSH: Robotic L colectomy w. oopherectomy, attempted liver resection, Cervical and lumbar fusion Meds: MAR reviewed ALL: PCN, vanco > rash Social: No ETOH/tobacco/drugs Fhx: Non-contributory Review of Systems - Review of Systems All systems: reviewed and no additional remarkable complaints except (HPI) Past Patient History - Infectious Disease Hx of Infectious Diseases: None - Tetanus Immunizations Tetanus Immunization: Unknown - Past Medical History & Family History Past Medical History?: Yes - Past Social History Smoking Status: Never Smoked - CARDIAC Hx Atrial Fibrillation: No Hx Cardia Arrhythmia: No Hx Congestive Heart Failure: No Hx Hypercholesterolemia: No Hx Hypertension: Yes Hx Mitral Valve Prolapse: No Hx Peripheral Edema: No - PULMONARY Hx Asthma: No Hx Bronchitis: No Hx Chronic Obstructive Pulmonary Disease (COPD): No Hx Emphysema: No Hx Pneumonia: No Hx Pulmonary Embolism: No Hx Sleep Apnea: No - NEUROLOGICAL Hx Alzheimer's Disease: No Hx Dementia: No Hx Migraine: No Hx Multiple Sclerosis: No Hx Parkinson's Disease: No Hx Seizures: No Hx Transient Ischemic Attacks (TIA): No - HEENT Hx HEENT Problems: No - RENAL Hx Chronic Kidney Disease: No Hx Kidney Stones: No - ENDOCRINE/METABOLIC Hx Endocrine Disorders: Yes Hx Diabetes Mellitus Type 2: Yes Hx Hyperthyroidism: No Hx Hypothyroidism: No - HEMATOLOGICAL/ONCOLOGICAL Hx AIDS: No Hx Anemia: No Hx Blood Transfusions: Yes Hx Blood Transfusion Reaction: No Hx Human Immunodeficiency Virus (HIV): No Hx Sickle Cell Disease: No - INTEGUMENTARY Hx Dermatological Problems: No - MUSCULOSKELETAL/RHEUMATOLOGICAL Hx Arthritis: Yes Hx Back Pain: Yes Hx Falls: Yes Hx Fractures: No Hx Osteoporosis: No Hx Rheumatoid Arthritis: No - GASTROINTESTINAL Hx Crohn's Disease: No Hx Diverticulitis: No Hx Gall Bladder Disease: No Hx Pancreatitis: No Other/Comment: Colon CA with mets to liver and ovaries - GENITOURINARY/GYNECOLOGICAL Hx Genitourinary Disorders: No Hx Sexually Transmitted Disorders: No - PSYCHIATRIC Hx Anxiety: Yes Hx Bipolar Disorder: No Hx Depression: Yes Hx Post Traumatic Stress Disorder: No Hx Schizophrenia: No Hx Substance Use: No - SURGICAL HISTORY Hx Appendectomy: No Hx Carotid Endarterectomy: No Hx Cholecystectomy: No Hx Coronary Artery Bypass Graft: No Hx Coronary Stent: No Hx Tonsillectomy: No Other/Comment: Attempted liver resection. Robotic left colectomy with oophorectomy. Cervical and lumba fusion. Endoscopy - ANESTHESIA Hx Anesthesia: Yes Hx Anesthesia Reactions: No Hx Malignant Hyperthermia: No Meds Allergies/Adverse Reactions: Allergies Allergy/AdvReac Type Severity Reaction Status Date / Time penicillin G Allergy RASH Verified 04/05/18 12:23 vancomycin Allergy RASH Verified 04/05/18 12:23 - Medications Medications: Current Medications Dextrose (Dextrose 50% Inj) 0 ml IV STAT PRN; Protocol PRN Reason: Hypoglycemia Protocol Dextrose (Glutose 15) 0 gm PO ONCE PRN; Protocol PRN Reason: Hypoglycemia Protocol Glucagon (Glucagen Diagnostic Kit) 0 mg IM STAT PRN; Protocol PRN Reason: Hypoglycemia Protocol Hydromorphone HCl (Dilaudid) 2 mg IVP Q3 PRN PRN Reason: Pain, severe (8-10) Dextrose/Sodium Chloride (Dextrose 5%/0.45% Ns 1000 Ml) 1,000 mls @ 200 mls/hr IV .Q5H REYES Last Admin: 04/05/18 16:53 Dose: 200 mls/hr Potassium Chloride (Potassium Chloride 20 Meq/100 Ml) 100 mls @ 50 mls/hr IVPB Q2 REYES Stop: 04/05/18 21:59 Last Admin: 04/05/18 18:56 Dose: 50 mls/hr Insulin Human Lispro (Humalog) 0 units SC ACCU-CHECK RYEES; Protocol Last Admin: 04/05/18 18:25 Dose: Not Given Lidocaine (Lidoderm) 1 ea TD DAILY REYES Morphine Sulfate (Morphine) 2 mg IVP Q4 PRN PRN Reason: Pain, moderate (4-7) Morphine Sulfate (Morphine) 1 mg IVP Q4 PRN PRN Reason: Pain, Mild (1-3) Ondansetron HCl (Zofran Inj) 2 mg IVP Q6 PRN PRN Reason: Nausea/Vomiting Last Admin: 04/05/18 17:03 Dose: 2 mg Physical Exam - Constitutional Appears: Other (uncomfortable) - Head Exam Head Exam: ATRAUMATIC, NORMOCEPHALIC - Eye Exam Eye Exam: EOMI - ENT Exam ENT Exam: Mucous Membranes Dry - Neck Exam Neck exam: Positive for: Full Rom - Respiratory Exam Respiratory Exam: NORMAL BREATHING PATTERN. absent: Accessory Muscle Use, Respiratory Distress - Cardiovascular Exam Cardiovascular Exam: Tachycardia - GI/Abdominal Exam GI & Abdominal Exam: Rebound (LLQ, RUQ), Soft, Tenderness (LLQ). absent: Distended, Firm, Guarding, Rigid Additional comments: Zunilda incision, transverse LLQ incision - Extremities Exam Extremities exam: Negative for: calf tenderness, pedal edema - Neurological Exam Neurological exam: Alert, Oriented x3 - Psychiatric Exam Psychiatric exam: Normal Affect, Normal Mood - Skin Skin Exam: Normal Color, Warm Results - Vital Signs Recent Vital Signs: Last Vital Signs Temp 98.1 F 04/05/18 18:45 Pulse 80 04/05/18 18:45 Resp 17 04/05/18 18:45 BP 148/91 H 04/05/18 18:45 Pulse Ox 99 04/05/18 18:45 - Labs Result Diagrams: 04/05/18 12:50 04/05/18 12:50 Labs: Laboratory Results - last 24 hr 04/05/18 04/05/18 04/05/18 12:50 12:50 17:27 WBC 7.3 RBC 5.01 Hgb 14.0 Hct 41.8 MCV 83.3 MCH 27.8 MCHC 33.4 RDW 15.1 H Plt Count 301 MPV 8.9 Neut % (Auto) 66.0 Lymph % (Auto) 22.7 [place] % (Auto) 10.5 H Eos % (Auto) 0.6 Baso % (Auto) 0.2 Neut # (Auto) 4.8 Lymph # (Auto) 1.7 [place] # (Auto) 0.8 Eos # (Auto) 0.0 Baso # (Auto) 0.0 PT INR APTT pCO2 44 pO2 55 L HCO3 27.3 ABG pH 7.42 ABG Total CO2 29.9 H ABG O2 Saturation 92.8 L ABG Base Excess 3.4 H Norm Test Yes ABG Potassium 3.0 L Glucose 172 H Lactate 1.3 FiO2 21.0 Sodium 138 134.0 Potassium 3.1 L Chloride 99 98.0 Carbon Dioxide 27 Anion Gap 15 BUN 5 L Creatinine 0.4 L Est GFR ( Amer) > 60 Est GFR (Non-Af Amer) > 60 POC Glucose (mg/dL) Random Glucose 199 H Calcium 10.5 H Total Bilirubin 0.6 AST 44 H ALT 52 D Alkaline Phosphatase 209 H Total Protein 8.8 H Albumin 4.5 Globulin 4.3 H Albumin/Globulin Ratio 1.0 Lipase 40 Arterial Blood Potassium 3.0 L 04/05/18 04/05/18 18:09 18:39 WBC RBC Hgb Hct MCV MCH MCHC RDW Plt Count MPV Neut % (Auto) Lymph % (Auto) [place] % (Auto) Eos % (Auto) Baso % (Auto) Neut # (Auto) Lymph # (Auto) [place] # (Auto) Eos # (Auto) Baso # (Auto) PT 13.8 H INR 1.2 APTT 30.1 pCO2 pO2 HCO3 ABG pH ABG Total CO2 ABG O2 Saturation ABG Base Excess Norm Test ABG Potassium Glucose Lactate FiO2 Sodium Potassium Chloride Carbon Dioxide Anion Gap BUN Creatinine Est GFR ( Amer) Est GFR (Non-Af Amer) POC Glucose (mg/dL) 169 H Random Glucose Calcium Total Bilirubin AST ALT Alkaline Phosphatase Total Protein Albumin Globulin Albumin/Globulin Ratio Lipase Arterial Blood Potassium - Imaging and Cardiology CT scan - abdomen Status: Image reviewed by me, Report reviewed by me Chest x-ray Status: Image reviewed by me Assessment & Plan - Assessment and Plan (Free Text) Assessment: 47F w. hx of metastatic colon CA s/p L colectomy, oopherectomy, attempted Liver resection now w. SBO 2/2 questionable internal hernia -NPO -NGT low intermittent suction -IVF -Strict Is:Os -Serial abd exams -Explained to pt that failure of pain to resolve or exacerbation of pain will likely require surgical intervention -will follow closely -d/w attending Parul PGY4
[2018-04-06] MEDS: Dextrose 5%/0.45% NS 1,000 ML IV SCH ×3 (02:00→12:57)
[2018-04-06] MEDS: Insulin Lispro (humaLOG) 100 Units/ml Inj SC SCH ×4 (07:57→22:12)
[2018-04-06 07:58] LABS: HEMOGLOBIN 13.9 g/dL (12.0-16.0); MEAN CELL VOLUME 83.9 fl (81.0-99.0); MEAN CORPUSCULAR HEMOGLOBIN 28.2 pg (27.0-31.0); MEAN CORPUSCULAR HGB CONC 33.6 g/dL (33.0-37.0); RBC 4.94 Mil/uL (3.80-5.20); RED CELL DISTRIBUTION WIDTH 15.4 % (11.5-14.5); WHITE BLOOD COUNT 6.5 K/uL (4.8-10.8)
[2018-04-06] MEDS: Lidocaine 5% Patch TD SCH (07:59)
--- NOTE | 2018-04-06 08:31 | CP.PCM.PN ---
Subjective - Date & Time of Evaluation Date of Evaluation: 04/06/18 Time of Evaluation: 08:20 - Subjective Subjective: Surgery: Dr. Park Pt seen and examined. Pt states that her pain is worse. She had one episode of emesis overnight. No further episodes of flatus or BM. Objective - Vital Signs/Intake and Output Vital Signs (last 24 hours): Temp Pulse Resp BP Pulse Ox 98.2 F 88 20 149/90 99 04/06/18 08:01 04/06/18 08:01 04/06/18 08:01 04/06/18 08:01 04/06/18 08:01 Intake and Output: 04/06/18 04/06/18 06:59 18:59 Intake Total 2400 Output Total 550 Balance 1850 - Medications Medications: Current Medications Dextrose (Dextrose 50% Inj) 0 ml IV STAT PRN; Protocol PRN Reason: Hypoglycemia Protocol Dextrose (Glutose 15) 0 gm PO ONCE PRN; Protocol PRN Reason: Hypoglycemia Protocol Glucagon (Glucagen Diagnostic Kit) 0 mg IM STAT PRN; Protocol PRN Reason: Hypoglycemia Protocol Hydromorphone HCl (Dilaudid) 2 mg IVP Q3 PRN PRN Reason: Pain, severe (8-10) Last Admin: 04/06/18 07:57 Dose: 2 mg Dextrose/Sodium Chloride (Dextrose 5%/0.45% Ns 1000 Ml) 1,000 mls @ 200 mls/hr IV .Q5H REYES Last Admin: 04/06/18 06:51 Dose: 200 mls/hr Insulin Human Lispro (Humalog) 0 units SC ACCU-CHECK REYES; Protocol Last Admin: 04/06/18 07:57 Dose: 2 units Lidocaine (Lidoderm) 1 ea TD DAILY REYES Last Admin: 04/06/18 07:59 Dose: 1 ea Morphine Sulfate (Morphine) 2 mg IVP Q4 PRN PRN Reason: Pain, moderate (4-7) Morphine Sulfate (Morphine) 1 mg IVP Q4 PRN PRN Reason: Pain, Mild (1-3) Ondansetron HCl (Zofran Inj) 2 mg IVP Q6 PRN PRN Reason: Nausea/Vomiting Last Admin: 04/06/18 08:07 Dose: 2 mg - Labs Labs: 04/06/18 07:50 04/05/18 12:50 PT 13.8 Seconds (9.8-13.1) H 04/05/18 18:39 INR 1.2 04/05/18 18:39 APTT 30.1 Seconds (25.6-37.1) 04/05/18 18:39 - Constitutional Appears: Other (uncomfortable) - Head Exam Head Exam: ATRAUMATIC, NORMOCEPHALIC - Eye Exam Eye Exam: EOMI - ENT Exam ENT Exam: Mucous Membranes Moist Additional comments: NGT in place - Respiratory Exam Respiratory Exam: NORMAL BREATHING PATTERN. absent: Accessory Muscle Use, Respiratory Distress - GI/Abdominal Exam GI & Abdominal Exam: Soft, Tenderness (LLQ), Rebound (LLQ). absent: Distended, Firm, Guarding, Rigid - Extremities Exam Extremities Exam: absent: Calf Tenderness, Pedal Edema - Neurological Exam Neurological Exam: Alert, Awake, Oriented x3 Assessment and Plan - Assessment and Plan (Free Text) Assessment: 47F w. SBO 2/2 possible internal hernia -NGT: 400cc/24hr bilious plus 1 episode of 150cc emesis -Keep NGT to suction -NPO -IVF -serial exams -Dr. Park to assess this AM, possible OR -d/w attending Zeabdullahiitis PGY4
[2018-04-06 08:35] LABS: BLOOD UREA NITROGEN < 2 mg/dl (7-17); CALCIUM 9.5 mg/dL (8.4-10.2); GFR NON-AFRICAN AMERICAN > 60
--- NOTE | 2018-04-06 09:03 | CP.PCM.PN ---
Subjective - Date & Time of Evaluation Date of Evaluation: 04/06/18 Time of Evaluation: 08:40 - Subjective Subjective: 47 yo woman well known to me from outpatient pain clinic is admitted for abdominal pain and found to have SBO. Awaiting surgical evaluation. Patient has had a difficult course in terms of pain, requiring multiple hospitalizations and halting of chemotherapy. She did have two courses of chemotherapy during the past month, until the current bout of pain that led to her admission. The pain is the same as her previous abdominal pain, though slightly lower in terms of location. As an outpatient, her pain regimen was recently changed to MS Contin 60mg q8h and Dilaudid 4mg q6h PRN. Since admission, she had been on Dilaudid 2mg q3h, which she states help for about 2.5 hours. Objective - Vital Signs/Intake and Output Vital Signs (last 24 hours): Temp Pulse Resp BP Pulse Ox 98.2 F 88 20 149/90 99 04/06/18 08:01 04/06/18 08:01 04/06/18 08:01 04/06/18 08:01 04/06/18 08:01 Intake and Output: 04/06/18 04/06/18 06:59 18:59 Intake Total 2400 Output Total 550 Balance 1850 - Medications Medications: Current Medications Dextrose (Dextrose 50% Inj) 0 ml IV STAT PRN; Protocol PRN Reason: Hypoglycemia Protocol Dextrose (Glutose 15) 0 gm PO ONCE PRN; Protocol PRN Reason: Hypoglycemia Protocol Glucagon (Glucagen Diagnostic Kit) 0 mg IM STAT PRN; Protocol PRN Reason: Hypoglycemia Protocol Hydromorphone HCl (Dilaudid) 2 mg IVP Q3 PRN PRN Reason: Pain, severe (8-10) Last Admin: 04/06/18 07:57 Dose: 2 mg Dextrose/Sodium Chloride (Dextrose 5%/0.45% Ns 1000 Ml) 1,000 mls @ 200 mls/hr IV .Q5H REYES Last Admin: 04/06/18 06:51 Dose: 200 mls/hr Potassium Chloride (Potassium Chloride 20 Meq/100 Ml) 100 mls @ 50 mls/hr IVPB Q2 REYES Stop: 04/06/18 13:59 Insulin Human Lispro (Humalog) 0 units SC ACCU-CHECK REYES; Protocol Last Admin: 04/06/18 07:57 Dose: 2 units Lidocaine (Lidoderm) 1 ea TD DAILY REYES Last Admin: 04/06/18 07:59 Dose: 1 ea Ondansetron HCl (Zofran Inj) 2 mg IVP Q6 PRN PRN Reason: Nausea/Vomiting Last Admin: 04/06/18 08:07 Dose: 2 mg - Labs Labs: 04/06/18 07:50 04/06/18 07:50 PT 13.8 Seconds (9.8-13.1) H 04/05/18 18:39 INR 1.2 04/05/18 18:39 APTT 30.1 Seconds (25.6-37.1) 04/05/18 18:39 - GI/Abdominal Exam GI & Abdominal Exam: Soft, Tenderness Assessment and Plan (1) Abdominal pain Assessment & Plan: 47 yo woman w/ chronic pain on chronic opioid theray is admitted for increased abdominal pain and SBO. - increase Dilaudid to 2.5mg q3h PRN - f/u surgical evaluation Status: Acute
--- NOTE | 2018-04-06 10:31 | CP.PCM.PN ---
Subjective - Date & Time of Evaluation Date of Evaluation: 04/06/18 Time of Evaluation: 09:10 - Subjective Subjective: Patient seen and examined this morning at bedside. Mild distressed due to abdominal pain, NG tube in place, reports no improvement in pain. reports 1xvomiting overnight, denies f/c/d. Patient is NPO NGT: 400cc/24hr bilious plus 1 episode of 150cc emesis Objective - Vital Signs/Intake and Output Vital Signs (last 24 hours): Temp Pulse Resp BP Pulse Ox 98.2 F 88 20 149/90 99 04/06/18 08:01 04/06/18 08:01 04/06/18 08:01 04/06/18 08:01 04/06/18 08:01 Intake and Output: 04/06/18 04/06/18 06:59 18:59 Intake Total 2400 Output Total 550 Balance 1850 - Medications Medications: Current Medications Dextrose (Dextrose 50% Inj) 0 ml IV STAT PRN; Protocol PRN Reason: Hypoglycemia Protocol Dextrose (Glutose 15) 0 gm PO ONCE PRN; Protocol PRN Reason: Hypoglycemia Protocol Glucagon (Glucagen Diagnostic Kit) 0 mg IM STAT PRN; Protocol PRN Reason: Hypoglycemia Protocol Hydromorphone HCl (Dilaudid) 2.5 mg IVP Q3 PRN PRN Reason: Pain, severe (8-10) Dextrose/Sodium Chloride (Dextrose 5%/0.45% Ns 1000 Ml) 1,000 mls @ 200 mls/hr IV .Q5H REYES Last Admin: 04/06/18 06:51 Dose: 200 mls/hr Potassium Chloride (Potassium Chloride 20 Meq/100 Ml) 100 mls @ 50 mls/hr IVPB Q2 REYES Stop: 04/06/18 13:59 Insulin Human Lispro (Humalog) 0 units SC ACCU-CHECK REYES; Protocol Last Admin: 04/06/18 07:57 Dose: 2 units Lidocaine (Lidoderm) 1 ea TD DAILY REYES Last Admin: 04/06/18 07:59 Dose: 1 ea Ondansetron HCl (Zofran Inj) 2 mg IVP Q6 PRN PRN Reason: Nausea/Vomiting Last Admin: 04/06/18 08:07 Dose: 2 mg - Labs Labs: 04/06/18 07:50 04/06/18 07:50 PT 13.8 Seconds (9.8-13.1) H 18 18:39 INR 1.2 18 18:39 APTT 30.1 Seconds (25.6-37.1) 04/05/18 18:39 - Constitutional Appears: In Acute Distress (mild) - Head Exam Head Exam: NORMAL INSPECTION - Eye Exam Eye Exam: Normal appearance - ENT Exam ENT Exam: Mucous Membranes Moist - Neck Exam Neck Exam: Normal Inspection - Respiratory Exam Respiratory Exam: Clear to Ausculation Bilateral, NORMAL BREATHING PATTERN - Cardiovascular Exam Cardiovascular Exam: REGULAR RHYTHM, +S1, +S2 - GI/Abdominal Exam GI & Abdominal Exam: Guarding (doesn't want abdominal exam, due to pain ), Hyperactive Bowel Sounds - Extremities Exam Extremities Exam: Normal Capillary Refill, Normal Inspection. absent: Pedal Edema, Tenderness - Neurological Exam Neurological Exam: Alert, Awake, Oriented x3 - Psychiatric Exam Psychiatric exam: Normal Affect - Skin Skin Exam: Normal Color Assessment and Plan - Assessment and Plan (Free Text) Assessment: A/P: 47 y/o F with PMH of HTN, chronic back/abdominal pain with multiple nerves blocks (Sees pain management as out patient), Colon cancer w/ metastasis to liver (on chemotherapy), Depression, Fibromyalgia, GERD admitted to the [facility] for evaluation and treatment of SBO. Small Bowel Obstruction possibly due to internal hernia - Afebrile - CT: Mechanical small-bowel obstruction with point of obstruction identified in the left lower quadrant of the abdomen possibly due to internal hernia - Surgery consult, Dr. Denson/Dr. Park, recommendations appreciated - C/w NG tube - NPO, C/w IVF, Pain control: Morphine and Hydromorphone, Zofran for nausea and vomiting - Possible surgical intervention today Hypokalemia - Replete as needed Chronic back pain - 2/2 metastatic colon Ca - Chronic, H/O multiple lumbar surgeries. - Lidoderm patch for back pain - Pain management consult, Dr. Bae,recommendations appreciated - C/w pain management: Hydromorphine 2.5mg Q3PRN NIDDM - Controlled - Last A1c 7.7 on 11/19/17 - Low dose sliding scale - Hold metformin - Hypoglycemia protocol HTN - Controlled - Hold Amlodipine 10 mg QD - Monitor vitals Fibromyalgia - Controlled - Hold Gabapentin 300 mg TID - Hold Duloxetine 60 mg PO HS DVT prophylaxis - SCD for now, possible surgical intervention
[2018-04-06] MEDS: Potassium Chloride 20 mEq 100 ML IVPB SCH ×2 (10:55→11:00)
[2018-04-06] MEDS: Lactated Ringer's 1,000 ML IV SCH ×2 (13:58→22:11)
[2018-04-07] MEDS: Lactated Ringer's 1,000 ML IV SCH (06:00)
[2018-04-07 07:03] LABS: HEMOGLOBIN 14.9 g/dL (12.0-16.0); MEAN CELL VOLUME 83.5 fl (81.0-99.0); MEAN CORPUSCULAR HEMOGLOBIN 27.9 pg (27.0-31.0); MEAN CORPUSCULAR HGB CONC 33.4 g/dL (33.0-37.0); RBC 5.35 Mil/uL (3.80-5.20); RED CELL DISTRIBUTION WIDTH 15.3 % (11.5-14.5); WHITE BLOOD COUNT 7.5 K/uL (4.8-10.8)
[2018-04-07 07:25] LABS: ALB/GLOB RATIO 1.1 (1.0-2.1); ALBUMIN 4.3 g/dL (3.5-5.0); ALT/SGPT 63 U/L (9-52); AST/SGOT 61 U/L (14-36); BLOOD UREA NITROGEN 9 mg/dl (7-17); CALCIUM 10.1 mg/dL (8.4-10.2); GFR NON-AFRICAN AMERICAN > 60
[2018-04-07] MEDS: Insulin Lispro (humaLOG) 100 Units/ml Inj SC SCH ×4 (07:31→22:17)
--- NOTE | 2018-04-07 08:42 | CP.PCM.PN ---
Subjective - Date & Time of Evaluation Date of Evaluation: 04/07/18 Time of Evaluation: 08:40 - Subjective Subjective: Surgery: Dr. Park Pt seen and examined. Pain slightly improved. Continues to have large volume NGT output in addition to episodes of vomiting. No Flatus/BM. Objective - Vital Signs/Intake and Output Vital Signs (last 24 hours): Temp Pulse Resp BP Pulse Ox 98.5 F 103 H 20 130/93 H 97 04/07/18 07:57 04/07/18 07:57 04/07/18 07:57 04/07/18 07:57 04/07/18 07:57 - Medications Medications: Current Medications Dextrose (Dextrose 50% Inj) 0 ml IV STAT PRN; Protocol PRN Reason: Hypoglycemia Protocol Dextrose (Glutose 15) 0 gm PO ONCE PRN; Protocol PRN Reason: Hypoglycemia Protocol Glucagon (Glucagen Diagnostic Kit) 0 mg IM STAT PRN; Protocol PRN Reason: Hypoglycemia Protocol Hydromorphone HCl (Dilaudid) 1.5 mg IVP Q3 PRN PRN Reason: Pain, severe (8-10) Last Admin: 04/07/18 08:06 Dose: 1.5 mg Insulin Human Lispro (Humalog) 0 units SC ACCU-CHECK REYES; Protocol Last Admin: 04/07/18 07:31 Dose: Not Given Ketorolac Tromethamine (Toradol) 30 mg IVP Q6 REYES Stop: 04/11/18 16:01 Last Admin: 04/07/18 04:06 Dose: 30 mg Lidocaine (Lidoderm) 1 ea TD DAILY REYES Last Admin: 04/06/18 07:59 Dose: 1 ea Ondansetron HCl (Zofran Inj) 2 mg IVP Q6 PRN PRN Reason: Nausea/Vomiting Last Admin: 04/07/18 05:20 Dose: 2 mg - Labs Labs: 04/07/18 05:45 04/07/18 05:45 PT 13.8 Seconds (9.8-13.1) H 04/05/18 18:39 INR 1.2 04/05/18 18:39 APTT 30.1 Seconds (25.6-37.1) 04/05/18 18:39 - Constitutional Appears: Other (Uncomforatable) - Head Exam Head Exam: ATRAUMATIC, NORMOCEPHALIC - Eye Exam Eye Exam: EOMI - ENT Exam ENT Exam: Mucous Membranes Dry - Neck Exam Neck Exam: Full ROM - Respiratory Exam Respiratory Exam: NORMAL BREATHING PATTERN. absent: Accessory Muscle Use, Respiratory Distress - GI/Abdominal Exam GI & Abdominal Exam: Soft, Tenderness (LLQ). absent: Distended, Firm, Guarding, Rigid, Rebound - Extremities Exam Extremities Exam: absent: Calf Tenderness, Pedal Edema - Neurological Exam Neurological Exam: Alert, Awake, Oriented x3 - Psychiatric Exam Psychiatric exam: Normal Affect, Normal Mood Assessment and Plan - Assessment and Plan (Free Text) Assessment: 47F w. hx of metastatic colon CA s/p L colectomy and oopherectomy presenting with SBO 2/2 possible internal hernia -NGT: 1400cc/12hr bilious and ~250cc emesis -Keep NGT to sxn -Head of bed 30 degrees -Limit narcotics -Clamp NGT 15-20min and encourage ambulation TID -serial abd exams -will continue to follow -d/w attending Parul PGY4
[2018-04-07] MEDS: Lidocaine 5% Patch TD SCH (08:54)
[2018-04-07] MEDS ORDERED: Potassium Chloride 20 mEq 100 ML IVPB SCH (10:00)
[2018-04-07] MEDS: Potassium Ch 20mEq in D5-1/2NS 1,000 ML IV SCH ×2 (10:00→20:14)
[2018-04-07] MEDS: Potassium Chloride 20 mEq 100 ML IVPB SCH ×2 (10:22→12:28)
--- NOTE | 2018-04-07 10:40 | CP.PCM.PN ---
<Ilir De León - Last Filed: 04/07/18 11:12> Subjective - Date & Time of Evaluation Date of Evaluation: 04/07/18 Time of Evaluation: 10:36 - Subjective Subjective: 47 YO F seen in bed resting comfortably states that she continues to have pain but is less then yesterday, and medications are controlling her pain. She continues to have large output via NG tube greenish in color and is still having some vomiting. - Denies any chest pain, SOB, N/V. She has not passed any gas or had a bowl movement yet. Objective - Vital Signs/Intake and Output Vital Signs (last 24 hours): Temp Pulse Resp BP Pulse Ox 98.5 F 103 H 20 130/93 H 97 04/07/18 07:57 04/07/18 07:57 04/07/18 07:57 04/07/18 07:57 04/07/18 07:57 - Medications Medications: Current Medications Dextrose (Dextrose 50% Inj) 0 ml IV STAT PRN; Protocol PRN Reason: Hypoglycemia Protocol Dextrose (Glutose 15) 0 gm PO ONCE PRN; Protocol PRN Reason: Hypoglycemia Protocol Glucagon (Glucagen Diagnostic Kit) 0 mg IM STAT PRN; Protocol PRN Reason: Hypoglycemia Protocol Hydromorphone HCl (Dilaudid) 1.5 mg IVP Q3 PRN PRN Reason: Pain, severe (8-10) Last Admin: 04/07/18 08:06 Dose: 1.5 mg Potassium Chloride/Dextrose/Sod Cl (Potassium Chl 20 Meq In D5-1/2ns) 1,000 mls @ 125 mls/hr IV .Q8H REYES Stop: 04/08/18 08:39 Potassium Chloride (Potassium Chloride 20 Meq/100 Ml) 100 mls @ 50 mls/hr IVPB Q2 REYES Stop: 04/07/18 11:59 Last Admin: 04/07/18 10:22 Dose: 50 mls/hr Insulin Human Lispro (Humalog) 0 units SC ACCU-CHECK REYES; Protocol Last Admin: 04/07/18 07:31 Dose: Not Given Ketorolac Tromethamine (Toradol) 30 mg IVP Q6 REYES Stop: 04/11/18 16:01 Last Admin: 04/07/18 09:57 Dose: 30 mg Lidocaine (Lidoderm) 1 ea TD DAILY REYES Last Admin: 04/07/18 08:54 Dose: 1 ea Ondansetron HCl (Zofran Inj) 2 mg IVP Q6 PRN PRN Reason: Nausea/Vomiting Last Admin: 04/07/18 05:20 Dose: 2 mg - Labs Labs: 04/07/18 05:45 04/07/18 05:45 PT 13.8 Seconds (9.8-13.1) H 04/05/18 18:39 INR 1.2 04/05/18 18:39 APTT 30.1 Seconds (25.6-37.1) 04/05/18 18:39 - Constitutional Appears: No Acute Distress - Head Exam Head Exam: ATRAUMATIC, NORMAL INSPECTION - ENT Exam ENT Exam: Mucous Membranes Dry - Respiratory Exam Respiratory Exam: Clear to Ausculation Bilateral. absent: Rhonchi, Wheezes - Cardiovascular Exam Cardiovascular Exam: REGULAR RHYTHM, +S1, +S2 - GI/Abdominal Exam GI & Abdominal Exam: Soft Additional comments: Diffuse abdominal tenderness. More tenderness on LLQ - Extremities Exam Extremities Exam: absent: Calf Tenderness - Neurological Exam Neurological Exam: Alert, Awake, CN II-XII Intact, Oriented x3 Assessment and Plan - Assessment and Plan (Free Text) Assessment: A/P: 47 y/o F with PMH of HTN, chronic back/abdominal pain with multiple nerves blocks (Sees pain management as out patient), Colon cancer w/ metastasis to liver (on chemotherapy), Depression, Fibromyalgia, GERD admitted to the [facility] for evaluation and treatment of SBO. Small Bowel Obstruction possibly due to internal hernia - Afebrile - NGT suction: 1400cc/12 hr billious fluid - CT: Mechanical small-bowel obstruction with point of obstruction identified in the left lower quadrant of the abdomen possibly due to internal hernia - Surgery consult, Dr. Denson/Dr. Park, recommendations appreciated - NPO, C/w IVF, Pain control: Morphine and Hydromorphone, Zofran for nausea and vomiting - Will follow up with surgery reccomendations. Plan for clamping NGT 15-20 min and encourage ambulation. Hypokalemia - K+: 2.9 - Will replete and check AM labs Chronic back pain - 2/2 metastatic colon Ca - Chronic, H/O multiple lumbar surgeries. - Lidoderm patch for back pain - Pain management consult, Dr. Bae,recommendations appreciated - C/w pain management: Hydromorphine 2.5mg Q3PRN NIDDM - Controlled - Last A1c 7.7 on 11/19/17 - Low dose sliding scale - Hold metformin - Hypoglycemia protocol HTN - Controlled - Hold Amlodipine 10 mg QD - Monitor vitals Fibromyalgia - Controlled - Hold Gabapentin 300 mg TID - Hold Duloxetine 60 mg PO HS DVT prophylaxis - SCD for now. Since Surgery may do surgical intervention encourage ambulation <Danis Salmeron - Last Filed: 04/07/18 11:17> Objective - Vital Signs/Intake and Output Vital Signs (last 24 hours): Temp Pulse Resp BP Pulse Ox 98.5 F 103 H 20 130/93 H 97 04/07/18 07:57 04/07/18 07:57 04/07/18 07:57 04/07/18 07:57 04/07/18 07:57 - Medications Medications: Current Medications Dextrose (Dextrose 50% Inj) 0 ml IV STAT PRN; Protocol PRN Reason: Hypoglycemia Protocol Dextrose (Glutose 15) 0 gm PO ONCE PRN; Protocol PRN Reason: Hypoglycemia Protocol Glucagon (Glucagen Diagnostic Kit) 0 mg IM STAT PRN; Protocol PRN Reason: Hypoglycemia Protocol Hydromorphone HCl (Dilaudid) 1.5 mg IVP Q3 PRN PRN Reason: Pain, severe (8-10) Last Admin: 04/07/18 10:58 Dose: 1.5 mg Potassium Chloride/Dextrose/Sod Cl (Potassium Chl 20 Meq In D5-1/2ns) 1,000 mls @ 125 mls/hr IV .Q8H REYES Stop: 04/08/18 08:39 Potassium Chloride (Potassium Chloride 20 Meq/100 Ml) 100 mls @ 50 mls/hr IVPB Q2 REYES Stop: 04/07/18 11:59 Last Admin: 04/07/18 10:22 Dose: 50 mls/hr Insulin Human Lispro (Humalog) 0 units SC ACCU-CHECK REYES; Protocol Last Admin: 04/07/18 07:31 Dose: Not Given Ketorolac Tromethamine (Toradol) 30 mg IVP Q6 REYES Stop: 04/11/18 16:01 Last Admin: 04/07/18 09:57 Dose: 30 mg Lidocaine (Lidoderm) 1 ea TD DAILY REYES Last Admin: 04/07/18 08:54 Dose: 1 ea Ondansetron HCl (Zofran Inj) 2 mg IVP Q6 PRN PRN Reason: Nausea/Vomiting Last Admin: 04/07/18 05:20 Dose: 2 mg - Labs Labs: 04/07/18 05:45 04/07/18 05:45 PT 13.8 Seconds (9.8-13.1) H 04/05/18 18:39 INR 1.2 04/05/18 18:39 APTT 30.1 Seconds (25.6-37.1) 04/05/18 18:39 Attending/Attestation - Attestation I have personally seen and examined this patient.: Yes I have fully participated in the care of the patient.: Yes I have reviewed all pertinent clinical information, including history, physical exam and plan: Yes Notes (Text): 04/07/18 11:16 Patient was seen and examined with resident. Case was discussed and agreed with assessment and plan of management.
[2018-04-07] MEDS: Enoxaparin 40 mg Syringe SC SCH (16:44)
--- NOTE | 2018-04-07 17:34 | RAD ---
Date of service: 04/07/2018 HISTORY: re-evaluation of NGT COMPARISON: Comparison is made with 04/05/2018 FINDINGS: LUNGS: No active pulmonary disease. PLEURA: No significant pleural effusion identified, no pneumothorax apparent. CARDIOVASCULAR: Left-sided Port-A-Cath is again seen in place. OSSEOUS STRUCTURES: No significant abnormalities. VISUALIZED UPPER ABDOMEN: There is enteric tube extending to the abdomen. OTHER FINDINGS: None. IMPRESSION: No active disease.
[2018-04-07 17:40] LABS: BLOOD UREA NITROGEN 12 mg/dl (7-17); CALCIUM 10.4 mg/dL (8.4-10.2); GFR NON-AFRICAN AMERICAN > 60
[2018-04-07] MEDS: Potassium CL 10 MEQ/50 ML 50 ML IVPB SCH ×3 (20:15→22:13)
[2018-04-08] MEDS: Potassium Ch 20mEq in D5-1/2NS 1,000 ML IV SCH ×3 (00:45→17:38)
[2018-04-08] MEDS: Insulin Lispro (humaLOG) 100 Units/ml Inj SC SCH ×5 (06:14→22:29)
[2018-04-08 07:26] LABS: BLOOD UREA NITROGEN 19 mg/dl (7-17); GFR NON-AFRICAN AMERICAN > 60
--- NOTE | 2018-04-08 07:47 | CP.PCM.PN ---
Subjective - Date & Time of Evaluation Date of Evaluation: 04/08/18 Time of Evaluation: 07:00 - Subjective Subjective: GENERAL SURGERY PROGRESS NOTE FOR DR. JARAMILLO Patient seen and examined at bedside. She reports feeling better than before. She denies nausea or vomiting. She is ambulating. Voided 3 times last night, no BM or flatus yet. Objective - Vital Signs/Intake and Output Vital Signs (last 24 hours): Temp Pulse Resp BP Pulse Ox 98.3 F 90 18 126/87 97 04/08/18 05:00 04/08/18 05:00 04/08/18 05:00 04/08/18 05:00 04/08/18 05:00 Intake and Output: 04/08/18 04/08/18 06:59 18:59 Intake Total 1650 Output Total 2000 Balance -350 - Medications Medications: Current Medications Dextrose (Dextrose 50% Inj) 0 ml IV STAT PRN; Protocol PRN Reason: Hypoglycemia Protocol Dextrose (Glutose 15) 0 gm PO ONCE PRN; Protocol PRN Reason: Hypoglycemia Protocol Enoxaparin Sodium (Lovenox) 40 mg SC DAILY REYES; Protocol Last Admin: 04/07/18 16:44 Dose: 40 mg Glucagon (Glucagen Diagnostic Kit) 0 mg IM STAT PRN; Protocol PRN Reason: Hypoglycemia Protocol Hydromorphone HCl (Dilaudid) 1.5 mg IVP Q3 PRN PRN Reason: Pain, severe (8-10) Last Admin: 04/08/18 05:19 Dose: 1.5 mg Potassium Chloride/Dextrose/Sod Cl (Potassium Chl 20 Meq In D5-1/2ns) 1,000 mls @ 125 mls/hr IV .Q8H REYES Stop: 04/08/18 08:39 Last Admin: 04/08/18 00:45 Dose: Not Given Potassium Chloride (Potassium Chloride 20 Meq/100 Ml) 100 mls @ 50 mls/hr IVPB Q2 REYES Stop: 04/08/18 11:59 Insulin Human Lispro (Humalog) 0 units SC ACCU-CHECK REYES; Protocol Last Admin: 04/08/18 06:24 Dose: 2 units Ketorolac Tromethamine (Toradol) 30 mg IVP Q6 REYES Stop: 04/11/18 16:01 Last Admin: 04/08/18 04:06 Dose: 30 mg Lidocaine (Lidoderm) 1 ea TD DAILY REYES Last Admin: 04/07/18 08:54 Dose: 1 ea Ondansetron HCl (Zofran Inj) 2 mg IVP Q6 PRN PRN Reason: Nausea/Vomiting Last Admin: 04/08/18 05:44 Dose: 2 mg - Labs Labs: 04/07/18 05:45 04/08/18 05:31 PT 13.8 Seconds (9.8-13.1) H 04/05/18 18:39 INR 1.2 04/05/18 18:39 APTT 30.1 Seconds (25.6-37.1) 04/05/18 18:39 - Constitutional Appears: Non-toxic, No Acute Distress - Head Exam Head Exam: ATRAUMATIC, NORMAL INSPECTION - Eye Exam Eye Exam: EOMI, Normal appearance - Respiratory Exam Respiratory Exam: Respiratory Distress, NORMAL BREATHING PATTERN - Cardiovascular Exam Cardiovascular Exam: +S1, +S2 - GI/Abdominal Exam GI & Abdominal Exam: Soft. absent: Distended, Firm, Guarding, Rigid, Tenderness, Rebound Additional comments: NG tube = 2L output overnight, 1500cc from day shift - Neurological Exam Neurological Exam: Alert, Awake, Oriented x3 - Psychiatric Exam Psychiatric exam: Normal Affect, Normal Mood - Skin Skin Exam: Dry, Normal Color Assessment and Plan - Assessment and Plan (Free Text) Assessment: 47F w. 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 Xavier Trimble PGY-4
[2018-04-08] MEDS: Lidocaine 5% Patch TD SCH (08:21)
[2018-04-08] MEDS: Enoxaparin 40 mg Syringe SC SCH (08:22)
--- NOTE | 2018-04-08 10:08 | CP.PCM.PN ---
<Osbaldo Umana - Last Filed: 04/08/18 10:18> Subjective - Date & Time of Evaluation Date of Evaluation: 04/08/18 Time of Evaluation: 09:15 - Subjective Subjective: Patient seen and examined this morning at bedside, NAD, no acute event overnight. Patient reports she ambulated this morning, denies any BM, no issue voiding. Patient is NPO, reports improved abdominal pain, NG tube in place, reports no vomiting. Objective - Vital Signs/Intake and Output Vital Signs (last 24 hours): Temp Pulse Resp BP Pulse Ox 97.5 F L 117 H 19 105/74 97 04/08/18 09:16 04/08/18 09:16 04/08/18 09:16 04/08/18 09:16 04/08/18 09:16 Intake and Output: 04/08/18 04/08/18 06:59 18:59 Intake Total 1650 Output Total 2000 Balance -350 - Medications Medications: Current Medications Dextrose (Dextrose 50% Inj) 0 ml IV STAT PRN; Protocol PRN Reason: Hypoglycemia Protocol Dextrose (Glutose 15) 0 gm PO ONCE PRN; Protocol PRN Reason: Hypoglycemia Protocol Enoxaparin Sodium (Lovenox) 40 mg SC DAILY REYES; Protocol Last Admin: 04/08/18 08:22 Dose: 40 mg Glucagon (Glucagen Diagnostic Kit) 0 mg IM STAT PRN; Protocol PRN Reason: Hypoglycemia Protocol Hydromorphone HCl (Dilaudid) 1.5 mg IVP Q3 PRN PRN Reason: Pain, severe (8-10) Last Admin: 04/08/18 07:48 Dose: 1.5 mg Potassium Chloride (Potassium Chloride 20 Meq/100 Ml) 100 mls @ 50 mls/hr IVPB Q2 REYES Stop: 04/08/18 11:59 Insulin Human Lispro (Humalog) 0 units SC ACCU-CHECK REYES; Protocol Last Admin: 04/08/18 06:24 Dose: 2 units Ketorolac Tromethamine (Toradol) 30 mg IVP Q6 REYES Stop: 04/11/18 16:01 Last Admin: 04/08/18 09:55 Dose: 30 mg Lidocaine (Lidoderm) 1 ea TD DAILY REYES Last Admin: 04/08/18 08:21 Dose: 1 ea Ondansetron HCl (Zofran Inj) 2 mg IVP Q6 PRN PRN Reason: Nausea/Vomiting Last Admin: 04/08/18 05:44 Dose: 2 mg - Labs Labs: 04/07/18 05:45 04/08/18 05:31 PT 13.8 Seconds (9.8-13.1) H 04/05/18 18:39 INR 1.2 04/05/18 18:39 APTT 30.1 Seconds (25.6-37.1) 04/05/18 18:39 - Constitutional Appears: No Acute Distress - Head Exam Head Exam: NORMAL INSPECTION - Eye Exam Eye Exam: Normal appearance, PERRL Pupil Exam: NORMAL ACCOMODATION - ENT Exam ENT Exam: Mucous Membranes Moist - Neck Exam Neck Exam: Normal Inspection - Respiratory Exam Respiratory Exam: Clear to Ausculation Bilateral, NORMAL BREATHING PATTERN - Cardiovascular Exam Cardiovascular Exam: REGULAR RHYTHM, +S1, +S2 - GI/Abdominal Exam GI & Abdominal Exam: Soft, Tenderness (mild LLQ), Normal Bowel Sounds - Extremities Exam Extremities Exam: Normal Capillary Refill. absent: Pedal Edema, Tenderness - Back Exam Back Exam: NORMAL INSPECTION. absent: CVA tenderness (L), CVA tenderness (R) - Neurological Exam Neurological Exam: Alert, Awake, CN II-XII Intact, Oriented x3 - Psychiatric Exam Psychiatric exam: Normal Affect - Skin Skin Exam: Dry, Warm Assessment and Plan - Assessment and Plan (Free Text) Assessment: A/P: 47 y/o F with PMH of HTN, chronic back/abdominal pain with multiple nerves blocks (Sees pain management as out patient), Colon cancer w/ metastasis to liver (on chemotherapy), Depression, Fibromyalgia, GERD admitted to the [facility] for evaluation and treatment of SBO. Small Bowel Obstruction possibly due to internal hernia - Afebrile - NGT suction: good amount of greenish output - CT: Mechanical small-bowel obstruction with point of obstruction identified in the left lower quadrant of the abdomen possibly due to internal hernia - Surgery consult, Dr. Denson/Dr. Park, recommendations appreciated - NPO, C/w IVF, Pain control: Morphine and Hydromorphone, Zofran for nausea and vomiting - Will follow up with surgery recommendations, ambulating, NGT suction Hypokalemia - Will replete as needed - KCL 20 x2 ordered today Chronic back pain - 2/2 metastatic colon Ca - Chronic, H/O multiple lumbar surgeries. - Lidoderm patch for back pain - Pain management consult, Dr. Bae,recommendations appreciated - C/w pain management: Hydromorphine 1.5mg Q3PRN NIDDM - Controlled - Last A1c 7.7 on 11/19/17 - Low dose sliding scale - Hold metformin - Hypoglycemia protocol HTN - Controlled - Hold Amlodipine 10 mg QD - Monitor vitals Fibromyalgia - Controlled - Hold Gabapentin 300 mg TID - Hold Duloxetine 60 mg PO HS DVT prophylaxis - SCD and Lovenox (d/c Lovenox as per surgery recommendations and plan) <Marla Medel - Last Filed: 04/08/18 17:14> Objective - Vital Signs/Intake and Output Vital Signs (last 24 hours): Temp Pulse Resp BP Pulse Ox 97.5 F L 91 H 18 98/68 L 100 04/08/18 16:31 04/08/18 16:31 04/08/18 16:31 04/08/18 16:31 04/08/18 16:31 Intake and Output: 04/08/18 04/08/18 06:59 18:59 Intake Total 1650 Output Total 2000 Balance -350 - Medications Medications: Current Medications Dextrose (Dextrose 50% Inj) 0 ml IV STAT PRN; Protocol PRN Reason: Hypoglycemia Protocol Dextrose (Glutose 15) 0 gm PO ONCE PRN; Protocol PRN Reason: Hypoglycemia Protocol Enoxaparin Sodium (Lovenox) 40 mg SC DAILY REYES; Protocol Last Admin: 04/08/18 08:22 Dose: 40 mg Glucagon (Glucagen Diagnostic Kit) 0 mg IM STAT PRN; Protocol PRN Reason: Hypoglycemia Protocol Hydromorphone HCl (Dilaudid) 1.5 mg IVP Q3 PRN PRN Reason: Pain, severe (8-10) Last Admin: 04/08/18 17:10 Dose: 1.5 mg Sodium Chloride (Sodium Chloride 0.9%) 1,000 mls @ 999 mls/hr IV .Q1H1M REYES Stop: 04/09/18 17:03 Insulin Human Lispro (Humalog) 0 units SC ACCU-CHECK REYES; Protocol Last Admin: 04/08/18 16:47 Dose: Not Given Ketorolac Tromethamine (Toradol) 30 mg IVP Q6 REYES Stop: 04/11/18 16:01 Last Admin: 04/08/18 15:59 Dose: 30 mg Lidocaine (Lidoderm) 1 ea TD DAILY REYES Last Admin: 04/08/18 08:21 Dose: 1 ea Ondansetron HCl (Zofran Inj) 2 mg IVP Q6 PRN PRN Reason: Nausea/Vomiting Last Admin: 04/08/18 12:00 Dose: 2 mg - Labs Labs: 04/07/18 05:45 04/08/18 05:31 PT 13.8 Seconds (9.8-13.1) H 04/05/18 18:39 INR 1.2 04/05/18 18:39 APTT 30.1 Seconds (25.6-37.1) 04/05/18 18:39 Attending/Attestation - Attestation I have personally seen and examined this patient.: Yes I have fully participated in the care of the patient.: Yes I have reviewed all pertinent clinical information, including history, physical exam and plan: Yes Notes (Text): SBO - still with abd sandeep - less distended - no gas no BM - drained 3500ml of bilious drainage overnight - increase IVF hydration to 150 ml/hr - IVF bolus 1 liter stat
[2018-04-08] MEDS: Potassium Chloride 20 mEq 100 ML IVPB SCH ×2 (12:04→13:15)
[2018-04-08] MEDS: Sodium Chloride 0.9% 1,000 ML IV SCH (17:37)
[2018-04-09] MEDS: Potassium Ch 20mEq in D5-1/2NS 1,000 ML IV SCH
[2018-04-09 06:02] LABS: HEMOGLOBIN 14.5 g/dL (12.0-16.0); MEAN CELL VOLUME 83.5 fl (81.0-99.0); MEAN CORPUSCULAR HEMOGLOBIN 28.4 pg (27.0-31.0); RBC 5.11 Mil/uL (3.80-5.20); RED CELL DISTRIBUTION WIDTH 15.8 % (11.5-14.5); WHITE BLOOD COUNT 7.6 K/uL (4.8-10.8)
[2018-04-09 06:46] LABS: ALBUMIN 4.2 g/dL (3.5-5.0); ALT/SGPT 66 U/L (9-52); AST/SGOT 58 U/L (14-36); BLOOD UREA NITROGEN 21 mg/dl (7-17); CALCIUM 9.7 mg/dL (8.4-10.2); GFR NON-AFRICAN AMERICAN > 60
[2018-04-09] MEDS ORDERED: Potassium Chloride 20 mEq 100 ML IVPB SCH (08:00)
[2018-04-09] MEDS ORDERED: Sodium Chloride 0.9% 1,000 ML IV SCH (08:15)
[2018-04-09] MEDS ORDERED: Potassium Chl 40 mEq in D5-1/2 1,000 ML IV SCH (08:16)
--- NOTE | 2018-04-09 08:33 | CP.PCM.PN ---
Subjective - Date & Time of Evaluation Date of Evaluation: 04/09/18 Time of Evaluation: 08:31 - Subjective Subjective: Surgery: Dr. Park Pt seen and examined. Resting comfortably in bed. Pt states that she is feeling much better this AM. Pain is significantly improved. No further episodes of vomiting. +Flatus and BM. Objective - Vital Signs/Intake and Output Vital Signs (last 24 hours): Temp Pulse Resp BP Pulse Ox 98.2 F 111 H 20 107/75 98 04/09/18 08:19 04/09/18 08:19 04/09/18 08:19 04/09/18 08:19 04/09/18 08:19 Intake and Output: 04/09/18 04/09/18 06:59 18:59 Intake Total 1000 Output Total 2300 Balance -1300 - Medications Medications: Current Medications Dextrose (Dextrose 50% Inj) 0 ml IV STAT PRN; Protocol PRN Reason: Hypoglycemia Protocol Dextrose (Glutose 15) 0 gm PO ONCE PRN; Protocol PRN Reason: Hypoglycemia Protocol Enoxaparin Sodium (Lovenox) 40 mg SC DAILY REYES; Protocol Last Admin: 04/08/18 08:22 Dose: 40 mg Glucagon (Glucagen Diagnostic Kit) 0 mg IM STAT PRN; Protocol PRN Reason: Hypoglycemia Protocol Hydromorphone HCl (Dilaudid) 1.5 mg IVP Q3 PRN PRN Reason: Pain, severe (8-10) Last Admin: 04/09/18 04:55 Dose: 1.5 mg Sodium Chloride (Sodium Chloride 0.9%) 1,000 mls @ 999 mls/hr IV .Q1H1M REYES Stop: 04/09/18 17:03 Last Admin: 04/08/18 17:37 Dose: 999 mls/hr Potassium Chloride (Potassium Chloride 20 Meq/100 Ml) 100 mls @ 50 mls/hr IVPB Q2 REYES Stop: 04/09/18 09:59 Sodium Chloride (Sodium Chloride 0.9%) 1,000 mls @ 999 mls/hr IV .Q1H1M REYES Stop: 04/10/18 08:14 Potassium Chloride/Dextrose/Sod Cl (Potassium Chl 40 Meq In D5-1/2ns) 1,000 mls @ 150 mls/hr IV .Q6H40M REYES Stop: 04/09/18 20:00 Insulin Human Lispro (Humalog) 0 units SC ACCU-CHECK REYES; Protocol Last Admin: 04/08/18 22:29 Dose: Not Given Ketorolac Tromethamine (Toradol) 30 mg IVP Q6 REYES Stop: 04/11/18 16:01 Last Admin: 04/09/18 04:17 Dose: 30 mg Lidocaine (Lidoderm) 1 ea TD DAILY REYES Last Admin: 04/08/18 08:21 Dose: 1 ea Ondansetron HCl (Zofran Inj) 2 mg IVP Q6 PRN PRN Reason: Nausea/Vomiting Last Admin: 04/09/18 04:22 Dose: 2 mg - Labs Labs: 04/09/18 05:30 04/09/18 05:30 PT 13.8 Seconds (9.8-13.1) H 04/05/18 18:39 INR 1.2 04/05/18 18:39 APTT 30.1 Seconds (25.6-37.1) 04/05/18 18:39 - Constitutional Appears: Non-toxic, No Acute Distress - Head Exam Head Exam: ATRAUMATIC, NORMOCEPHALIC - Eye Exam Eye Exam: EOMI - ENT Exam ENT Exam: Mucous Membranes Moist - Neck Exam Neck Exam: Full ROM - Respiratory Exam Respiratory Exam: NORMAL BREATHING PATTERN. absent: Accessory Muscle Use, Respiratory Distress - GI/Abdominal Exam GI & Abdominal Exam: Soft. absent: Distended, Firm, Guarding, Rigid, Tenderness, Rebound - Extremities Exam Extremities Exam: absent: Calf Tenderness, Pedal Edema - Neurological Exam Neurological Exam: Alert, Oriented x3 Assessment and Plan - Assessment and Plan (Free Text) Assessment: 47F w. hx of metastatic colon CA s/p L colectomy and oopherectomy presenting with SBO 2/2 possible internal hernia -NGT: 2100cc/12hr, light bilious -Keep NGT to sxn, clamp 15-20min TID and encourage ambulation -Keep NPO -serial abd exams -Replete K -Wean narcotics as tolerated -GI/DVT ppx -d/w attending Parul PGY4
[2018-04-09] MEDS: Sodium Chloride 0.9% 1,000 ML IV SCH (08:55)
[2018-04-09] MEDS: Insulin Lispro (humaLOG) 100 Units/ml Inj SC SCH ×4 (09:00→23:01)
[2018-04-09] MEDS: Lidocaine 5% Patch TD SCH (09:03)
[2018-04-09] MEDS: Enoxaparin 40 mg Syringe SC SCH (09:04)
--- NOTE | 2018-04-09 09:14 | CP.PCM.PN ---
<Ritu Lyons - Last Filed: 04/09/18 10:31> Subjective - Date & Time of Evaluation Date of Evaluation: 04/09/18 Time of Evaluation: 09:14 - Subjective Subjective: Overnight pt had one small BM and passed gas. Pt was able to ambulate yesterday. Pt seen and examined by bedside this AM. States that her abdominal pain is better then previously. Tolerating ice chips when her throat is dry. Objective - Vital Signs/Intake and Output Vital Signs (last 24 hours): Temp Pulse Resp BP Pulse Ox 98.2 F 111 H 20 107/75 98 04/09/18 08:19 04/09/18 08:19 04/09/18 08:19 04/09/18 08:19 04/09/18 08:19 Intake and Output: 04/09/18 04/09/18 06:59 18:59 Intake Total 1000 Output Total 2300 Balance -1300 - Medications Medications: Current Medications Dextrose (Dextrose 50% Inj) 0 ml IV STAT PRN; Protocol PRN Reason: Hypoglycemia Protocol Dextrose (Glutose 15) 0 gm PO ONCE PRN; Protocol PRN Reason: Hypoglycemia Protocol Enoxaparin Sodium (Lovenox) 40 mg SC DAILY REYES; Protocol Last Admin: 04/09/18 09:04 Dose: 40 mg Famotidine (Pepcid) 20 mg IVP Q12 REYES Glucagon (Glucagen Diagnostic Kit) 0 mg IM STAT PRN; Protocol PRN Reason: Hypoglycemia Protocol Hydromorphone HCl (Dilaudid) 1 mg IVP Q3 PRN PRN Reason: Pain, severe (8-10) Sodium Chloride (Sodium Chloride 0.9%) 1,000 mls @ 999 mls/hr IV .Q1H1M REYES Stop: 04/09/18 17:03 Last Admin: 04/09/18 08:55 Dose: 999 mls/hr Potassium Chloride (Potassium Chloride 20 Meq/100 Ml) 100 mls @ 50 mls/hr IVPB Q2 REYES Stop: 04/09/18 09:59 Sodium Chloride (Sodium Chloride 0.9%) 1,000 mls @ 999 mls/hr IV .Q1H1M REYES Stop: 04/10/18 08:14 Potassium Chloride/Dextrose/Sod Cl (Potassium Chl 40 Meq In D5-1/2ns) 1,000 mls @ 150 mls/hr IV .Q6H40M REYES Stop: 04/09/18 20:00 Insulin Human Lispro (Humalog) 0 units SC ACCU-CHECK REYES; Protocol Last Admin: 04/09/18 09:00 Dose: 2 units Ketorolac Tromethamine (Toradol) 30 mg IVP Q6 [facility] Stop: 04/11/18 16:01 Last Admin: 04/09/18 04:17 Dose: 30 mg Lidocaine (Lidoderm) 1 ea TD DAILY REYES Last Admin: 04/09/18 09:03 Dose: 1 ea Ondansetron HCl (Zofran Inj) 2 mg IVP Q6 PRN PRN Reason: Nausea/Vomiting Last Admin: 04/09/18 04:22 Dose: 2 mg - Labs Labs: 04/09/18 05:30 04/09/18 05:30 PT 13.8 Seconds (9.8-13.1) H 04/05/18 18:39 INR 1.2 04/05/18 18:39 APTT 30.1 Seconds (25.6-37.1) 04/05/18 18:39 - Constitutional Appears: No Acute Distress, Other (NGT in wall suction-draining greenish fluid approx 400cc in bag ) - Head Exam Head Exam: ATRAUMATIC - Eye Exam Eye Exam: EOMI - ENT Exam ENT Exam: Mucous Membranes Dry - Respiratory Exam Respiratory Exam: Clear to Ausculation Bilateral, NORMAL BREATHING PATTERN. absent: Wheezes - Cardiovascular Exam Cardiovascular Exam: REGULAR RHYTHM, +S1, +S2 - GI/Abdominal Exam GI & Abdominal Exam: Soft, Normal Bowel Sounds. absent: Tenderness Additional comments: multiple old surgical scars noted, well healed - Extremities Exam Extremities Exam: absent: Calf Tenderness, Pedal Edema - Neurological Exam Neurological Exam: Alert, Awake - Skin Skin Exam: Dry, Normal Color, Warm Assessment and Plan - Assessment and Plan (Free Text) Assessment: Assessment/Plan: 47 YO Female with PMHx of HTN, chronic back/abdominal pain with multiple nerves blocks (pain management as out patient), Colon cancer w/ metastasis to liver (on chemotherapy), Depression, Fibromyalgia, GERD admitted for SBO. Small Bowel Obstruction possibly due to internal hernia - Afebrile - NGT suction: good amount of greenish output - CT: Mechanical small-bowel obstruction with point of obstruction identified in the left lower quadrant of the abdomen possibly due to internal hernia - Surgery consult, Dr. Denson/Dr. Park, recommendations appreciated - NPO, C/w IVF, Pain control: Morphine and Hydromorphone, Zofran for nausea and vomiting - Will follow up with surgery recommendations, ambulating, NGT suction Hypokalemia/Dehydration - KCL 20 x2 ordered today - KCL 40meq d5, ns @ 150ml/hr - 1x 1L NS bolus - ABG pending Chronic back pain - 2/2 metastatic colon Ca - Chronic, H/O multiple lumbar surgeries. - Lidoderm patch for back pain - Pain management consult, Dr. Bae,recommendations appreciated - C/w pain management: Hydromorphine 1.5mg Q3PRN NIDDM - Controlled - Last A1c 7.7 on 11/19/17 - Low dose sliding scale - Hold metformin - Hypoglycemia protocol HTN - Controlled - Hold Amlodipine 10 mg QD - Monitor vitals Fibromyalgia - Controlled - Hold Gabapentin 300 mg TID - Hold Duloxetine 60 mg PO HS DVT prophylaxis - SCD and Lovenox (d/c Lovenox as per surgery recommendations and plan) <Marla Medel - Last Filed: 04/09/18 16:15> Objective - Vital Signs/Intake and Output Vital Signs (last 24 hours): Temp Pulse Resp BP Pulse Ox 98.2 F 111 H 20 107/75 98 04/09/18 08:19 04/09/18 08:19 04/09/18 08:19 04/09/18 08:19 04/09/18 08:19 Intake and Output: 04/09/18 04/09/18 06:59 18:59 Intake Total 1000 Output Total 2300 Balance -1300 - Medications Medications: Current Medications Dextrose (Dextrose 50% Inj) 0 ml IV STAT PRN; Protocol PRN Reason: Hypoglycemia Protocol Dextrose (Glutose 15) 0 gm PO ONCE PRN; Protocol PRN Reason: Hypoglycemia Protocol Enoxaparin Sodium (Lovenox) 40 mg SC DAILY REYES; Protocol Last Admin: 04/09/18 09:04 Dose: 40 mg Famotidine (Pepcid) 20 mg IVP Q12 REYES Last Admin: 04/09/18 09:03 Dose: 20 mg Glucagon (Glucagen Diagnostic Kit) 0 mg IM STAT PRN; Protocol PRN Reason: Hypoglycemia Protocol Hydromorphone HCl (Dilaudid) 1 mg IVP Q3 PRN PRN Reason: Pain, severe (8-10) Last Admin: 04/09/18 14:36 Dose: 1 mg Sodium Chloride (Sodium Chloride 0.9%) 1,000 mls @ 999 mls/hr IV .Q1H1M REYES Stop: 04/09/18 17:03 Last Admin: 04/09/18 08:55 Dose: 999 mls/hr Sodium Chloride (Sodium Chloride 0.9%) 1,000 mls @ 999 mls/hr IV .Q1H1M REYES Stop: 04/10/18 08:14 Potassium Chloride/Dextrose/Sod Cl (Potassium Chl 40 Meq In D5-1/2ns) 1,000 mls @ 150 mls/hr IV .Q6H40M REYES Last Admin: 04/09/18 12:42 Dose: 150 mls/hr Insulin Human Lispro (Humalog) 0 units SC ACCU-CHECK REYES; Protocol Last Admin: 04/09/18 12:00 Dose: Not Given Ketorolac Tromethamine (Toradol) 30 mg IVP Q6 REYES Stop: 04/11/18 16:01 Last Admin: 04/09/18 15:58 Dose: 30 mg Lidocaine (Lidoderm) 1 ea TD DAILY REYES Last Admin: 04/09/18 09:03 Dose: 1 ea Ondansetron HCl (Zofran Inj) 2 mg IVP Q6 PRN PRN Reason: Nausea/Vomiting Last Admin: 04/09/18 15:58 Dose: 2 mg - Labs Labs: 04/09/18 05:30 04/09/18 05:30 PT 13.8 Seconds (9.8-13.1) H 04/05/18 18:39 INR 1.2 04/05/18 18:39 APTT 30.1 Seconds (25.6-37.1) 04/05/18 18:39 Attending/Attestation - Attestation I have personally seen and examined this patient.: Yes I have fully participated in the care of the patient.: Yes I have reviewed all pertinent clinical information, including history, physical exam and plan: Yes
[2018-04-09] MEDS: Potassium Chloride 20 mEq 100 ML IVPB SCH ×2 (10:15→11:30)
[2018-04-09 10:31] LABS: ABG ALLEN TEST YES; ARTERIAL BLOOD GAS HCO3 36.6 mmol/L (21-28); ARTERIAL BLOOD GAS HEMOGLOBIN 14.6 g/dL (11.7-17.4); ARTERIAL BLOOD GAS O2 CAPACITY 19.4 mL/dL (16-24); ARTERIAL BLOOD GAS O2 CONTENT 19.2 ML/dL (15-23); ARTERIAL BLOOD GAS O2 SAT 98.8 % (95-98); ARTERIAL BLOOD GAS PCO2 48 mm/Hg (35-45); ARTERIAL BLOOD GAS PH 7.53 (7.35-7.45); ARTERIAL BLOOD GAS PO2 76 mm/Hg (80-100); ARTERIAL BLOOD GAS TCO2 41.6 mmol/L (22-28)
[2018-04-09] MEDS: Potassium Chl 40 mEq in D5-1/2 1,000 ML IV SCH ×2 (20:25→23:29)
[2018-04-10] MEDS: Potassium Chl 40 mEq in D5-1/2 1,000 ML IV SCH ×2 (01:39→04:41)
[2018-04-10] MEDS ORDERED: Chlorhexidine Gluconate 1 APPL/PKT TP ONE (05:08)
[2018-04-10 07:33] LABS: ALBUMIN 4.1 g/dL (3.5-5.0); ALT/SGPT 64 U/L (9-52); AST/SGOT 54 U/L (14-36); BLOOD UREA NITROGEN 15 mg/dl (7-17); CALCIUM 9.6 mg/dL (8.4-10.2); GFR NON-AFRICAN AMERICAN > 60
[2018-04-10] MEDS: Insulin Lispro (humaLOG) 100 Units/ml Inj SC SCH ×4 (07:35→22:00)
--- NOTE | 2018-04-10 08:50 | CP.PCM.PN ---
Subjective - Date & Time of Evaluation Date of Evaluation: 04/10/18 Time of Evaluation: 08:30 - Subjective Subjective: Patient has improved clinically, positive flatus and BM. Pain has improved as well. Still on Dilaudid IV and Toradol. NGT was accidentally removed, awaiting replacement. Objective - Vital Signs/Intake and Output Vital Signs (last 24 hours): Temp Pulse Resp BP Pulse Ox 97.7 F 108 H 19 104/73 96 04/10/18 08:15 04/10/18 08:15 04/10/18 08:15 04/10/18 08:15 04/10/18 08:15 Intake and Output: 04/10/18 04/10/18 06:59 18:59 Intake Total 2400 Output Total 1400 Balance 1000 - Medications Medications: Current Medications Dextrose (Dextrose 50% Inj) 0 ml IV STAT PRN; Protocol PRN Reason: Hypoglycemia Protocol Dextrose (Glutose 15) 0 gm PO ONCE PRN; Protocol PRN Reason: Hypoglycemia Protocol Enoxaparin Sodium (Lovenox) 40 mg SC DAILY REYES; Protocol Last Admin: 04/09/18 09:04 Dose: 40 mg Famotidine (Pepcid) 20 mg IVP Q12 REYES Last Admin: 04/09/18 22:59 Dose: Not Given Glucagon (Glucagen Diagnostic Kit) 0 mg IM STAT PRN; Protocol PRN Reason: Hypoglycemia Protocol Hydromorphone HCl (Dilaudid) 1 mg IVP Q3 PRN PRN Reason: Pain, severe (8-10) Last Admin: 04/10/18 06:44 Dose: 1 mg Potassium Chloride/Dextrose/Sod Cl (Potassium Chl 40 Meq In D5-1/2ns) 1,000 mls @ 200 mls/hr IV .Q5H REYES Last Admin: 04/10/18 04:41 Dose: Not Given Insulin Human Lispro (Humalog) 0 units SC ACCU-CHECK REYES; Protocol Last Admin: 04/09/18 23:01 Dose: Not Given Ketorolac Tromethamine (Toradol) 30 mg IVP Q6 REYES Stop: 04/11/18 16:01 Last Admin: 04/10/18 05:34 Dose: 30 mg Lidocaine (Lidoderm) 1 ea TD DAILY REYES Last Admin: 04/09/18 09:03 Dose: 1 ea Ondansetron HCl (Zofran Inj) 2 mg IVP Q6 PRN PRN Reason: Nausea/Vomiting Last Admin: 04/10/18 05:48 Dose: 2 mg - Labs Labs: 04/09/18 05:30 04/10/18 06:26 PT 13.8 Seconds (9.8-13.1) H 04/05/18 18:39 INR 1.2 04/05/18 18:39 APTT 30.1 Seconds (25.6-37.1) 04/05/18 18:39 - GI/Abdominal Exam GI & Abdominal Exam: Soft, Tenderness Assessment and Plan (1) Abdominal pain Assessment & Plan: 47 yo woman w/ metastatic colon cancer to liver admitted for SBO. Clinically improving. - plan per surgical team - patient will need to come off Toradol soon, monitor pain control with Dilaudid only - will probably discharge patient on low dose dilaudid PO Status: Acute
[2018-04-10] MEDS: Lidocaine 5% Patch TD SCH (09:59)
[2018-04-10] MEDS: Enoxaparin 40 mg Syringe SC SCH (10:00)
[2018-04-10] MEDS ORDERED: Potassium Chloride 20 mEq 100 ML IVPB ONE (10:05)
[2018-04-10] MEDS ORDERED: Potassium Chl 20 mEq in D5-NS 1,000 ML IV SCH (10:05)
--- NOTE | 2018-04-10 10:50 | CP.PCM.PN ---
<Ritu Lyons - Last Filed: 04/10/18 10:54> Subjective - Date & Time of Evaluation Date of Evaluation: 04/10/18 Time of Evaluation: 08:45 - Subjective Subjective: Overnight pt felt that her NGT was falling off, she pulled it off. Is passing gas, endorsing mild abdominal pain but controlled with PO meds. Pt remains NPO, took a shower this AM, overall feeling better. Objective - Vital Signs/Intake and Output Vital Signs (last 24 hours): Temp Pulse Resp BP Pulse Ox 97.7 F 108 H 19 104/73 96 04/10/18 08:15 04/10/18 08:15 04/10/18 08:15 04/10/18 08:15 04/10/18 08:15 Intake and Output: 04/10/18 04/10/18 06:59 18:59 Intake Total 2400 Output Total 1400 Balance 1000 - Medications Medications: Current Medications Dextrose (Dextrose 50% Inj) 0 ml IV STAT PRN; Protocol PRN Reason: Hypoglycemia Protocol Dextrose (Glutose 15) 0 gm PO ONCE PRN; Protocol PRN Reason: Hypoglycemia Protocol Enoxaparin Sodium (Lovenox) 40 mg SC DAILY REYES; Protocol Last Admin: 04/10/18 10:00 Dose: 40 mg Famotidine (Pepcid) 20 mg IVP Q12 REYES Last Admin: 04/10/18 10:01 Dose: 20 mg Glucagon (Glucagen Diagnostic Kit) 0 mg IM STAT PRN; Protocol PRN Reason: Hypoglycemia Protocol Hydromorphone HCl (Dilaudid) 1 mg IVP Q3 PRN PRN Reason: Pain, severe (8-10) Last Admin: 04/10/18 10:35 Dose: 1 mg Potassium Chloride/Dextrose/Sod Cl (Potassium Chl 20 Meq In D5-Ns) 1,000 mls @ 200 mls/hr IV .Q5H REYES Potassium Chloride (Potassium Chloride 20 Meq/100 Ml) 100 mls @ 50 mls/hr IVPB ONCE ONE Stop: 04/10/18 12:04 Insulin Human Lispro (Humalog) 0 units SC ACCU-CHECK REYES; Protocol Last Admin: 04/10/18 07:35 Dose: 2 units Ketorolac Tromethamine (Toradol) 30 mg IVP Q6 REYES Stop: 04/11/18 16:01 Last Admin: 04/10/18 10:01 Dose: 30 mg Lidocaine (Lidoderm) 1 ea TD DAILY REYES Last Admin: 04/10/18 09:59 Dose: 1 ea Ondansetron HCl (Zofran Inj) 2 mg IVP Q6 PRN PRN Reason: Nausea/Vomiting Last Admin: 04/10/18 05:48 Dose: 2 mg - Labs Labs: 04/09/18 05:30 04/10/18 06:26 PT 13.8 Seconds (9.8-13.1) H 04/05/18 18:39 INR 1.2 04/05/18 18:39 APTT 30.1 Seconds (25.6-37.1) 04/05/18 18:39 - Constitutional Appears: No Acute Distress - Head Exam Head Exam: NORMAL INSPECTION - ENT Exam ENT Exam: Mucous Membranes Dry - Respiratory Exam Respiratory Exam: Clear to Ausculation Bilateral, NORMAL BREATHING PATTERN. absent: Wheezes - Cardiovascular Exam Cardiovascular Exam: REGULAR RHYTHM, +S1, +S2 - GI/Abdominal Exam GI & Abdominal Exam: Soft, Hyperactive Bowel Sounds. absent: Guarding, Rigid, Tenderness Additional comments: Multiple surgical scars noted in abdomen, well healed, old - Extremities Exam Extremities Exam: Normal Inspection. absent: Calf Tenderness - Neurological Exam Neurological Exam: Alert, Awake Assessment and Plan - Assessment and Plan (Free Text) Assessment: Assessment/Plan: 47 YO Female with PMHx of HTN, chronic back/abdominal pain with multiple nerves blocks (pain management as out patient), Colon cancer w/ metastasis to liver (on chemotherapy), Depression, Fibromyalgia, GERD admitted for SBO. Small Bowel Obstruction possibly due to internal hernia - NGT removed last night - CT: Mechanical small-bowel obstruction with point of obstruction identified in the left lower quadrant of the abdomen possibly due to internal hernia - Surgery consult, Dr. Denson/Dr. Park, recommendations appreciated - NPO, C/w IVF, Pain control: Morphine and Hydromorphone, Zofran for nausea and vomiting - Will follow up with surgery recommendations, ambulating Hypokalemia/Dehydration - Improving - KCL 20 x1 ordered today - KCL 20meq d5, ns @ 200ml/hr - consider clear liquids if cleared by Surgery Chronic back pain - 2/2 metastatic colon Ca - Chronic, H/O multiple lumbar surgeries. - Lidoderm patch for back pain - Pain management consult, Dr. Bae, recommendations appreciated - C/w pain management: Hydromorphine 1.5mg Q3PRN NIDDM - Controlled - Last A1c 7.7 on 11/19/17 - Low dose sliding scale - Hold metformin - Hypoglycemia protocol HTN - Controlled - Hold Amlodipine 10 mg QD - Monitor vitals Fibromyalgia - Controlled - Hold Gabapentin 300 mg TID - Hold Duloxetine 60 mg PO HS DVT - Lovenox SC <Marla Medel - Last Filed: 04/10/18 17:14> Objective - Vital Signs/Intake and Output Vital Signs (last 24 hours): Temp Pulse Resp BP Pulse Ox 97.7 F 70 18 118/84 98 04/10/18 16:47 04/10/18 16:47 04/10/18 16:47 04/10/18 16:47 04/10/18 16:47 Intake and Output: 04/10/18 04/10/18 06:59 18:59 Intake Total 2400 Output Total 1400 Balance 1000 - Medications Medications: Current Medications Dextrose (Dextrose 50% Inj) 0 ml IV STAT PRN; Protocol PRN Reason: Hypoglycemia Protocol Dextrose (Glutose 15) 0 gm PO ONCE PRN; Protocol PRN Reason: Hypoglycemia Protocol Enoxaparin Sodium (Lovenox) 40 mg SC DAILY REYES; Protocol Last Admin: 04/10/18 10:00 Dose: 40 mg Famotidine (Pepcid) 20 mg IVP Q12 REYES Last Admin: 04/10/18 10:01 Dose: 20 mg Glucagon (Glucagen Diagnostic Kit) 0 mg IM STAT PRN; Protocol PRN Reason: Hypoglycemia Protocol Hydromorphone HCl (Dilaudid) 1 mg IVP Q3 PRN PRN Reason: Pain, severe (8-10) Last Admin: 04/10/18 13:58 Dose: 1 mg Potassium Chloride/Dextrose/Sod Cl (Potassium Chl 20 Meq In D5-Ns) 1,000 mls @ 150 mls/hr IV .Q6H40M REYES Insulin Human Lispro (Humalog) 0 units SC ACCU-CHECK REYES; Protocol Last Admin: 04/10/18 12:42 Dose: 2 units Ketorolac Tromethamine (Toradol) 30 mg IVP Q6 REYES Stop: 04/11/18 16:01 Last Admin: 10/17/18 16:31 Dose: 30 mg Lidocaine (Lidoderm) 1 ea TD DAILY REYES Last Admin: 04/10/18 09:59 Dose: 1 ea Ondansetron HCl (Zofran Inj) 2 mg IVP Q6 PRN PRN Reason: Nausea/Vomiting Last Admin: 04/10/18 05:48 Dose: 2 mg Potassium Chloride (Potassium Chloride Oral Soln) 20 meq PO DAILY REYES Stop: 04/14/18 09:01 - Labs Labs: 04/09/18 05:30 04/10/18 06:26 PT 13.8 Seconds (9.8-13.1) H 04/05/18 18:39 INR 1.2 04/05/18 18:39 APTT 30.1 Seconds (25.6-37.1) 04/05/18 18:39 Attending/Attestation - Attestation I have personally seen and examined this patient.: Yes I have fully participated in the care of the patient.: Yes I have reviewed all pertinent clinical information, including history, physical exam and plan: Yes Notes (Text): SBO sec to Internal Hernia - today pt had BM (diarrhea) and flatus - NGT out - still with some abd pain but better, Abd soft, + BS sound - will gradually start dit Metastatic Colon CA - Pain mgt by Dr Bae - ff up with Oncology at [facility] on d/c Hypokalemia sec to GI Loss
--- NOTE | 2018-04-10 12:49 | CP.PCM.PN ---
Subjective - Date & Time of Evaluation Date of Evaluation: 04/10/18 Time of Evaluation: 12:46 - Subjective Subjective: Surgery: Dr. Park Pt seen and examined. States that her NGT was bothering her overnight and she felt it was falling out so she pulled it out completely. She denies any episodes of vomiting since NGT came out. She admits to flatus and loose BMs yesterday and this morning. Pt is ambulating and states abdominal pain is improved but still present. Well controlled with pain meds at this time. Denies fevers/chills. Objective - Vital Signs/Intake and Output Vital Signs (last 24 hours): Temp Pulse Resp BP Pulse Ox 97.7 F 108 H 19 104/73 96 04/10/18 08:15 04/10/18 08:15 04/10/18 08:15 04/10/18 08:15 04/10/18 08:15 Intake and Output: 04/10/18 04/10/18 06:59 18:59 Intake Total 2400 Output Total 1400 Balance 1000 - Medications Medications: Current Medications Dextrose (Dextrose 50% Inj) 0 ml IV STAT PRN; Protocol PRN Reason: Hypoglycemia Protocol Dextrose (Glutose 15) 0 gm PO ONCE PRN; Protocol PRN Reason: Hypoglycemia Protocol Enoxaparin Sodium (Lovenox) 40 mg SC DAILY REYES; Protocol Last Admin: 04/10/18 10:00 Dose: 40 mg Famotidine (Pepcid) 20 mg IVP Q12 REYES Last Admin: 04/10/18 10:01 Dose: 20 mg Glucagon (Glucagen Diagnostic Kit) 0 mg IM STAT PRN; Protocol PRN Reason: Hypoglycemia Protocol Hydromorphone HCl (Dilaudid) 1 mg IVP Q3 PRN PRN Reason: Pain, severe (8-10) Last Admin: 04/10/18 10:35 Dose: 1 mg Potassium Chloride/Dextrose/Sod Cl (Potassium Chl 20 Meq In D5-Ns) 1,000 mls @ 200 mls/hr IV .Q5H REYES Last Admin: 04/10/18 11:42 Dose: 200 mls/hr Insulin Human Lispro (Humalog) 0 units SC ACCU-CHECK REYES; Protocol Last Admin: 04/10/18 07:35 Dose: 2 units Ketorolac Tromethamine (Toradol) 30 mg IVP Q6 REYES Stop: 04/11/18 16:01 Last Admin: 04/10/18 10:01 Dose: 30 mg Lidocaine (Lidoderm) 1 ea TD DAILY REYES Last Admin: 04/10/18 09:59 Dose: 1 ea Ondansetron HCl (Zofran Inj) 2 mg IVP Q6 PRN PRN Reason: Nausea/Vomiting Last Admin: 04/10/18 05:48 Dose: 2 mg Potassium Chloride (Potassium Chloride Oral Soln) 20 meq PO DAILY REYES Stop: 04/14/18 09:01 - Labs Labs: 04/09/18 05:30 04/10/18 06:26 PT 13.8 Seconds (9.8-13.1) H 04/05/18 18:39 INR 1.2 04/05/18 18:39 APTT 30.1 Seconds (25.6-37.1) 04/05/18 18:39 - Constitutional Appears: Well, No Acute Distress - Eye Exam Eye Exam: Normal appearance - ENT Exam ENT Exam: Mucous Membranes Moist - Respiratory Exam Respiratory Exam: NORMAL BREATHING PATTERN - Cardiovascular Exam Cardiovascular Exam: Tachycardia - GI/Abdominal Exam GI & Abdominal Exam: Soft. absent: Distended, Guarding, Tenderness, Rebound - Neurological Exam Neurological Exam: Alert, Awake, Oriented x3 - Skin Skin Exam: Dry, Warm Assessment and Plan - Assessment and Plan (Free Text) Assessment: 47F with Hx of metastatic Colon CA s/p L colectomy & oopherectomy in 2016 p resenting with SBO Plan: - start CLD and will advance slowly - continue to monitor bowel function - serial abdominal exams - encourage ambulation - wean narcotics as tolerated - d/w Dr. Xavier Cuadra
[2018-04-10] MEDS: Potassium Chl 20 mEq in D5-NS 1,000 ML IV SCH (21:00)
[2018-04-11] MEDS: Potassium Chl 20 mEq in D5-NS 1,000 ML IV SCH ×6 (00:01→23:03)
[2018-04-11 06:21] LABS: ALB/GLOB RATIO 1.1 (1.0-2.1); ALBUMIN 3.8 g/dL (3.5-5.0); ALT/SGPT 52 U/L (9-52); AST/SGOT 41 U/L (14-36); BLOOD UREA NITROGEN 9 mg/dl (7-17); CALCIUM 9.1 mg/dL (8.4-10.2); GFR NON-AFRICAN AMERICAN > 60
--- NOTE | 2018-04-11 07:53 | CP.PCM.PN ---
Subjective - Date & Time of Evaluation Date of Evaluation: 04/11/18 Time of Evaluation: 07:51 - Subjective Subjective: Surgery: Dr. Park Pt seen and examined. Was started on CLD yesterday. Vomited last night. Pain is controlled. Pt still passing flatus, not as frequent, +BM. Objective - Vital Signs/Intake and Output Vital Signs (last 24 hours): Temp Pulse Resp BP Pulse Ox 97.9 F 102 H 20 130/88 99 04/11/18 00:15 04/11/18 00:15 04/11/18 00:15 04/11/18 00:15 04/11/18 00:15 - Medications Medications: Current Medications Dextrose (Dextrose 50% Inj) 0 ml IV STAT PRN; Protocol PRN Reason: Hypoglycemia Protocol Dextrose (Glutose 15) 0 gm PO ONCE PRN; Protocol PRN Reason: Hypoglycemia Protocol Enoxaparin Sodium (Lovenox) 40 mg SC DAILY REYES; Protocol Last Admin: 04/10/18 10:00 Dose: 40 mg Famotidine (Pepcid) 20 mg IVP Q12 REYES Last Admin: 04/10/18 22:00 Dose: 20 mg Glucagon (Glucagen Diagnostic Kit) 0 mg IM STAT PRN; Protocol PRN Reason: Hypoglycemia Protocol Hydromorphone HCl (Dilaudid) 1 mg IVP Q3 PRN PRN Reason: Pain, severe (8-10) Last Admin: 04/11/18 05:45 Dose: 1 mg Potassium Chloride/Dextrose/Sod Cl (Potassium Chl 20 Meq In D5-Ns) 1,000 mls @ 150 mls/hr IV .Q6H40M REYES Last Admin: 04/11/18 05:47 Dose: 150 mls/hr Insulin Human Lispro (Humalog) 0 units SC ACCU-CHECK REYES; Protocol Last Admin: 04/10/18 22:00 Dose: Not Given Ketorolac Tromethamine (Toradol) 30 mg IVP Q6 REYES Stop: 04/11/18 16:01 Last Admin: 04/11/18 04:11 Dose: 30 mg Lidocaine (Lidoderm) 1 ea TD DAILY REYES Last Admin: 04/10/18 09:59 Dose: 1 ea Ondansetron HCl (Zofran Inj) 2 mg IVP Q6 PRN PRN Reason: Nausea/Vomiting Last Admin: 04/11/18 03:04 Dose: 2 mg Potassium Chloride (Potassium Chloride Oral Soln) 20 meq PO DAILY REYES Stop: 04/14/18 09:01 - Labs Labs: 04/09/18 05:30 04/11/18 05:35 PT 13.8 Seconds (9.8-13.1) H 04/05/18 18:39 INR 1.2 04/05/18 18:39 APTT 30.1 Seconds (25.6-37.1) 04/05/18 18:39 - Constitutional Appears: Non-toxic, No Acute Distress - Head Exam Head Exam: ATRAUMATIC, NORMOCEPHALIC - Eye Exam Eye Exam: EOMI - ENT Exam ENT Exam: Mucous Membranes Moist - Respiratory Exam Respiratory Exam: NORMAL BREATHING PATTERN. absent: Accessory Muscle Use, Respiratory Distress - GI/Abdominal Exam GI & Abdominal Exam: Soft. absent: Distended, Firm, Guarding, Rigid, Tenderness, Rebound - Extremities Exam Extremities Exam: absent: Calf Tenderness, Pedal Edema - Neurological Exam Neurological Exam: Alert, Awake, Oriented x3 Assessment and Plan - Assessment and Plan (Free Text) Assessment: 47F with Hx of metastatic Colon CA s/p L colectomy & oopherectomy in 2016 presenting with SBO -Will make NPO, if no further episodes of vomiting, will resume CLD later today -c/w IVF -will get PICC, plan to start TPN tomorrow -serial abd exams -encourage ambulation -will place NGT if symptoms worsen -d/w attending Carlos Manuelitis PGY4
[2018-04-11] MEDS: Insulin Lispro (humaLOG) 100 Units/ml Inj SC SCH ×3 (08:39→17:46)
[2018-04-11] MEDS: Lidocaine 5% Patch TD SCH (08:41)
[2018-04-11] MEDS: Enoxaparin 40 mg Syringe SC SCH ×2 (08:42→18:20)
[2018-04-11] MEDS ORDERED: Potassium Chloride 20 mEq/15 ml LIQ UD PO SCH (09:00)
--- NOTE | 2018-04-11 10:02 | CP.PCM.PN ---
Addendum entered and electronically signed by Erik Rodriguez MD 04/11/18 15:59: Patient seen and examined bedside .All chart and clinical data reviewed . Case discussed with resident . Agree with assessment and plan. Feeling weak, not passing flatus , nauseated Abdomen is soft and BS present Repeat KUB showed suspected mechanical bowel obstruction keep NPO NGt placed by surgery Continue IVF, pain managemnet PICC line placed . Plan to start TPN in AM Repeat CBC, BMP in AM Original Note: Subjective - Date & Time of Evaluation Date of Evaluation: 04/11/18 Time of Evaluation: 10:01 - Subjective Subjective: Pt states that she had 2x episode of emesis overnight. Mild nausea this AM, but tolerated juice this AM. Passing gas, last BM was yesterday. Pt continues to have abdominal pain, better with pain meds. Objective - Vital Signs/Intake and Output Vital Signs (last 24 hours): Temp Pulse Resp BP Pulse Ox 98.0 F 81 20 118/81 100 04/11/18 08:06 04/11/18 08:06 04/11/18 08:06 04/11/18 08:06 04/11/18 08:06 - Medications Medications: Current Medications Dextrose (Dextrose 50% Inj) 0 ml IV STAT PRN; Protocol PRN Reason: Hypoglycemia Protocol Dextrose (Glutose 15) 0 gm PO ONCE PRN; Protocol PRN Reason: Hypoglycemia Protocol Enoxaparin Sodium (Lovenox) 40 mg SC DAILY REYES; Protocol Last Admin: 04/11/18 08:42 Dose: Not Given Famotidine (Pepcid) 20 mg IVP Q12 [facility] Last Admin: 04/11/18 08:42 Dose: 20 mg Glucagon (Glucagen Diagnostic Kit) 0 mg IM STAT PRN; Protocol PRN Reason: Hypoglycemia Protocol Hydromorphone HCl (Dilaudid) 1 mg IVP Q3 PRN PRN Reason: Pain, severe (8-10) Last Admin: 04/11/18 08:36 Dose: 1 mg Potassium Chloride/Dextrose/Sod Cl (Potassium Chl 20 Meq In D5-Ns) 1,000 mls @ 150 mls/hr IV .Q6H40M [facility] Last Admin: 04/11/18 05:47 Dose: 150 mls/hr Insulin Human Lispro (Humalog) 0 units SC ACCU-CHECK REYES; Protocol Last Admin: 04/11/18 08:39 Dose: 2 units Ketorolac Tromethamine (Toradol) 30 mg IVP Q6 REYES Stop: 04/11/18 16:01 Last Admin: 04/11/18 04:11 Dose: 30 mg Lidocaine (Lidoderm) 1 ea TD DAILY REYES Last Admin: 04/11/18 08:41 Dose: 1 ea Ondansetron HCl (Zofran Inj) 2 mg IVP Q6 PRN PRN Reason: Nausea/Vomiting Last Admin: 04/11/18 08:43 Dose: 2 mg Potassium Chloride (Potassium Chloride Oral Soln) 20 meq PO DAILY REYES Stop: 04/14/18 09:01 Last Admin: 04/11/18 08:41 Dose: Not Given - Labs Labs: 04/09/18 05:30 04/11/18 05:35 PT 13.8 Seconds (9.8-13.1) H 04/05/18 18:39 INR 1.2 04/05/18 18:39 APTT 30.1 Seconds (25.6-37.1) 04/05/18 18:39 - Constitutional Appears: No Acute Distress - Eye Exam Eye Exam: EOMI - ENT Exam ENT Exam: Mucous Membranes Moist - Respiratory Exam Respiratory Exam: Clear to Ausculation Bilateral, NORMAL BREATHING PATTERN. absent: Wheezes - Cardiovascular Exam Cardiovascular Exam: REGULAR RHYTHM, +S1, +S2 - GI/Abdominal Exam GI & Abdominal Exam: Soft, Tenderness (mild, LLQ and RLQ). absent: Distended, Guarding, Rigid - Extremities Exam Extremities Exam: Normal Inspection. absent: Pedal Edema - Neurological Exam Neurological Exam: Alert, Awake Assessment and Plan - Assessment and Plan (Free Text) Assessment: Assessment/Plan: 47 YO Female with PMHx of HTN, chronic back/abdominal pain with multiple nerves blocks (pain management as out patient), Colon cancer w/ metastasis to liver (on chemotherapy), Depression, Fibromyalgia, GERD admitted for SBO. Small Bowel Obstruction possibly due to internal hernia - s/p NGT removed 04/10/18 - Surgery consult, Dr. Denson/Dr. Park, recommendations appreciated, PICC line for TPN - liquid diet switched to NPO this AM - C/w IVF, Pain control: Morphine and Hydromorphone, Zofran and famotidine - follow up abd XR Hypokalemia - resolved - fluids decreased to KCL 20meq d5, ns @ 1500ml/hr Chronic back pain - 2/2 metastatic colon Ca - Chronic, H/O multiple lumbar surgeries. - Lidoderm patch for back pain - Pain management consult, Dr. Bae, recommendations appreciated - C/w pain management: Hydromorphine 1.5mg Q3PRN NIDDM - Controlled - Last A1c 7.7 on 11/19/17 - Low dose sliding scale - Hold metformin - Hypoglycemia protocol HTN - Controlled - Hold Amlodipine 10 mg QD - Monitor vitals Fibromyalgia - Controlled - Hold Gabapentin 300 mg TID - Hold Duloxetine 60 mg PO HS DVT -lovenox sc
[2018-04-11] MEDS ORDERED: Lidocaine 1% 5ml Abboject ONE (11:29)
--- NOTE | 2018-04-11 12:40 | PCM.SURG1 ---
Surgeon's Initial Post Op Note - Surgeon's Notes Surgeon: Wallace Humphrey MD National Sales Representative: NONE Type of Anesthesia: Local Pre-Operative Diagnosis: Poor venous access Operative Findings: US showed patent left basilic vein Post-Operative Diagnosis: Poor venous access Operation Performed: Single lumen picc placement left arm, 43 CM. Specimen/Specimens Removed: none Estimated Blood Loss: EBL {In ML}: 2 Blood Products Given: N/A Drains Used: No Drains Post-Op Condition: Fair Date of Surgery/Procedure: 04/11/18 Time of Surgery/Procedure: 12:35
--- NOTE | 2018-04-11 12:40 | RAD ---
Date of service: 04/11/2018 HISTORY: SBO COMPARISON: No prior. FINDINGS: BOWEL: Multiple loops of dilated small bowel suspicious for mechanical small bowel obstruction. There is gas and fecal matter seen in the transverse colon. No masses or abnormal calcifications are identified. No hepatic or splenic enlargement. BONES: Artificial disc spacer noted at L4-5. OTHER FINDINGS: None. IMPRESSION: Findings suspicious for mechanical small bowel obstruction as demonstrated on prior CT of 04/05/2018.
--- NOTE | 2018-04-11 12:55 | VASCULAR ---
PROCEDURE: Date of procedure: 04/11/2018 Procedure: 1. Placement of a left arm PICC with ultrasound and fluoroscopic guidance, CPT 78668 2. PICC tip confirmation with spot radiograph and is in the superior vena cava Medications: 3CC 1 percent lidocaine Total Fluoro time: 3.4 seconds Radiation: 0.42 MGy EBL: 3 cc HISTORY: Poor venous access TECHNIQUE: Following informed consent and procedure time-out, the patient placed supine on the interventional table and the left arm prepped and draped in the usual sterile fashion. Ultrasound showed a patent and compressible left basilic vein. After the skin was anesthetized with lidocaine, the basilic vein was accessed with micro micropuncture technique using ultrasound guidance. A guidewire was then advanced under fluoroscopic guidance into the superior vena cava. An image documenting ultrasound guidance for vascular access was permanently saved. The length of a single-lumen 4 [place] PICC was trimmed to 43 cm and advanced through a peel-away sheath. The PICC was position with tip of PICC confirm a spot radiograph the superior vena cava. The PICC was secured to the patient's skin. The PICC was flushed. A biopatch and sterile dressing was applied. IMPRESSION: Placement of a single-lumen 4 Malaysian PICC left basilic vein trimmed to 43 cm. The tip of the PICC is confirmed with spot radiograph and is in the superior vena cava.
--- NOTE | 2018-04-11 14:02 | RAD ---
Date of service: 04/11/2018 HISTORY: s/p ngt COMPARISON: 04/07/2018. FINDINGS: Right-sided MediPort terminates at the cavoatrial junction. LUNGS: The lungs are well inflated and clear. PLEURA: No pleural effusions or pneumothorax. CARDIOVASCULAR: The heart is normal in size. No aortic atherosclerotic calcification present. OSSEOUS STRUCTURES: Within normal limits for the patient's age. VISUALIZED UPPER ABDOMEN: Normal. OTHER FINDINGS: None. IMPRESSION: No active pulmonary disease.
[2018-04-11] MEDS ORDERED: Multivitamin (MVI) 10 ML, Trace Elements-Cr/Cu/Mn/Zn 3 ML in Amino/Dex E 4.25/10 1000 M... IV ONE (14:15)
[2018-04-11] MEDS ORDERED: DiphenhydrAMINE 50 mg/ml Inj IVP STA (22:42)
[2018-04-12] MEDS: Insulin Lispro (humaLOG) 100 Units/ml Inj SC SCH ×4 (00:04→23:13)
[2018-04-12 06:33] LABS: BASO % 0.5 % (0.0-2.0); EOS # 0.1 K/uL (0.0-0.7); HEMOGLOBIN 14.2 g/dL (12.0-16.0); LYMPH % 26.7 % (20.0-40.0); MEAN CELL VOLUME 84.2 fl (81.0-99.0); MEAN CORPUSCULAR HEMOGLOBIN 27.6 pg (27.0-31.0); MEAN CORPUSCULAR HGB CONC 32.8 g/dL (33.0-37.0); MEAN PLATELET VOLUME 9.6 fl (7.2-11.7); MONO # 0.8 K/uL (0.0-0.8); MONO % 21.4 % (0.0-10.0); NEUT # 1.9 K/uL (1.8-7.0); NEUT % 48.4 % (50.0-75.0); NRBC % 0.1 % (0.0-0.0); PLATELET COUNT 230 K/uL (130-400); RBC 5.14 Mil/uL (3.80-5.20); RED CELL DISTRIBUTION WIDTH 15.4 % (11.5-14.5); WHITE BLOOD COUNT 3.9 K/uL (4.8-10.8)
[2018-04-12 06:52] LABS: BLOOD UREA NITROGEN 4 mg/dl (7-17); CALCIUM 9.4 mg/dL (8.4-10.2); GFR NON-AFRICAN AMERICAN > 60
[2018-04-12] MEDS: Benzocaine/Menthol (Cepacol) Lozenge PO PRN (07:11)
[2018-04-12] MEDS ORDERED: DiphenhydrAMINE 50 mg/ml Inj IVP PRN (08:40)
--- NOTE | 2018-04-12 08:46 | CP.PCM.PN ---
Subjective - Date & Time of Evaluation Date of Evaluation: 04/12/18 Time of Evaluation: 08:15 - Subjective Subjective: Patient complains of severe pain, not entirely treated by Dilaudid 1mg q3h PRN. Didn't tolerate CLD, had a couple of episodes of vomiting. TPN started yesterday. It was explained to her that opioid needs to be limited for GI motility. Objective - Vital Signs/Intake and Output Vital Signs (last 24 hours): Temp Pulse Resp BP Pulse Ox 98.0 F 95 H 20 107/73 100 04/12/18 08:02 04/12/18 08:02 04/12/18 08:02 04/12/18 08:02 04/12/18 08:02 Intake and Output: 04/12/18 04/12/18 06:59 18:59 Intake Total 684 Output Total 1000 Balance -316 - Medications Medications: Current Medications Benzocaine/Menthol (Cepacol Sore Throat) 1 dale PO Q2 PRN PRN Reason: Sore Throat Last Admin: 04/12/18 07:11 Dose: 1 dale Dextrose (Dextrose 50% Inj) 0 ml IV STAT PRN; Protocol PRN Reason: Hypoglycemia Protocol Dextrose (Glutose 15) 0 gm PO ONCE PRN; Protocol PRN Reason: Hypoglycemia Protocol Diphenhydramine HCl (Benadryl) 50 mg IVP Q8 PRN PRN Reason: Agitation Enoxaparin Sodium (Lovenox) 40 mg SC DAILY REYES; Protocol Last Admin: 04/11/18 18:20 Dose: 40 mg Famotidine (Pepcid) 20 mg IVP Q12 REYES Last Admin: 04/11/18 21:56 Dose: 20 mg Fat Emulsion Intravenous (Intralipid 20%) 250 ml IV MWF ONE Stop: 04/12/18 09:01 Glucagon (Glucagen Diagnostic Kit) 0 mg IM STAT PRN; Protocol PRN Reason: Hypoglycemia Protocol Hydromorphone HCl (Dilaudid) 1 mg IVP Q3 PRN PRN Reason: Pain, severe (8-10) Last Admin: 04/12/18 05:49 Dose: 1 mg Potassium Chloride/Dextrose/Sod Cl (Potassium Chl 20 Meq In D5-Ns) 1,000 mls @ 150 mls/hr IV .Q6H40M REYES Last Admin: 04/11/18 23:03 Dose: 150 mls/hr Multivitamins/Vitamin C 10 ml/Chromium/Copper/Manganese/Zinc 3 ml/ Amino Acids/Electrolytes/Dextrose 1,013 mls @ 42 mls/hr IV .Q24H ONE Stop: 04/12/18 14:14 Last Admin: 04/11/18 15:57 Dose: 42 mls/hr Insulin Human Lispro (Humalog) 0 units SC ACCU-CHECK REYES; Protocol Last Admin: 04/12/18 00:04 Dose: Not Given Lidocaine (Lidoderm) 1 ea TD DAILY REYES Last Admin: 04/11/18 08:41 Dose: 1 ea Ondansetron HCl (Zofran Inj) 2 mg IVP Q6 PRN PRN Reason: Nausea/Vomiting Last Admin: 04/12/18 03:49 Dose: 2 mg - Labs Labs: 04/12/18 05:55 04/12/18 05:55 PT 13.8 Seconds (9.8-13.1) H 04/05/18 18:39 INR 1.2 04/05/18 18:39 APTT 30.1 Seconds (25.6-37.1) 04/05/18 18:39 - GI/Abdominal Exam GI & Abdominal Exam: Soft, Tenderness Assessment and Plan (1) Abdominal pain Assessment & Plan: 47 yo woman w/ SBO, chronic pain. - continue Dilaudid 1mg IV PRN - add Ativan for anxiety, for synergistic effect with opioid - add Benadryl for sleep - f/u surgery rec's Status: Acute
[2018-04-12] MEDS: Enoxaparin 40 mg Syringe SC SCH (08:55)
--- NOTE | 2018-04-12 08:56 | CP.PCM.PN ---
Subjective - Date & Time of Evaluation Date of Evaluation: 04/12/18 Time of Evaluation: 08:15 - Subjective Subjective: PICC line yesterday. NGT was was placed, taken out this AM by pt due to discomfort. This AM pt states that she feels better then yesterday but continues to have abdominal pain. Endorsing rash she has had below the L breast. Denies chest pain, dyspnea, palpatations. Objective - Vital Signs/Intake and Output Vital Signs (last 24 hours): Temp Pulse Resp BP Pulse Ox 98.0 F 95 H 20 107/73 100 04/12/18 08:02 04/12/18 08:02 04/12/18 08:02 04/12/18 08:02 04/12/18 08:02 Intake and Output: 04/12/18 04/12/18 06:59 18:59 Intake Total 684 Output Total 1000 Balance -316 - Medications Medications: Current Medications Benzocaine/Menthol (Cepacol Sore Throat) 1 dale PO Q2 PRN PRN Reason: Sore Throat Last Admin: 04/12/18 07:11 Dose: 1 dale Dextrose (Dextrose 50% Inj) 0 ml IV STAT PRN; Protocol PRN Reason: Hypoglycemia Protocol Dextrose (Glutose 15) 0 gm PO ONCE PRN; Protocol PRN Reason: Hypoglycemia Protocol Diphenhydramine HCl (Benadryl) 50 mg IVP Q8 PRN PRN Reason: Agitation Enoxaparin Sodium (Lovenox) 40 mg SC DAILY REYES; Protocol Last Admin: 04/12/18 08:55 Dose: 40 mg Famotidine (Pepcid) 20 mg IVP Q12 REYES Last Admin: 04/11/18 21:56 Dose: 20 mg Fat Emulsion Intravenous (Intralipid 20%) 250 ml IV MWF ONE Stop: 04/12/18 09:01 Glucagon (Glucagen Diagnostic Kit) 0 mg IM STAT PRN; Protocol PRN Reason: Hypoglycemia Protocol Hydromorphone HCl (Dilaudid) 1 mg IVP Q3 PRN PRN Reason: Pain, severe (8-10) Last Admin: 04/12/18 05:49 Dose: 1 mg Potassium Chloride/Dextrose/Sod Cl (Potassium Chl 20 Meq In D5-Ns) 1,000 mls @ 150 mls/hr IV .Q6H40M REYES Last Admin: 04/11/18 23:03 Dose: 150 mls/hr Multivitamins/Vitamin C 10 ml/Chromium/Copper/Manganese/Zinc 3 ml/ Amino Acids/Electrolytes/Dextrose 1,013 mls @ 42 mls/hr IV .Q24H ONE Stop: 04/12/18 14:14 Last Admin: 04/11/18 15:57 Dose: 42 mls/hr Insulin Human Lispro (Humalog) 0 units SC ACCU-CHECK REYES; Protocol Last Admin: 04/12/18 00:04 Dose: Not Given Lidocaine (Lidoderm) 1 ea TD DAILY [facility] Last Admin: 04/11/18 08:41 Dose: 1 ea Lorazepam (Ativan) 0.5 mg IVP Q6 PRN PRN Reason: Agitation Ondansetron HCl (Zofran Inj) 2 mg IVP Q6 PRN PRN Reason: Nausea/Vomiting Last Admin: 04/12/18 03:49 Dose: 2 mg - Labs Labs: 04/12/18 05:55 04/12/18 05:55 PT 13.8 Seconds (9.8-13.1) H 04/05/18 18:39 INR 1.2 04/05/18 18:39 APTT 30.1 Seconds (25.6-37.1) 04/05/18 18:39 - Constitutional Appears: No Acute Distress - Head Exam Head Exam: NORMAL INSPECTION - Eye Exam Eye Exam: Normal appearance - ENT Exam ENT Exam: Mucous Membranes Moist - Respiratory Exam Respiratory Exam: Clear to Ausculation Bilateral, NORMAL BREATHING PATTERN. absent: Wheezes - Cardiovascular Exam Cardiovascular Exam: REGULAR RHYTHM, +S1, +S2 - GI/Abdominal Exam GI & Abdominal Exam: Soft, Hyperactive Bowel Sounds. absent: Tenderness Additional comments: old incision scars noted, well healed - Extremities Exam Extremities Exam: Normal Inspection - Neurological Exam Neurological Exam: Alert, Awake - Skin Additional comments: rash noted under L breast fold, skin intact, mild erythema, white well demarcated, no discharge Assessment and Plan - Assessment and Plan (Free Text) Assessment: Assessment/Plan: 47 YO Female with PMHx of HTN, chronic back/abdominal pain with multiple nerves blocks (pain management as out patient), Colon cancer w/ metastasis to liver (on chemotherapy), Depression, Fibromyalgia, GERD admitted for SBO. Small Bowel Obstruction possibly due to internal hernia - s/p NGT removed 04/10/18 - Surgery consult, Dr. Denson/Dr. Park, recommendations appreciated, PICC line for TPN - cont NPO, TPN - C/w IVF, Pain control: Morphine and Hydromorphone, Zofran and famotidine - fluids decreased to KCL 20meq d5, ns @ 1500ml/hr Chronic back pain - 2/2 metastatic colon Ca - Chronic, H/O multiple lumbar surgeries. - Lidoderm patch for back pain - Pain management consult, Dr. Bae, recommendations appreciated; Ativan for anxiety, for synergistic effect with opioid and Benadryl for sleep - C/w pain management: Hydromorphine 1.5mg Q3PRN NIDDM - Controlled - Last A1c 7.7 on 11/19/17 - Low dose sliding scale - Hold metformin - Hypoglycemia protocol HTN - Controlled - Hold Amlodipine 10 mg QD - Monitor vitals Skin Rash -likely gianna skin infection -nystatin TOP TID Fibromyalgia - Controlled - Hold Gabapentin 300 mg TID - Hold Duloxetine 60 mg PO HS DVT -lovenox sc
[2018-04-12 09:31] LABS: ANISOCYTOSIS SLIGHT; LYMPHOCYTE 28 % (20-50); MICROCYTOSIS SLIGHT; MONOCYTE 15 % (0-10); NEUTROPHIL 57 % (42-75); OVALOCYTES MODERATE; PLATELET ESTIMATE NORMAL (NORMAL); TOTAL CELLS COUNTED 100
[2018-04-12 09:32] LABS: LARGE PLATELETS PRESENT
[2018-04-12] MEDS: Nystatin Ointment TOP SCH ×3 (09:45→16:29)
--- NOTE | 2018-04-12 09:54 | CP.PCM.PN ---
Subjective - Date & Time of Evaluation Date of Evaluation: 04/12/18 Time of Evaluation: 09:53 - Subjective Subjective: Surgery: Dr. Park Pt seen and examined. Had nausea and vomiting yesterday afternoon. NGT was placed. 1700cc output overnight. Pt removed NGT on her own this AM. She states she no longer feels nauseous. Pain controlled. Continues to pass flatus. Objective - Vital Signs/Intake and Output Vital Signs (last 24 hours): Temp Pulse Resp BP Pulse Ox 98.0 F 95 H 20 107/73 100 04/12/18 08:02 04/12/18 08:02 04/12/18 08:02 04/12/18 08:02 04/12/18 08:02 Intake and Output: 04/12/18 04/12/18 06:59 18:59 Intake Total 684 Output Total 1000 Balance -316 - Medications Medications: Current Medications Benzocaine/Menthol (Cepacol Sore Throat) 1 dale PO Q2 PRN PRN Reason: Sore Throat Last Admin: 04/12/18 07:11 Dose: 1 dale Dextrose (Dextrose 50% Inj) 0 ml IV STAT PRN; Protocol PRN Reason: Hypoglycemia Protocol Dextrose (Glutose 15) 0 gm PO ONCE PRN; Protocol PRN Reason: Hypoglycemia Protocol Diphenhydramine HCl (Benadryl) 50 mg IVP Q8 PRN PRN Reason: Agitation Enoxaparin Sodium (Lovenox) 40 mg SC DAILY REYES; Protocol Last Admin: 04/12/18 08:55 Dose: 40 mg Famotidine (Pepcid) 20 mg IVP Q12 REYES Last Admin: 04/12/18 09:02 Dose: 20 mg Glucagon (Glucagen Diagnostic Kit) 0 mg IM STAT PRN; Protocol PRN Reason: Hypoglycemia Protocol Hydromorphone HCl (Dilaudid) 1 mg IVP Q3 PRN PRN Reason: Pain, severe (8-10) Last Admin: 04/12/18 09:02 Dose: 1 mg Potassium Chloride/Dextrose/Sod Cl (Potassium Chl 20 Meq In D5-Ns) 1,000 mls @ 150 mls/hr IV .Q6H40M REYES Last Admin: 04/11/18 23:03 Dose: 150 mls/hr Multivitamins/Vitamin C 10 ml/Chromium/Copper/Manganese/Zinc 3 ml/ Amino Acids/Electrolytes/Dextrose 1,013 mls @ 42 mls/hr IV .Q24H ONE Stop: 04/12/18 14:14 Last Admin: 04/11/18 15:57 Dose: 42 mls/hr Insulin Human Lispro (Humalog) 0 units SC ACCU-CHECK REYES; Protocol Last Admin: 04/12/18 00:04 Dose: Not Given Lidocaine (Lidoderm) 1 ea TD DAILY REYES Last Admin: 04/11/18 08:41 Dose: 1 ea Lorazepam (Ativan) 0.5 mg IVP Q6 PRN PRN Reason: Agitation Last Admin: 04/12/18 09:42 Dose: 0.5 mg Nystatin (Mycostatin Oint) 1 applic TOP TID REYES Last Admin: 04/12/18 09:45 Dose: 1 applic Ondansetron HCl (Zofran Inj) 2 mg IVP Q6 PRN PRN Reason: Nausea/Vomiting Last Admin: 04/12/18 03:49 Dose: 2 mg - Labs Labs: 04/12/18 05:55 04/12/18 05:55 PT 13.8 Seconds (9.8-13.1) H 04/05/18 18:39 INR 1.2 04/05/18 18:39 APTT 30.1 Seconds (25.6-37.1) 04/05/18 18:39 - Constitutional Appears: Non-toxic, No Acute Distress - Head Exam Head Exam: ATRAUMATIC, NORMOCEPHALIC - Eye Exam Eye Exam: EOMI - ENT Exam ENT Exam: Mucous Membranes Moist - Neck Exam Neck Exam: Full ROM - Respiratory Exam Respiratory Exam: NORMAL BREATHING PATTERN. absent: Accessory Muscle Use, Re spiratory Distress - GI/Abdominal Exam GI & Abdominal Exam: Soft. absent: Distended, Firm, Guarding, Rigid, Tenderness, Rebound - Extremities Exam Extremities Exam: absent: Calf Tenderness, Pedal Edema - Neurological Exam Neurological Exam: Alert, Awake, Oriented x3 Assessment and Plan - Assessment and Plan (Free Text) Assessment: 47F with Hx of metastatic Colon CA s/p L colectomy & oopherectomy in 2016 presenting with SBO -Keep NPO -c/w TPN -serial abd exams -encourage ambulation -will place NGT if symptoms worsen -limit narcotics -d/w attending Zemaitis PGY4
[2018-04-12] MEDS: Potassium Chl 20 mEq in D5-NS 1,000 ML IV SCH ×2 (10:38→17:48)
[2018-04-12] MEDS: Lidocaine 5% Patch TD SCH (10:39)
[2018-04-13] MEDS: Potassium Chl 20 mEq in D5-NS 1,000 ML IV SCH ×3 (00:54→22:30)
[2018-04-13] MEDS: Insulin Lispro (humaLOG) 100 Units/ml Inj SC SCH ×4 (06:10→22:29)
[2018-04-13 07:00] LABS: HEMOGLOBIN 14.9 g/dL (12.0-16.0); MEAN CELL VOLUME 83.4 fl (81.0-99.0); MEAN CORPUSCULAR HEMOGLOBIN 27.3 pg (27.0-31.0); MEAN CORPUSCULAR HGB CONC 32.7 g/dL (33.0-37.0); RBC 5.45 Mil/uL (3.80-5.20); RED CELL DISTRIBUTION WIDTH 15.4 % (11.5-14.5); WHITE BLOOD COUNT 5.9 K/uL (4.8-10.8)
[2018-04-13 07:16] LABS: BLOOD UREA NITROGEN 7 mg/dl (7-17); CALCIUM 9.6 mg/dL (8.4-10.2); GFR NON-AFRICAN AMERICAN > 60
--- NOTE | 2018-04-13 08:07 | CP.PCM.PN ---
Subjective - Date & Time of Evaluation Date of Evaluation: 04/13/18 Time of Evaluation: 08:04 - Subjective Subjective: Surgery: Dr. Park Pt seen and examined. Had 2 episodes of emesis overnight ~700cc. Continues to pass flatus and small BMs. Pain controlled. Objective - Vital Signs/Intake and Output Vital Signs (last 24 hours): Temp Pulse Resp BP Pulse Ox 98.4 F 115 H 20 114/84 100 04/12/18 23:39 04/12/18 23:39 04/12/18 23:39 04/12/18 23:39 04/12/18 23:39 Intake and Output: 04/13/18 04/13/18 06:59 18:59 Intake Total 2304 Output Total 700 Balance 1604 - Medications Medications: Current Medications Benzocaine/Menthol (Cepacol Sore Throat) 1 dale PO Q2 PRN PRN Reason: Sore Throat Last Admin: 04/12/18 07:11 Dose: 1 dale Dextrose (Dextrose 50% Inj) 0 ml IV STAT PRN; Protocol PRN Reason: Hypoglycemia Protocol Dextrose (Glutose 15) 0 gm PO ONCE PRN; Protocol PRN Reason: Hypoglycemia Protocol Enoxaparin Sodium (Lovenox) 40 mg SC DAILY REYES; Protocol Last Admin: 04/12/18 08:55 Dose: 40 mg Famotidine (Pepcid) 20 mg IVP Q12 [facility] Last Admin: 04/12/18 22:00 Dose: 20 mg Glucagon (Glucagen Diagnostic Kit) 0 mg IM STAT PRN; Protocol PRN Reason: Hypoglycemia Protocol Hydromorphone HCl (Dilaudid) 1 mg IVP Q3 PRN PRN Reason: Pain, severe (8-10) Last Admin: 04/13/18 04:36 Dose: 1 mg Potassium Chloride/Dextrose/Sod Cl (Potassium Chl 20 Meq In D5-Ns) 1,000 mls @ 150 mls/hr IV .Q6H40M [facility] Last Admin: 04/13/18 00:54 Dose: 150 mls/hr Multivitamins/Vitamin C 10 ml/Chromium/Copper/Manganese/Zinc 3 ml/ Amino Acids/Electrolytes/Dextrose 1,013 mls @ 42 mls/hr IV .Q24H ONE Stop: 04/13/18 13:44 Last Admin: 04/12/18 15:10 Dose: 42 mls/hr Insulin Human Lispro (Humalog) 0 units SC ACCU-CHECK REYES; Protocol Last Admin: 04/13/18 06:10 Dose: 2 units Lidocaine (Lidoderm) 1 ea TD DAILY [facility] Last Admin: 04/12/18 10:39 Dose: 1 ea Lorazepam (Ativan) 0.5 mg IVP Q6 PRN PRN Reason: Agitation Last Admin: 04/12/18 18:01 Dose: 0.5 mg Nystatin (Mycostatin Oint) 1 applic TOP TID [facility] Last Admin: 04/12/18 16:29 Dose: 1 applic Ondansetron HCl (Zofran Inj) 2 mg IVP Q6 PRN PRN Reason: Nausea/Vomiting Last Admin: 04/13/18 00:19 Dose: 2 mg - Labs Labs: 04/13/18 05:25 04/13/18 05:25 PT 13.8 Seconds (9.8-13.1) H 04/05/18 18:39 INR 1.2 04/05/18 18:39 APTT 30.1 Seconds (25.6-37.1) 04/05/18 18:39 - Constitutional Appears: Non-toxic, No Acute Distress - Head Exam Head Exam: ATRAUMATIC, NORMOCEPHALIC - Eye Exam Eye Exam: EOMI - ENT Exam ENT Exam: Mucous Membranes Moist - Neck Exam Neck Exam: Full ROM - Respiratory Exam Respiratory Exam: NORMAL BREATHING PATTERN. absent: Accessory Muscle Use, Respiratory Distress - GI/Abdominal Exam GI & Abdominal Exam: Soft. absent: Distended, Firm, Guarding, Rigid, Tenderness, Rebound - Extremities Exam Extremities Exam: absent: Calf Tenderness, Pedal Edema - Neurological Exam Neurological Exam: Alert, Awake, Oriented x3 Assessment and Plan - Assessment and Plan (Free Text) Assessment: 47F with Hx of metastatic Colon CA s/p L colectomy & oopherectomy in 2016 presenting with SBO -Keep NPO -will place NGT, pt strongly encouraged to leave NGT in place, it was explained to pt that her continued removal of NGT is not helping her -c/w TPN -serial abd exams -encourage ambulation -limit narcotics -d/w attending Parul PGY4
[2018-04-13] MEDS: Lidocaine 5% Patch TD SCH (08:17)
[2018-04-13] MEDS: Enoxaparin 40 mg Syringe SC SCH (08:18)
[2018-04-13] MEDS: Nystatin Ointment TOP SCH ×3 (08:19→17:02)
[2018-04-13] MEDS ORDERED: Chlorhexidine Gluconate 1 APPL/PKT TP ONE (09:18)
--- NOTE | 2018-04-13 09:53 | CP.PCM.PN ---
<Ritu Lyons - Last Filed: 04/13/18 09:51> Subjective - Date & Time of Evaluation Date of Evaluation: 04/13/18 Time of Evaluation: 09:51 - Subjective Subjective: Pt was agitated with benadryl yesterday, it was discontinued. Multiple episodes of emesis overnight. Pt receiving her pain meds now. Continues to have abdominal pain, but better with pain meds. +gas Objective - Vital Signs/Intake and Output Vital Signs (last 24 hours): Temp Pulse Resp BP Pulse Ox 97.9 F 108 H 20 127/93 H 100 04/13/18 08:08 04/13/18 08:08 04/13/18 08:08 04/13/18 08:08 04/13/18 08:08 Intake and Output: 04/13/18 04/13/18 06:59 18:59 Intake Total 2304 Output Total 700 Balance 1604 - Medications Medications: Current Medications Benzocaine/Menthol (Cepacol Sore Throat) 1 dale PO Q2 PRN PRN Reason: Sore Throat Last Admin: 04/12/18 07:11 Dose: 1 dale Dextrose (Dextrose 50% Inj) 0 ml IV STAT PRN; Protocol PRN Reason: Hypoglycemia Protocol Dextrose (Glutose 15) 0 gm PO ONCE PRN; Protocol PRN Reason: Hypoglycemia Protocol Enoxaparin Sodium (Lovenox) 40 mg SC DAILY COUNTS INCLUDE 234 BEDS AT THE [facility]; Protocol Last Admin: 04/13/18 08:18 Dose: 40 mg Famotidine (Pepcid) 20 mg IVP Q12 COUNTS INCLUDE 234 BEDS AT THE [facility] Last Admin: 04/13/18 08:22 Dose: 20 mg Glucagon (Glucagen Diagnostic Kit) 0 mg IM STAT PRN; Protocol PRN Reason: Hypoglycemia Protocol Hydromorphone HCl (Dilaudid) 1 mg IVP Q3 PRN PRN Reason: Pain, severe (8-10) Last Admin: 04/13/18 08:15 Dose: 1 mg Potassium Chloride/Dextrose/Sod Cl (Potassium Chl 20 Meq In D5-Ns) 1,000 mls @ 150 mls/hr IV .Q6H40M COUNTS INCLUDE 234 BEDS AT THE [facility] Last Admin: 04/13/18 00:54 Dose: 150 mls/hr Multivitamins/Vitamin C 10 ml/Chromium/Copper/Manganese/Zinc 3 ml/ Amino Acids/Electrolytes/Dextrose 1,013 mls @ 42 mls/hr IV .Q24H ONE Stop: 04/13/18 13:44 Last Admin: 04/12/18 15:10 Dose: 42 mls/hr Insulin Human Lispro (Humalog) 0 units SC ACCU-CHECK REYES; Protocol Last Admin: 04/13/18 06:10 Dose: 2 units Lidocaine (Lidoderm) 1 ea TD DAILY REYES Last Admin: 04/13/18 08:17 Dose: 1 ea Lorazepam (Ativan) 0.5 mg IVP Q6 PRN PRN Reason: Agitation Last Admin: 04/12/18 18:01 Dose: 0.5 mg Nystatin (Mycostatin Oint) 1 applic TOP TID REYES Last Admin: 04/13/18 08:19 Dose: 1 applic Ondansetron HCl (Zofran Inj) 2 mg IVP Q6 PRN PRN Reason: Nausea/Vomiting Last Admin: 04/13/18 08:47 Dose: 2 mg - Labs Labs: 04/13/18 05:25 04/13/18 05:25 PT 13.8 Seconds (9.8-13.1) H 04/05/18 18:39 INR 1.2 04/05/18 18:39 APTT 30.1 Seconds (25.6-37.1) 04/05/18 18:39 - Constitutional Appears: No Acute Distress - Head Exam Head Exam: NORMAL INSPECTION - Eye Exam Eye Exam: Normal appearance - Respiratory Exam Respiratory Exam: Clear to Ausculation Bilateral, NORMAL BREATHING PATTERN. absent: Wheezes - Cardiovascular Exam Cardiovascular Exam: REGULAR RHYTHM, +S1, +S2 - GI/Abdominal Exam GI & Abdominal Exam: Soft, Tenderness (in the LLQ and RLQ). absent: Distended, Guarding - Extremities Exam Extremities Exam: Normal Inspection - Neurological Exam Neurological Exam: Alert, Awake Assessment and Plan - Assessment and Plan (Free Text) Assessment: Assessment/Plan: 47 YO Female with PMHx of HTN, chronic back/abdominal pain with multiple nerves blocks (pain management as out patient), Colon cancer w/ metastasis to liver (on chemotherapy), Depression, Fibromyalgia, GERD admitted for SBO. Small Bowel Obstruction possibly due to internal hernia - Surgery consult, Dr. Denson/Dr. Park, recommendations appreciated, abdullahi guardado per Surgery - cont NPO, TPN, NGT, cont IVF - C/w IVF, Pain control: Hydromorphone, Zofran and famotidine Chronic back pain - 2/2 metastatic colon Ca - Chronic, H/O multiple lumbar surgeries. - Lidoderm patch for back pain - Pain management consult, Dr. Bae, recommendations appreciated; Ativan for anxiety, for synergistic effect with opioid - C/w pain management: Hydromorphine 1.5mg NIDDM - Controlled - Last A1c 7.7 on 11/19/17 - Low dose sliding scale - Hold metformin - Hypoglycemia protocol HTN - Controlled - Hold Amlodipine 10 mg QD - Monitor vitals Skin Rash -likely gianna skin infection -nystatin TOP TID Fibromyalgia - Controlled - Hold Gabapentin 300 mg TID - Hold Duloxetine 60 mg PO HS DVT -lovenox sc <Sherrell Vyas - Last Filed: 04/13/18 11:17> Objective - Vital Signs/Intake and Output Vital Signs (last 24 hours): Temp Pulse Resp BP Pulse Ox 97.9 F 108 H 20 127/93 H 100 04/13/18 08:08 04/13/18 08:08 04/13/18 08:08 04/13/18 08:08 04/13/18 08:08 Intake and Output: 04/13/18 04/13/18 06:59 18:59 Intake Total 2304 Output Total 700 Balance 1604 - Medications Medications: Current Medications Benzocaine/Menthol (Cepacol Sore Throat) 1 dale PO Q2 PRN PRN Reason: Sore Throat Last Admin: 04/12/18 07:11 Dose: 1 dale Dextrose (Dextrose 50% Inj) 0 ml IV STAT PRN; Protocol PRN Reason: Hypoglycemia Protocol Dextrose (Glutose 15) 0 gm PO ONCE PRN; Protocol PRN Reason: Hypoglycemia Protocol Enoxaparin Sodium (Lovenox) 40 mg SC DAILY REYES; Protocol Last Admin: 04/13/18 08:18 Dose: 40 mg Famotidine (Pepcid) 20 mg IVP Q12 REYES Last Admin: 04/13/18 08:22 Dose: 20 mg Glucagon (Glucagen Diagnostic Kit) 0 mg IM STAT PRN; Protocol PRN Reason: Hypoglycemia Protocol Hydromorphone HCl (Dilaudid) 1 mg IVP Q3 PRN PRN Reason: Pain, severe (8-10) Last Admin: 04/13/18 08:15 Dose: 1 mg Potassium Chloride/Dextrose/Sod Cl (Potassium Chl 20 Meq In D5-Ns) 1,000 mls @ 150 mls/hr IV .Q6H40M REYES Last Admin: 04/13/18 00:54 Dose: 150 mls/hr Multivitamins/Vitamin C 10 ml/Chromium/Copper/Manganese/Zinc 3 ml/ Amino Acids/Electrolytes/Dextrose 1,013 mls @ 42 mls/hr IV .Q24H ONE Stop: 04/13/18 13:44 Last Admin: 04/12/18 15:10 Dose: 42 mls/hr Insulin Human Lispro (Humalog) 0 units SC ACCU-CHECK REYES; Protocol Last Admin: 04/13/18 06:10 Dose: 2 units Lidocaine (Lidoderm) 1 ea TD DAILY COUNTS INCLUDE 234 BEDS AT THE [facility] Last Admin: 04/13/18 08:17 Dose: 1 ea Lorazepam (Ativan) 0.5 mg IVP Q6 PRN PRN Reason: Agitation Last Admin: 04/12/18 18:01 Dose: 0.5 mg Nystatin (Mycostatin Oint) 1 applic TOP TID COUNTS INCLUDE 234 BEDS AT THE [facility] Last Admin: 04/13/18 08:19 Dose: 1 applic Ondansetron HCl (Zofran Inj) 2 mg IVP Q6 PRN PRN Reason: Nausea/Vomiting Last Admin: 04/13/18 08:47 Dose: 2 mg - Labs Labs: 04/13/18 05:25 04/13/18 05:25 PT 13.8 Seconds (9.8-13.1) H 04/05/18 18:39 INR 1.2 04/05/18 18:39 APTT 30.1 Seconds (25.6-37.1) 04/05/18 18:39 Attending/Attestation - Attestation I have personally seen and examined this patient.: Yes I have fully participated in the care of the patient.: Yes I have reviewed all pertinent clinical information, including history, physical exam and plan: Yes Notes (Text): 04/13/18 11:17 Agree with findings and plan as above. Patient improvment is waxing and waning. surgery on consult.
[2018-04-13] MEDS: Benzocaine/Menthol (Cepacol) Lozenge PO PRN (17:09)
[2018-04-14] MEDS: Potassium Chl 20 mEq in D5-NS 1,000 ML IV SCH ×3 (06:57→17:55)
[2018-04-14] MEDS: Insulin Lispro (humaLOG) 100 Units/ml Inj SC SCH ×4 (07:00→23:51)
--- NOTE | 2018-04-14 07:51 | CP.PCM.PN ---
Subjective - Date & Time of Evaluation Date of Evaluation: 04/14/18 Time of Evaluation: 07:49 - Subjective Subjective: Surgery: Dr. Park Pt seen and examined. NGT placed yesterday. Significant output. Pt states that she has been eating ice chips. Pain unchanged. Has intermittent flatus/BM. Objective - Vital Signs/Intake and Output Vital Signs (last 24 hours): Temp Pulse Resp BP Pulse Ox 97.8 F 97 H 18 113/80 100 04/13/18 22:45 04/13/18 22:45 04/13/18 22:45 04/13/18 22:45 04/13/18 22:45 - Medications Medications: Current Medications Benzocaine/Menthol (Cepacol Sore Throat) 1 dale PO Q2 PRN PRN Reason: Sore Throat Last Admin: 04/13/18 17:09 Dose: 1 dale Dextrose (Dextrose 50% Inj) 0 ml IV STAT PRN; Protocol PRN Reason: Hypoglycemia Protocol Dextrose (Glutose 15) 0 gm PO ONCE PRN; Protocol PRN Reason: Hypoglycemia Protocol Enoxaparin Sodium (Lovenox) 40 mg SC DAILY REYES; Protocol Last Admin: 04/13/18 08:18 Dose: 40 mg Famotidine (Pepcid) 20 mg IVP Q12 REYES Last Admin: 04/13/18 22:29 Dose: 20 mg Glucagon (Glucagen Diagnostic Kit) 0 mg IM STAT PRN; Protocol PRN Reason: Hypoglycemia Protocol Hydromorphone HCl (Dilaudid) 1 mg IVP Q3 PRN PRN Reason: Pain, severe (8-10) Last Admin: 04/14/18 06:51 Dose: 1 mg Potassium Chloride/Dextrose/Sod Cl (Potassium Chl 20 Meq In D5-Ns) 1,000 mls @ 150 mls/hr IV .Q6H40M REYES Last Admin: 04/14/18 06:57 Dose: 150 mls/hr Multivitamins/Vitamin C 10 ml/Chromium/Copper/Manganese/Zinc 3 ml/ Amino Acids/Electrolytes/Dextrose 1,013 mls @ 42 mls/hr IV .Q24H REYES Last Admin: 04/13/18 17:09 Dose: 42 mls/hr Insulin Human Lispro (Humalog) 0 units SC ACCU-CHECK REYES; Protocol Last Admin: 04/14/18 07:00 Dose: 2 units Lidocaine (Lidoderm) 1 ea TD DAILY REYES Last Admin: 04/13/18 08:17 Dose: 1 ea Lorazepam (Ativan) 0.5 mg IVP Q6 PRN PRN Reason: Agitation Last Admin: 04/13/18 22:28 Dose: 0.5 mg Nystatin (Mycostatin Oint) 1 applic TOP TID REYES Last Admin: 04/13/18 17:02 Dose: 1 applic Ondansetron HCl (Zofran Inj) 2 mg IVP Q6 PRN PRN Reason: Nausea/Vomiting Last Admin: 04/14/18 00:58 Dose: 2 mg - Labs Labs: 04/13/18 05:25 04/13/18 05:25 PT 13.8 Seconds (9.8-13.1) H 04/05/18 18:39 INR 1.2 04/05/18 18:39 APTT 30.1 Seconds (25.6-37.1) 04/05/18 18:39 - Constitutional Appears: Non-toxic, No Acute Distress - Head Exam Head Exam: ATRAUMATIC, NORMOCEPHALIC - Eye Exam Eye Exam: EOMI - ENT Exam ENT Exam: Mucous Membranes Moist - Neck Exam Neck Exam: Full ROM - Respiratory Exam Respiratory Exam: NORMAL BREATHING PATTERN. absent: Accessory Muscle Use, Respiratory Distress - GI/Abdominal Exam GI & Abdominal Exam: Soft. 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
[2018-04-14] MEDS: Nystatin Ointment TOP SCH ×3 (08:48→16:26)
[2018-04-14] MEDS: Lidocaine 5% Patch TD SCH (08:50)
[2018-04-14] MEDS: Enoxaparin 40 mg Syringe SC SCH (08:50)
--- NOTE | 2018-04-14 09:25 | CP.PCM.PN ---
<Marisa Gonzalez - Last Filed: 04/14/18 15:50> Subjective - Date & Time of Evaluation Date of Evaluation: 04/14/18 Time of Evaluation: 10:00 - Subjective Subjective: Overnight pt had nausea and vomiting. Today pt feels fatigued, has abdominal and LBP well controlled with pain medicine. Denies nausea, vomiting, diarrhea, constipation. Has not passed flatus this morning, Last BM was 2 days ago. Objective - Vital Signs/Intake and Output Vital Signs (last 24 hours): Temp Pulse Resp BP Pulse Ox 97.7 F 82 18 101/69 99 04/14/18 08:26 04/14/18 08:26 04/14/18 08:26 04/14/18 08:26 04/14/18 08:26 Intake and Output: 04/14/18 04/14/18 06:59 18:59 Intake Total 2304 Output Total 900 Balance 1404 - Medications Medications: Current Medications Benzocaine/Menthol (Cepacol Sore Throat) 1 dale PO Q2 PRN PRN Reason: Sore Throat Last Admin: 04/13/18 17:09 Dose: 1 dale Dextrose (Dextrose 50% Inj) 0 ml IV STAT PRN; Protocol PRN Reason: Hypoglycemia Protocol Dextrose (Glutose 15) 0 gm PO ONCE PRN; Protocol PRN Reason: Hypoglycemia Protocol Enoxaparin Sodium (Lovenox) 40 mg SC DAILY REYES; Protocol Last Admin: 04/14/18 08:50 Dose: 40 mg Famotidine (Pepcid) 20 mg IVP Q12 [facility] Last Admin: 04/14/18 08:49 Dose: 20 mg Glucagon (Glucagen Diagnostic Kit) 0 mg IM STAT PRN; Protocol PRN Reason: Hypoglycemia Protocol Hydromorphone HCl (Dilaudid) 1 mg IVP Q3 PRN PRN Reason: Pain, severe (8-10) Last Admin: 04/14/18 06:51 Dose: 1 mg Potassium Chloride/Dextrose/Sod Cl (Potassium Chl 20 Meq In D5-Ns) 1,000 mls @ 150 mls/hr IV .Q6H40M [facility] [place] Last Admin: 04/14/18 06:57 Dose: 150 mls/hr Multivitamins/Vitamin C 10 ml/Chromium/Copper/Manganese/Zinc 3 ml/ Amino Acids/Electrolytes/Dextrose 1,013 mls @ 42 mls/hr IV .Q24H REYES Last Admin: 04/13/18 17:09 Dose: 42 mls/hr Insulin Human Lispro (Humalog) 0 units SC ACCU-CHECK REYES; Protocol Last Admin: 04/14/18 07:00 Dose: 2 units Lidocaine (Lidoderm) 1 ea TD DAILY REYES Last Admin: 04/14/18 08:50 Dose: 1 ea Lorazepam (Ativan) 0.5 mg IVP Q6 PRN PRN Reason: Agitation Last Admin: 04/13/18 22:28 Dose: 0.5 mg Nystatin (Mycostatin Oint) 1 applic TOP TID REYES Last Admin: 04/14/18 08:48 Dose: 1 applic Ondansetron HCl (Zofran Inj) 2 mg IVP Q6 PRN PRN Reason: Nausea/Vomiting Last Admin: 04/14/18 00:58 Dose: 2 mg - Labs Labs: 04/13/18 05:25 04/13/18 05:25 PT 13.8 Seconds (9.8-13.1) H 04/05/18 18:39 INR 1.2 04/05/18 18:39 APTT 30.1 Seconds (25.6-37.1) 04/05/18 18:39 - Constitutional Appears: Non-toxic, No Acute Distress - Head Exam Head Exam: ATRAUMATIC, NORMAL INSPECTION, NORMOCEPHALIC Additional comments: NG tube in place - Eye Exam Eye Exam: EOMI, Normal appearance - ENT Exam ENT Exam: Mucous Membranes Moist - Respiratory Exam Respiratory Exam: Clear to Ausculation Bilateral, NORMAL BREATHING PATTERN - Cardiovascular Exam Cardiovascular Exam: RRR, +S1, +S2 - GI/Abdominal Exam GI & Abdominal Exam: Soft, Tenderness (RLQ and LLQ), Normal Bowel Sounds - Extremities Exam Extremities Exam: Normal Inspection - Neurological Exam Neurological Exam: Alert, Awake, Oriented x3 Assessment and Plan - Assessment and Plan (Free Text) Assessment: 47 yo F with PMHx of HTN, chronic back/abdominal pain with multiple nerves blocks (pain management as out patient), Colon cancer w/ metastasis to liver (on chemotherapy), Depression, Fibromyalgia, GERD admitted for SBO. Small Bowel Obstruction possibly due to internal hernia -Surgery consult, Dr. Denson/Dr. Park, recommendations appreciated, management per Surgery -cont NPO, no ice chips, TPN, NGT -C/w IVF @150 -Pain control: Hydromorphone, Zofran and famotidine -Gave Cathflo 2mg to flush port cath blood return confirmed Chronic back pain - 2/2 metastatic colon Ca - Chronic, H/O multiple lumbar surgeries. - Lidoderm patch for back pain - Pain management consult, Dr. Bae, recommendations appreciated; Ativan for anxiety, for synergistic effect with opioid - C/w pain management: Hydromorphine 1mg NIDDM - Controlled - Last A1c 7.7 on 11/19/17 - Low dose sliding scale - Hold metformin - Hypoglycemia protocol HTN - Controlled - Hold Amlodipine 10 mg QD - Monitor vitals Skin Rash -likely gianna skin infection -nystatin TOP TID Fibromyalgia - Controlled - Hold Gabapentin 300 mg TID - Hold Duloxetine 60 mg PO HS DVT PPX -lovenox 40 sc Code Status -Full code <Sherrell Vyas - Last Filed: 04/18/18 16:33> Objective - Vital Signs/Intake and Output Vital Signs (last 24 hours): Temp Pulse Resp BP Pulse Ox 98.3 F 109 H 18 106/74 98 04/18/18 16:31 04/18/18 16:31 04/18/18 16:31 04/18/18 16:31 04/18/18 16:31 - Medications Medications: Current Medications Benzocaine/Menthol (Cepacol Sore Throat) 1 dale PO Q2 PRN PRN Reason: Sore Throat Last Admin: 04/16/18 15:31 Dose: 1 dale Dextrose (Dextrose 50% Inj) 0 ml IV STAT PRN; Protocol PRN Reason: Hypoglycemia Protocol Dextrose (Glutose 15) 0 gm PO ONCE PRN; Protocol PRN Reason: Hypoglycemia Protocol Enoxaparin Sodium (Lovenox) 40 mg SC DAILY REYES; Protocol Last Admin: 04/17/18 08:51 Dose: 40 mg Famotidine (Pepcid) 20 mg IVP Q12 REYES Last Admin: 04/18/18 09:06 Dose: 20 mg Fat Emulsion Intravenous (Intralipid 20%) 250 ml IV DAILY REYES Glucagon (Glucagen Diagnostic Kit) 0 mg IM STAT PRN; Protocol PRN Reason: Hypoglycemia Protocol Hydromorphone HCl (Dilaudid) 1 mg IVP Q3 PRN PRN Reason: Pain, severe (8-10) Last Admin: 04/18/18 14:01 Dose: 1 mg Potassium Chloride/Dextrose/Sod Cl (Potassium Chl 20 Meq In D5-Ns) 1,000 mls @ 100 mls/hr IV .Q10H REYES Last Admin: 04/18/18 11:54 Dose: 100 mls/hr Multivitamins/Vitamin C 10 ml/Chromium/Copper/Manganese/Zinc 3 ml/ Amino Acids/Electrolytes/Dextrose 1,013 mls @ 80 mls/hr IV .[id number] ONE Stop: 04/19/18 04:54 Insulin Human Lispro (Humalog) 0 units SC ACCU-CHECK REYES; Protocol Last Admin: 04/18/18 12:51 Dose: Not Given Lidocaine (Lidoderm) 1 ea TD DAILY REYES Last Admin: 04/18/18 09:05 Dose: 1 ea Lorazepam (Ativan) 0.5 mg IVP Q6 PRN PRN Reason: Agitation Last Admin: 04/18/18 11:49 Dose: 0.5 mg Nystatin (Mycostatin Oint) 1 applic TOP TID REYES Last Admin: 04/18/18 14:51 Dose: 1 applic Ondansetron HCl (Zofran Inj) 2 mg IVP Q6 PRN PRN Reason: Nausea/Vomiting Last Admin: 04/17/18 03:00 Dose: 2 mg - Labs Labs: 04/18/18 05:55 04/18/18 05:55 PT 14.5 Seconds (9.8-13.1) H 04/18/18 05:55 INR 1.3 04/18/18 05:55 APTT 29.5 Seconds (25.6-37.1) 04/18/18 05:55 Attending/Attestation - Attestation I have personally seen and examined this patient.: Yes I have fully participated in the care of the patient.: Yes I have reviewed all pertinent clinical information, including history, physical exam and plan: Yes Notes (Text): 04/18/18 16:33 Agree with findings and plan as above.
[2018-04-14] MEDS: Benzocaine/Menthol (Cepacol) Lozenge PO PRN ×3 (11:54→22:08)
[2018-04-15] MEDS: Benzocaine/Menthol (Cepacol) Lozenge PO PRN ×3 (01:39→13:37)
[2018-04-15 06:07] LABS: HEMOGLOBIN 12.7 g/dL (12.0-16.0); MEAN CELL VOLUME 84.6 fl (81.0-99.0); MEAN CORPUSCULAR HEMOGLOBIN 27.4 pg (27.0-31.0); MEAN CORPUSCULAR HGB CONC 32.4 g/dL (33.0-37.0); RBC 4.64 Mil/uL (3.80-5.20); RED CELL DISTRIBUTION WIDTH 15.6 % (11.5-14.5); WHITE BLOOD COUNT 6.6 K/uL (4.8-10.8)
[2018-04-15 06:39] LABS: BLOOD UREA NITROGEN 7 mg/dl (7-17); CALCIUM 9.3 mg/dL (8.4-10.2); GFR NON-AFRICAN AMERICAN > 60
[2018-04-15] MEDS: Insulin Lispro (humaLOG) 100 Units/ml Inj SC SCH ×4 (07:07→22:00)
[2018-04-15] MEDS ORDERED: Iohexol 240 (50 ml) PO ONE (07:29)
--- NOTE | 2018-04-15 07:54 | CP.PCM.PN ---
Subjective - Date & Time of Evaluation Date of Evaluation: 04/15/18 Time of Evaluation: 07:00 - Subjective Subjective: GENERAL SURGERY PROGRESS NOTE FOR DR. JARAMILLO Patient seen and examined at bedside. Yesterday, her NG tube was clamped but pt had nausea so it was placed back on suction. From 3pm-7pm, pt had 500cc gastric output from NG tube. From 7p-7a, pt had an additional 300cc ouput from NG tube. Patient reports passing flatus but no BM. Objective - Vital Signs/Intake and Output Vital Signs (last 24 hours): Temp Pulse Resp BP Pulse Ox 98.0 F 83 18 113/79 100 04/14/18 23:49 04/14/18 23:49 04/14/18 23:49 04/14/18 23:49 04/14/18 23:49 - Medications Medications: Current Medications Benzocaine/Menthol (Cepacol Sore Throat) 1 dale PO Q2 PRN PRN Reason: Sore Throat Last Admin: 04/15/18 06:20 Dose: 1 dale Dextrose (Dextrose 50% Inj) 0 ml IV STAT PRN; Protocol PRN Reason: Hypoglycemia Protocol Dextrose (Glutose 15) 0 gm PO ONCE PRN; Protocol PRN Reason: Hypoglycemia Protocol Enoxaparin Sodium (Lovenox) 40 mg SC DAILY REYES; Protocol Last Admin: 04/14/18 08:50 Dose: 40 mg Famotidine (Pepcid) 20 mg IVP Q12 REYES Last Admin: 04/14/18 23:00 Dose: 20 mg Glucagon (Glucagen Diagnostic Kit) 0 mg IM STAT PRN; Protocol PRN Reason: Hypoglycemia Protocol Hydromorphone HCl (Dilaudid) 1 mg IVP Q3 PRN PRN Reason: Pain, severe (8-10) Last Admin: 04/15/18 06:08 Dose: 1 mg Potassium Chloride/Dextrose/Sod Cl (Potassium Chl 20 Meq In D5-Ns) 1,000 mls @ 150 mls/hr IV .Q6H40M REYES Last Admin: 04/14/18 17:55 Dose: Not Given Multivitamins/Vitamin C 10 ml/Chromium/Copper/Manganese/Zinc 3 ml/ Amino Acids/Electrolytes/Dextrose 1,013 mls @ 42 mls/hr IV .Q24H REYES Last Admin: 04/14/18 17:54 Dose: Not Given Multivitamins/Vitamin C 10 ml/Chromium/Copper/Manganese/Zinc 3 ml/ Amino Acids/Electrolytes/Dextrose 1,013 mls @ 42 mls/hr IV .Q24H ONE Stop: 04/15/18 15:44 Last Admin: 04/14/18 16:58 Dose: 42 mls/hr Insulin Human Lispro (Humalog) 0 units SC ACCU-CHECK REYES; Protocol Last Admin: 04/15/18 07:07 Dose: Not Given Lidocaine (Lidoderm) 1 ea TD DAILY REYES Last Admin: 04/14/18 08:50 Dose: 1 ea Lorazepam (Ativan) 0.5 mg IVP Q6 PRN PRN Reason: Agitation Last Admin: 04/14/18 20:42 Dose: 0.5 mg Nystatin (Mycostatin Oint) 1 applic TOP TID REYES Last Admin: 04/14/18 16:26 Dose: 1 applic Ondansetron HCl (Zofran Inj) 2 mg IVP Q6 PRN PRN Reason: Nausea/Vomiting Last Admin: 04/15/18 06:20 Dose: 2 mg - Labs Labs: 04/15/18 05:45 04/15/18 05:45 PT 13.8 Seconds (9.8-13.1) H 04/05/18 18:39 INR 1.2 04/05/18 18:39 APTT 30.1 Seconds (25.6-37.1) 04/05/18 18:39 - Constitutional Appears: Non-toxic, No Acute Distress, Chronically Ill - Head Exam Head Exam: ATRAUMATIC, NORMAL INSPECTION - Respiratory Exam Respiratory Exam: NORMAL BREATHING PATTERN. absent: Respiratory Distress - Cardiovascular Exam Cardiovascular Exam: +S1, +S2 - GI/Abdominal Exam GI & Abdominal Exam: Soft. absent: Tenderness, Rebound - Neurological Exam Neurological Exam: Alert, Awake, Oriented x3 - Psychiatric Exam Psychiatric exam: Normal Affect, Normal Mood - Skin Skin Exam: Normal Color, Warm Assessment and Plan - Assessment and Plan (Free Text) Assessment: 47F w/ hx of metastatic colon CA s/p L colectomy and oopherectomy presenting with SBO - NG tube placed back to suction yesterday afternoon, 3pm - 7am = ~800cc output - Limit narcotics - Continue strict NPO, no ice chips - Serial abd exams - CT Abd/Pelvis with contrast ordered to evaluate SBO - Discussed plan with Dr. Xavier Trimble PGY-4
[2018-04-15] MEDS: Lidocaine 5% Patch TD SCH (09:09)
[2018-04-15] MEDS: Enoxaparin 40 mg Syringe SC SCH (09:10)
[2018-04-15] MEDS: Nystatin Ointment TOP SCH ×3 (09:10→16:48)
--- NOTE | 2018-04-15 09:20 | CP.PCM.PN ---
Addendum entered and electronically signed by Erik Rodriguez MD 04/15/18 14:36: Patient seen and examined . All chart and clinical data reviewed .Agree with resident assessment and plan. patient still with abdominal pain , nausea, passing flatus but no BM NGT in place to intermittent suction CT abdomen today showed : Mechanical small bowel obstruction with point of transition again identified in left lower quadrant of abdomen. Oral contrast seen distal to point of obstruction consistent with incomplete mechanical obstruction. Nasogastric tube. Suspect neoplasm posterior right hepatic lobe. Continue current management Reordered TPN will need to discuss hospice or transfer to [facility] for evaluation by her physicians Original Note: Subjective - Date & Time of Evaluation Date of Evaluation: 04/15/18 Time of Evaluation: 09:20 - Subjective Subjective: No acute overnight events. Pt states that she is feeling well today, minimal abdominal pain. Passing gas, NTG on suction. Objective - Vital Signs/Intake and Output Vital Signs (last 24 hours): Temp Pulse Resp BP Pulse Ox 98.1 F 75 20 122/82 100 04/15/18 08:12 04/15/18 08:12 04/15/18 08:12 04/15/18 08:12 04/15/18 08:12 - Medications Medications: Current Medications Benzocaine/Menthol (Cepacol Sore Throat) 1 dale PO Q2 PRN PRN Reason: Sore Throat Last Admin: 04/15/18 06:20 Dose: 1 dale Dextrose (Dextrose 50% Inj) 0 ml IV STAT PRN; Protocol PRN Reason: Hypoglycemia Protocol Dextrose (Glutose 15) 0 gm PO ONCE PRN; Protocol PRN Reason: Hypoglycemia Protocol Enoxaparin Sodium (Lovenox) 40 mg SC DAILY [facility]; Protocol Last Admin: 04/15/18 09:10 Dose: 40 mg Famotidine (Pepcid) 20 mg IVP Q12 [facility] Last Admin: 04/15/18 09:16 Dose: 20 mg Glucagon (Glucagen Diagnostic Kit) 0 mg IM STAT PRN; Protocol PRN Reason: Hypoglycemia Protocol Hydromorphone HCl (Dilaudid) 1 mg IVP Q3 PRN PRN Reason: Pain, severe (8-10) Last Admin: 04/15/18 08:54 Dose: 1 mg Potassium Chloride/Dextrose/Sod Cl (Potassium Chl 20 Meq In D5-Ns) 1,000 mls @ 150 mls/hr IV .Q6H40M [facility] Last Admin: 04/14/18 17:55 Dose: Not Given Multivitamins/Vitamin C 10 ml/Chromium/Copper/Manganese/Zinc 3 ml/ Amino Acids/Electrolytes/Dextrose 1,013 mls @ 42 mls/hr IV .Q24H [facility] Last Admin: 04/14/18 17:54 Dose: Not Given Multivitamins/Vitamin C 10 ml/Chromium/Copper/Manganese/Zinc 3 ml/ Amino Acids/Electrolytes/Dextrose 1,013 mls @ 42 mls/hr IV .Q24H [facility] Stop: 04/15/18 15:44 Last Admin: 04/14/18 16:58 Dose: 42 mls/hr Insulin Human Lispro (Humalog) 0 units SC ACCU-CHECK [facility]; Protocol Last Admin: 04/15/18 07:07 Dose: Not Given Lidocaine (Lidoderm) 1 ea TD DAILY [facility] Last Admin: 04/15/18 09:09 Dose: 1 ea Lorazepam (Ativan) 0.5 mg IVP Q6 PRN PRN Reason: Agitation Last Admin: 04/14/18 20:42 Dose: 0.5 mg Nystatin (Mycostatin Oint) 1 applic TOP TID [facility] Last Admin: 04/15/18 09:10 Dose: 1 applic Ondansetron HCl (Zofran Inj) 2 mg IVP Q6 PRN PRN Reason: Nausea/Vomiting Last Admin: 04/15/18 06:20 Dose: 2 mg - Labs Labs: 04/15/18 05:45 04/15/18 05:45 PT 13.8 Seconds (9.8-13.1) H 04/05/18 18:39 INR 1.2 04/05/18 18:39 APTT 30.1 Seconds (25.6-37.1) 04/05/18 18:39 - Constitutional Appears: No Acute Distress, Other (NTG on, draining greenish fluid) - Eye Exam Eye Exam: EOMI, Normal appearance - ENT Exam ENT Exam: Mucous Membranes Moist - Respiratory Exam Respiratory Exam: Clear to Ausculation Bilateral, NORMAL BREATHING PATTERN. absent: Wheezes - Cardiovascular Exam Cardiovascular Exam: REGULAR RHYTHM, +S1, +S2 - GI/Abdominal Exam GI & Abdominal Exam: Soft, Normal Bowel Sounds. absent: Guarding, Tenderness Additional comments: Multiple old surgical scars noted - Extremities Exam Extremities Exam: Normal Inspection - Neurological Exam Neurological Exam: Alert, Awake, Oriented x3 - Skin Additional comments: small 3x2 cm patch noted below the L breast fold Assessment and Plan - Assessment and Plan (Free Text) Assessment: Assessment/Plan: 47 YO Female with PMHx of HTN, chronic back/abdominal pain with multiple nerves blocks (pain management as out patient), Colon cancer w/ metastasis to liver (on chemotherapy), Depression, Fibromyalgia, GERD admitted for SBO. Small Bowel Obstruction possibly due to internal hernia - Surgery consult, Dr. Denson/Dr. Park, recommendations appreciated, management per Surgery - cont NPO, TPN, NGT, cont IVF - C/w IVF, Pain control: Hydromorphone, Zofran and famotidine - CT abd and pelvis pending Chronic back pain - 2/2 metastatic colon Ca - Chronic, H/O multiple lumbar surgeries. - Lidoderm patch for back pain - Pain management consult, Dr. Bae, recommendations appreciated; Ativan for anxiety, for synergistic effect with opioid - C/w pain management: Hydromorphine 1.5mg NIDDM - Controlled - Last A1c 7.7 on 11/19/17 - Low dose sliding scale - Hold metformin - Hypoglycemia protocol HTN - Controlled - Hold Amlodipine 10 mg QD - Monitor vitals Skin Rash -improving -likely gianna skin infection -nystatin TOP TID Fibromyalgia - Controlled - Hold Gabapentin 300 mg TID - Hold Duloxetine 60 mg PO HS DVT -lovenox sc
[2018-04-15] MEDS ORDERED: Sodium Chloride 0.9% 50 ML IV ONE (11:29)
[2018-04-15] MEDS ORDERED: Iohexol 300 100 ML IJ ONE (11:29)
--- NOTE | 2018-04-15 13:07 | CT ---
Date of service: 04/15/2018 PROCEDURE: CT Abdomen and Pelvis with contrast HISTORY: SBO COMPARISON: 04/05/2018 TECHNIQUE: Contrast dose: 95 mL Omnipaque 300 Radiation dose: Total exam DLP = 484.81 mGy-cm. This CT exam was performed using one or more of the following dose reduction techniques: Automated exposure control, adjustment of the mA and/or kV according to patient size, and/or use of iterative reconstruction technique. FINDINGS: LOWER THORAX: Nasogastric tube. Central venous catheter. No infiltrate/effusion. LIVER: Normal size. Heterogeneous low-attenuation posterior right hepatic lobe suspicious for neoplasm. No change from previous. No evidence of biliary obstruction. GALLBLADDER AND BILE DUCTS: Not visualized. Possible prior cholecystectomy. PANCREAS: Unremarkable. No gross lesion or ductal dilatation. SPLEEN: Unremarkable. ADRENALS: Unremarkable. No mass. KIDNEYS AND URETERS: Unremarkable. No hydronephrosis. No solid mass. VASCULATURE: Unremarkable. No aortic aneurysm. No aortic atherosclerotic calcification or mural plaque present. BOWEL: Findings consistent with mechanical small-bowel obstruction. Point of transition identified in left lower quadrant of abdomen on series 3, image 113. Possible internal hernia. Dilated proximal small bowel loops. Collapsed ileum distal to point of obstruction. Please note that there is some oral contrast seen within collapsed ileum indicating incomplete mechanical small-bowel obstruction. APPENDIX: Normal appendix. PERITONEUM: No ascites or pneumoperitoneum. LYMPH NODES: Unremarkable. No enlarged lymph nodes. BLADDER: Unremarkable. REPRODUCTIVE: Oval uterus BONES: No acute fracture OTHER FINDINGS: None. IMPRESSION: Findings consistent with mechanical small bowel obstruction with point of transition again identified in left lower quadrant of abdomen. Oral contrast seen distal to point of obstruction consistent with incomplete mechanical obstruction. Nasogastric tube. Suspect neoplasm posterior right hepatic lobe. Further evaluation suggested.
[2018-04-15] MEDS: Potassium Chl 20 mEq in D5-NS 1,000 ML IV SCH ×3 (23:19→23:21)
[2018-04-16] MEDS: Potassium Chl 20 mEq in D5-NS 1,000 ML IV SCH ×2 (02:55→18:03)
[2018-04-16 06:28] LABS: HEMOGLOBIN 12.9 g/dL (12.0-16.0); MEAN CELL VOLUME 83.9 fl (81.0-99.0); MEAN CORPUSCULAR HEMOGLOBIN 27.5 pg (27.0-31.0); MEAN CORPUSCULAR HGB CONC 32.8 g/dL (33.0-37.0); RBC 4.7 Mil/uL (3.80-5.20); RED CELL DISTRIBUTION WIDTH 15.1 % (11.5-14.5); WHITE BLOOD COUNT 5.7 K/uL (4.8-10.8)
[2018-04-16 06:52] LABS: ALBUMIN 3.5 g/dL (3.5-5.0); ALT/SGPT 52 U/L (9-52); AST/SGOT 32 U/L (14-36); BLOOD UREA NITROGEN 10 mg/dl (7-17); CALCIUM 9.1 mg/dL (8.4-10.2); GFR NON-AFRICAN AMERICAN > 60
--- NOTE | 2018-04-16 07:51 | CP.PCM.PN ---
Subjective - Date & Time of Evaluation Date of Evaluation: 04/16/18 Time of Evaluation: 07:50 - Subjective Subjective: Surgery: Dr. Park Pt seen and examined. No acute events overnight. Pt continues to have pain and nausea. No vomiting overnight. No BM, +flatus. Objective - Vital Signs/Intake and Output Vital Signs (last 24 hours): Temp Pulse Resp BP Pulse Ox 97.7 F 87 18 117/82 100 04/15/18 23:53 04/15/18 23:53 04/15/18 23:53 04/15/18 23:53 04/15/18 23:53 Intake and Output: 04/16/18 04/16/18 06:59 18:59 Intake Total 1000 Output Total 1150 Balance -150 - Medications Medications: Current Medications Benzocaine/Menthol (Cepacol Sore Throat) 1 dale PO Q2 PRN PRN Reason: Sore Throat Last Admin: 04/15/18 13:37 Dose: 1 dale Dextrose (Dextrose 50% Inj) 0 ml IV STAT PRN; Protocol PRN Reason: Hypoglycemia Protocol Dextrose (Glutose 15) 0 gm PO ONCE PRN; Protocol PRN Reason: Hypoglycemia Protocol Enoxaparin Sodium (Lovenox) 40 mg SC DAILY [facility]; Protocol Last Admin: 04/15/18 09:10 Dose: 40 mg Famotidine (Pepcid) 20 mg IVP Q12 [facility] Last Admin: 04/15/18 21:09 Dose: 20 mg Glucagon (Glucagen Diagnostic Kit) 0 mg IM STAT PRN; Protocol PRN Reason: Hypoglycemia Protocol Hydromorphone HCl (Dilaudid) 1 mg IVP Q3 PRN PRN Reason: Pain, severe (8-10) Last Admin: 04/16/18 05:55 Dose: 1 mg Potassium Chloride/Dextrose/Sod Cl (Potassium Chl 20 Meq In D5-Ns) 1,000 mls @ 150 mls/hr IV .Q6H40M [facility] Last Admin: 04/16/18 02:55 Dose: Not Given Chromium/Copper/Manganese/Zinc 3 ml/ Multivitamins/Vitamin C 10 ml/ Amino Acids/Electrolytes/Dextrose 1,013 mls @ 80 mls/hr IV .[id number] [facility] Last Admin: 04/15/18 16:44 Dose: 80 mls/hr Amino Acids/Electrolytes/Dextrose (Clinimix 5/20 % "E" (1000 Ml)) 1,000 mls @ 80 mls/hr IV .[id number] [facility] Last Admin: 04/16/18 03:22 Dose: 80 mls/hr Insulin Human Lispro (Humalog) 0 units SC ACCU-CHECK [facility]; Protocol Last Admin: 04/15/18 22:00 Dose: Not Given Lidocaine (Lidoderm) 1 ea TD DAILY [facility] Last Admin: 04/15/18 09:09 Dose: 1 ea Lidocaine HCl (Lidocaine 2% Viscous) 15 ml PO Q8 PRN PRN Reason: Sore Throat Lorazepam (Ativan) 0.5 mg IVP Q6 PRN PRN Reason: Agitation Last Admin: 04/16/18 02:36 Dose: 0.5 mg Nystatin (Mycostatin Oint) 1 applic TOP TID [facility] Last Admin: 04/15/18 16:48 Dose: 1 applic Ondansetron HCl (Zofran Inj) 2 mg IVP Q6 PRN PRN Reason: Nausea/Vomiting Last Admin: 04/15/18 23:12 Dose: 2 mg - Labs Labs: 04/16/18 06:10 04/16/18 06:10 PT 13.8 Seconds (9.8-13.1) H 04/05/18 18:39 INR 1.2 04/05/18 18:39 APTT 30.1 Seconds (25.6-37.1) 04/05/18 18:39 - Constitutional Appears: Non-toxic, No Acute Distress - Head Exam Head Exam: ATRAUMATIC, NORMOCEPHALIC - Eye Exam Eye Exam: EOMI - ENT Exam ENT Exam: Mucous Membranes Moist - Neck Exam Neck Exam: Full ROM - Respiratory Exam Respiratory Exam: NORMAL BREATHING PATTERN. absent: Accessory Muscle Use, Respiratory Distress - GI/Abdominal Exam GI & Abdominal Exam: Soft, Tenderness, Rebound. 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
--- NOTE | 2018-04-16 09:56 | CP.PCM.PN ---
Addendum entered and electronically signed by Erik Rodriguez MD 04/16/18 15:33: Patient seen bedside . All chart and clinical data reviewed. Discussed with resident . Agree with assessment and plan. NGT in place . Patient still with nausea and passing flatus Complains of some abdominal pain but better today Keep NPO and continue TPN Surgery on board following . Possible OR by if no improvement Patient appears to be frustrated by the whole situation. Original Note: Subjective - Date & Time of Evaluation Date of Evaluation: 04/16/18 Time of Evaluation: 09:15 - Subjective Subjective: No acute overnight pt. Pt remains NPO, NGT on suction. Pt endorsing abd pain, and soreness in her throat due to the NG tube. +flatus, no BM. Objective - Vital Signs/Intake and Output Vital Signs (last 24 hours): Temp Pulse Resp BP Pulse Ox 97.8 F 79 20 124/84 98 04/16/18 08:16 04/16/18 08:16 04/16/18 08:16 04/16/18 08:16 04/16/18 08:16 Intake and Output: 04/16/18 04/16/18 06:59 18:59 Intake Total 1000 Output Total 1150 Balance -150 - Medications Medications: Current Medications Benzocaine/Menthol (Cepacol Sore Throat) 1 dale PO Q2 PRN PRN Reason: Sore Throat Last Admin: 04/15/18 13:37 Dose: 1 dale Dextrose (Dextrose 50% Inj) 0 ml IV STAT PRN; Protocol PRN Reason: Hypoglycemia Protocol Dextrose (Glutose 15) 0 gm PO ONCE PRN; Protocol PRN Reason: Hypoglycemia Protocol Enoxaparin Sodium (Lovenox) 40 mg SC DAILY [facility]; Protocol Last Admin: 04/15/18 09:10 Dose: 40 mg Famotidine (Pepcid) 20 mg IVP Q12 [facility] Last Admin: 04/15/18 21:09 Dose: 20 mg Glucagon (Glucagen Diagnostic Kit) 0 mg IM STAT PRN; Protocol PRN Reason: Hypoglycemia Protocol Hydromorphone HCl (Dilaudid) 1 mg IVP Q3 PRN PRN Reason: Pain, severe (8-10) Last Admin: 04/16/18 09:03 Dose: 1 mg Chromium/Copper/Manganese/Zinc 3 ml/ Multivitamins/Vitamin C 10 ml/ Amino Acids/Electrolytes/Dextrose 1,013 mls @ 80 mls/hr IV .[id number] [facility] Last Admin: 04/15/18 16:44 Dose: 80 mls/hr Amino Acids/Electrolytes/Dextrose (Clinimix 5/20 % "E" (1000 Ml)) 1,000 mls @ 80 mls/hr IV .[id number] [facility] Last Admin: 04/16/18 03:22 Dose: 80 mls/hr Potassium Chloride/Dextrose/Sod Cl (Potassium Chl 20 Meq In D5-Ns) 1,000 mls @ 50 mls/hr IV .Q20H [facility] Insulin Human Lispro (Humalog) 0 units SC ACCU-CHECK [facility]; Protocol Last Admin: 04/15/18 22:00 Dose: Not Given Lidocaine (Lidoderm) 1 ea TD DAILY [facility] Last Admin: 04/15/18 09:09 Dose: 1 ea Lidocaine HCl (Lidocaine 2% Viscous) 15 ml PO Q8 PRN PRN Reason: Sore Throat Lorazepam (Ativan) 0.5 mg IVP Q6 PRN PRN Reason: Agitation Last Admin: 04/16/18 08:37 Dose: 0.5 mg Nystatin (Mycostatin Oint) 1 applic TOP TID [facility] Last Admin: 04/15/18 16:48 Dose: 1 applic Ondansetron HCl (Zofran Inj) 2 mg IVP Q6 PRN PRN Reason: Nausea/Vomiting Last Admin: 04/15/18 23:12 Dose: 2 mg - Labs Labs: 04/16/18 06:10 04/16/18 06:10 PT 13.8 Seconds (9.8-13.1) H 04/05/18 18:39 INR 1.2 04/05/18 18:39 APTT 30.1 Seconds (25.6-37.1) 04/05/18 18:39 - Constitutional Appears: No Acute Distress, Other (NTG on wall suction, green output ) - Eye Exam Eye Exam: Normal appearance - ENT Exam ENT Exam: Mucous Membranes Moist - Respiratory Exam Respiratory Exam: Clear to Ausculation Bilateral, NORMAL BREATHING PATTERN. absent: Wheezes - Cardiovascular Exam Cardiovascular Exam: REGULAR RHYTHM, +S1, +S2 - GI/Abdominal Exam GI & Abdominal Exam: Soft, Hyperactive Bowel Sounds. absent: Guarding, Tenderness Additional comments: Old surgical scars noted - Extremities Exam Extremities Exam: Normal Inspection. absent: Calf Tenderness, Pedal Edema - Neurological Exam Neurological Exam: Alert, Awake Assessment and Plan - Assessment and Plan (Free Text) Assessment: Assessment/Plan: 47 YO Female with PMHx of HTN, chronic back/abdominal pain with multiple nerves blocks (pain management as out patient), Colon cancer w/ metastasis to liver (on chemotherapy), Depression, Fibromyalgia, GERD admitted for SBO. Discussion with patient about transfer to [facility] for evaluation by her physicians, but patient refused at this time. She would like to stay in [facility] for further care and management. Small Bowel Obstruction possibly due to internal hernia - Surgery consult, Dr. Denson/Dr. Park, recommendations appreciated: OR if no resolution - cont NPO, TPN, NGT, cont IVF - C/w IVF, Pain control: Hydromorphone, Zofran and famotidine - CT abd and pelvis incomplete mechanical obstruction. Chronic back pain - 2/2 metastatic colon Ca - Chronic, H/O multiple lumbar surgeries. - Lidoderm patch for back pain - Pain management consult, Dr. Bae, recommendations appreciated; Ativan for anxiety, for synergistic effect with opioid - C/w pain management: Hydromorphine 1.5mg NIDDM - Controlled - Last A1c 7.7 on 11/19/17 - Low dose sliding scale - Hold metformin - Hypoglycemia protocol HTN - Controlled - Hold Amlodipine 10 mg QD - Monitor vitals Skin Rash -improving -likely gianna skin infection -nystatin TOP TID Sore throat -2/2 to NGT -cephacol and Lidocaine PO Fibromyalgia - Controlled - Hold Gabapentin 300 mg TID - Hold Duloxetine 60 mg PO HS DVT -lovenox sc
[2018-04-16] MEDS: Lidocaine 5% Patch TD SCH (10:41)
[2018-04-16] MEDS: Enoxaparin 40 mg Syringe SC SCH (10:42)
[2018-04-16] MEDS: Nystatin Ointment TOP SCH ×3 (10:42→18:01)
[2018-04-16] MEDS: Insulin Lispro (humaLOG) 100 Units/ml Inj SC SCH ×4 (10:44→23:11)
[2018-04-16] MEDS: Benzocaine/Menthol (Cepacol) Lozenge PO PRN (15:31)
[2018-04-17 06:30] LABS: BASO % 0.4 % (0.0-2.0); EOS # 0.3 K/uL (0.0-0.7); HEMOGLOBIN 13.2 g/dL (12.0-16.0); LYMPH # 1.3 K/uL (1.0-4.3); LYMPH % 17.8 % (20.0-40.0); MEAN CELL VOLUME 84.3 fl (81.0-99.0); MEAN CORPUSCULAR HEMOGLOBIN 27.5 pg (27.0-31.0); MEAN CORPUSCULAR HGB CONC 32.6 g/dL (33.0-37.0); MEAN PLATELET VOLUME 9.2 fl (7.2-11.7); MONO # 1.1 K/uL (0.0-0.8); MONO % 14.9 % (0.0-10.0); NEUT # 4.6 K/uL (1.8-7.0); NEUT % 62.9 % (50.0-75.0); RBC 4.81 Mil/uL (3.80-5.20); RED CELL DISTRIBUTION WIDTH 15.1 % (11.5-14.5); WHITE BLOOD COUNT 7.4 K/uL (4.8-10.8)
--- NOTE | 2018-04-17 06:56 | CP.PCM.PN ---
Addendum entered and electronically signed by Erik Rodriguez MD 04/17/18 11:51: Patient seen bedside . All chart and clinical data reviewed. Agree with resident assessment and plan. NGT removed this AM . Patient still with nausea and passing flatus , no BM Complains of some abdominal pain but better today Keep NPO and continue TPN Surgery on board following . Scheduled for OR in AM Continue current management Original Note: Subjective - Date & Time of Evaluation Date of Evaluation: 04/17/18 Time of Evaluation: 09:15 - Subjective Subjective: Overnight NGT was removed by the patient. Examined by bedside, took a bath this AM. Continues to have pain but worse at certain times then others, better this AM. Frustrated with her medical problems, but hopeful. No BMs. Objective - Vital Signs/Intake and Output Vital Signs (last 24 hours): Temp Pulse Resp BP Pulse Ox 98.3 F 100 H 20 102/71 100 04/17/18 01:14 04/17/18 01:14 04/17/18 01:14 04/16/18 16:47 04/17/18 01:14 Intake and Output: 04/16/18 04/17/18 18:59 06:59 Intake Total 1560 Output Total 1400 Balance 160 - Medications Medications: Current Medications Benzocaine/Menthol (Cepacol Sore Throat) 1 dale PO Q2 PRN PRN Reason: Sore Throat Last Admin: 04/16/18 15:31 Dose: 1 dale Dextrose (Dextrose 50% Inj) 0 ml IV STAT PRN; Protocol PRN Reason: Hypoglycemia Protocol Dextrose (Glutose 15) 0 gm PO ONCE PRN; Protocol PRN Reason: Hypoglycemia Protocol Enoxaparin Sodium (Lovenox) 40 mg SC DAILY [facility]; Protocol Last Admin: 04/16/18 10:42 Dose: 40 mg Famotidine (Pepcid) 20 mg IVP Q12 [facility] Last Admin: 04/16/18 21:09 Dose: 20 mg Glucagon (Glucagen Diagnostic Kit) 0 mg IM STAT PRN; Protocol PRN Reason: Hypoglycemia Protocol Hydromorphone HCl (Dilaudid) 1 mg IVP Q3 PRN PRN Reason: Pain, severe (8-10) Last Admin: 04/17/18 06:30 Dose: 1 mg Chromium/Copper/Manganese/Zinc 3 ml/ Multivitamins/Vitamin C 10 ml/ Amino Acids/Electrolytes/Dextrose 1,013 mls @ 80 mls/hr IV .[id number] [facility] Last Admin: 04/15/18 16:44 Dose: 80 mls/hr Amino Acids/Electrolytes/Dextrose (Clinimix 5/20 % "E" (1000 Ml)) 1,000 mls @ 80 mls/hr IV .[id number] [facility] Last Admin: 04/16/18 03:22 Dose: 80 mls/hr Potassium Chloride/Dextrose/Sod Cl (Potassium Chl 20 Meq In D5-Ns) 1,000 mls @ 50 mls/hr IV .Q20H [facility] Last Admin: 04/16/18 18:03 Dose: 50 mls/hr Chromium/Copper/Manganese/Zinc 3 ml/ Multivitamins/Vitamin C 10 ml/ Amino Acids/Electrolytes/Dextrose 1,013 mls @ 80 mls/hr IV .[id number] [facility] Last Admin: 04/16/18 18:01 Dose: 80 mls/hr Amino Acids/Electrolytes/Dextrose (Clinimix 5/20 % "E" (1000 Ml)) 1,000 mls @ 80 mls/hr IV .[id number] [facility] Insulin Human Lispro (Humalog) 0 units SC ACCU-CHECK [facility]; Protocol Last Admin: 04/16/18 23:11 Dose: Not Given Lidocaine (Lidoderm) 1 ea TD DAILY [facility] Last Admin: 04/16/18 10:41 Dose: 1 ea Lidocaine HCl (Lidocaine 2% Viscous) 15 ml PO Q8 PRN PRN Reason: Sore Throat Lorazepam (Ativan) 0.5 mg IVP Q6 PRN PRN Reason: Agitation Last Admin: 04/17/18 03:24 Dose: 0.5 mg Nystatin (Mycostatin Oint) 1 applic TOP TID [facility] Last Admin: 04/16/18 18:01 Dose: 1 applic Ondansetron HCl (Zofran Inj) 2 mg IVP Q6 PRN PRN Reason: Nausea/Vomiting Last Admin: 04/17/18 03:00 Dose: 2 mg - Labs Labs: 04/17/18 05:55 04/16/18 06:10 PT 13.8 Seconds (9.8-13.1) H 04/05/18 18:39 INR 1.2 04/05/18 18:39 APTT 30.1 Seconds (25.6-37.1) 04/05/18 18:39 - Constitutional Appears: No Acute Distress - Head Exam Head Exam: NORMAL INSPECTION - Eye Exam Eye Exam: EOMI, Normal appearance - ENT Exam ENT Exam: Mucous Membranes Moist - Respiratory Exam Respiratory Exam: Clear to Ausculation Bilateral, NORMAL BREATHING PATTERN. absent: Wheezes - Cardiovascular Exam Cardiovascular Exam: REGULAR RHYTHM - GI/Abdominal Exam GI & Abdominal Exam: Soft, Normal Bowel Sounds. absent: Tenderness - Extremities Exam Extremities Exam: Normal Inspection - Neurological Exam Neurological Exam: Alert, Awake Assessment and Plan - Assessment and Plan (Free Text) Assessment: Assessment/Plan: 47 YO Female with PMHx of HTN, chronic back/abdominal pain with multiple nerves blocks (pain management as out patient), Colon cancer w/ metastasis to liver (on chemotherapy), Depression, Fibromyalgia, GERD admitted for SBO. Discussion with patient about transfer to [facility] for evaluation by her physicians, but patient refused at this time. She would like to stay in [facility] for further care and management. Per Surgery OR , if no improvement of SBO. Small Bowel Obstruction possibly due to internal hernia - Surgery consult, Dr. Denson/Dr. Park, recommendations appreciated: OR if no resolution - cont NPO, TPN, NGT, cont IVF - C/w IVF, Pain control: Hydromorphone, Zofran and famotidine - CT abd and pelvis incomplete mechanical obstruction. Chronic back pain - 2/2 metastatic colon Ca - Chronic, H/O multiple lumbar surgeries. - Lidoderm patch for back pain - Pain management consult, Dr. Bae, recommendations appreciated; Ativan for anxiety, for synergistic effect with opioid - C/w pain management: Hydromorphine 1.5mg NIDDM - Controlled - Last A1c 7.7 on 11/19/17 - Low dose sliding scale - Hold metformin - Hypoglycemia protocol HTN - Controlled - Hold Amlodipine 10 mg QD - Monitor vitals Skin Rash -improving -likely gianna skin infection -nystatin TOP TID Sore throat -2/2 to NGT -cephacol and Lidocaine PO Fibromyalgia - Controlled - Hold Gabapentin 300 mg TID - Hold Duloxetine 60 mg PO HS DVT -lovenox sc -will hold lovenox 04/18 for possible surgery
[2018-04-17 07:02] LABS: ALBUMIN 3.7 g/dL (3.5-5.0); ALT/SGPT 42 U/L (9-52); AST/SGOT 42 U/L (14-36); BLOOD UREA NITROGEN 12 mg/dl (7-17); CALCIUM 9.3 mg/dL (8.4-10.2); GFR NON-AFRICAN AMERICAN > 60
[2018-04-17] MEDS: Insulin Lispro (humaLOG) 100 Units/ml Inj SC SCH ×4 (08:28→23:14)
[2018-04-17] MEDS: Enoxaparin 40 mg Syringe SC SCH (08:51)
[2018-04-17] MEDS: Lidocaine 5% Patch TD SCH (08:51)
[2018-04-17] MEDS: Nystatin Ointment TOP SCH ×3 (08:51→17:03)
[2018-04-17] MEDS: Potassium Chl 20 mEq in D5-NS 1,000 ML IV SCH (08:54)
--- NOTE | 2018-04-17 10:22 | CP.PCM.PN ---
Subjective - Date & Time of Evaluation Date of Evaluation: 04/17/18 Time of Evaluation: 10:00 - Subjective Subjective: Chart reviewed. Patient is still not able to tolerate PO, NGT when in place still has large output, and repeat CT scan still shows SBO. There is a plan for surgical intervention tomorrow. Pain medication has been weaned, and patient is trying her best to tolerate it. Objective - Vital Signs/Intake and Output Vital Signs (last 24 hours): Temp Pulse Resp BP Pulse Ox 98.2 F 100 H 20 103/69 100 04/17/18 08:29 04/17/18 08:29 04/17/18 08:29 04/17/18 08:29 04/17/18 08:29 - Medications Medications: Current Medications Benzocaine/Menthol (Cepacol Sore Throat) 1 dale PO Q2 PRN PRN Reason: Sore Throat Last Admin: 04/16/18 15:31 Dose: 1 dale Dextrose (Dextrose 50% Inj) 0 ml IV STAT PRN; Protocol PRN Reason: Hypoglycemia Protocol Dextrose (Glutose 15) 0 gm PO ONCE PRN; Protocol PRN Reason: Hypoglycemia Protocol Enoxaparin Sodium (Lovenox) 40 mg SC DAILY [facility]; Protocol Last Admin: 04/17/18 08:51 Dose: 40 mg Famotidine (Pepcid) 20 mg IVP Q12 [facility] Last Admin: 04/17/18 09:56 Dose: 20 mg Glucagon (Glucagen Diagnostic Kit) 0 mg IM STAT PRN; Protocol PRN Reason: Hypoglycemia Protocol Hydromorphone HCl (Dilaudid) 1 mg IVP Q3 PRN PRN Reason: Pain, severe (8-10) Last Admin: 04/17/18 09:54 Dose: 1 mg Chromium/Copper/Manganese/Zinc 3 ml/ Multivitamins/Vitamin C 10 ml/ Amino Acids/Electrolytes/Dextrose 1,013 mls @ 80 mls/hr IV .[id number] [facility] Last Admin: 04/15/18 16:44 Dose: 80 mls/hr Amino Acids/Electrolytes/Dextrose (Clinimix 5/20 % "E" (1000 Ml)) 1,000 mls @ 80 mls/hr IV .[id number] [facility] Last Admin: 04/16/18 03:22 Dose: 80 mls/hr Potassium Chloride/Dextrose/Sod Cl (Potassium Chl 20 Meq In D5-Ns) 1,000 mls @ 50 mls/hr IV .Q20H [facility] Last Admin: 04/17/18 08:54 Dose: 50 mls/hr Chromium/Copper/Manganese/Zinc 3 ml/ Multivitamins/Vitamin C 10 ml/ Amino Acids/Electrolytes/Dextrose 1,013 mls @ 80 mls/hr IV .[id number] [facility] Last Admin: 04/16/18 18:01 Dose: 80 mls/hr Amino Acids/Electrolytes/Dextrose (Clinimix 5/20 % "E" (1000 Ml)) 1,000 mls @ 80 mls/hr IV .[id number] [facility] Last Admin: 04/17/18 08:42 Dose: 80 mls/hr Insulin Human Lispro (Humalog) 0 units SC ACCU-CHECK [facility]; Protocol Last Admin: 04/17/18 08:28 Dose: Not Given Lidocaine (Lidoderm) 1 ea TD DAILY [facility] Last Admin: 04/17/18 08:51 Dose: 1 ea Lidocaine HCl (Lidocaine 2% Viscous) 15 ml PO Q8 PRN PRN Reason: Sore Throat Lorazepam (Ativan) 0.5 mg IVP Q6 PRN PRN Reason: Agitation Last Admin: 04/17/18 09:55 Dose: 0.5 mg Nystatin (Mycostatin Oint) 1 applic TOP TID [facility] Last Admin: 04/17/18 08:51 Dose: 1 applic Ondansetron HCl (Zofran Inj) 2 mg IVP Q6 PRN PRN Reason: Nausea/Vomiting Last Admin: 04/17/18 03:00 Dose: 2 mg - Labs Labs: 04/17/18 05:55 04/17/18 05:55 PT 13.8 Seconds (9.8-13.1) H 04/05/18 18:39 INR 1.2 04/05/18 18:39 APTT 30.1 Seconds (25.6-37.1) 04/05/18 18:39 Assessment and Plan (1) Abdominal pain Assessment & Plan: 47 yo w/ chronic pain and SBO. If ex-lap is planned, would recommend epidural + GA for anesthesia. - care per surgical team Status: Acute
--- NOTE | 2018-04-17 12:03 | CP.PCM.PN ---
Subjective - Date & Time of Evaluation Date of Evaluation: 04/17/18 Time of Evaluation: 12:00 - Subjective Subjective: Surgery: Dr. Park Pt seen and examined. Pt states that early this morning her NGT fell out. She hasn't had any episodes of vomiting since then. She continues to have flatus but denies BM. Her abdominal pain is well controlled with the pain medication. Ambulating around the hallway. Denies other complaints at this time. Objective - Vital Signs/Intake and Output Vital Signs (last 24 hours): Temp Pulse Resp BP Pulse Ox 98.2 F 100 H 20 103/69 100 04/17/18 08:29 04/17/18 08:29 04/17/18 08:29 04/17/18 08:29 04/17/18 08:29 - Medications Medications: Current Medications Benzocaine/Menthol (Cepacol Sore Throat) 1 dale PO Q2 PRN PRN Reason: Sore Throat Last Admin: 04/16/18 15:31 Dose: 1 dale Dextrose (Dextrose 50% Inj) 0 ml IV STAT PRN; Protocol PRN Reason: Hypoglycemia Protocol Dextrose (Glutose 15) 0 gm PO ONCE PRN; Protocol PRN Reason: Hypoglycemia Protocol Enoxaparin Sodium (Lovenox) 40 mg SC DAILY [facility]; Protocol Last Admin: 04/17/18 08:51 Dose: 40 mg Famotidine (Pepcid) 20 mg IVP Q12 [facility] Last Admin: 04/17/18 09:56 Dose: 20 mg Glucagon (Glucagen Diagnostic Kit) 0 mg IM STAT PRN; Protocol PRN Reason: Hypoglycemia Protocol Hydromorphone HCl (Dilaudid) 1 mg IVP Q3 PRN PRN Reason: Pain, severe (8-10) Last Admin: 04/17/18 09:54 Dose: 1 mg Chromium/Copper/Manganese/Zinc 3 ml/ Multivitamins/Vitamin C 10 ml/ Amino Acids/Electrolytes/Dextrose 1,013 mls @ 80 mls/hr IV .[id number] [facility] Last Admin: 04/15/18 16:44 Dose: 80 mls/hr Amino Acids/Electrolytes/Dextrose (Clinimix 5/20 % "E" (1000 Ml)) 1,000 mls @ 80 mls/hr IV .[id number] [facility] Last Admin: 04/16/18 03:22 Dose: 80 mls/hr Potassium Chloride/Dextrose/Sod Cl (Potassium Chl 20 Meq In D5-Ns) 1,000 mls @ 50 mls/hr IV .Q20H [facility] Last Admin: 04/17/18 08:54 Dose: 50 mls/hr Chromium/Copper/Manganese/Zinc 3 ml/ Multivitamins/Vitamin C 10 ml/ Amino Acids/Electrolytes/Dextrose 1,013 mls @ 80 mls/hr IV .[id number] [facility] Last Admin: 04/16/18 18:01 Dose: 80 mls/hr Amino Acids/Electrolytes/Dextrose (Clinimix 5/20 % "E" (1000 Ml)) 1,000 mls @ 80 mls/hr IV .[id number] [facility] Last Admin: 04/17/18 08:42 Dose: 80 mls/hr Insulin Human Lispro (Humalog) 0 units SC ACCU-CHECK [facility]; Protocol Last Admin: 04/17/18 08:28 Dose: Not Given Lidocaine (Lidoderm) 1 ea TD DAILY [facility] Last Admin: 04/17/18 08:51 Dose: 1 ea Lidocaine HCl (Lidocaine 2% Viscous) 15 ml PO Q8 PRN PRN Reason: Sore Throat Lorazepam (Ativan) 0.5 mg IVP Q6 PRN PRN Reason: Agitation Last Admin: 04/17/18 09:55 Dose: 0.5 mg Nystatin (Mycostatin Oint) 1 applic TOP TID [facility] Last Admin: 04/17/18 08:51 Dose: 1 applic Ondansetron HCl (Zofran Inj) 2 mg IVP Q6 PRN PRN Reason: Nausea/Vomiting Last Admin: 04/17/18 03:00 Dose: 2 mg - Labs Labs: 04/17/18 05:55 04/17/18 05:55 PT 13.8 Seconds (9.8-13.1) H 04/05/18 18:39 INR 1.2 04/05/18 18:39 APTT 30.1 Seconds (25.6-37.1) 04/05/18 18:39 - Constitutional Appears: Well, No Acute Distress - Head Exam Head Exam: ATRAUMATIC, NORMOCEPHALIC - Eye Exam Eye Exam: Normal appearance - ENT Exam ENT Exam: Mucous Membranes Moist - Respiratory Exam Respiratory Exam: NORMAL BREATHING PATTERN - Cardiovascular Exam Cardiovascular Exam: RRR - GI/Abdominal Exam GI & Abdominal Exam: Soft. absent: Distended, Tenderness, Rebound - Extremities Exam Extremities Exam: absent: Calf Tenderness - Neurological Exam Neurological Exam: Alert, Awake, Oriented x3 - Skin Skin Exam: Dry, Warm Assessment and Plan - Assessment and Plan (Free Text) Assessment: 47F with partial small bowel obstruction Plan: - cont to monitor - will need NGT if starts to vomit again - keep NPO - tentative plan for OR tomorrow, if pt does not improve - d/w Dr. Xavier Cuadra
[2018-04-18] MEDS: Potassium Chl 20 mEq in D5-NS 1,000 ML IV SCH ×2 (03:00→11:54)
[2018-04-18 06:33] LABS: HEMOGLOBIN 12.2 g/dL (12.0-16.0); MEAN CELL VOLUME 83.5 fl (81.0-99.0); MEAN CORPUSCULAR HEMOGLOBIN 27.6 pg (27.0-31.0); RBC 4.43 Mil/uL (3.80-5.20); RED CELL DISTRIBUTION WIDTH 15.4 % (11.5-14.5); WHITE BLOOD COUNT 6.7 K/uL (4.8-10.8)
[2018-04-18 06:48] LABS: INR 1.3; PROTHROMBIN TIME 14.5 Seconds (9.8-13.1)
[2018-04-18 06:49] LABS: PARTIAL THROMBOPLASTIN TIME 29.5 Seconds (25.6-37.1)
[2018-04-18 06:53] LABS: ALB/GLOB RATIO 0.9 (1.0-2.1); ALBUMIN 3.3 g/dL (3.5-5.0); ALT/SGPT 38 U/L (9-52); AST/SGOT 30 U/L (14-36); BLOOD UREA NITROGEN 9 mg/dl (7-17); CALCIUM 8.8 mg/dL (8.4-10.2); GFR NON-AFRICAN AMERICAN > 60
--- NOTE | 2018-04-18 07:45 | CP.PCM.PN ---
<Ritu Lyons - Last Filed: 04/18/18 11:05> Subjective - Date & Time of Evaluation Date of Evaluation: 04/18/18 Time of Evaluation: 07:40 - Subjective Subjective: No acute overnight events. Pt had BM last night, passing has. No nausea or vomiting after NGT came out. Abdominal pain better. Tentative OR today. Objective - Vital Signs/Intake and Output Vital Signs (last 24 hours): Temp Pulse Resp BP Pulse Ox 97.9 F 96 H 20 119/73 100 04/18/18 00:25 04/18/18 00:25 04/18/18 00:25 04/18/18 00:25 04/18/18 00:25 - Medications Medications: Current Medications Benzocaine/Menthol (Cepacol Sore Throat) 1 dale PO Q2 PRN PRN Reason: Sore Throat Last Admin: 04/16/18 15:31 Dose: 1 dale Dextrose (Dextrose 50% Inj) 0 ml IV STAT PRN; Protocol PRN Reason: Hypoglycemia Protocol Dextrose (Glutose 15) 0 gm PO ONCE PRN; Protocol PRN Reason: Hypoglycemia Protocol Enoxaparin Sodium (Lovenox) 40 mg SC DAILY [facility]; Protocol Last Admin: 04/17/18 08:51 Dose: 40 mg Famotidine (Pepcid) 20 mg IVP Q12 [facility] Last Admin: 04/17/18 22:16 Dose: 20 mg Glucagon (Glucagen Diagnostic Kit) 0 mg IM STAT PRN; Protocol PRN Reason: Hypoglycemia Protocol Hydromorphone HCl (Dilaudid) 1 mg IVP Q3 PRN PRN Reason: Pain, severe (8-10) Last Admin: 04/18/18 06:57 Dose: 1 mg Chromium/Copper/Manganese/Zinc 3 ml/ Multivitamins/Vitamin C 10 ml/ Amino Acids/Electrolytes/Dextrose 1,013 mls @ 80 mls/hr IV .[id number] ONE Stop: 04/18/18 08:39 Potassium Chloride/Dextrose/Sod Cl (Potassium Chl 20 Meq In D5-Ns) 1,000 mls @ 100 mls/hr IV .Q10H [facility] Last Admin: 04/18/18 03:00 Dose: Not Given Insulin Human Lispro (Humalog) 0 units SC ACCU-CHECK [facility]; Protocol Last Admin: 04/17/18 23:14 Dose: Not Given Lidocaine (Lidoderm) 1 ea TD DAILY [facility] Last Admin: 04/17/18 08:51 Dose: 1 ea Lidocaine HCl (Lidocaine 2% Viscous) 15 ml PO Q8 PRN PRN Reason: Sore Throat Lorazepam (Ativan) 0.5 mg IVP Q6 PRN PRN Reason: Agitation Last Admin: 04/18/18 05:16 Dose: 0.5 mg Nystatin (Mycostatin Oint) 1 applic TOP TID [facility] Last Admin: 04/17/18 17:03 Dose: 1 applic Ondansetron HCl (Zofran Inj) 2 mg IVP Q6 PRN PRN Reason: Nausea/Vomiting Last Admin: 04/17/18 03:00 Dose: 2 mg - Labs Labs: 04/18/18 05:55 04/18/18 05:55 PT 14.5 Seconds (9.8-13.1) H 04/18/18 05:55 INR 1.3 04/18/18 05:55 APTT 29.5 Seconds (25.6-37.1) 04/18/18 05:55 - Constitutional Appears: No Acute Distress - Head Exam Head Exam: NORMAL INSPECTION - Eye Exam Eye Exam: EOMI, Normal appearance - ENT Exam ENT Exam: Mucous Membranes Moist - Respiratory Exam Respiratory Exam: Clear to Ausculation Bilateral, NORMAL BREATHING PATTERN. absent: Wheezes - Cardiovascular Exam Cardiovascular Exam: REGULAR RHYTHM, +S1, +S2 - GI/Abdominal Exam GI & Abdominal Exam: Soft, Hyperactive Bowel Sounds. absent: Tenderness Additional comments: multiple surgical scars in the abdomen, old well healed - Extremities Exam Extremities Exam: Normal Inspection. absent: Calf Tenderness, Pedal Edema - Neurological Exam Neurological Exam: Alert, Awake - Psychiatric Exam Psychiatric exam: Normal Mood Assessment and Plan - Assessment and Plan (Free Text) Assessment: Assessment/Plan: 47 YO Female with PMHx of HTN, chronic back/abdominal pain with multiple nerves blocks (pain management as out patient), Colon cancer w/ metastasis to liver (on chemotherapy), Depression, Fibromyalgia, GERD admitted for SBO. Discussion with patient about transfer to [facility] for evaluation by her physicians, but patient refused at this time. She would like to stay in [facility] for further care and management. Per Surgery OR Today, if no improvement of SBO VS conservative management with CLD Small Bowel Obstruction possibly due to internal hernia - Surgery consult, Dr. Denson/Dr. Park, recommendations appreciated: OR if no resolution - cont NPO, TPN, NGT, cont IVF - C/w IVF, Pain control: Hydromorphone, Zofran and famotidine - CT abd and pelvis incomplete mechanical obstruction. Chronic back pain - 2/2 metastatic colon Ca - Chronic, H/O multiple lumbar surgeries. - Lidoderm patch for back pain - Pain management consult, Dr. Bae, recommendations appreciated; Ativan for anxiety, for synergistic effect with opioid - C/w pain management: Hydromorphine 1.5mg NIDDM - Controlled - Last A1c 7.7 on 11/19/17 - Low dose sliding scale - Hold metformin - Hypoglycemia protocol HTN - Controlled - Hold Amlodipine 10 mg QD - Monitor vitals Skin Rash - improving - likely gianna skin infection - nystatin TOP TID Sore throat - resolved - d/c viscus lidocaine Fibromyalgia - Controlled - Hold Gabapentin 300 mg TID - Hold Duloxetine 60 mg PO HS DVT - lovenox sc - will hold lovenox 04/18 for possible surgery will resume if no surgery <Srinivasan Milian - Last Filed: 04/18/18 17:10> Objective - Vital Signs/Intake and Output Vital Signs (last 24 hours): Temp Pulse Resp BP Pulse Ox 98.3 F 109 H 18 106/74 98 04/18/18 16:31 04/18/18 16:31 04/18/18 16:31 04/18/18 16:31 04/18/18 16:31 - Medications Medications: Current Medications Benzocaine/Menthol (Cepacol Sore Throat) 1 dale PO Q2 PRN PRN Reason: Sore Throat Last Admin: 04/16/18 15:31 Dose: 1 dale Dextrose (Dextrose 50% Inj) 0 ml IV STAT PRN; Protocol PRN Reason: Hypoglycemia Protocol Dextrose (Glutose 15) 0 gm PO ONCE PRN; Protocol PRN Reason: Hypoglycemia Protocol Enoxaparin Sodium (Lovenox) 40 mg SC DAILY [facility]; Protocol Last Admin: 04/17/18 08:51 Dose: 40 mg Famotidine (Pepcid) 20 mg IVP Q12 [facility] Last Admin: 04/18/18 09:06 Dose: 20 mg Fat Emulsion Intravenous (Intralipid 20%) 250 ml IV DAILY [facility] Last Admin: 04/18/18 17:09 Dose: 250 ml Glucagon (Glucagen Diagnostic Kit) 0 mg IM STAT PRN; Protocol PRN Reason: Hypoglycemia Protocol Hydromorphone HCl (Dilaudid) 1 mg IVP Q3 PRN PRN Reason: Pain, severe (8-10) Last Admin: 04/18/18 17:06 Dose: 1 mg Potassium Chloride/Dextrose/Sod Cl (Potassium Chl 20 Meq In D5-Ns) 1,000 mls @ 100 mls/hr IV .Q10H [facility] Last Admin: 04/18/18 11:54 Dose: 100 mls/hr Multivitamins/Vitamin C 10 ml/Chromium/Copper/Manganese/Zinc 3 ml/ Amino Acids/Electrolytes/Dextrose 1,013 mls @ 80 mls/hr IV .[id number] ONE Stop: 04/19/18 04:54 Insulin Human Lispro (Humalog) 0 units SC ACCU-CHECK [facility]; Protocol Last Admin: 04/18/18 12:51 Dose: Not Given Lidocaine (Lidoderm) 1 ea TD DAILY [facility] Last Admin: 04/18/18 09:05 Dose: 1 ea Lorazepam (Ativan) 0.5 mg IVP Q6 PRN PRN Reason: Agitation Last Admin: 04/18/18 11:49 Dose: 0.5 mg Nystatin (Mycostatin Oint) 1 applic TOP TID [facility] Last Admin: 04/18/18 16:35 Dose: 1 applic Ondansetron HCl (Zofran Inj) 2 mg IVP Q6 PRN PRN Reason: Nausea/Vomiting Last Admin: 04/17/18 03:00 Dose: 2 mg - Labs Labs: 04/18/18 05:55 04/18/18 05:55 PT 14.5 Seconds (9.8-13.1) H 04/18/18 05:55 INR 1.3 04/18/18 05:55 APTT 29.5 Seconds (25.6-37.1) 04/18/18 05:55 Attending/Attestation - Attestation I have personally seen and examined this patient.: Yes I have fully participated in the care of the patient.: Yes I have reviewed all pertinent clinical information, including history, physical exam and plan: Yes Notes (Text): OR cancelled trial of liq diet again per surgery
--- NOTE | 2018-04-18 08:01 | CP.PCM.PN ---
Subjective - Date & Time of Evaluation Date of Evaluation: 04/18/18 Time of Evaluation: 07:56 - Subjective Subjective: Surgery: Dr. Park Pt seen and examined. No acute overnight events. States she feels better this morning and hasn't had any more episodes of vomiting since the NGT came out yesterday morning. She admits to having a bowel movement overnight which was mostly liquid. Admits to flatus as well. Denies fevers/chills. Objective - Vital Signs/Intake and Output Vital Signs (last 24 hours): Temp Pulse Resp BP Pulse Ox 97.9 F 96 H 20 119/73 100 04/18/18 00:25 04/18/18 00:25 04/18/18 00:25 04/18/18 00:25 04/18/18 00:25 - Medications Medications: Current Medications Benzocaine/Menthol (Cepacol Sore Throat) 1 dale PO Q2 PRN PRN Reason: Sore Throat Last Admin: 04/16/18 15:31 Dose: 1 dale Dextrose (Dextrose 50% Inj) 0 ml IV STAT PRN; Protocol PRN Reason: Hypoglycemia Protocol Dextrose (Glutose 15) 0 gm PO ONCE PRN; Protocol PRN Reason: Hypoglycemia Protocol Enoxaparin Sodium (Lovenox) 40 mg SC DAILY [facility]; Protocol Last Admin: 04/17/18 08:51 Dose: 40 mg Famotidine (Pepcid) 20 mg IVP Q12 [facility] Last Admin: 04/17/18 22:16 Dose: 20 mg Glucagon (Glucagen Diagnostic Kit) 0 mg IM STAT PRN; Protocol PRN Reason: Hypoglycemia Protocol Hydromorphone HCl (Dilaudid) 1 mg IVP Q3 PRN PRN Reason: Pain, severe (8-10) Last Admin: 04/18/18 06:57 Dose: 1 mg Chromium/Copper/Manganese/Zinc 3 ml/ Multivitamins/Vitamin C 10 ml/ Amino Acids/Electrolytes/Dextrose 1,013 mls @ 80 mls/hr IV .[id number] ONE Stop: 04/18/18 08:39 Potassium Chloride/Dextrose/Sod Cl (Potassium Chl 20 Meq In D5-Ns) 1,000 mls @ 100 mls/hr IV .Q10H [facility] Last Admin: 04/18/18 03:00 Dose: Not Given Insulin Human Lispro (Humalog) 0 units SC ACCU-CHECK [facility]; Protocol Last Admin: 04/17/18 23:14 Dose: Not Given Lidocaine (Lidoderm) 1 ea TD DAILY [facility] Last Admin: 04/17/18 08:51 Dose: 1 ea Lidocaine HCl (Lidocaine 2% Viscous) 15 ml PO Q8 PRN PRN Reason: Sore Throat Lorazepam (Ativan) 0.5 mg IVP Q6 PRN PRN Reason: Agitation Last Admin: 04/18/18 05:16 Dose: 0.5 mg Nystatin (Mycostatin Oint) 1 applic TOP TID [facility] Last Admin: 04/17/18 17:03 Dose: 1 applic Ondansetron HCl (Zofran Inj) 2 mg IVP Q6 PRN PRN Reason: Nausea/Vomiting Last Admin: 04/17/18 03:00 Dose: 2 mg - Labs Labs: 04/18/18 05:55 04/18/18 05:55 PT 14.5 Seconds (9.8-13.1) H 04/18/18 05:55 INR 1.3 04/18/18 05:55 APTT 29.5 Seconds (25.6-37.1) 04/18/18 05:55 - Constitutional Appears: Well, No Acute Distress - Head Exam Head Exam: ATRAUMATIC, NORMOCEPHALIC - ENT Exam ENT Exam: Mucous Membranes Moist - Respiratory Exam Respiratory Exam: NORMAL BREATHING PATTERN - Cardiovascular Exam Cardiovascular Exam: RRR - GI/Abdominal Exam GI & Abdominal Exam: Soft. absent: Distended, Guarding, Tenderness, Rebound - Neurological Exam Neurological Exam: Alert, Awake, Oriented x3 - Skin Skin Exam: Dry, Warm Assessment and Plan - Assessment and Plan (Free Text) Assessment: 47F with partial small bowel obstruction Plan: - pt with improving symptoms this AM & BM overnight - will hold off on OR for now and start a trial of CLD - monitor bowel function - cont to encourage ambulation Khalif
[2018-04-18] MEDS: Nystatin Ointment TOP SCH ×3 (09:03→16:35)
[2018-04-18] MEDS: Lidocaine 5% Patch TD SCH (09:05)
[2018-04-18] MEDS: Insulin Lispro (humaLOG) 100 Units/ml Inj SC SCH ×3 (09:06→17:14)
[2018-04-19 06:55] LABS: BLOOD UREA NITROGEN 5 mg/dl (7-17); CALCIUM 8.9 mg/dL (8.4-10.2); GFR NON-AFRICAN AMERICAN > 60
--- NOTE | 2018-04-19 07:59 | CP.PCM.PN ---
Subjective - Date & Time of Evaluation Date of Evaluation: 04/19/18 Time of Evaluation: 07:57 - Subjective Subjective: Surgery: Dr. Park Pt seen and examined. No acute overnight events. States she feels well this morning and hasn't had any episodes of vomiting. She's tolerating CLD and admits to flatus. Pt admits to ambulating. Denies fevers/chills. Objective - Vital Signs/Intake and Output Vital Signs (last 24 hours): Temp Pulse Resp BP Pulse Ox 98.0 F 110 H 18 115/79 99 04/18/18 23:41 04/18/18 23:41 04/18/18 23:41 04/18/18 23:41 04/18/18 23:41 - Medications Medications: Current Medications Benzocaine/Menthol (Cepacol Sore Throat) 1 dale PO Q2 PRN PRN Reason: Sore Throat Last Admin: 04/16/18 15:31 Dose: 1 dale Dextrose (Dextrose 50% Inj) 0 ml IV STAT PRN; Protocol PRN Reason: Hypoglycemia Protocol Dextrose (Glutose 15) 0 gm PO ONCE PRN; Protocol PRN Reason: Hypoglycemia Protocol Enoxaparin Sodium (Lovenox) 40 mg SC DAILY [facility]; Protocol Last Admin: 04/17/18 08:51 Dose: 40 mg Famotidine (Pepcid) 20 mg IVP Q12 [facility] Last Admin: 04/18/18 21:04 Dose: 20 mg Fat Emulsion Intravenous (Intralipid 20%) 250 ml IV DAILY [facility] Last Admin: 04/18/18 17:09 Dose: 250 ml Glucagon (Glucagen Diagnostic Kit) 0 mg IM STAT PRN; Protocol PRN Reason: Hypoglycemia Protocol Hydromorphone HCl (Dilaudid) 1 mg IVP Q3 PRN PRN Reason: Pain, severe (8-10) Last Admin: 04/19/18 05:33 Dose: 1 mg Potassium Chloride/Dextrose/Sod Cl (Potassium Chl 20 Meq In D5-Ns) 1,000 mls @ 100 mls/hr IV .Q10H [facility] Last Admin: 04/18/18 11:54 Dose: 100 mls/hr Insulin Human Lispro (Humalog) 0 units SC ACCU-CHECK [facility]; Protocol Last Admin: 04/18/18 17:14 Dose: Not Given Lidocaine (Lidoderm) 1 ea TD DAILY [facility] Last Admin: 04/18/18 09:05 Dose: 1 ea Lorazepam (Ativan) 0.5 mg IVP Q6 PRN PRN Reason: Agitation Last Admin: 04/19/18 07:27 Dose: 0.5 mg Nystatin (Mycostatin Oint) 1 applic TOP TID [facility] Last Admin: 04/18/18 16:35 Dose: 1 applic Ondansetron HCl (Zofran Inj) 2 mg IVP Q6 PRN PRN Reason: Nausea/Vomiting Last Admin: 04/17/18 03:00 Dose: 2 mg - Labs Labs: 04/18/18 05:55 04/19/18 05:50 PT 14.5 Seconds (9.8-13.1) H 04/18/18 05:55 INR 1.3 04/18/18 05:55 APTT 29.5 Seconds (25.6-37.1) 04/18/18 05:55 - Constitutional Appears: Well, No Acute Distress - Head Exam Head Exam: ATRAUMATIC, NORMOCEPHALIC - Eye Exam Eye Exam: Normal appearance - ENT Exam ENT Exam: Mucous Membranes Moist - Respiratory Exam Respiratory Exam: NORMAL BREATHING PATTERN - Cardiovascular Exam Cardiovascular Exam: RRR - GI/Abdominal Exam GI & Abdominal Exam: Soft. absent: Distended, Tenderness, Rebound - Extremities Exam Extremities Exam: absent: Calf Tenderness - Neurological Exam Neurological Exam: Alert, Awake, Oriented x3 - Skin Skin Exam: Dry, Warm Assessment and Plan - Assessment and Plan (Free Text) Assessment: 47F with partial small bowel obstruction Plan: - advance to [facility] - monitor bowel function - encourage ambulation - wean off IV pain meds and restart home regimen of PO pain meds - d/w Dr. Xavier Cuadra
[2018-04-19] MEDS: Lidocaine 5% Patch TD SCH (09:35)
--- NOTE | 2018-04-19 09:35 | CP.PCM.PN ---
<Marisa Gonzalez - Last Filed: 04/19/18 17:14> Subjective - Date & Time of Evaluation Date of Evaluation: 04/19/18 Time of Evaluation: 09:00 - Subjective Subjective: No acute overnight events. Pt states she has lower abdominal and back pain worse since being advanced to full liquids, controlled with Dilaudid and ativan. Pt had a BM yesterday passing flatus, denies nausea, vomiting, diarrhea, constipation, chest pain, SOB. Objective - Vital Signs/Intake and Output Vital Signs (last 24 hours): Temp Pulse Resp BP Pulse Ox 98.1 F 101 H 19 118/83 100 04/19/18 08:26 04/19/18 08:26 04/19/18 08:26 04/19/18 08:26 04/19/18 08:26 - Medications Medications: Current Medications Benzocaine/Menthol (Cepacol Sore Throat) 1 dale PO Q2 PRN PRN Reason: Sore Throat Last Admin: 04/16/18 15:31 Dose: 1 dale Dextrose (Dextrose 50% Inj) 0 ml IV STAT PRN; Protocol PRN Reason: Hypoglycemia Protocol Dextrose (Glutose 15) 0 gm PO ONCE PRN; Protocol PRN Reason: Hypoglycemia Protocol Enoxaparin Sodium (Lovenox) 40 mg SC DAILY REYES; Protocol Last Admin: 04/17/18 08:51 Dose: 40 mg Famotidine (Pepcid) 20 mg IVP Q12 REYES Last Admin: 04/18/18 21:04 Dose: 20 mg Fat Emulsion Intravenous (Intralipid 20%) 250 ml IV DAILY REYES Last Admin: 04/18/18 17:09 Dose: 250 ml Glucagon (Glucagen Diagnostic Kit) 0 mg IM STAT PRN; Protocol PRN Reason: Hypoglycemia Protocol Hydromorphone HCl (Dilaudid) 0.5 mg IVP Q3 PRN PRN Reason: Pain, severe (8-10) Last Admin: 04/19/18 08:25 Dose: 0.5 mg Potassium Chloride/Dextrose/Sod Cl (Potassium Chl 20 Meq In D5-Ns) 1,000 mls @ 100 mls/hr IV .Q10H REYES Last Admin: 04/18/18 11:54 Dose: 100 mls/hr Insulin Human Lispro (Humalog) 0 units SC ACCU-CHECK REYES; Protocol Last Admin: 04/18/18 17:14 Dose: Not Given Lidocaine (Lidoderm) 1 ea TD DAILY REYES Last Admin: 04/18/18 09:05 Dose: 1 ea Lorazepam (Ativan) 0.5 mg IVP Q6 PRN PRN Reason: Agitation Last Admin: 04/19/18 07:27 Dose: 0.5 mg Nystatin (Mycostatin Oint) 1 applic TOP TID REYES Last Admin: 04/18/18 16:35 Dose: 1 applic Ondansetron HCl (Zofran Inj) 2 mg IVP Q6 PRN PRN Reason: Nausea/Vomiting Last Admin: 04/17/18 03:00 Dose: 2 mg - Labs Labs: 04/18/18 05:55 04/19/18 05:50 PT 14.5 Seconds (9.8-13.1) H 04/18/18 05:55 INR 1.3 04/18/18 05:55 APTT 29.5 Seconds (25.6-37.1) 04/18/18 05:55 - Constitutional Appears: Non-toxic, No Acute Distress - Head Exam Head Exam: ATRAUMATIC, NORMAL INSPECTION, NORMOCEPHALIC - Eye Exam Eye Exam: EOMI, Normal appearance - ENT Exam ENT Exam: Mucous Membranes Moist - Respiratory Exam Respiratory Exam: Clear to Ausculation Bilateral, NORMAL BREATHING PATTERN - Cardiovascular Exam Cardiovascular Exam: RRR, +S1, +S2 - GI/Abdominal Exam GI & Abdominal Exam: Guarding, Soft, Tenderness (Diffuse), Normal Bowel Sounds Additional comments: No rebound - Extremities Exam Extremities Exam: Normal Inspection - Neurological Exam Neurological Exam: Alert, Awake, Oriented x3 Assessment and Plan - Assessment and Plan (Free Text) Assessment: 47 yo F with PMHx of HTN, chronic back/abdominal pain with multiple nerves blocks (pain management as out patient), Colon cancer w/ metastasis to liver (on chemotherapy), Depression, Fibromyalgia, GERD admitted for SBO. Discussion with patient about transfer to [facility] for evaluation by her physicians, but patient refused at this time. She would like to stay in [facility] for further care and management. Per Surgery OR cancelled today,possible surgery if no improvement of SBO VS conservative management with CLD Small Bowel Obstruction possibly due to internal hernia - Surgery consult, Dr. Denson/Dr. Park, recommendations appreciated: OR cancelled today - Trial of liquid diet per surgery - TPN held, NGT out - C/w IVF, Pain control: Hydromorphone, Zofran and famotidine - CT abd and pelvis incomplete mechanical obstruction. Chronic back pain - 2/2 metastatic colon Ca - Chronic, H/O multiple lumbar surgeries. - Lidoderm patch for back pain - Pain management consult, Dr. Bae, recommendations appreciated; Ativan for anxiety, for synergistic effect with opioid - C/w pain management: decreased to Hydromorphine 0.5mg NIDDM - Controlled - Last A1c 7.7 on 11/19/17 - Low dose sliding scale - Hold metformin - Hypoglycemia protocol HTN - Controlled - Hold Amlodipine 10 mg QD - Monitor vitals Skin Rash - improving - likely gianna skin infection - nystatin TOP TID Sore throat - resolved - d/c viscus lidocaine Fibromyalgia - Controlled - Gabapentin 400 mg Q8h - Duloxetine 60 mg PO HS DVT - lovenox 40mg Code status -Full code <Sherrell Vyas - Last Filed: 04/19/18 17:46> Objective - Vital Signs/Intake and Output Vital Signs (last 24 hours): Temp Pulse Resp BP Pulse Ox 98.6 F 94 H 18 113/79 100 04/19/18 15:58 04/19/18 15:58 04/19/18 15:58 04/19/18 15:58 04/19/18 15:58 - Medications Medications: Current Medications Benzocaine/Menthol (Cepacol Sore Throat) 1 dale PO Q2 PRN PRN Reason: Sore Throat Last Admin: 04/16/18 15:31 Dose: 1 dale Dextrose (Dextrose 50% Inj) 0 ml IV STAT PRN; Protocol PRN Reason: Hypoglycemia Protocol Dextrose (Glutose 15) 0 gm PO ONCE PRN; Protocol PRN Reason: Hypoglycemia Protocol Duloxetine HCl (Cymbalta) 60 mg PO HS REYES Enoxaparin Sodium (Lovenox) 40 mg SC DAILY REYES; Protocol Last Admin: 04/19/18 09:36 Dose: 40 mg Famotidine (Pepcid) 20 mg PO Q12 REYES Fat Emulsion Intravenous (Intralipid 20%) 250 ml IV DAILY REYES Last Admin: 04/19/18 14:07 Dose: Not Given Gabapentin (Neurontin) 400 mg PO Q8 REYES Last Admin: 04/19/18 14:09 Dose: 400 mg Glucagon (Glucagen Diagnostic Kit) 0 mg IM STAT PRN; Protocol PRN Reason: Hypoglycemia Protocol Hydromorphone HCl (Dilaudid) 0.5 mg IVP Q3 PRN PRN Reason: Pain, severe (8-10) Last Admin: 04/19/18 17:32 Dose: 0.5 mg Potassium Chloride/Dextrose/Sod Cl (Potassium Chl 20 Meq In D5-Ns) 1,000 mls @ 100 mls/hr IV .Q10H REYES Last Admin: 04/19/18 09:37 Dose: 100 mls/hr Insulin Human Lispro (Humalog) 0 units SC ACCU-CHECK REYES; Protocol Last Admin: 04/19/18 13:27 Dose: Not Given Lidocaine (Lidoderm) 1 ea TD DAILY [facility] Last Admin: 04/19/18 09:35 Dose: 1 ea Nystatin (Mycostatin Oint) 1 applic TOP TID REYES Last Admin: 04/19/18 13:36 Dose: 1 applic Ondansetron HCl (Zofran Inj) 2 mg IVP Q6 PRN PRN Reason: Nausea/Vomiting Last Admin: 04/19/18 13:32 Dose: 2 mg - Labs Labs: 04/18/18 05:55 04/19/18 05:50 PT 14.5 Seconds (9.8-13.1) H 04/18/18 05:55 INR 1.3 04/18/18 05:55 APTT 29.5 Seconds (25.6-37.1) 04/18/18 05:55 Attending/Attestation - Attestation I have personally seen and examined this patient.: Yes I have fully participated in the care of the patient.: Yes I have reviewed all pertinent clinical information, including history, physical exam and plan: Yes Notes (Text): 04/19/18 17:46 Agree with findings and plan as above. TAPERING BENZO AND IV OPIOIDS.
[2018-04-19] MEDS: Enoxaparin 40 mg Syringe SC SCH (09:36)
[2018-04-19] MEDS: Nystatin Ointment TOP SCH ×3 (09:36→19:45)
[2018-04-19] MEDS: Potassium Chl 20 mEq in D5-NS 1,000 ML IV SCH ×2 (09:37→19:46)
[2018-04-19] MEDS: Insulin Lispro (humaLOG) 100 Units/ml Inj SC SCH ×4 (09:42→22:32)
[2018-04-20] MEDS ORDERED: Potassium Chl 40 mEq in D5-NS 1,000 ML IV SCH (00:15)
[2018-04-20] MEDS: Potassium Chl 20 mEq in D5-NS 1,000 ML IV SCH ×2 (02:00→02:45)
[2018-04-20] MEDS: HYDROmorphone 0.5 mg/0.5 ml ISec IVP PRN ×2 (02:54→06:11)
[2018-04-20] MEDS: Insulin Lispro (humaLOG) 100 Units/ml Inj SC SCH ×3 (07:11→17:19)
[2018-04-20 07:55] LABS: BLOOD UREA NITROGEN 3 mg/dl (7-17); CALCIUM 9.3 mg/dL (8.4-10.2); GFR NON-AFRICAN AMERICAN > 60
--- NOTE | 2018-04-20 08:08 | CP.PCM.PN ---
Subjective - Date & Time of Evaluation Date of Evaluation: 04/20/18 Time of Evaluation: 07:00 - Subjective Subjective: GENERAL SURGERY PROGRESS NOTE FOR DR. JARAMILLO Patient seen and examined at bedside. She reports 2 BMs yesterday and is passing flatus. She vomited once yesterday. Reports mild abdominal pain controlled with pain medication. Pt reports she is ambulating. Objective - Vital Signs/Intake and Output Vital Signs (last 24 hours): Temp Pulse Resp BP Pulse Ox 97.8 F 102 H 18 104/71 99 04/20/18 00:09 04/20/18 00:09 04/20/18 00:09 04/20/18 00:09 04/20/18 00:09 Intake and Output: 04/20/18 04/20/18 06:59 18:59 Intake Total 1800 Balance 1800 - Medications Medications: Current Medications Benzocaine/Menthol (Cepacol Sore Throat) 1 dale PO Q2 PRN PRN Reason: Sore Throat Last Admin: 04/16/18 15:31 Dose: 1 dale Dextrose (Dextrose 50% Inj) 0 ml IV STAT PRN; Protocol PRN Reason: Hypoglycemia Protocol Dextrose (Glutose 15) 0 gm PO ONCE PRN; Protocol PRN Reason: Hypoglycemia Protocol Duloxetine HCl (Cymbalta) 60 mg PO HS [facility] Last Admin: 04/19/18 22:37 Dose: 60 mg Enoxaparin Sodium (Lovenox) 40 mg SC DAILY REYES; Protocol Last Admin: 04/19/18 09:36 Dose: 40 mg Famotidine (Pepcid) 20 mg PO Q12 [facility] Last Admin: 04/19/18 21:04 Dose: 20 mg Gabapentin (Neurontin) 400 mg PO Q8@0500,1300,2100 [facility] Last Admin: 04/20/18 05:23 Dose: 400 mg Glucagon (Glucagen Diagnostic Kit) 0 mg IM STAT PRN; Protocol PRN Reason: Hypoglycemia Protocol Home Med (Oxycodone Hcl [Oxycontin]) 60 mg PO Q12 REYES Hydromorphone HCl (Dilaudid) 2 mg PO Q4 PRN PRN Reason: Pain, moderate (4-7) Potassium Chloride/Dextrose/Sod Cl (Potassium Chl 20 Meq In D5-Ns) 1,000 mls @ 100 mls/hr IV .Q10H [facility] Stop: 04/21/18 01:22 Last Admin: 04/20/18 02:45 Dose: 100 mls/hr Insulin Human Lispro (Humalog) 0 units SC ACCU-CHECK REYES; Protocol Last Admin: 04/20/18 07:11 Dose: Not Given Lidocaine (Lidoderm) 1 ea TD DAILY REYES Last Admin: 04/19/18 09:35 Dose: 1 ea Nystatin (Mycostatin Oint) 1 applic TOP TID REYES Last Admin: 04/19/18 19:45 Dose: 1 applic Ondansetron HCl (Zofran Inj) 2 mg IVP Q6 PRN PRN Reason: Nausea/Vomiting Last Admin: 04/20/18 02:51 Dose: 2 mg - Labs Labs: 04/18/18 05:55 04/20/18 05:30 PT 14.5 Seconds (9.8-13.1) H 04/18/18 05:55 INR 1.3 04/18/18 05:55 APTT 29.5 Seconds (25.6-37.1) 04/18/18 05:55 - Constitutional Appears: Non-toxic, No Acute Distress, Chronically Ill - Head Exam Head Exam: ATRAUMATIC, NORMAL INSPECTION - Respiratory Exam Respiratory Exam: NORMAL BREATHING PATTERN. absent: Respiratory Distress - Cardiovascular Exam Cardiovascular Exam: +S1, +S2 - GI/Abdominal Exam GI & Abdominal Exam: Soft. absent: Distended, Firm, Guarding, Rigid, Tenderness, Rebound - Neurological Exam Neurological Exam: Alert, Awake, Oriented x3 - Psychiatric Exam Psychiatric exam: Normal Affect, Normal Mood - Skin Skin Exam: Dry, Normal Color, Warm Assessment and Plan - Assessment and Plan (Free Text) Assessment: 47F w. hx of metastatic colon CA s/p L colectomy and oopherectomy who presented with SBO, now resolving - IV dilaudid DCed, patient switched to home pain medication regimen of PO dilaudid and oxycodone. - Advanced to soft diet - Ensure ordered as per pt request - Pt having BMs and passing flatus, benign abdominal exam - If tolerates soft diet, clear for DC home from surgical standpoint - Discussed plan with Dr. Xavier Trimble PGY-4
[2018-04-20] MEDS ORDERED: Potassium Chl 20 mEq in D5-NS 1,000 ML IV SCH (08:14)
[2018-04-20] MEDS ORDERED: oxyCODONE 20 mg ER Tab (oxyCONTIN) PO SCH (09:00)
[2018-04-20] MEDS: Lidocaine 5% Patch TD SCH (09:12)
[2018-04-20] MEDS: Enoxaparin 40 mg Syringe SC SCH (09:12)
[2018-04-20] MEDS: Nystatin Ointment TOP SCH ×2 (09:13→13:30)
--- NOTE | 2018-04-20 09:48 | CP.PCM.PN ---
Addendum entered and electronically signed by Erik Rodriguez MD 04/20/18 15:43: Correction : Patient advanced to heart healthy diet by surgery today pain medications changed to PO continue monitoring if tolerating plan for d/c home Addendum entered and electronically signed by Erik Rodriguez MD 04/20/18 10:54: Patient seen bedside .All chart and clinical data reviewed . Case discussed with resident . agree with assessment sand plan . Complaining of feeling nauseated. With episode of vomiting overnight Passing flatus Abdominal pain is controlled Switched to NPO status as per surgery due to episodes of vomiting and started on her home pain regiment Continue IVF Continue pain management Original Note: Subjective - Date & Time of Evaluation Date of Evaluation: 04/20/18 Time of Evaluation: 09:46 - Subjective Subjective: Overnight pt had an episode of emesis, small NBNB. This AM pt endorsed feeling nauseous, and continues to have abdominal pain, controlled with PO pain meds at this time. BMs yesterday x 2 and normal voids. Objective - Vital Signs/Intake and Output Vital Signs (last 24 hours): Temp Pulse Resp BP Pulse Ox 98.1 F 88 19 117/83 100 04/20/18 09:20 04/20/18 09:20 04/20/18 09:20 04/20/18 09:20 04/20/18 09:20 Intake and Output: 04/20/18 04/20/18 06:59 18:59 Intake Total 1800 Balance 1800 - Medications Medications: Current Medications Benzocaine/Menthol (Cepacol Sore Throat) 1 dale PO Q2 PRN PRN Reason: Sore Throat Last Admin: 04/16/18 15:31 Dose: 1 dale Dextrose (Dextrose 50% Inj) 0 ml IV STAT PRN; Protocol PRN Reason: Hypoglycemia Protocol Dextrose (Glutose 15) 0 gm PO ONCE PRN; Protocol PRN Reason: Hypoglycemia Protocol Duloxetine HCl (Cymbalta) 60 mg PO HS REYES Last Admin: 04/19/18 22:37 Dose: 60 mg Enoxaparin Sodium (Lovenox) 40 mg SC DAILY REYES; Protocol Last Admin: 04/20/18 09:12 Dose: 40 mg Famotidine (Pepcid) 20 mg PO Q12 REYES Last Admin: 04/20/18 09:13 Dose: 20 mg Gabapentin (Neurontin) 400 mg PO Q8@0500,1300,2100 [facility] Last Admin: 04/20/18 05:23 Dose: 400 mg Glucagon (Glucagen Diagnostic Kit) 0 mg IM STAT PRN; Protocol PRN Reason: Hypoglycemia Protocol Hydromorphone HCl (Dilaudid) 2 mg PO Q4 PRN PRN Reason: Pain, moderate (4-7) Last Admin: 04/20/18 08:57 Dose: 2 mg Potassium Chloride/Dextrose/Sod Cl (Potassium Chl 20 Meq In D5-Ns) 1,000 mls @ 50 mls/hr IV .Q20H [facility] Stop: 04/21/18 08:22 Insulin Human Lispro (Humalog) 0 units SC ACCU-CHECK REYES; Protocol Last Admin: 04/20/18 07:11 Dose: Not Given Lidocaine (Lidoderm) 1 ea TD DAILY [facility] Last Admin: 04/20/18 09:12 Dose: 1 ea Nystatin (Mycostatin Oint) 1 applic TOP TID [facility] Last Admin: 04/20/18 09:13 Dose: 1 applic Ondansetron HCl (Zofran Inj) 2 mg IVP Q6 PRN PRN Reason: Nausea/Vomiting Last Admin: 04/20/18 09:04 Dose: 2 mg Oxycodone HCl (Oxycontin Extended Release Tab) 60 mg PO Q12 [facility] Last Admin: 04/20/18 08:58 Dose: 60 mg - Labs Labs: 04/18/18 05:55 04/20/18 05:30 PT 14.5 Seconds (9.8-13.1) H 04/18/18 05:55 INR 1.3 04/18/18 05:55 APTT 29.5 Seconds (25.6-37.1) 04/18/18 05:55 - Constitutional Appears: No Acute Distress - Head Exam Head Exam: NORMAL INSPECTION - Eye Exam Eye Exam: EOMI - ENT Exam ENT Exam: Mucous Membranes Moist - Respiratory Exam Respiratory Exam: Clear to Ausculation Bilateral, NORMAL BREATHING PATTERN. absent: Wheezes - Cardiovascular Exam Cardiovascular Exam: REGULAR RHYTHM, +S1, +S2 - GI/Abdominal Exam GI & Abdominal Exam: Soft, Normal Bowel Sounds. absent: Tenderness Additional comments: multiple surgical scars noted, old well healed - Extremities Exam Extremities Exam: absent: Calf Tenderness, Pedal Edema - Neurological Exam Neurological Exam: Alert, Awake Assessment and Plan - Assessment and Plan (Free Text) Assessment: Assessment/Plan: 47 yo F with PMHx of HTN, chronic back/abdominal pain with multiple nerves blocks (pain management as out patient), Colon cancer w/ metastasis to liver (on chemotherapy), Depression, Fibromyalgia, GERD admitted for SBO. Discussion with patient about transfer to [facility] for evaluation by her physicians, but patient refused at this time. She would like to stay in [facility] for further care and management. Per Surgery: SBO is improving will advance diet and all IV pain meds changed to PO. Small Bowel Obstruction possibly due to internal hernia - improving - Surgery consult, Dr. Denson/Dr. Park, recommendations appreciated; PO pain meds and regular diet - C/w IVF, Pain control: Hydromorphone, and oxycontin PO - CT abd and pelvis incomplete mechanical obstruction. - start heart healthy diet per surgery Chronic back pain - 2/2 metastatic colon Ca - Chronic, H/O multiple lumbar surgeries. - Lidoderm patch for back pain - Pain management consult, Dr. Bae, recommendations appreciated - C/w pain management NIDDM - Controlled - Last A1c 7.7 on 11/19/17 - Low dose sliding scale - Hold metformin - Hypoglycemia protocol HTN - Controlled - Hold Amlodipine 10 mg QD - Monitor vitals Skin Rash - improving - likely gianna skin infection - nystatin TOP TID Fibromyalgia - Controlled - Gabapentin 400 mg Q8h - Duloxetine 60 mg PO HS DVT - lovenox 40mg
[2018-04-20 16:40] VITALS: BP 111/79; PULSE 100; RESP 18; TEMP 97.9; O2SAT 98
--- NOTE | 2018-04-20 17:41 | CP.PCM.DIS ---
Provider - Provider Date of Admission: 04/05/18 15:56 Attending physician: Danis Salmeron MD Primary care physician: none Consults: Surgery consult pain management Time Spent in preparation of Discharge (in minutes): 15 Hospital Course - Lab Results Lab Results: Most Recent Lab Values WBC 6.7 K/uL (4.8-10.8) 04/18/18 05:55 RBC 4.43 Mil/uL (3.80-5.20) 04/18/18 05:55 Hgb 12.2 g/dL (12.0-16.0) 04/18/18 05:55 Hct 37.0 % (34.0-47.0) 04/18/18 05:55 MCV 83.5 fl (81.0-99.0) 04/18/18 05:55 MCH 27.6 pg (27.0-31.0) 04/18/18 05:55 MCHC 33.0 g/dL (33.0-37.0) 04/18/18 05:55 RDW 15.4 % (11.5-14.5) H 04/18/18 05:55 Plt Count 198 K/uL (130-400) 04/18/18 05:55 MPV 9.2 fl (7.2-11.7) 04/17/18 05:55 Neut % (Auto) 62.9 % (50.0-75.0) 04/17/18 05:55 Lymph % (Auto) 17.8 % (20.0-40.0) L 04/17/18 05:55 [place] % (Auto) 14.9 % (0.0-10.0) H 04/17/18 05:55 Eos % (Auto) 4.0 % (0.0-4.0) 04/17/18 05:55 Baso % (Auto) 0.4 % (0.0-2.0) 04/17/18 05:55 Neut # (Auto) 4.6 K/uL (1.8-7.0) 04/17/18 05:55 Lymph # (Auto) 1.3 K/uL (1.0-4.3) 04/17/18 05:55 [place] # (Auto) 1.1 K/uL (0.0-0.8) H 04/17/18 05:55 Eos # (Auto) 0.3 K/uL (0.0-0.7) 04/17/18 05:55 Baso # (Auto) 0.0 K/uL (0.0-0.2) 04/17/18 05:55 Neutrophils % (Manual) 57 % (42-75) 04/12/18 05:55 Lymphocytes % (Manual) 28 % (20-50) 04/12/18 05:55 Monocytes % (Manual) 15 % (0-10) H 04/12/18 05:55 Platelet Estimate Normal (NORMAL) 04/12/18 05:55 Large Platelets Present 04/12/18 05:55 Anisocytosis (manual) Slight 04/12/18 05:55 Microcytosis (manual) Slight 04/12/18 05:55 Ovalocytes Moderate 04/12/18 05:55 PT 14.5 Seconds (9.8-13.1) H 04/18/18 05:55 INR 1.3 04/18/18 05:55 APTT 29.5 Seconds (25.6-37.1) 04/18/18 05:55 pCO2 48 mm/Hg (35-45) H 04/09/18 10:00 pO2 76 mm/Hg (80-100) L 04/09/18 10:00 HCO3 36.6 mmol/L (21-28) H 04/09/18 10:00 ABG pH 7.53 (7.35-7.45) H 04/09/18 10:00 ABG Total CO2 41.6 mmol/L (22-28) H 04/09/18 10:00 ABG O2 Saturation 98.8 % (95-98) H 04/09/18 10:00 ABG O2 Content 19.2 ML/dL (15-23) 04/09/18 10:00 ABG Base Excess 15.1 mmol/L (-2.0-3.0) H 04/09/18 10:00 ABG Hemoglobin 14.6 g/dL (11.7-17.4) 04/09/18 10:00 ABG Carboxyhemoglobin 3.5 % (0.5-1.5) H 04/09/18 10:00 POC ABG HHb (Measured) 1.1 % (0.0-5.0) 04/09/18 10:00 ABG Methemoglobin 2.1 % (0.0-3.0) 04/09/18 10:00 ABG O2 Capacity 19.4 mL/dL (16-24) 04/09/18 10:00 Norm Test Yes 04/09/18 10:00 ABG Potassium 3.0 mmol/L (3.6-5.2) L 04/05/18 17:27 A-a O2 Difference 14.0 mm/Hg 04/09/18 10:00 Hgb O2 Saturation 93.3 % (95.0-98.0) L 04/09/18 10:00 Sodium 134.0 mmol/L (132-148) 04/05/18 17:27 Chloride 98.0 mmol/L (98-107) 04/05/18 17:27 Glucose 172 mg/dL (65-105) H 04/05/18 17:27 Lactate 1.3 mmol/L (0.7-2.1) 04/05/18 17:27 Vent Mode Ra 04/09/18 10:00 FiO2 21.0 % 04/09/18 10:00 Sodium 137 mmol/l (132-148) 04/20/18 05:30 Potassium 4.1 MMOL/L (3.6-5.0) 04/20/18 05:30 Chloride 102 mmol/L (98-107) 04/20/18 05:30 Carbon Dioxide 25 mmol/L (22-30) 04/20/18 05:30 Anion Gap 14 (10-20) 04/20/18 05:30 BUN 3 mg/dl (7-17) L 04/20/18 05:30 Creatinine 0.4 mg/dl (0.7-1.2) L 04/20/18 05:30 Est GFR ( Amer) > 60 04/20/18 05:30 Est GFR (Non-Af Amer) > 60 04/20/18 05:30 POC Glucose (mg/dL) 142 mg/dL (65-110) H 04/19/18 21:51 Random Glucose 157 mg/dL (65-105) H 04/20/18 05:30 Calcium 9.3 mg/dL (8.4-10.2) 04/20/18 05:30 Phosphorus 3.5 mg/dl (2.5-4.5) 04/19/18 05:50 Magnesium 2.1 MG/DL (1.6-2.3) 04/19/18 05:50 Total Bilirubin 0.3 mg/dl (0.2-1.3) 04/18/18 05:55 AST 30 U/L (14-36) 04/18/18 05:55 ALT 38 U/L (9-52) 04/18/18 05:55 Alkaline Phosphatase 128 U/L (38-126) H 04/18/18 05:55 Total Protein 6.8 G/DL (6.3-8.2) 04/18/18 05:55 Albumin 3.3 g/dL (3.5-5.0) L 04/18/18 05:55 Globulin 3.5 gm/dL (2.2-3.9) 04/18/18 05:55 Albumin/Globulin Ratio 0.9 (1.0-2.1) L 04/18/18 05:55 Triglycerides 105 mg/DL (0-149) 04/12/18 05:55 Lipase 40 U/L (23-300) 04/05/18 12:50 Arterial Blood Potassium 3.0 mmol/L (3.6-5.2) L 04/05/18 17:27 Urine HCG, Qual Negative (NEGATIVE) 04/07/18 14:30 - Hospital Course Hospital Course: 47 yo F with PMHx 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 Patient was admitted in med/surg, kept NPO, NGT was placed and surgery Dr. Park and his team were consulted . She was started initially on IVF , had daily bood work up monitoring her electrolytes . Pain managemnt was cosnulted for help with her pain control during this hospital stay . She was also started on TPN for few days for nutritional support while being closely monitored for her GI function while NPO patient clinically improved , started having bowel movements and finally able to tolerate soft diet . She was switched to Po pain medications and pain has been well controlled . She is cleared by surgery for discharge home on her home meds and with follow up with Dr. Park as outpatient and her oncologist Dx 1.Small Bowel Obstruction possibly due to internal hernia- resolved 2.Chronic back pain - s/p spinal fusion and multiple nerve blocks. Continue pain management 3.NIDDM, chronic , controlled . Resume home meds on discharge 4.HTN,controlled. resume Amlodipine on discharge 5.Metastatic Colon cancer - follow up with her oncologist Dr. Pennington at [facility] 6. Depression - with flat affect. On Cymbalta 7.Skin Rash,likely candidiasis skin infection -- improving with bystatin 8.Fibromyalgia Discharge Exam - Head Exam Head Exam: ATRAUMATIC, NORMAL INSPECTION, NORMOCEPHALIC Additional comments: flat affect - Eye Exam Eye Exam: EOMI, PERRL Pupil Exam: NORMAL ACCOMODATION - ENT Exam ENT Exam: Mucous Membranes Moist, Normal Exam - Neck Exam Neck exam: Full Rom, Normal Inspection - Respiratory Exam Respiratory Exam: Clear to PA & Lateral, NORMAL BREATHING PATTERN. absent: Respiratory Distress - GI/Abdominal Exam GI & Abdominal Exam: Normal Bowel Sounds, Soft. absent: Distended, Guarding, Rigid Additional comments: multiple scars over abdominal wall - Rectal Exam Rectal Exam: Deferred - Extremities Exam Extremities exam: normal capillary refill, normal inspection, pedal pulses present - Back Exam Back exam: NORMAL INSPECTION - Neurological Exam Neurological exam: Alert, CN II-XII Intact, Oriented x3 - Psychiatric Exam Psychiatric exam: Flat Affect - Skin Skin Exam: Dry, Warm Discharge Plan - Follow Up Plan Condition: IMPROVED Disposition: HOME/ ROUTINE Patient education suggested?: Yes Referrals: Richard Park MD [Medical Doctor] -
[2018-04-20] MEDS ORDERED: Povidone Iodine Topical 10% Sol ONE (18:15)
== END 2018-04-20 19:00 | disposition home health service (06) | DRG 552 ==
LOC: H.ER 12:21 → H.ERHOLD 15:56 → H.MEDSURG1 17:49
PROC: 02HV33Z Insertion of Infusion Device into Superior Vena Cava, Percutaneous Approach (ICD-10-PCS; principal; 2018-04-11)
PROC: 3E0436Z Introduction of Nutritional Substance into Central Vein, Percutaneous Approach (ICD-10-PCS; 2018-04-11)
PROC: B518ZZA Fluoroscopy of Superior Vena Cava, Guidance (ICD-10-PCS; 2018-04-11)
PROC: B548ZZA Ultrasonography of Superior Vena Cava, Guidance (ICD-10-PCS; 2018-04-11)
DX: K46.0 Unspecified abdominal hernia with obstruction, without gangrene (principal); C78.7 Secondary malignant neoplasm of liver and intrahepatic bile duct; E87.6 Hypokalemia; C18.9 Malignant neoplasm of colon, unspecified; B37.2 Candidiasis of skin and nail; C79.60 Secondary malignant neoplasm of unspecified ovary; E86.0 Dehydration; K56.690 Other partial intestinal obstruction; E11.9 Type 2 diabetes mellitus without complications; Z92.21 Personal history of antineoplastic chemotherapy; G89.29 Other chronic pain; F32.9 Major depressive disorder, single episode, unspecified; F41.9 Anxiety disorder, unspecified; I10 Essential (primary) hypertension; K21.9 Gastro-esophageal reflux disease without esophagitis; M79.7 Fibromyalgia; Z79.84 Long term (current) use of oral hypoglycemic drugs; Z79.891 Long term (current) use of opiate analgesic; Z79.899 Other long term (current) drug therapy; Z90.49 Acquired absence of other specified parts of digestive tract; Z98.1 Arthrodesis status; M19.90 Unspecified osteoarthritis, unspecified site; J02.9 Acute pharyngitis, unspecified; M54.9 Dorsalgia, unspecified; R59.0 Localized enlarged lymph nodes

== ENCOUNTER 2018-04-27 00:01 | Observation (INO) | payer MEDICAID ==
[2018-04-27 00:02] VITALS: BMI 25.0
[2018-04-27] MEDS ORDERED: Sodium Chloride 0.9% 1,000 ML IV STA (00:31)
--- NOTE | 2018-04-27 01:00 | ED PDOC ---
HPI: Abdomen Time Seen by Provider: 04/27/18 00:21 Chief Complaint (Nursing): Abdominal Pain Chief Complaint (Provider): Abdominal Pain History Per: Patient History/Exam Limitations: no limitations Onset/Duration Of Symptoms: Days (x5) Current Symptoms Are (Timing): Still Present Additional Complaint(s): 47 year old female, well-known to ED for multiple visits with pmHx of GERD, DM, HTN, and metastatic colon cancer, presents with complaints of sharp, constant abdominal pain associated with nausea for the past 5 days. Patient was recently admitted on 04/05/18 for internal herniation with SBO. She states the abdominal pain became worse today with 3 episodes of non-bloody, non-bilious vomiting en route to ED. She denies any fever, chills, or diarrhea. PMD: Dr. Neftali Taylor Past Medical History Reviewed: Historical Data, Nursing Documentation, Vital Signs Vital Signs: Last Vital Signs Temp 98.2 F 04/27/18 00:10 Pulse 113 H 04/27/18 00:10 Resp 16 04/27/18 00:10 BP 113/90 04/27/18 00:10 Pulse Ox 99 04/27/18 00:10 - Medical History PMH: Anxiety, Arthritis, Back Problems, Depression, Diabetes, Fibromyalgia, GERD, HTN, Malignancy Denies: Buchanan's Disease, Alzheimer's Disease, Anemia, Asthma, Atrial Fibrillation, Benign Prostatic Hyperplasia, Bipolar Disorder, Bronchitis, Cardia Arrhythmia, Cardiac Aneurysm, CHF, Colonic Polyps, COPD, Crohn's Disease, Cushi ng's Syndrome, Dementia, Diverticulitis, Deep Vein Thrombosis, Emphysema, Fractures, Gastrointestinal Ulcer, Gall Bladder Disease, Graves' Disease, Hiatal Hernia, HIV, Hypercholesterolemia, Hyperlipidemia, Hyperthyroidism, Hypothyroidism, Kidney Stones, Migraine, Mitral Valve Prolapse, Multiple Scle rosis, Obstructive Bowel, Osteoporosis, Pancreatitis, Parkinson's Disease, Pericarditis, Peripheral Edema, Personality Disorder, Pneumonia, Pneumothorax, Post Traumatic Stress Disorder, Pulmonary Embolism, End Stage Renal Disease, Chronic Kidney Disease, Rheumatoid Arthritis, Schizophrenia, Seizures, Sickle Cell Disease, Sexually Transmitted Disease, Sleep Apnea, TIA - Surgical History Surgical History: Back Surgery, Endoscopy Denies: Appendectomy, CABG, Carotid Endarterectomy, Cholecystectomy, Coronary Stent, Tonsillectomy - Family History Family History: States: Unknown Family Hx - Immunization History Hx Influenza Vaccination: Yes Hx Pneumococcal Vaccination: No - Home Medications Home Medications: Ambulatory Orders Medication Instructions Recorded RX: amLODIPine [Norvasc] 10 mg PO DAILY #0 tab 04/05/15 RX: DULoxetine [Cymbalta] 60 mg PO HS 04/23/15 RX: Omeprazole Magnesium [Prilosec 40 mg PO DAILY 01/30/18 Otc] RX: metFORMIN [glucOPHAGE] 500 mg PO DAILY 02/20/18 RX: HYDROmorphone [Dilaudid] 2 mg PO Q4 #42 tab 02/23/18 RX: Gabapentin [Neurontin] 400 mg PO Q8 04/05/18 RX: Oxycodone HCl [Oxycontin] 60 mg PO Q12 04/05/18 RX: Polyethylene Glycol 3350 17 gm PO Q12 PRN 04/05/18 [Miralax] RX: Nystatin [Mycostatin Oint] 1 applic TOP TID tube 04/20/18 - Allergies Allergies/Adverse Reactions: Allergies Allergy/AdvReac Type Severity Reaction Status Date / Time penicillin G Allergy RASH Verified 04/05/18 12:23 vancomycin Allergy RASH Verified 04/05/18 12:23 Review of Systems ROS Statement: Except As Marked, All Systems Reviewed And Found Negative Constitutional: Negative for: Fever, Chills Gastrointestinal: Positive for: Nausea, Vomiting (NBNB x3), Abdominal Pain. Negative for: Diarrhea Physical Exam - Reviewed Nursing Documentation Reviewed: Yes Vital Signs Reviewed: Yes - Physical Exam Appears: Positive for: Non-toxic, Uncomfortable Head Exam: Positive for: ATRAUMATIC, NORMAL INSPECTION, NORMOCEPHALIC Skin: Positive for: Normal Color Eye Exam: Positive for: Normal appearance ENT: Positive for: Normal ENT Inspection Neck: Positive for: Normal Cardiovascular/Chest: Positive for: Regular Rate, Rhythm Respiratory: Positive for: Normal Breath Sounds. Negative for: Respiratory Distress Gastrointestinal/Abdominal: Positive for: Soft, Tenderness (diffusely) Back: Positive for: Normal Inspection. Negative for: L CVA Tenderness, R CVA Tenderness Extremity: Positive for: Normal ROM (upper/lower) Neurologic/Psych: Positive for: Alert, Oriented - Laboratory Results Result Diagrams: 04/27/18 01:30 04/27/18 01:30 - ECG O2 Sat by Pulse Oximetry: 99 (RA) Pulse Ox Interpretation: Normal Medical Decision Making Medical Decision Making: Initial Impression: 47 year old female with abdominal pain, nausea, and vomiting in setting of known herniation, SBO, and metastatic cancer. Initial Plan: * CT ABD/pelvis with IV contrast * Labs * Dilaudid 2mg IV * IV fluids * Zofran INJ 4mg IV Time: 344 --CT ABD/pelvis Findings: Mild diffuse irregularity of the hepatic contour. 9.3x6.7 cm heterogeneous infiltrative mass of the right hepatic lobe is unchanged. Adjacent hepatic capsular infiltration is unchanged. Mild amount of perihepatic free fluid is unchanged. Unchanged mild right pleural effusion with passive atelectatic airspace disease of the right lower lobe. Unchanged large catherine hepatis the largest measuring 1.3 cm. There is interval appearance of mild intrahepatic biliary ductal dilatation. Absent gallbladder, unchanged. The spleen is normal. The pancreas is of normal contour and attenuation characteristics. There is no evidence of adrenal mass. Both kidneys demonstrate prompt and equal nephrograms. The kidneys are normal in size, shape and configuration. There is no evidence of renal or ureteral mass. No renal or ureteral calculi are identified. There is no hydroureter or hydronephrosis. No evidence for appendicitis. There is no bowel wall thickening. No evidence for small or large bowel obstruction. There is no evidence of intrinsic or extrinsic bladder mass. The bony structures are free of lytic or blastic lesions. Changes from prior disc surgery at L4-L5. IMPRESSION: Mild diffuse irregularity of the hepatic contour. 9.3x6.7 cm heterogeneous infiltrative mass of the right hepatic lobe is unchanged. Adjacent hepatic capsular infiltration is unchanged. Mild amount of perihepatic free fluid is unchanged. Unchanged mild right pleural effusion with passive atelectatic airspace disease of the right lower lobe. Unchanged large catherine hepatis the largest measuring 1.3 cm. There is interval appearance of mild intrahepatic biliary ductal dilatation. Absent gallbladder, unchanged. Time: 356 --Re-eval: patient reports persistent abdominal pain. Additional Dilaudid ordered. Due to patient's significant medical history, she will be placed on observation under Dr. Velasquez's care. Scribe Attestation: Documented by Floridalma Parkinson, acting as a scribe for Juan Smith MD. Provider Scribe Attestation: All medical record entries made by the Scribe were at my direction and personally dictated by me. I have reviewed the chart and agree that the record accurately reflects my personal performance of the history, physical exam, medical decision making, and the department course for this patient. I have also personally directed, reviewed, and agree with the discharge instructions and disposition. Disposition - Clinical Impression Clinical Impression: Colon cancer metastasized to liver, Abdominal pain - Patient ED Disposition Is Patient to be Admitted: Yes - Disposition Disposition Time: 03:30 Condition: FAIR
[2018-04-27 01:56] LABS: BASO % 0.3 % (0.0-2.0); EOS # 0.2 K/uL (0.0-0.7); EOS % 2.5 % (0.0-4.0); HEMOGLOBIN 12.8 g/dL (12.0-16.0); INR 1.2; LYMPH # 0.7 K/uL (1.0-4.3); LYMPH % 9.5 % (20.0-40.0); MEAN CELL VOLUME 83.5 fl (81.0-99.0); MEAN CORPUSCULAR HEMOGLOBIN 27.4 pg (27.0-31.0); MEAN CORPUSCULAR HGB CONC 32.9 g/dL (33.0-37.0); MEAN PLATELET VOLUME 9.6 fl (7.2-11.7); MONO # 0.8 K/uL (0.0-0.8); MONO % 11.1 % (0.0-10.0); NEUT # 5.7 K/uL (1.8-7.0); NEUT % 76.6 % (50.0-75.0); NRBC % 0.1 % (0.0-0.0); PLATELET COUNT 296 K/uL (130-400); PROTHROMBIN TIME 14.1 Seconds (9.8-13.1); RBC 4.68 Mil/uL (3.80-5.20); RED CELL DISTRIBUTION WIDTH 16.8 % (11.5-14.5); WHITE BLOOD COUNT 7.5 K/uL (4.8-10.8)
[2018-04-27 01:58] LABS: PARTIAL THROMBOPLASTIN TIME 36.6 Seconds (25.6-37.1)
[2018-04-27 02:03] LABS: ALB/GLOB RATIO 0.8 (1.0-2.1); ALBUMIN 3.8 g/dL (3.5-5.0); ALT/SGPT 89 U/L (9-52); AST/SGOT 127 U/L (14-36); BLOOD UREA NITROGEN 4 mg/dl (7-17); CALCIUM 9.5 mg/dL (8.4-10.2); GFR NON-AFRICAN AMERICAN > 60; LIPASE 34 U/L (23-300)
[2018-04-27] MEDS ORDERED: Sodium Chloride 0.9% 50 ML IV ONE (02:33)
[2018-04-27] MEDS ORDERED: Iohexol 300 100 ML IJ ONE (02:33)
[2018-04-27 03:00] LABS: ANISOCYTOSIS SLIGHT; LYMPHOCYTE 10 % (20-50); MONOCYTE 13 % (0-10); NEUTROPHIL 77 % (42-75); PLATELET ESTIMATE NORMAL (NORMAL); TOTAL CELLS COUNTED 100
[2018-04-27] MEDS ORDERED: POLYETHYLENE GLYCOL 3350 17 GM/Dose PACKET PO PRN (04:32)
--- NOTE | 2018-04-27 04:32 | CP.PCM.HP ---
Addendum entered and electronically signed by Danis Salmeron MD 04/27/18 11:41: Patient had relief from pain and wished to go home. She will follow up in [facility]. Addendum entered and electronically signed by Forest Haro MD 04/27/18 10:44: S: pt seen and examined at bedside this morning. Pt denies improved control and alleviation of abdominal pain. Reports current meds do nothing for pain. Denies any fever/chills, nausea/vomiting/or diarrhea today. O: Gen: NAD, Lying in bed, uncomfortable oral: moist mucous membranes CV: RRR, S1S2+, No MRG Lungs: CTA B/L, No WRR Abd: soft, tender diffusely, voluntary guarding, no rigidity/distention Ext: no pedal edema, 2+ DP pulses b/l Skin: no rashes A/P: 47 y/o female with hx of colon CA admitted for intractable abdominal pain. -Pain control, pain management consult pending -NPO -IV Fluid hydration Original Note: <Osbaldo Umana - Last Filed: 04/27/18 05:19> History of Present Illness - History of Present Illness History of Present Illness: This is 47 y/o F with PMH of HTN, chronic back/abdominal pain with multiple nerves blocks (Sees pain management as out patient), Colon cancer w/ metastasis to liver (on chemotherapy), Depression, Fibromyalgia, GERD admitted to the [facility] for evaluation and treatment of acute on chronic intractable abdominal pain and chronic back pain. Patient presented to the ER c/o intractable severe abdominal pain which started 5 days ago associated with nausea and vomiting. Pain is constant, 10/10, sharp in nature, generalized, no alleviating (Dilaudid/Oxycontine) or aggravating factors and associated with nausea/vomiting, 3x nonbloddy nonbillious vomiting today with 1 loos BM. Patient did not get her Chrmo this Sunday due to this severe abdominal pain. Denies fever, cough, SOB,chest pain, rectal bleeding, pedal edema, dysuria. Patient s/p bilateral sacroiliac joint injections for back pain on 01/12, Celiac plexus block 01/21/18. Patient has been seen by Heme-Oncologist: Dr. Yovani Pennington at [facility]. PCP: [facility] Heme-Oncologist: Dr. Yovani Pennington at [facility] on chemotherapy Pain management: Dr. Bae PMH: chronic back pain, fibromyalgia, HTN, GERD, colon cancer, anxiety, Colon cancer w/ metastasis to liver (on chemotherapy) PSH: C6 fusion, Colon resection 2014 and b/l oopherectomy, chemoembolization of liver. Allg: penicillin SocialHx: denies ETOH/tobacco/drug abuse FamilyHx: DM, HTN Meds: as per med rec ROS as per HPI ER course: Tm 98.2, PP 113, RR 16, 113/90, Spo2 99 CBC: WNL CMP: Significant for AST 127, ALT 89, ALKP 299 CT abdo: Mostly unchanged CT from prior studies S/p Dilaudid S/p IVF /Bolus S/p Zofran Present on Admission - Present on Admission Any Indicators Present on Admission: No Past Patient History - Infectious Disease Hx of Infectious Diseases: None - Tetanus Immunizations Tetanus Immunization: Unknown - Past Medical History & Family History Past Medical History?: Yes - Past Social History Smoking Status: Never Smoked - CARDIAC Hx Atrial Fibrillation: No Hx Cardia Arrhythmia: No Hx Congestive Heart Failure: No Hx Hypercholesterolemia: No Hx Hypertension: Yes Hx Mitral Valve Prolapse: No Hx Peripheral Edema: No - PULMONARY Hx Asthma: No Hx Bronchitis: No Hx Chronic Obstructive Pulmonary Disease (COPD): No Hx Emphysema: No Hx Pneumonia: No Hx Pulmonary Embolism: No Hx Sleep Apnea: No - NEUROLOGICAL Hx Alzheimer's Disease: No Hx Dementia: No Hx Migraine: No Hx Multiple Sclerosis: No Hx Parkinson's Disease: No Hx Seizures: No Hx Transient Ischemic Attacks (TIA): No - HEENT Hx HEENT Problems: No - RENAL Hx Chronic Kidney Disease: No Hx Kidney Stones: No - ENDOCRINE/METABOLIC Hx Hyperthyroidism: No Hx Hypothyroidism: No - HEMATOLOGICAL/ONCOLOGICAL Hx Anemia: No Hx Human Immunodeficiency Virus (HIV): No Hx Sickle Cell Disease: No - INTEGUMENTARY Hx Dermatological Problems: No - MUSCULOSKELETAL/RHEUMATOLOGICAL Hx Arthritis: Yes Hx Fractures: No Hx Osteoporosis: No Hx Rheumatoid Arthritis: No - GASTROINTESTINAL Hx Crohn's Disease: No Hx Diverticulitis: No Hx Gall Bladder Disease: No Hx Pancreatitis: No - GENITOURINARY/GYNECOLOGICAL Hx Sexually Transmitted Disorders: No - PSYCHIATRIC Hx Anxiety: Yes Hx Bipolar Disorder: No Hx Depression: Yes Hx Post Traumatic Stress Disorder: No Hx Schizophrenia: No - SURGICAL HISTORY Hx Appendectomy: No Hx Carotid Endarterectomy: No Hx Cholecystectomy: No Hx Coronary Artery Bypass Graft: No Hx Coronary Stent: No Hx Tonsillectomy: No - ANESTHESIA Hx Anesthesia: Yes Hx Anesthesia Reactions: No Hx Malignant Hyperthermia: No Meds Allergies/Adverse Reactions: Allergies Allergy/AdvReac Type Severity Reaction Status Date / Time penicillin G Allergy RASH Verified 04/05/18 12:23 vancomycin Allergy RASH Verified 04/05/18 12:23 Physical Exam - Constitutional Appears: In Acute Distress (Mild) - Head Exam Head Exam: NORMAL INSPECTION - Eye Exam Eye Exam: Normal appearance - ENT Exam ENT Exam: Mucous Membranes Moist - Neck Exam Neck exam: Positive for: Normal Inspection - Respiratory Exam Respiratory Exam: Clear to Auscultation Bilateral, NORMAL BREATHING PATTERN. absent: Rhonchi, Wheezes - Cardiovascular Exam Cardiovascular Exam: REGULAR RHYTHM, +S1, +S2 - GI/Abdominal Exam GI & Abdominal Exam: Normal Bowel Sounds, Soft, Tenderness (mild b/l UQ) - Extremities Exam Extremities exam: Positive for: normal inspection - Back Exam Back exam: NORMAL INSPECTION. absent: CVA tenderness (L), CVA tenderness (R) - Neurological Exam Neurological exam: Alert, CN II-XII Intact, Oriented x3 - Psychiatric Exam Psychiatric exam: Normal Affect - Skin Skin Exam: Normal Color Results - Vital Signs Recent Vital Signs: Last Vital Signs Temp 98.2 F 04/27/18 00:10 Pulse 113 H 04/27/18 00:10 Resp 16 04/27/18 00:10 BP 113/90 04/27/18 00:10 Pulse Ox 99 04/27/18 04:26 - Labs Result Diagrams: 04/27/18 01:30 04/27/18 01:30 Labs: Laboratory Results - last 24 hr 04/27/18 04/27/18 04/27/18 01:30 01:30 01:30 WBC 7.5 RBC 4.68 Hgb 12.8 Hct 39.1 MCV 83.5 MCH 27.4 MCHC 32.9 L RDW 16.8 H Plt Count 296 MPV 9.6 Neut % (Auto) 76.6 H Lymph % (Auto) 9.5 L [place] % (Auto) 11.1 H Eos % (Auto) 2.5 Baso % (Auto) 0.3 Neut # (Auto) 5.7 Lymph # (Auto) 0.7 L [place] # (Auto) 0.8 Eos # (Auto) 0.2 Baso # (Auto) 0.0 Neutrophils % (Manual) 77 H Lymphocytes % (Manual) 10 L Monocytes % (Manual) 13 H Platelet Estimate Normal Anisocytosis (manual) Slight PT INR APTT Sodium 135 Potassium 4.2 Chloride 97 L Carbon Dioxide 28 Anion Gap 14 BUN 4 L Creatinine 0.4 L Est GFR ( Amer) > 60 Est GFR (Non-Af Amer) > 60 Random Glucose 144 H Lactic Acid 1.1 Calcium 9.5 Total Bilirubin 4.0 H AST 127 H D ALT 89 H D Alkaline Phosphatase 299 H D Total Protein 8.4 H Albumin 3.8 Globulin 4.6 H Albumin/Globulin Ratio 0.8 L Lipase 34 04/27/18 01:30 WBC RBC Hgb Hct MCV MCH MCHC RDW Plt Count MPV Neut % (Auto) Lymph % (Auto) [place] % (Auto) Eos % (Auto) Baso % (Auto) Neut # (Auto) Lymph # (Auto) [place] # (Auto) Eos # (Auto) Baso # (Auto) Neutrophils % (Manual) Lymphocytes % (Manual) Monocytes % (Manual) Platelet Estimate Anisocytosis (manual) PT 14.1 H INR 1.2 APTT 36.6 Sodium Potassium Chloride Carbon Dioxide Anion Gap BUN Creatinine Est GFR ( Amer) Est GFR (Non-Af Amer) Random Glucose Lactic Acid Calcium Total Bilirubin AST ALT Alkaline Phosphatase Total Protein Albumin Globulin Albumin/Globulin Ratio Lipase Assessment & Plan - Assessment and Plan (Free Text) Assessment: A/P: 47 y/o F with PMH of HTN, chronic back/abdominal pain with multiple nerves blocks (Sees pain management as out patient), Colon cancer w/ metastasis to liver (on chemotherapy), Depression, Fibromyalgia, GERD admitted to the [facility] for evaluation and treatment of intractable abdominal/back pain Intractable abdominal pain, Acute on chronic, 2/2 metastatic colon Ca - Afebrile - CT abd/pelvis: Liver mass, unchanged from prior studies - Pain management consult, Dr. Bae, f/u recs - NPO - C/w IVF - Pain control: Hydromorphone PRN/ Oxycodone/ Tylenol#3/ Lidoderm patch for back/ Gabapentin 400 mg TID - Zofran for nausea and vomiting Chronic back pain - 2/2 metastatic colon Ca - Chronic, H/O multiple lumbar surgeries. - Lidoderm patch for back pain - Pain management consult, Dr. Bae, will follow recommendations - Pain control: Hydromorphone PRN/ Oxycodone/ Tylenol#3/ Lidoderm patch for back NIDDM - Controlled - Last A1c 7.7 on 11/19/17 - Low dose sliding scale - Hold metformin - Hypoglycemia protocol HTN - Controlled - Hold Amlodipine 10 mg QD - Monitor vitals Fibromyalgia - Controlled - Gabapentin 400 mg TID - Duloxetine 60 mg PO HS DVT prophylaxis - Lovenox 40mg SC daily <Virgilio Velasquez - Last Filed: 04/27/18 07:20> Results - Vital Signs Recent Vital Signs: Last Vital Signs Temp 98.1 F 04/27/18 05:30 Pulse 88 04/27/18 05:30 Resp 18 04/27/18 05:33 BP 118/81 04/27/18 05:30 Pulse Ox 98 04/27/18 05:30 - Labs Result Diagrams: 04/27/18 01:30 04/27/18 01:30 Labs: Laboratory Results - last 24 hr 04/27/18 04/27/18 04/27/18 01:30 01:30 01:30 WBC 7.5 RBC 4.68 Hgb 12.8 Hct 39.1 MCV 83.5 MCH 27.4 MCHC 32.9 L RDW 16.8 H Plt Count 296 MPV 9.6 Neut % (Auto) 76.6 H Lymph % (Auto) 9.5 L [place] % (Auto) 11.1 H Eos % (Auto) 2.5 Baso % (Auto) 0.3 Neut # (Auto) 5.7 Lymph # (Auto) 0.7 L [place] # (Auto) 0.8 Eos # (Auto) 0.2 Baso # (Auto) 0.0 Neutrophils % (Manual) 77 H Lymphocytes % (Manual) 10 L Monocytes % (Manual) 13 H Platelet Estimate Normal Anisocytosis (manual) Slight PT INR APTT Sodium 135 Potassium 4.2 Chloride 97 L Carbon Dioxide 28 Anion Gap 14 BUN 4 L Creatinine 0.4 L Est GFR ( Amer) > 60 Est GFR (Non-Af Amer) > 60 Random Glucose 144 H Lactic Acid 1.1 Calcium 9.5 Total Bilirubin 4.0 H AST 127 H D ALT 89 H D Alkaline Phosphatase 299 H D Total Protein 8.4 H Albumin 3.8 Globulin 4.6 H Albumin/Globulin Ratio 0.8 L Lipase 34 04/27/18 01:30 WBC RBC Hgb Hct MCV MCH MCHC RDW Plt Count MPV Neut % (Auto) Lymph % (Auto) [place] % (Auto) Eos % (Auto) Baso % (Auto) Neut # (Auto) Lymph # (Auto) [place] # (Auto) Eos # (Auto) Baso # (Auto) Neutrophils % (Manual) Lymphocytes % (Manual) Monocytes % (Manual) Platelet Estimate Anisocytosis (manual) PT 14.1 H INR 1.2 APTT 36.6 Sodium Potassium Chloride Carbon Dioxide Anion Gap BUN Creatinine Est GFR ( Amer) Est GFR (Non-Af Amer) Random Glucose Lactic Acid Calcium Total Bilirubin AST ALT Alkaline Phosphatase Total Protein Albumin Globulin Albumin/Globulin Ratio Lipase Attending/Attestation - Attestation I have personally seen and examined this patient.: Yes I have fully participated in the care of the patient.: Yes I have reviewed all pertinent clinical information: Yes Notes (Text): 04/27/18 07:15 i saw and examined this patient with Dr Umana. I agree with the assessment and plan above which reflect my direct input. this is a 47 years old female with colon cancer metastasized to the liver result ing in severe abdominal pains. She came to the ED because of the pain not being controlled with her home medication.The CT abdomen showed no changes CT abdomen/pelvis IMPRESSION: Mild diffuse irregularity of the hepatic contour. 9.3x6.7 cm heterogeneous infiltrative mass of the right hepatic lobe is unchanged. Adjacent hepatic capsular infiltration is unchanged. Mild amount of perihepatic free fluid is unchanged. Unchanged mild right pleural effusion with passive atelectatic airspace disease of the right lower lobe. Unchanged large catherine hepatis the largest measuring 1.3 cm. There is interval appearance of mild intrahepatic biliary ductal dilatation. Absent gallbladder, unchanged. The patient is being observed for Pain management Virgilio Velasquez MD
[2018-04-27] MEDS ORDERED: HYDROmorphone 1 mg/ml ISec IM PRN ×2 (04:46→09:20)
[2018-04-27] MEDS ORDERED: Acetaminophen-Codeine 300/30 mg Tab PO PRN (04:50)
[2018-04-27] MEDS ORDERED: Sodium Chloride 0.9% 1,000 ML IV SCH (05:00)
[2018-04-27] MEDS ORDERED: Dextrose 50% SYRINGE Inj (50 ml) IV PRN (05:09)
[2018-04-27] MEDS ORDERED: Glucagon Recombinant 1 mg Inj IM PRN (05:09)
[2018-04-27] MEDS: Insulin Lispro (humaLOG) 100 Units/ml Inj SC SCH ×2 (07:36→12:17)
[2018-04-27] MEDS ORDERED: oxyCODONE 20 mg ER Tab (oxyCONTIN) PO SCH (09:00)
[2018-04-27] MEDS ORDERED: Lidocaine 5% Patch TD SCH (09:00)
[2018-04-27 09:05] VITALS: BP 146/99; PULSE 87; RESP 20; TEMP 97.9
--- NOTE | 2018-04-27 10:25 | CT ---
Date of service: 04/27/2018 PROCEDURE: CT Abdomen and Pelvis with and without intravenous contrast HISTORY: abd pain hx CA/SBO COMPARISON: None. TECHNIQUE: Axial images of the abdomen were obtained in the pre contrast, portal venous and delayed phases of enhancement. Coronal and sagittal reformats were generated. Contrast dose: Radiation dose: Total exam DLP = 635.6 mGy-cm. This CT exam was performed using one or more of the following dose reduction techniques: Automated exposure control, adjustment of the mA and/or kV according to patient size, and/or use of iterative reconstruction technique. FINDINGS: LOWER THORAX: Small right pleural effusion. LIVER: 9.3 x 6.7 centimeter heterogeneous infiltrative mass in the right hepatic lobe, unchanged with associated irregularity of the hepatic contour and capsular infiltration. Small amount of perihepatic free fluid. GALLBLADDER AND BILE DUCTS: Cholecystectomy. PANCREAS: Unremarkable. No gross lesion or ductal dilatation. SPLEEN: Unremarkable. ADRENALS: Unremarkable. No mass. KIDNEYS AND URETERS: Unremarkable. No hydronephrosis. No solid mass. VASCULATURE: Unremarkable. No aortic aneurysm. No aortic atherosclerotic calcification or mural plaque present. BOWEL: Unremarkable. No obstruction. No gross mural thickening. APPENDIX: Normal appendix. PERITONEUM: Unremarkable. No free fluid. No free air. LYMPH NODES: Colleen hepatis and retroperitoneal lymphadenopathy. BLADDER: Unremarkable. REPRODUCTIVE: Unremarkable. BONES: No acute fracture. OTHER FINDINGS: None. IMPRESSION: 9.3 x 6.7 centimeter heterogeneous infiltrative mass in the right hepatic lobe, unchanged with associated irregularity of the hepatic contour and capsular infiltration. Small amount of perihepatic free fluid. Colleen hepatis and retroperitoneal lymphadenopathy.
[2018-04-27] MEDS ORDERED: Enoxaparin 40 mg Syringe SC SCH ×2 (22:00)
[2018-04-27 23:27] VITALS: O2SAT 99
== END 2018-04-27 12:51 | disposition home or self-care (01) ==
LOC: H.ER 00:01 → H.ERHOLD 03:55 → H.MEDSURG1 05:24
PROVIDERS: ADMIT Internal Medicine; ATTEND Internal Medicine
DX: C18.9 Malignant neoplasm of colon, unspecified (principal); C78.7 Secondary malignant neoplasm of liver and intrahepatic bile duct; E11.9 Type 2 diabetes mellitus without complications; G89.29 Other chronic pain; I10 Essential (primary) hypertension; J90 Pleural effusion, not elsewhere classified; K21.9 Gastro-esophageal reflux disease without esophagitis; M79.7 Fibromyalgia; Z79.84 Long term (current) use of oral hypoglycemic drugs; Z79.899 Other long term (current) drug therapy; Z85.038 Personal history of other malignant neoplasm of large intestine; Z90.49 Acquired absence of other specified parts of digestive tract; F32.9 Major depressive disorder, single episode, unspecified; F41.9 Anxiety disorder, unspecified; M19.90 Unspecified osteoarthritis, unspecified site; M54.9 Dorsalgia, unspecified
CPT/HCPCS: 74177; 80053; 81025; 82948; 83605; 83690; 85025; 85610; 85730; 99285; G0378; J1170; J2405; J7030; Q9967